=== PATIENT | male | born 1960 | race Caucasian/White ===

== ENCOUNTER 2018-01-22 12:46 | Outpatient (CLI) | payer MEDICARE, MEDICAID ==
[~2018-01-22 12:46] MED LIST: Gadobenate Dimeglumine 529 MG/1 ML (20ML VIAL) ONE
--- NOTE | 2018-01-22 14:41 | RAD ---
FOUR VIEWS CERVICAL SPINE: DATE: 01/22/18. COMPARISON: None. HISTORY: Spondylosis with myelopathy. FINDINGS: There is anterolisthesis of C3 on C4 measuring 3-4 mm. There is anterolisthesis of C4 on C5 measurin g approximately 6 mm. There is prominent degenerative change involving the facet joints throughout t he cervical spine, most prominent at C4-5. There appears to be osseous fusion at the intervertebral disk level at C5-6. No anterolisthesis or retrolisthesis is seen at the cervicothoracic junction on the swimmer's lateral view. No discrete prevertebral soft tissue swelling. Open-mouth odontoid view demonstrates a normal-appearing dens in C1-2 articulation. At C4-5, there is prominent disk space n arrowing with degenerative end plate change and anterior osteophyte formation. IMPRESSION: Severe degenerative changes are noted within the mid and lower cervical spine which include prominent anterolisthesis at C4-5 with degenerative end plate change and anterior osteophyte formation. Flexi on and extension imaging as well as cross-sectional imaging via MRI or CT may be beneficial. POS: [facility]
--- NOTE | 2018-01-22 15:34 | MRI ---
CERVICAL SPINE MRI WITHOUT CONTRAST 01/22/18 HISTORY: Cervical spondylosis. Pain. COMPARISON: None. TECHNIQUE: Cervical spine MRI is performed without intravenous gadolinium administration. Multisequential, multi planar imaging is performed. FINDINGS: 3.3 mm of anterolisthesis of C4 upon C5. There is fusion change at C5-C6 which may be postoperative. The visualized brain parenchyma, cervicomedullary junction, upper cervical cord, have an overall norm al size and signal intensity. There is subtle T2 hyperintensity and STIR hyperintensity involving the cervical cord at C4-C5 likely on the basis of malacic change. Remainder of the cervical cord is unre markable. Upper thoracic cord is also unremarkable. C2-C3: No significant central canal stenosis. Mild right foraminal narrowing. Left neural foramen is patent. C3-C4: Broad based disc osteophyte complex abuts the thecal sac. Moderate central canal stenosis. Deg enerative changes in the bilateral uncovertebral joints results in mild to moderate right and moderat e left foraminal narrowing. C4-C5: There is severe central canal stenosis secondary to spondylolisthesis. There is deformity of t he cervical cord with T2 hyperintensity in the cord suggesting malacic change. Right neural foramen a ppears to be patent. Moderate left foraminal narrowing. C5-C6: There is a broad based osteophyte ridge with a central and right paracentral component. Mild c entral canal stenosis. Neural foramina are patent. C6-C7: Right paracentral disc osteophyte complex. Mild central canal stenosis. Degenerative change in bilateral uncovertebral joints results in moderate bilateral foraminal narrowing. C7-T1: No significant central canal stenosis. Neural foramina are moderately to severely narrowed kirk aterally. Sagittal images demonstrate significant central disc bulge at T2-3, incompletely evaluated. IMPRESSION: 1. Severe central canal stenosis at C3-C4 with cord malacia. 2. Severe bilateral neural foraminal narrowing at C7-T1. 3. Presumed postoperative fusion of C5-C6. POS: [facility]
--- NOTE | 2018-01-22 16:04 | MRI ---
MRI LUMBAR SPINE WITH AND WITHOUT CONTRAST: Multiplanar, multisequential imaging lumbar spine obtained. Postcontrast images were obtained after administration of MultiHance IV. INDICATION: Lumbar spondylosis. Back pain. FINDINGS: The lumbar vertebrae maintain height. Moderate degenerative changes are present throughout. There a re prominent osteophytes from the lumbar vertebrae. Loss of disk space with degenerative disk and en d plate changes seen at all levels in the lumbar spine. At T12-L1, no significant disk bulge. Facet arthrosis without central canal or foraminal stenosis. At L1-2, broad-based disk bulge asymmetric to the right flattening the thecal sac more prominently on the right. Mild facet arthrosis. Mild central canal stenosis. At L2-3, loss of disk space with degenerative disk and end plate change. Broad-based disk bulge, Fa cet hypertrophy. Posterior epidural fat. Mild to moderate central canal stenosis. Bilateral forami nal encroachment due to disk bulge and hypertrophic change. At L3-4, broad-based disk bulge/protrusion more pronounced to the left. This flattens the thecal sac . There is facet hypertrophy and posterior epidural fat compressing the thecal sac resulting in mode rate central canal stenosis. Bilateral foraminal encroachment more prominent to the right due to asy mmetric disk bulge and facet hypertrophy. At L4-5, loss of disk space with degenerative disk and end plate change. Broad-based disk bulge. Pr onounced facet hypertrophy. Moderate central canal stenosis. There is abnormal signal in the anterior spinal canal on the left with abnormal signal migrating supe riorly consistent with disk-osteophyte complex. There is a focal area of low signal anterior spinal canal on the left just above the disk space measuring approximately 8-9 mm AP dimension suggesting a migrated disk-osteophyte complex in the anterior spinal canal above the L4-5 disk space. There is bi lateral foraminal stenosis at this level more severe on the left. CT would be of benefit to better assess the osseous changes at this level. At L5-S1, broad-based disk bulge. Facet hypertrophy. Congenitally small thecal sac without signific ant central canal stenosis. Bilateral foraminal encroachment more prominent on the right due to asym metric disk-osteophyte complex extending to the right. IMPRESSION: 1. Degenerative disk and end plate changes throughout the lumbar spine. Moderate central canal sten osis at L4-5 with evidence of extruded disk on the left with superior migration in the anterior spina l canal on the left. 2. Moderate central canal stenosis at L2-3 and L3-4 as described [address] 3[address] CT may be of benefit to further evaluate the osseous hypertrophy. POS: [facility]
== END 2018-01-22 12:47 | disposition home or self-care (01) ==
LOC: TBSIIMAG 12:46
PROVIDERS: ATTEND Neurological Surgery
DX: M47.812 Spondylosis without myelopathy or radiculopathy, cervical region (principal); M47.16 Other spondylosis with myelopathy, lumbar region; M43.12 Spondylolisthesis, cervical region; M25.78 Osteophyte, vertebrae; M51.36 Other intervertebral disc degeneration, lumbar region; M48.061 Spinal stenosis, lumbar region without neurogenic claudication; M48.02 Spinal stenosis, cervical region; M99.81 Other biomechanical lesions of cervical region; G95.89 Other specified diseases of spinal cord; M99.82 Other biomechanical lesions of thoracic region; Z98.1 Arthrodesis status
CPT/HCPCS: 72040; 72141; 72158; 82565; A9579

== ENCOUNTER 2018-06-08 06:32 | Outpatient (CLI) | payer MEDICARE, MEDICAID ==
[2018-06-08 10:25] LABS: Hemoglobin 15.2 g/dL (14.0-18.0); Mean Corpuscular HGB CONC 33.4 g/dL (32.0-36.0); Mean Corpuscular Hemoglobin 31.8 pg (27.0-31.0); Mean Corpuscular Volume 95.2 fL (78.0-98.0); Mean Platelet Volume 6.5 fL (7.4-10.4); Platelet Count 220 thou/uL (130-400); Red Blood Cell (RBC) Count 4.77 mill/uL (4.70-6.10); White Blood Cell (WBC) Count 6.2 thou/uL (4.8-10.8)
[2018-06-08 10:40] LABS: Anion Gap 11 mmol/L (10-20); BUN (Urea Nitrogen) 21 mg/dL (8.4-25.7); Calc. Creatinine Clearance 0 mL/min (70-130); Calcium 9.1 mg/dL (7.8-10.44); Carbon Dioxide 27 mmol/L (22-29); Chloride 104 mmol/L (98-107); Estimated GFR-MDRD 60; Glucose 86 mg/dL (70-105); Potassium 4.9 mmol/L (3.5-5.1); Sodium 137 mmol/L (136-145)
== END 2018-06-08 06:33 | disposition home or self-care (01) ==
LOC: LABBT 06:32
PROVIDERS: ATTEND Neurological Surgery
DX: Z01.818 Encounter for other preprocedural examination (principal); M47.812 Spondylosis without myelopathy or radiculopathy, cervical region
CPT/HCPCS: 80048; 85027; 93005; 93010

== ENCOUNTER 2018-06-08 09:00 | Inpatient (IN) | payer MEDICARE, MEDICAID ==
[2018-06-15] MEDS ORDERED: Sodium Chloride 0.9% 10 ML ONE (12:13)
[2018-06-15] MEDS ORDERED: Fentanyl 100 MCG/2 ML VIAL ONE ×5 (12:32→15:15)
[2018-06-15] MEDS ORDERED: Bacitracin Zinc Ointment 30 gm TUBE ONE (13:16)
[2018-06-15] MEDS ORDERED: HYDROmorphone 2 MG/ML VIAL SLOW IVP PRN (14:23)
[2018-06-15] MEDS ORDERED: Ondansetron HCl/PF 4 MG/2 ML Vial IVP PRN (14:23)
[2018-06-15] MEDS ORDERED: Promethazine HCl 25 MG/ML VIAL SLOW IVP PRN (14:23)
[2018-06-15] MEDS ORDERED: Promethazine HCl 25 MG/ML VIAL IM PRN ×2 (14:23→15:08)
[2018-06-15] MEDS ORDERED: Meperidine HCl/PF 25 MG/ML VIAL SLOW IVP PRN (14:23)
[2018-06-15] MEDS ORDERED: Meperidine HCl/PF 25 MG/ML VIAL ONE (14:51)
[2018-06-15] MEDS ORDERED: Mag-Al 1200 mg/1200 mg/30 ML UDCUP PO PRN (15:08)
[2018-06-15] MEDS ORDERED: diphenhydrAMINE 25 MG CAP PO PRN (15:08)
[2018-06-15] MEDS ORDERED: traMADol HCl 50 MG TAB PO PRN (15:08)
[2018-06-15] MEDS ORDERED: HYDROcodone/Acetaminophen 10/325 mg Tablet PO PRN (15:08)
[2018-06-15] MEDS ORDERED: Promethazine HCl 12.5 MG SUPP PR PRN (15:08)
[2018-06-15] MEDS ORDERED: Milk Of Magnesia 30 ML UDCUP PO PRN (15:08)
[2018-06-15] MEDS ORDERED: Promethazine 25 MG TAB PO PRN (15:08)
[2018-06-15] MEDS ORDERED: Morphine 4 MG/ML VIAL SLOW IVP PRN (15:08)
[2018-06-15] MEDS ORDERED: diphenhydrAMINE 50 MG/ML VIAL IVP PRN (15:08)
[2018-06-15] MEDS ORDERED: Ondansetron PF 4 MG/2 ML Vial IVP PRN (15:17)
[2018-06-15] MEDS ORDERED: CODEINE PO PRN (15:22)
[2018-06-15] MEDS ORDERED: ACETAMINOPHEN PO PRN (15:22)
[2018-06-15] MEDS ORDERED: HYDROmorphone 2 MG/ML VIAL ONE (15:27)
[2018-06-15] MEDS ORDERED: Ondansetron PF 4 MG/2 ML Vial ONE (17:00)
[2018-06-15] MEDS ORDERED: PHENYLEPHRINE-NS 100 MCG/ML 10 ML SYRINGE ONE (17:00)
[2018-06-15] MEDS ORDERED: Rocuronium Bromide 10 MG/ML (10ML VIAL) ONE (17:00)
[2018-06-15] MEDS ORDERED: Glycopyrrolate 0.2 MG/ML 5 ML SYRINGE ONE (17:00)
[2018-06-15] MEDS ORDERED: Metoclopramide HCl 10 MG/2 ML VIAL ONE (17:00)
[2018-06-15] MEDS ORDERED: Ketorolac Tromethamine 30 MG/ML VIAL ONE (17:00)
[2018-06-15] MEDS ORDERED: Dexamethasone 20 MG/5 ML VIAL ONE (17:00)
[2018-06-15] MEDS ORDERED: PROPOFOL 200 MG/20 ML VIAL ONE (17:00)
[2018-06-15 17:31] VITALS: BMI 43.0
--- NOTE | 2018-06-15 17:48 | OP ---
DATE OF PROCEDURE: 06/15/2018 TELEHEALTH NURSE: Emerson Maxwell PA-C. PROCEDURES PERFORMED: Anterior cervical diskectomy C4-C5, interbody arthrodesis, intervertebral biomechanical device, local morselized autograft, demineralized bone matrix, anterior titanium instrumentation C4-C5, expiration of spinal fusion C5-C6; posterior approach C4-C5 laminectomy, C4-C5 posterolateral arthrodesis, lateral mass screw instrumentation, demineralized bone matrix, local morselized autograft C4-C5. DESCRIPTION OF PROCEDURE: The patient was brought to the operating room and intubated. He was positioned supine in modest extension on a gel-filled donut. Exposure was quite difficult given the patient's very large body habitus, but was also difficult given prior scar from endarterectomy and prior cervical surgery, dissected medial to the sternocleidomastoid muscle, identified the C4-C5 level and the level was confirmed by x-ray. We placed distraction across the disk space and debrided osteophytes. We debrided the intervertebral disk down to the PLL decompressing the neural elements from this approach. We then decorticated the bony endplates of the purpose of arthrodesis, and appropriate-sized intervertebral biomechanical PEEK device was brought into the field and filled with demineralized bone matrix and local morselized autograft, and tapped in place securely at C4-C5. Next, an anterior plate was brought into the field and secured at C4 and C5 using two 14-mm screws at each level achieving 7 degree of reduction using the plate. We next explored the C5-C7 anterior fusion and found to be solid. This wound was then extensively irrigated. Maximum hemostasis was secured, and the wound was closed in anatomic layers over drain. The patient was then rolled in a prone position with the head fixed in a Jayda housekeeper head in neutral position. Midline incision was made exposing C4-C5 and level was confirmed by x-ray. We performed complete C5 and complete C4 laminectomy, completely decompressing the neural elements. We then placed lateral mass screws on the right at C4 and C5, connected by celina secured by nuts, which were final tightened. The wound was then extensively irrigated, and maximum hemostasis was secured. Combination of demineralized bone matrix and local morselized autograft was laid over the left posterolateral surface of the purpose of arthrodesis. Vancomycin powder was applied, and the wound was closed in anatomic layers over drain. Job ID: [id number]
[2018-06-15] MEDS ORDERED: CEFAZOLIN 2 GM in Premix Bag 1 BAG IVPB SCH (18:00)
[2018-06-15] MEDS: Sodium Chloride 0.9% 1,000 ML IV SCH (19:16)
[2018-06-15] MEDS: CEFAZOLIN 2 GM in Premix Bag 1 BAG IVPB SCH (20:08)
[2018-06-15] MEDS: clonazePAM 1 MG TAB PO SCH (20:09)
[2018-06-15] MEDS: traZODone HCl 150 MG TAB PO SCH (20:09)
[2018-06-15] MEDS: Nicotine 14 MG PATCH TOP SCH (21:55)
[2018-06-15] MEDS: traMADol HCl 50 MG TAB PO PRN (22:26)
[2018-06-16] MEDS: HYDROcodone/Acetaminophen 10/325 mg Tablet PO PRN ×4 (03:14→22:44)
[2018-06-16] MEDS: CEFAZOLIN 2 GM in Premix Bag 1 BAG IVPB SCH (05:11)
[2018-06-16] MEDS: Sodium Chloride 0.9% 1,000 ML IV SCH ×2 (05:56→17:34)
--- NOTE | 2018-06-16 05:59 | CON ---
DATE OF CONSULTATION: REASON FOR CONSULTATION: Medical management. HISTORY OF PRESENT ILLNESS: He is a 57-year-old male with history of hypertension, underwent cervical fusion, anterior and posterior. Postop, he has adequate pain control and has drain intact. He denies any chest pain or shortness of breath. His vital signs; pulse 94, blood pressure 135/76, respirations 17, temperature 97.4. PAST MEDICAL HISTORY: Hypertension and cervical stenosis. MEDICATIONS: Medicines taking at home, 1. Lisinopril 30 mg daily. 2. Amlodipine 5 mg daily. 3. Lasix 20 mg daily. 4. Tylenol No.4 for the pain. 5. Effexor 225 daily. 6. Plavix 75 daily. 7. Aspirin 81 daily. PERSONAL HISTORY: Denies alcohol and drug use. FAMILY HISTORY: Noncontributory. REVIEW OF SYSTEMS: CONSTITUTIONAL: No fever. No malaise. RESPIRATORY: No short of breath. No wheezing. No cough. CARDIOVASCULAR: No chest pain. No palpitation. No PND. No orthopnea. ABDOMEN: No nausea. No vomiting. MUSCULOSKELETAL: He has neck pain and back pain. HEMATOLOGIC/LYMPHATIC: No any bruising or clot disorder. SKIN: No rash. PHYSICAL EXAMINATION: GENERAL: When examined, he is a middle-aged man, lying in the bed, not in distress. VITAL SIGNS: Pulse 94, blood pressure 117/68, respirations 16, and temperature 98.4. HEENT: Head is atraumatic and normocephalic. Pupils are round and reactive. NECK: He has a drain in place status post surgery. CHEST: Normal vesicular breathing. No added sounds. CVS: S1 audible. No S3 or S4. ABDOMEN: Soft. Bowel sounds are audible. EXTREMITIES: No pedal edema. ASSESSMENT AND PLAN: 1. Cervical stenosis, status post cervical fusion and laminectomy. Continue postop care and pain management. 2. Hypertension. Continue lisinopril and amlodipine. 3. History of chronic obstructive pulmonary disease, on aspirin and Plavix. We hold at this point. Job ID: [id number] MTDD
[2018-06-16] MEDS: Venlafaxine HCl XR 75 MG CAP PO SCH (08:02)
[2018-06-16] MEDS: Furosemide 20 MG TAB PO SCH (08:02)
[2018-06-16] MEDS: Amlodipine 5 MG TAB PO SCH (08:02)
[2018-06-16] MEDS: Lisinopril 10 MG TAB PO SCH (08:03)
[2018-06-16] MEDS: tiZANidine HCl 4 MG TAB PO PRN (12:44)
[2018-06-16] MEDS: clonazePAM 1 MG TAB PO SCH (20:19)
[2018-06-16] MEDS: traZODone HCl 150 MG TAB PO SCH (20:19)
[2018-06-16] MEDS: Nicotine 14 MG PATCH TOP SCH (21:19)
[2018-06-17] MEDS: traMADol HCl 50 MG TAB PO PRN (02:20)
[2018-06-17] MEDS: tiZANidine HCl 4 MG TAB PO PRN (02:21)
[2018-06-17] MEDS: HYDROcodone/Acetaminophen 10/325 mg Tablet PO PRN ×2 (03:35→09:08)
[2018-06-17] MEDS: Sodium Chloride 0.9% 1,000 ML IV SCH (06:07)
--- NOTE | 2018-06-17 07:51 | PDOC.PN ---
- Subjective Encounter Start Date: 06/17/18 Encounter Start Time: 09:35 Subjective: Neck pain controlled with pain meds. No chest pain. Baseline SOB from -: COPD, getting nebs. - Objective MAR Reviewed: Yes Vital Signs & Weight: Vital Signs (12 hours) Temp Pulse Resp BP Pulse Ox 06/17/18 04:38 97.7 F 95 20 104/61 95 06/17/18 00:51 97.9 F 94 20 119/68 94 L 06/16/18 20:46 98.7 F 92 20 118/68 92 L 06/16/18 20:09 92 L Weight Weight 300 lb I&O: 06/16/18 06/17/18 06/18/18 06:59 06:59 06:59 Intake Total 1637.5 980 Output Total 1855 Balance -217.5 980 Phys Exam - Physical Examination Constitutional: NAD HEENT: moist MMs anterior dressing c/d/i Respiratory: no wheezing, no rales, no rhonchi Cardiovascular: RRR Gastrointestinal: soft, positive bowel sounds Neurological: non-focal, moves all 4 limbs Psychiatric: normal affect, A&O x 3 Dx/Plan (1) Hypertension Code(s): I10 - ESSENTIAL (PRIMARY) HYPERTENSION Status: Chronic Qualifiers: Hypertension type: essential hypertension Qualified Code(s): I10 - Essential (primary) hypertension Comment: On home medication, well controlled (2) COPD (chronic obstructive pulmonary disease) Status: Chronic Comment: on home inhaler and nebs prn (3) S/P cervical spinal fusion Status: Acute Comment: holding aspiring and plavix (4) Peripheral vascular disease Code(s): I73.9 - PERIPHERAL VASCULAR DISEASE, UNSPECIFIED Status: Chronic Comment: Hx right CEA (5) CAD (coronary artery disease) Code(s): I25.10 - ATHSCL HEART DISEASE OF [place] CORONARY ARTERY W/O ANG PCTRS Status: Chronic Qualifiers: Coronary Disease-Associated Artery/Lesion type: [place] artery Comment: Dr. James unable to place stents per patient, on ASA and Plavix, hold these for 2 weeks after the surgery - Plan cont current plan of care, PT/OT, DVT proph w/SCDs Home today, Neuro Surg followup in 2 weeks * . - Discharge Day Encounter end time: 09:45
[2018-06-17 08:11] VITALS: TEMP 98.7
[2018-06-17] MEDS ORDERED: VILANTEROL TR INH SCH (09:00)
[2018-06-17] MEDS ORDERED: Non-Formulary Item 1 EACH (Umeclidinium Brm/Vilanterol Tr [Anoro Ellipta] 1 PUFF) INH SCH (09:00)
[2018-06-17] MEDS ORDERED: UMECLIDINIUM BRM INH SCH (09:00)
[2018-06-17] MEDS: Furosemide 20 MG TAB PO SCH (09:07)
[2018-06-17] MEDS: Venlafaxine HCl XR 75 MG CAP PO SCH (09:07)
[2018-06-17 09:12] VITALS: BP 140/81
[2018-06-17] MEDS: Amlodipine 5 MG TAB PO SCH (09:12)
[2018-06-17] MEDS: Lisinopril 10 MG TAB PO SCH (09:12)
--- NOTE | 2018-06-17 11:50 | DIS ---
DATE OF ADMISSION: 06/15/2018 DATE OF DISCHARGE: 06/17/2018 HOSPITAL COURSE: The patient is a 57-year-old male, status post C4-C5 anterior and posterior decompression and fusion for severe cervical stenosis with cervical myelopathy. Following the surgery, he was transitioned to the [facility] [place], where his pain has been well controlled with p.o. medications, he has been tolerating a regular diet, and voiding appropriately. FANTA drains were placed anterior and posterior intraoperatively and these trended downward nicely and were removed on postoperative day #1. The patient has been up ambulating short distance in the hallway with a walker with Physical Therapy. We did initially recommend inpatient rehabilitation considering to his significant cervical myelopathy. However, the patient is adamant that he will return home and we will arrange home health therapy. The patient is up standing at the bedside with physical therapy this morning. He is awake, alert, comfortable. He has free active range of motion of all extremities and a steady gait with a walker. His incisions are dry and soft and intact. The patient appears to be healing appropriate postoperatively. He is appropriate for discharge home with home health today. He has been provided instructions and scripts for discharge. Job ID: [id number]
--- NOTE | 2018-06-17 13:27 | PQF ---
MELINA LICEA RYAN ANDREW MD [id number] SURG A- [id number] CLINICAL DOCUMENTATION IMPROVEMENT CLARIFICATION FORM: ICD-10 Updated PLEASE DO AN ADDENDUM TO THE PROGRESS NOTE WITH ANY DOCUMENTATION UPDATES OR ADDITIONS AND CARRY THROUGH TO DC SUMMARY. THANK YOU. DATE: 06/17/2018 ATTN: DR. KYLE Please exercise your independent, professional judgment in responding to the clarification form. Clinical indicators are provided on the bottom of this form for your review Please check appropriate box(s) BMI > 40 with associated diagnosis of: [ X ] Morbid (Severe) Obesity [ X ] Due to excess calories [ ] with Alveolar Hypoventilation (Pickwickian syndrome) [ ] Overweight [ ] Obesity [ ] Other diagnosis [ ] Unable to determine For continuity of documentation, please document condition throughout progress notes and discharge summary. Thank You. BMI < 19 Under weight 19 - 24.9 Healthy 25.0 - 29.9 Slightly Overweight 30.0 - 34.9 Obese 35.0 - 39.9 Severely Obese 40.0 and Over Morbidly Obese CLINICAL INDICATORS - SIGNS / SYMPTOMS / LABS 06/15-NN: BMI of 43.0; Ht 5'10 and Wt 300-lbs 06/15-NN: Walks occasionally. RISK FACTORS Cervical stenosis TREATMENTS PT/OT after surgery Thank you, Maricel (This form is maintained as a part of the permanent medical record) 2014 [employer]. All Rights Reserved Maricel Herrera RN, CDIS [email or web address] [phone] MTDD
== END 2018-06-17 11:03 | disposition home or self-care (01) | DRG 454 ==
LOC: SURG A 06-15 08:59
PROVIDERS: ADMIT Neurological Surgery; ATTEND Neurological Surgery
PROC: 0RG10A0 Fusion of Cervical Vertebral Joint with Interbody Fusion Device, Anterior Approach, Anterior Column, Open Approach (ICD-10-PCS; principal; 2018-06-15)
PROC: 0RG1071 Fusion of Cervical Vertebral Joint with Autologous Tissue Substitute, Posterior Approach, Posterior Column, Open Approach (ICD-10-PCS; 2018-06-15)
PROC: 0RB30ZZ Excision of Cervical Vertebral Disc, Open Approach (ICD-10-PCS; 2018-06-15)
DX: M48.02 Spinal stenosis, cervical region (principal); G99.2 Myelopathy in diseases classified elsewhere; Z68.41 Body mass index [BMI] 40.0-44.9, adult; I10 Essential (primary) hypertension; J44.9 Chronic obstructive pulmonary disease, unspecified; E66.01 Morbid (severe) obesity due to excess calories; I73.9 Peripheral vascular disease, unspecified; I25.10 Atherosclerotic heart disease of native coronary artery without angina pectoris; Z79.82 Long term (current) use of aspirin; Z79.02 Long term (current) use of antithrombotics/antiplatelets; Z79.899 Other long term (current) drug therapy
CPT/HCPCS: 76000; 94640; C1713; C1768; C1776; J0131; J1100; J1170; J1885; J2175; J2270; J2405; J2704; J2765; J3010; J3370; J3490; J7620

== ENCOUNTER 2018-06-30 15:36 | Outpatient (CLI) | payer MEDICARE, MEDICAID ==
--- NOTE | 2018-06-30 15:58 | RAD ---
CERVICAL SPINE TWO VIEWS: History: Neck surgery. FINDINGS: Anterior fixation plate and posterior facet fixation at the C4-5 level. Metallic markers associated w ith interbody fusion material are within the confines of the disc space. Spondylolisthesis at the pos t-operative level has been nearly completely reduced. Other vertebral body heights and alignment are unchanged. Metallic clips overlie the right carotid ar teries. IMPRESSION: Post-operative fixation of the spine at the C4-5 level. POS: [facility]
== END 2018-06-30 15:37 | disposition home or self-care (01) ==
LOC: TBSIIMAG 15:36
PROVIDERS: ATTEND Neurological Surgery
DX: G95.9 Disease of spinal cord, unspecified (principal); Z98.890 Other specified postprocedural states
CPT/HCPCS: 72040

== ENCOUNTER 2018-08-11 14:56 | Outpatient (CLI) | payer MEDICARE, MEDICAID ==
--- NOTE | 2018-08-11 17:57 | RAD ---
RADIOGRAPH CERVICAL SPINE 3 VIEWS: 08/11/18 HISTORY: 57-year-old male with cervicalgia and cervical spondylosis. Postsurgical followup. COMPARISON: 06/30/18. FINDINGS: The dorsal skin staple have been removed. There has been no other interval change. Unilateral right p osterior element screws with vertical interlocking celina at C4 and C5. Anterior metallic plate and scre ws at C4 and C5. Widened intervertebral disc space, where there are tiny metallic markers for interbo dy graft. Grade I anterolisthesis of C4 on C5. Lesser degree of grade I anterolisthesis of C3 on C4. Ankylosis between C5 and C6 vertebral bodies. Laminectomy defects at C4 and C5. The mild prevertebral soft tissue swelling demonstrated previously has improved. No change in alignment. IMPRESSION: 1. Surgical treatment of the prominent grade I spondylolisthesis at C4-5 with anterior cervical discectomy and fusion, right posterior element pedicle screw placement, and laminectomy. 2. 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 TRESA [] POS: [facility]
== END 2018-08-11 14:57 | disposition home or self-care (01) ==
LOC: TBSIIMAG 14:56
PROVIDERS: ATTEND Neurological Surgery
DX: M48.02 Spinal stenosis, cervical region (principal); M43.12 Spondylolisthesis, cervical region
CPT/HCPCS: 72040

== ENCOUNTER 2018-08-23 11:38 | Inpatient (IN) | payer MEDICARE, MEDICAID ==
[2018-08-23] MEDS ORDERED: Naloxone HCl 0.4 mg/ml Vial ONE (11:51)
[2018-08-23 12:07] LABS: #Basophils 0.1 thou/uL (0.0-0.2); #Eosinphils 0.3 thou/uL (0.0-0.7); #Lymphocytes 2.1 thou/uL (1.20-3.40); #Monocytes 0.8 thou/uL (0.11-0.59); #Neutrophils 3.8 thou/uL (1.40-6.50); %Basophils 0.8 % (0.0-1.0); %Eosinophils 4.2 % (0.0-10.0); %Lymphocytes 29.5 % (21.0-51.0); %Neutrophils 53.6 % (42.0-75.0); Hemoglobin 13.6 g/dL (14.0-18.0); Mean Corpuscular HGB CONC 33.1 g/dL (32.0-36.0); Mean Corpuscular Hemoglobin 31.8 pg (27.0-31.0); Mean Corpuscular Volume 96.1 fL (78.0-98.0); Mean Platelet Volume 6.9 fL (7.4-10.4); Platelet Count 224 thou/uL (130-400); RBC Distribution Width 12.2 % (11.5-14.5); Red Blood Cell (RBC) Count 4.28 mill/uL (4.70-6.10)
--- NOTE | 2018-08-23 12:21 | CT ---
CT HEAD WITHOUT IV CONTRAST COMPARISON: None HISTORY: Altered mental status. TECHNIQUE: Axial CT imaging at 5 mm intervals from vertex through skull base without contrast FINDINGS: There is mild cerebral volume loss. There is no evidence of an acute infarction, hemorrhage, mass eff ect, or midline shift. The ventricular system is normal in size, shape, and position. Visualized paranasal sinuses are clear. Osseous structures appear intact.There does appear to be a remote fracture involving the left nasal b one. There are small focal lucencies surrounding the remaining incisor teeth in the mandible. Findings are suggestive of periapical abscesses. IMPRESSION: 1. No acute intracranial abnormality demonstrated.
[2018-08-23 12:26] LABS: ALT (SGPT) 25 U/L (8-55); AST (SGOT) 30 U/L (5-34); Albumin 3.9 g/dL (3.5-5.0); Alkaline Phosphatase 126 U/L (40-150); Anion Gap 16 mmol/L (10-20); BUN (Urea Nitrogen) 40 mg/dL (8.4-25.7); Bilirubin, Total 0.5 mg/dL (0.2-1.2); Calc. Creatinine Clearance 0 mL/min (70-130); Calcium 8.7 mg/dL (7.8-10.44); Carbon Dioxide 25 mmol/L (22-29); Chloride 104 mmol/L (98-107); Estimated GFR-MDRD 19; Globulin 3.4 g/dL (2.4-3.5); Glucose 71 mg/dL (70-105); Potassium 6.5 mmol/L (3.5-5.1); Protein, Total 7.3 g/dL (6.0-8.3); Sodium 138 mmol/L (136-145)
[2018-08-23 12:28] LABS: Acetaminophen Less than 6.0 mcg/mL (10.0-30.0); Alcohol Less than 10 mg/dL (Less than 10); Salicylate Less than 8.0 mg/dL (15.0-30.0)
--- NOTE | 2018-08-23 12:33 | RAD ---
Exam: Chest one view HISTORY:Altered mental status Comparison: None FINDINGS: Lungs: Interstitial prominence bilaterally Cardiac silhouette:Enlarged Pulmonary vessels: Engorged Pleural Spaces: Mild pleural-based densities bilaterally Pneumothorax: None Osseous abnormalities: None of acuity. IMPRESSION: Decompensated CHF
[2018-08-23 12:55] LABS: Actual Bicarbonate (HCO3a) 22.6 mEq/L (22-28); Analyzer IN Cardio ER; Base Excess (BEa) -4.5 mEq/L (-2.0 to +3.0); CO2 Tension 49.6 mmHg (35.0-45.0); Calcium, Ionized 1.11 mmol/L (1.12-1.30); Carboxyhemoglobin (COHb) 2.8 gm% (0.0-3.0); Hemoglobin (Hb) 13.3 g/dL (14.0-18.0); O2 Tension (PaO2) 67.6 mmHg (80.0-100.0); Potassium - ABG Lab 5.27 mmol/L (3.70-5.30); pH, Arterial 7.28 (7.35-7.45)
[2018-08-23 12:58] LABS: Puncture Site LR
[2018-08-23] MEDS ORDERED: Albuterol Sulfate 2.5 mg/0.5 ml Neb ONE (13:03)
[2018-08-23] MEDS ORDERED: Calcium Chloride 1 GM/10 ML Abboject SYRINGE ONE (13:07)
[2018-08-23] MEDS ORDERED: Dextrose 50% Abboject 50 ML SYRINGE ONE ×2 (13:07→14:35)
[2018-08-23] MEDS ORDERED: Insulin Regular 300 UNITS/3 ML VIAL ONE (13:07)
[2018-08-23] MEDS ORDERED: Zolpidem Tartrate 5 MG TAB PO PRN (13:16)
[2018-08-23] MEDS ORDERED: HYDROcodone/Acetaminophen 5/325 mg Tablet PO PRN (13:16)
[2018-08-23] MEDS ORDERED: Ondansetron PF 4 MG/2 ML Vial IVP PRN (13:16)
[2018-08-23] MEDS ORDERED: Guaifenesin DM 100-10/5 ML UDCUP PO PRN (13:16)
[2018-08-23] MEDS ORDERED: Sodium Bicarb 50 MEQ/50 ML VIAL ONE ×2 (13:22→13:23)
[2018-08-23] MEDS ORDERED: Sodium Bicarb 50 MEQ/50 ML Abboject 8.4% SYRINGE ONE (13:23)
--- NOTE | 2018-08-23 13:32 | PDOC.EVN ---
Event Note - Event Note Event Note: H&P #[id number]
[2018-08-23 13:41] LABS: Bilirubin Small (Negative); Blood, Urine Negative (Negative); Clarity CLEAR (Clear); Glucose, Urine (Dipstick) Negative (Negative); Leukocyte Negative (Negative); Nitrite Negative (Negative); Protein, Urine (Dipstick) Trace mg/dL (Neg-Trace); Specific Gravity, Urine 1.019 (1.002-1.036)
[2018-08-23 13:52] LABS: Benzodiazepine Screen Detected (NotDetected); Medtox Reader # READER 4; Opiate Screen Detected (NotDetected)
[2018-08-23 13:53] LABS: Amphetamine Not Detected (NotDetected); Barbiturates Screen Not Detected (NotDetected); Cocaine Metabolite Screen Not Detected (NotDetected); Medtox Control Line Valid? VALID (VALID); Methadone Not Detected (NotDetected); Methamphetamine Not Detected (NotDetected); Oxycodone Screen Not Detected (NotDetected); Phencyclidine (PCP) Not Detected (NotDetected); THC/Cannabinoid Screen Not Detected (NotDetected); Tricyclic Screen Not Detected (NotDetected)
--- NOTE | 2018-08-23 14:47 | ULT ---
EXAM: US Renal Bilateral STANDARD PROVIDED CLINICAL HISTORY: Acute renal failure COMPARISON: None FINDINGS: The most inferior pole right kidney is not well seen due to shadowing from adjacent bowel gas. Right kidney otherwise demonstrates a normal sonographic appearance without evidence of a renal mass, renal calculus, or hydronephrosis. The right kidney measures 10.3 cm x 6 cm. The left kidney demonstrates a normal sonographic appearance without evidence of a renal mass, renal calculus, or hydronephrosis. The right kidney measures 12 cm x 4.3 cm. The urinary bladder is partially distended and has a normal sonographic appearance. Urinary bladder v olume is 218.8 mL. IMPRESSION: Incomplete visualization of the most inferior portion of the inferior pole right kidney. The kidneys otherwise demonstrate a normal sonographic appearance bilaterally, and there is no evidence of hydronephrosis.
[2018-08-23 16:51] LABS: Troponin I Less than 0.010 ng/mL (< 0.028)
[2018-08-23 17:24] VITALS: BMI 44.9
--- NOTE | 2018-08-23 17:29 | HP ---
CHIEF COMPLAINT: Change in mental status. HISTORY OF PRESENT ILLNESS: This is a 57-year-old male, admitted to the Internal Medicine Service from the hospital. The patient's daughter is at bedside, who provides majority of the history. The patient himself is not able to talk or provide any history given altered mental status. Per the patient's daughter, the patient apparently had neck surgery back in March and thereafter was feeling jittery. He was recently started on Valium outpatient as well as his narcotic pain medication. The patient in the last two weeks has been having changes in mental status and his behavioral patterns. The daughter stated that last was the last time that the patient was normal approximately 4 days ago. The patient's daughter states that she stopped the Valium and all of the patient's home medications for the last 48 hours to see how the patient responds. However, the patient continued to deteriorate, so she brought the patient to the hospital today. The patient has never had this happen to her before. Per daughter, no alleviating or aggravating factors. No other associated symptoms or complaint. All further history is obtained from chart review. ALLERGIES: NO KNOWN DRUG ALLERGIES. HOME MEDICATIONS: See MAR. PAST MEDICAL HISTORY: COPD, hypertension, hyperlipidemia, arthritis, and congestive heart failure. FAMILY HISTORY: Positive for hypertension, diabetes, and coronary artery disease. SOCIAL HISTORY: The patient is a social drinker and currently smokes actively one pack a day. REVIEW OF SYSTEMS: All systems are reviewed, pertinent positive in HPI, otherwise negative. PHYSICAL EXAMINATION: VITAL SIGNS: Blood pressure is 148/88, respiratory rate of 22, O2 saturation 100%, the patient is getting a breathing treatment at the time of evaluation, heart rate of 90. GENERAL: The patient is lying flat in bed, no acute discomfort, not talking, appears to be sleeping. HEENT: Pupils are equal, round, and reactive to light and accommodation. Extraocular muscles are intact. Oral cavity is moist and pink. NECK: Supple, mobile, nontender. Thyroid appreciated. PULMONARY: Expiratory wheezing. Decreased breath sounds in the bilateral lower lobes as well. CARDIOVASCULAR: Regular rate and rhythm. S1 and S2. No murmurs, rubs, or gallops. ABDOMEN: Rotund. Positive bowel sounds. Soft, nontender, and nondistended. EXTREMITIES: 2+ peripheral pulses in the radial pulse as well as the popliteal pulse. 2+ pitting edema in the bilateral lower extremities. NEUROLOGIC: The patient is arousable to sternal rub. Responds to verbal stimuli, but not coherent and talkative fully. Follows some commands. LABORATORY DATA: Reviewed. CBC, BMP, ABG, and coagulation panel are reviewed and toxicology drug screen as well as chest x-ray and CT head. ASSESSMENT: 1. Altered mental status. 2. Acute renal failure. 3. Hypercarbic respiratory insufficiency. 4. Hyperkalemia. 5. Congestive heart failure, decompensation. 6. Chronic obstructive pulmonary disease. 7. Hypertension. PLAN: At this point in time, we will consult Nephrology and Cardiology Services. The patient has been treated with hyperkalemia in the ER. We will repeat his potassium levels at 7:00 p.m. today. ER surgical processor requested to consult and make Nephrology immediately, who have consulted. We will obtain retroperitoneal ultrasound as well to check for any renal architectural abnormalities. If obstruction is an issue, we will start the patient on a Dela Cruz catheter. We will consult Cardiology give the patient Lasix. The patient appears overtly volume overloaded. Cardiac ultrasound ordered and pending. Telemonitoring. We will trend troponins as well. Continue home medications as appropriate. Case and plan discussed with the patient's daughter at length. No other family at bedside. She understands and agrees with this plan. Job ID: [id number]
[2018-08-23 17:59] LABS: Creatinine, Urine 66.77 mg/dL (63-166)
[2018-08-23 18:37] LABS: Anion Gap 12 mmol/L (10-20); BUN (Urea Nitrogen) 34 mg/dL (8.4-25.7); Calc. Creatinine Clearance 62 mL/min (70-130); Calcium 9.2 mg/dL (7.8-10.44); Carbon Dioxide 26 mmol/L (22-29); Chloride 108 mmol/L (98-107); Estimated GFR-MDRD 27; Glucose 64 mg/dL (70-105); Potassium 5.4 mmol/L (3.5-5.1); Sodium 141 mmol/L (136-145)
[2018-08-23 18:42] LABS: Troponin I Less than 0.010 ng/mL (< 0.028)
[2018-08-23] MEDS: Furosemide 40 MG/4 ML VIAL SLOW IVP SCH (19:01)
[2018-08-23] MEDS: Heparin 5,000 UNITS/ML VIAL SC SCH (20:47)
--- NOTE | 2018-08-23 20:51 | CON ---
DATE OF CONSULTATION: HISTORY OF PRESENT ILLNESS: Mr. Mosher is a 57-year-old white male, who was admitted for mental status change. He was also found to be in CHF. During the initial workup, hyperkalemia was noted. He was given Kayexalate with improvement in the potassium. His breathing is a little better. We are now being consulted for his acute kidney injury/chronic renal failure. REVIEW OF SYSTEMS: No chest pain. Positive for mental status change. No nausea. No vomiting. No diarrhea. No constipation. Positive for mild shortness of breath. No chest pain. No syncopal episode. No fever or chills. No gross hematuria. No dysuria. No urinary frequency. No hematochezia. No melena. No hematemesis. MEDICATIONS: 1. DuoNeb q.4 p.r.n. 2. Norvasc 5 mg daily. 3. Ecotrin 81 mg daily. 4. Lipitor 40 mg at bedtime. 5. Plavix 75 mg once a day. 6. Furosemide 40 mg IV q.12. 7. Heparin 5000 units subcu b.i.d. 8. Protonix 40 mg tablet once a day. HOME MEDICATIONS: Included; 1. Hydrocodone 5/325 q.4 p.r.n. 2. He was reported to have been on lisinopril 1 tablet once a day. PAST MEDICAL HISTORY: Includes the following; 1. He has coronary artery disease - status post DE. 2. Morbid obesity status post herniated disk, peripheral vascular disease. He has history of hyperlipidemia status post CHF, COPD, and DJD. PAST SURGICAL HISTORY: Status post laparoscopic cholecystectomy, status post colonoscopy, status post cervical neck surgery, and status post cardiac cath. SOCIAL HISTORY: The patient lives in [facility] [place], but originally from [place]. 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 Total of 5 children. Smoked for at least 40 years 1 pack a day. Still smoking. He is medically disabled. He denies any IV drug abuse. Denies any blood transfusion. No alcohol use. FAMILY HISTORY: No family history of ESRD. ALLERGIES: UNKNOWN. TRAUMA: None. IMMUNIZATION: Up-to-date. HOSPITALIZATIONS: Please see past medical history. PHYSICAL EXAMINATION: VITAL SIGNS: Blood pressure is 115/74, heart rate 70, and pulse ox 98%. GENERAL: He is sleepy, but arousable, can follow simple commands, not in overt distress, morbidly obese. SKIN: Adequate turgor. HEENT: He has a pinkish conjunctivae. Anicteric sclerae. NECK: No neck mass. No carotid bruits. No JVD. CHEST: No deformities. LUNGS: Decreased breath sounds. HEART: Normal sinus rhythm. No murmur. No gallops. No rubs. ABDOMEN: Globular, soft, and nontender. No masses. EXTREMITIES: Trace edema. LABORATORY DATA: Laboratories of August 23, 2018, urinalysis; protein is trace, urine sodium 79, and urine creatinine 66. Sodium 141, potassium 5.4, chloride 108, carbon dioxide 26, BUN 34, creatinine 2.43, glucose 64, and calcium 9.2. Troponin I less than 0.010 and BNP is 14.8. Chemistries of August 23, 2018, 11:53, potassium 6.5 and creatinine 3.42. TSH is 0.5. Chest x-ray of August 23, 2018, showed decompensated CHF. Renal ultrasound of August 23, 2018 shows kidneys relatively benign-looking. No evidence of hydronephrosis. ASSESSMENT AND PLAN: 1. Acute kidney injury/chronic renal failure - possibility of hemodynamically-mediated renal dysfunction secondary to a congestive heart failure remains. Unclear if he has had definitive chronic renal failure. He does have a trace protein, which could be related from a possible underlying hypertensive nephropathy. Management supportive. Continue to optimize hemodynamics. Agree with current diuretic regimen. No indication for any dialytic intervention. Please note, the creatinine is slightly improved. 2. Hyperkalemia, resolved with Kayexalate. Continue current management. Continue to hold off angiotensin-converting enzyme inhibitors. 3. Mental status change - this could be metabolic in etiology. 4. Shortness of breath - multifactorial. This could be a combined congestive heart failure and/or chronic obstructive pulmonary disease exacerbation. Overall, agree with current management. Job ID: [id number]
[2018-08-23] MEDS ORDERED: Atorvastatin Calcium 40 MG TAB PO SCH (21:00)
[2018-08-24 05:29] LABS: #Eosinphils 0.2 thou/uL (0.0-0.7); #Lymphocytes 1.4 thou/uL (1.20-3.40); #Monocytes 0.6 thou/uL (0.11-0.59); %Basophils 0.2 % (0.0-1.0); %Lymphocytes 19.9 % (21.0-51.0); %Monocytes 8.2 % (0.0-10.0); %Neutrophils 68.8 % (42.0-75.0); Hemoglobin 14.5 g/dL (14.0-18.0); Mean Corpuscular HGB CONC 32.7 g/dL (32.0-36.0); Mean Corpuscular Hemoglobin 31.3 pg (27.0-31.0); Mean Corpuscular Volume 95.8 fL (78.0-98.0); Mean Platelet Volume 6.8 fL (7.4-10.4); Platelet Count 227 thou/uL (130-400); RBC Distribution Width 12.2 % (11.5-14.5); Red Blood Cell (RBC) Count 4.62 mill/uL (4.70-6.10); White Blood Cell (WBC) Count 7.2 thou/uL (4.8-10.8)
[2018-08-24 05:58] LABS: Anion Gap 13 mmol/L (10-20); BUN (Urea Nitrogen) 26 mg/dL (8.4-25.7); Calc. Creatinine Clearance 111 mL/min (70-130); Calcium 9.5 mg/dL (7.8-10.44); Carbon Dioxide 26 mmol/L (22-29); Chloride 106 mmol/L (98-107); Estimated GFR-MDRD 54; Glucose 86 mg/dL (70-105); Potassium 5.4 mmol/L (3.5-5.1); Sodium 140 mmol/L (136-145)
[2018-08-24 06:01] LABS: Troponin I Less than 0.010 ng/mL (< 0.028)
[2018-08-24] MEDS: Furosemide 40 MG/4 ML VIAL SLOW IVP SCH ×2 (06:10→14:28)
[2018-08-24] MEDS ORDERED: Senokot S 8.6-50 MG TAB PO PRN (08:11)
[2018-08-24] MEDS ORDERED: Eucerin (Mineral Oil/Petrolatum,White) 30 gm Jar TOP PRN (08:11)
[2018-08-24] MEDS ORDERED: Artificial Tears 18 DROP/0.9 ML EA EYE PRN (08:11)
[2018-08-24] MEDS ORDERED: Diabetic Tussin 200 MG/10 ML UDCUP PO PRN (08:11)
[2018-08-24] MEDS ORDERED: Cepastat Lozenges 1 LOZ PO PRN (08:11)
[2018-08-24] MEDS ORDERED: Ondansetron ODT 4 MG TAB PO PRN (08:11)
[2018-08-24] MEDS ORDERED: hydrALAZINE 20 MG/ML VIAL SLOW IVP PRN (08:11)
[2018-08-24] MEDS ORDERED: Loperamide HCl 2 MG CAP PO PRN (08:11)
[2018-08-24] MEDS ORDERED: Loratadine 10 MG TAB PO PRN (08:11)
[2018-08-24] MEDS ORDERED: Calcium Carbonate 500 MG ChewTAB PO PRN (08:11)
[2018-08-24] MEDS ORDERED: Bisacodyl 5 MG TAB PO PRN (08:11)
[2018-08-24] MEDS ORDERED: Nitroglycerin 0.4 MG TAB (25 Tab Bottle) SL PRN (08:11)
[2018-08-24] MEDS ORDERED: Sodium Chloride 0.65% Nasal 44 ML BOT EA NARE PRN (08:11)
[2018-08-24] MEDS: Aspirin 81 mg Enteric Coated Tablet PO SCH (09:43)
[2018-08-24] MEDS: Clopidogrel Bisulfate 75 MG TAB PO SCH (09:43)
[2018-08-24] MEDS: Amlodipine 5 MG TAB PO SCH (09:44)
[2018-08-24] MEDS: Heparin 5,000 UNITS/ML VIAL SC SCH ×2 (09:47→21:02)
--- NOTE | 2018-08-24 10:02 | PRG ---
DATE OF SERVICE: 08/24/2018 SUBJECTIVE: Mr. Mosher is a 57-year-old white male, who was admitted for shortness of breath secondary to decompensated CHF. We were consulted due to his hyperkalemia as well as acute kidney injury. Potassium is now much improved. In addition, shortness of breath is slowly improving. Renal function is slowly improving. Please note, the patient was on an HIGINIO inhibitor at home and this has been discontinued. No other acute complaints today. OBJECTIVE: VITAL SIGNS: Blood pressure 142/95, heart rate 97, respiratory rate 18, pulse ox 95%. GENERAL: Awake, alert, comfortable, not in distress. SKIN: Adequate turgor. HEENT: He has a pinkish conjunctivae. Anicteric sclerae. NECK: No neck mass. No carotid bruits. No JVD. CHEST: No deformities. LUNGS: Harsh breath sounds. No wheezing. HEART: Normal sinus rhythm. No murmur. No gallops. No rubs. ABDOMEN: Globular, soft, nontender. No masses. EXTREMITIES: Positive for edema. No deformities. MEDICATIONS: Medications of August 24, 2018, were reviewed. LABORATORY DATA: Laboratories of August 24, 2018; white count 7.2, hemoglobin 14.5. Sodium 140, potassium 5.4, chloride 106, carbon dioxide 26, BUN 26, creatinine 1.36, glucose 54, calcium 9.5. Troponin less than 0.010. ASSESSMENT AND PLAN: 1. Shortness of breath, multifactorial etiology. Congestive heart failure with a possible chronic obstructive pulmonary disease exacerbation. 2. Acute kidney injury-consider possible hemodynamically-mediated renal dysfunction. Creatinine is actually much improved with improving CHF. I would probably leave the current diuretic regimen as it is. 3. Hyperkalemia, much improved. Continue current management. If cardiac echo has not been done yet, consider repeating a cardiac echo. Job ID: [id number]
[2018-08-24] MEDS: Atorvastatin Calcium 40 MG TAB PO SCH (10:11)
--- NOTE | 2018-08-24 11:03 | PDOC.PN ---
- Subjective Encounter Start Date: 08/24/18 Encounter Start Time: 10:00 -: old records requested/rev Patient seen and examined. No new complaints. No overnight events - Objective Resuscitation Status - Order Detail: 08/23/18 13:16 Resuscitation Status Routine Resuscitation Status: FULL: Full Resuscitation Discussed with: daughter ALE Reviewed: Yes Vital Signs & Weight: Vital Signs (12 hours) Temp Pulse Resp BP Pulse Ox 08/24/18 09:44 99 08/24/18 06:59 98.0 F 08/24/18 04:02 97.9 F 99 20 133/72 95 08/24/18 00:00 98.4 F 88 16 137/87 98 Weight Weight 293 lb 1.6 oz Most Recent Monitor Data Heart Rate from ECG 92 NIBP 148/110 NIBP BP-Mean 122 Respiration from ECG 18 SpO2 95 I&O: 08/23/18 08/24/18 08/25/18 06:59 06:59 06:59 Intake Total 260 Output Total 2750 Balance -2490 Result Diagrams: 08/24/18 05:07 08/24/18 05:07 Additional Labs: Accuchecks 08/24/18 08/23/18 08/23/18 00:15 21:20 14:19 POC Glucose 113 H 92 112 H Radiology Reviewed by me: Yes EKG Reviewed by me: Yes Phys Exam - Physical Examination Constitutional: NAD HEENT: PERRLA, moist MMs, sclera anicteric Neck: supple Respiratory: wheezing present basilar rales Cardiovascular: RRR, no significant murmur, no rub Gastrointestinal: soft, non-tender, no distention, positive bowel sounds Musculoskeletal: pulses present, edema present Neurological: non-focal, normal sensation Lymphatic: no nodes Psychiatric: normal affect, A&O x 3 Skin: no rash, normal turgor Dx/Plan (1) Acute exacerbation of CHF (congestive heart failure) Code(s): I50.9 - HEART FAILURE, UNSPECIFIED Status: Acute (2) Acute kidney failure Status: Acute (3) Acute metabolic encephalopathy Code(s): G93.41 - METABOLIC ENCEPHALOPATHY Status: Acute (4) Acute respiratory failure with hypoxia and hypercapnia Code(s): J96.01 - ACUTE RESPIRATORY FAILURE WITH HYPOXIA; J96.02 - ACUTE RESPIRATORY FAILURE WITH HYPERCAPNIA Status: Acute (5) Hyperkalemia Code(s): E87.5 - HYPERKALEMIA Status: Acute (6) CAD (coronary artery disease) Code(s): I25.10 - ATHSCL HEART DISEASE OF [place] CORONARY ARTERY W/O ANG PCTRS Status: Chronic Comment: (7) COPD (chronic obstructive pulmonary disease) Status: Chronic Comment: (8) Hypertension Code(s): I10 - ESSENTIAL (PRIMARY) HYPERTENSION Status: Chronic Qualifiers: Comment: (9) Morbid obesity with BMI of 40.0-44.9, adult Code(s): E66.01 - MORBID (SEVERE) OBESITY DUE TO EXCESS CALORIES; Z68.41 - BODY MASS INDEX (BMI) 40.0-44.9, ADULT Status: Chronic (10) Peripheral vascular disease Code(s): I73.9 - PERIPHERAL VASCULAR DISEASE, UNSPECIFIED Status: Chronic Comment: Hx right CEA - Plan cont current plan of care, plan discussed w/ family * continue IV lasix, renal function improving * nephrology and cardiology on case * medication reviewed as below * symptomatic treatment * cardiac rehab. Review of Systems - Review of Systems ENT: negative: Ear Pain, Ear Discharge, Nose Pain, Nose Discharge, Nose Congestion, Mouth Pain, Mouth Swelling, Throat Pain, Throat Swelling, Other Respiratory: SOB with Excertion Cardiovascular: edema. negative: chest pain, palpitations, orthopnea, paroxysmal nocturnal dyspnea, light headedness, other Gastrointestinal: negative: Nausea, Vomiting, Abdominal Pain, Diarrhea, Constipation, Melena, Hematochezia, Other Genitourinary: negative: Dysuria, Frequency, Incontinence, Hematuria, Retention , Other Musculoskeletal: negative: Neck Pain, Shoulder Pain, Arm Pain, Back Pain, Hand Pain, Leg Pain, Foot Pain, Other Skin: negative: Rash, Lesions, Emiliano, Bruising, Other - Medications/Allergies Allergies/Adverse Reactions: Allergies Allergy/AdvReac Type Severity Reaction Status Date / Time No Known Allergies Allergy Verified 08/23/18 17:25 Medications: Current Medications Acetaminophen (Tylenol) 650 mg PO Q4H PRN PRN Reason: Headache/Fever/Mild Pain (1-3) Hydrocodone Bitart/Acetaminophen ([place] 5/325) 1 tab PO Q4H PRN PRN Reason: Moderate Pain (4-6) Albuterol/Ipratropium (Duoneb) 3 ml NEB Q4H PRN PRN Reason: SOB &/or Wheezing Albuterol/Ipratropium (Duoneb) 3 ml NEB [id number] [facility] Amlodipine Besylate (Norvasc) 5 mg PO DAILY [facility] Last Admin: 08/24/18 09:44 Dose: 5 mg Artificial Tears (Tears Naturale) 2 drop EA EYE PRN PRN PRN Reason: Dry Eyes Aspirin (Ecotrin) 81 mg PO DAILY [facility] Last Admin: 08/24/18 09:43 Dose: 81 mg Atorvastatin Calcium (Lipitor) 40 mg PO DAILY [facility] Last Admin: 08/24/18 10:11 Dose: 40 mg Bisacodyl (Dulcolax) 10 mg PO DAILYPRN PRN PRN Reason: Constipation Calcium Carbonate (Tums) 1,000 mg PO Q4H PRN PRN Reason: Heartburn or Indigestion Clopidogrel Bisulfate (Plavix) 75 mg PO DAILY [facility] Last Admin: 08/24/18 09:43 Dose: 75 mg Furosemide (Lasix) 40 mg SLOW IVP 0600,1400 [facility] Last Admin: 08/24/18 06:10 Dose: 40 mg Guaifenesin (Robitussin Sf) 200 mg PO Q4H PRN PRN Reason: Cough Guaifenesin/Dextromethorphan (Robitussin Dm) 15 ml PO Q4H PRN PRN Reason: Cough Heparin Sodium (Porcine) (Heparin) 5,000 units SC BID [facility] Last Admin: 08/24/18 09:47 Dose: 5,000 units Hydralazine HCl (Apresoline) 10 mg SLOW IVP Q4H PRN PRN Reason: SBP > 180 and HR < 70 Loperamide HCl (Imodium) 2 mg PO PRN PRN PRN Reason: Diarrhea/Loose Stools Loratadine (Claritin) 10 mg PO DAILYPRN PRN PRN Reason: Sinus Symptoms Mineral Oil/White Petrolatum (Eucerin Cream) 0 gm TOP BIDPRN PRN PRN Reason: Dry Skin Nitroglycerin (Nitrostat) 0.4 mg SL Q5MIN PRN PRN Reason: Chest Pain Ondansetron HCl (Zofran) 4 mg IVP Q6H PRN PRN Reason: Nausea/Vomiting Ondansetron HCl (Zofran Odt) 4 mg PO Q6H PRN PRN Reason: Nausea/Vomiting Pantoprazole Sodium (Protonix) 40 mg PO DAILY [facility] Last Admin: 08/24/18 09:43 Dose: 40 mg Senna/Docusate Sodium (Senokot S) 2 tab PO BID PRN PRN Reason: Constipation Sodium Chloride (Flush - Normal Saline) 10 ml IVF Q12H PRN PRN Reason: Saline Flush Last Admin: 08/24/18 06:10 Dose: 10 ml Sodium Chloride ([place] Nasal [place] 0.65%) 0 ml EA NARE QIDPRN PRN PRN Reason: Nasal Congestion Throat Lozenges (Cepastat Lozenges) 1 jason PO Q2H PRN PRN Reason: Sore Throat Zolpidem Tartrate (Ambien) 5 mg PO HSPRN PRN PRN Reason: Insomnia
[2018-08-24] MEDS ORDERED: Nicotine 14 MG PATCH TD SCH (12:45)
[2018-08-24] MEDS ORDERED: Nicotine 21 MG PATCH TD SCH (13:00)
[2018-08-24 17:58] LABS: Lactic Acid 0.9 mmol/L (0.5-2.2)
--- NOTE | 2018-08-24 21:54 | CON ---
DATE OF CONSULTATION: 08/24/2018 SERVICE: Pulmonary Medicine. REASON FOR CONSULT: [facility] patient. HISTORY OF PRESENT ILLNESS: The patient is a 57-year-old white male with past medical history significant for chronic neck discomfort. Roughly 2 months ago, he underwent a fairly extensive neck surgery. He was in his usual state of health and recovering fairly well, but continued to have persistent discomfort. He was on multiple different narcotic pain medications. Then he started having some tremulousness. With this, he was put on diazepam. These were high doses to be used as needed, but the patient had scheduled these medications in his pill divider. He was taking them without regard for what his symptoms were, and how he felt. Ultimately, over the last 3 days prior to presentation, he had multiple episodes of waxing and waning consciousness. He would be hypersomnolent and then sleep it off and seemed to be okay, but after he would take his next pill, he would once again develop a deep sleep. On one occasion, he was found down outside of his apartment complex at the base of some stairs. It is not clear whether or not he fell or how he got there, but there were not significant traumatic injuries associated with this. The people who lived in his apartment complex helped him to his feet and actually put him in his car. He drove to his daughter's house. He really did not remember how he got there or what the situation was, but the daughter clearly identify that he was not able to drive, because of safety concerns. She did not let him to take the car keys. She called his and she subsequently brought the patient home. Friday morning, the patient seemed to be doing better, but once again into the afternoon, he started having increasing confusion and lethargy. Friday morning, things seem to be a little bit worse and so he was brought to the emergency department. He cannot provide me any interval history. He currently denies having fevers, chills, cough, sputum production, nausea, vomiting, or diarrhea. He is following all commands. At no point during this entire time had been completely postictal. PAST MEDICAL HISTORY: 1. COPD. 2. Obstructive sleep apnea (never tolerates CPAP therapy). 3. Hypertension. 4. Dyslipidemia. 5. Osteoarthritis. 6. Congestive heart failure. PAST SURGICAL HISTORY: 1. C-spine surgery. 2. Thoracotomy. 3. L3 surgery. 4. Partial vasectomy. 5. Tibia/fibula plates. 6. Laparoscopic cholecystectomy. 7. Carotid endarterectomy. SOCIAL HISTORY: Negative for significant alcohol or illicit drug use. He smokes a pack on a daily basis and has a [id number] history of smoking. He has no exposure to chemicals, dust, asbestos, or tuberculosis otherwise. FAMILY HISTORY: Noncontributory. ALLERGIES: NO KNOWN DRUG ALLERGIES. MEDICATIONS: List of his inpatient medications was reviewed. No specific updates were made at this time. REVIEW OF SYSTEMS: General, head, ears, eyes, nose, throat, cardiovascular, respiratory, GI, , musculoskeletal, neurologic, and skin is negative except as mentioned in the HPI. PHYSICAL EXAMINATION: VITAL SIGNS: Afebrile, pulse 77, blood pressure 148/110, respirations 19, and saturation 98% on room air. GENERAL: The patient is awake and alert, in no apparent distress. LUNGS: Decent air entry. There is a slightly prolonged expiratory phase. No wheezing or crackles are appreciated. HEART: Normal rate, regular. ABDOMEN: Soft, nontender, nondistended. Bowel sounds are positive. MUSCULOSKELETAL: No cyanosis or clubbing. No pitting in the bilateral lower extremities. He has sustained clonus in all 4 extremities. NEUROLOGIC: His mentation is slightly depressed. That being said, he is following all commands, and responds appropriately. His speech is a little bit garbled. He demonstrates good strength in bilateral upper and lower extremities. [id number], and cranial nerves are also intact. Reflexes are extremely hyperactive. They are symmetric throughout, however. LABORATORY DATA: WBC 7.2, hemoglobin 14.5, platelets 227,000 and roughly stable. Neutrophil count falls within normal limits and the differential are more or less normal. pH 7.28, pCO2 50, PO2 68. Creatinine 1.36 and downtrending, basic metabolic profile is otherwise unremarkable. Liver function studies are unremarkable, TSH falls within the normal limits, BNP, troponin are negative. Lactate is unremarkable. IMAGIN. Echocardiogram demonstrates normal ejection fraction and some degree of diastolic dysfunction. 2. Ultrasound of the kidneys demonstrates no acute renal abnormality. No hydronephrosis is otherwise noted. 3. X-ray of the chest demonstrates no acute cardiopulmonary abnormality. 4. CT of the brain demonstrates no acute intracranial abnormality. ASSESSMENT: 1. Acute hypoxic and hypercapnic respiratory failure. 2. Metabolic encephalopathy, likely secondary to polysubstance overuse of prescription medications. 3. Sustained clonus. DISCUSSION AND PLAN: I am going to put a Neurology consultation in. Imaging of the neck may be indicated. Pulmonary/Critical Care will continue to follow along while the patient remains in this location. We will continue to give him a little bit more time to see whether or not his mentation improves as some of these toxins mccarthy out of his system. He was on a fairly long-acting benzodiazepine and had an acute kidney injury, so these things may take a little bit of time. 70 minutes have been devoted to this patient in various activities. I personally reviewed all imaging studies and laboratory data noted within this document. For fifty percent of this time, I was interacting with the patient at the bedside or coordinating care with the care team. For the remainder of the time I was immediately available to the patient in the hospital unit. Job ID: [id number] MTDD
--- NOTE | 2018-08-25 00:19 | CON ---
DATE OF CONSULTATION: 08/24/2018 CONSULTING PHYSICIAN: Hospitalist Services. IMPRESSION: Toxic metabolic encephalopathy. PLAN: 1. Check labs as ordered. 2. Seroquel 25 mg at night for hallucinations. 3. Continue diuresis to try to improve his hypoxia. 4. Continue supportive measures. HISTORY OF PRESENT ILLNESS: Mr. Mosher is a 57-year-old man with a past history of congestive heart failure, hepatitis C, and spinal stenosis. He underwent cervical cord decompression in June. He has been persistently ataxic. He was taking Valium and Tensed for pain control. He was at its daughter's house when he fell and had some minor injuries. He was brought into the hospital for evaluation. CT scan of the brain did not show any acute changes. He was noted to be acidotic and hypoxic on his blood gas. He was azotemic based on his BUN and creatinine. His azotemia has improved somewhat since initial check. He has been restless off and on through the night. There is some hallucination type activities present according to the nurses. He has not had any problems with liver failure as far as the family knows. PAST MEDICAL HISTORY: As listed above. ALLERGIES: NONE REPORTED. SOCIAL: Otherwise negative. FAMILY HISTORY: Noncontributory. REVIEW OF SYSTEMS: Not obtainable due to the patient's mental state. PHYSICAL EXAMINATION: GENERAL: He is somewhat overweight middle-aged man, sitting in the chair in no acute distress. There is frequent twitching and jerking of the extremities. HEENT: Pupils are equal and reactive. Conjunctivae clear. Oropharynx clear. NECK: Supple. EXTREMITIES: Have some peripheral edema in both lower extremities of a moderate severity. NEUROLOGIC: He would awake and attempt to answer questions. His speech was clear for the most part, just sounding somewhat lethargic. Cranial nerves were intact. 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 Reflex testing showed bilateral clonus. Gait was not tested. SUMMARY: A middle-aged man who has had some cognitive decline over the last few days in the midst of use of Valium and hydrocodone, who presented relatively hypoxic and acidotic along with some mild azotemia. This appears to be all toxic and metabolic. This should all clear with correction of these issues and clearance of the drug. Job ID: [id number]
[2018-08-25 04:34] LABS: #Eosinphils 0.1 thou/uL (0.0-0.7); #Lymphocytes 1.6 thou/uL (1.20-3.40); #Monocytes 0.6 thou/uL (0.11-0.59); #Neutrophils 5.4 thou/uL (1.40-6.50); %Basophils 0.5 % (0.0-1.0); %Eosinophils 0.8 % (0.0-10.0); %Lymphocytes 20.5 % (21.0-51.0); %Monocytes 7.9 % (0.0-10.0); %Neutrophils 70.3 % (42.0-75.0); Hemoglobin 14.3 g/dL (14.0-18.0); Mean Corpuscular HGB CONC 33.5 g/dL (32.0-36.0); Mean Corpuscular Hemoglobin 31.8 pg (27.0-31.0); Mean Corpuscular Volume 94.8 fL (78.0-98.0); Mean Platelet Volume 6.6 fL (7.4-10.4); Platelet Count 209 thou/uL (130-400); RBC Distribution Width 12.2 % (11.5-14.5); White Blood Cell (WBC) Count 7.7 thou/uL (4.8-10.8)
[2018-08-25 04:51] LABS: ALT (SGPT) 24 U/L (8-55); AST (SGOT) 29 U/L (5-34); Albumin 3.9 g/dL (3.5-5.0); Alkaline Phosphatase 113 U/L (40-150); Anion Gap 15 mmol/L (10-20); BUN (Urea Nitrogen) 25 mg/dL (8.4-25.7); Bilirubin, Total 0.5 mg/dL (0.2-1.2); Calc. Creatinine Clearance 130 mL/min (70-130); Calcium 9.7 mg/dL (7.8-10.44); Carbon Dioxide 28 mmol/L (22-29); Chloride 100 mmol/L (98-107); Estimated GFR-MDRD 65; Globulin 3.8 g/dL (2.4-3.5); Glucose 108 mg/dL (70-105); Magnesium 1.8 mg/dL (1.6-2.6); Potassium 4.3 mmol/L (3.5-5.1); Protein, Total 7.7 g/dL (6.0-8.3); Sodium 139 mmol/L (136-145); Uric Acid 8.5 mg/dL (3.5-7.2)
[2018-08-25] MEDS ORDERED: Furosemide 40 MG/4 ML VIAL SLOW IVP SCH (06:00)
--- NOTE | 2018-08-25 07:53 | RAD ---
SINGLE VIEW OF THE CHEST: COMPARISON: 08/23/2018. HISTORY: Shortness of breath and pulmonary edema. FINDINGS: A single view of the chest shows a cardiomediastinal silhouette which is upper limits of normal in si ze. There is no evidence of consolidation, mass, or pleural effusion. Hardware is seen in the thora cic spine. IMPRESSION: No evidence of acute cardiopulmonary disease. POS: [facility]
[2018-08-25] MEDS: Clopidogrel Bisulfate 75 MG TAB PO SCH (09:46)
[2018-08-25] MEDS: Amlodipine 5 MG TAB PO SCH (09:46)
[2018-08-25] MEDS: Aspirin 81 mg Enteric Coated Tablet PO SCH (09:46)
[2018-08-25] MEDS: Atorvastatin Calcium 40 MG TAB PO SCH (09:46)
[2018-08-25] MEDS: Heparin 5,000 UNITS/ML VIAL SC SCH ×2 (09:47→20:09)
[2018-08-25] MEDS: Acetaminophen 325 MG TAB PO PRN (11:13)
--- NOTE | 2018-08-25 13:17 | PDOC.PN ---
- Subjective Encounter Start Date: 08/25/18 Encounter Start Time: 07:15 pt has clonus, his edema improved, his renal function improved, his encephalopathy improving - Objective Resuscitation Status - Order Detail: 08/23/18 13:16 Resuscitation Status Routine Resuscitation Status: FULL: Full Resuscitation Discussed with: daughter ALE Reviewed: Yes Vital Signs & Weight: Vital Signs (12 hours) Temp Pulse Pulse Ox 08/25/18 09:46 75 08/25/18 07:56 97 08/25/18 07:55 98.2 F 08/25/18 03:49 98.3 F Weight Weight 285 lb 14.4 oz Most Recent Monitor Data Heart Rate from ECG 87 NIBP 159/119 NIBP BP-Mean 132 Respiration from ECG 16 SpO2 93 I&O: 08/24/18 08/25/18 08/26/18 06:59 06:59 06:59 Intake Total 260 1160 Output Total 2750 4400 Balance -2490 -3240 Result Diagrams: 08/25/18 04:19 08/25/18 04:19 EKG Reviewed by me: Yes Phys Exam - Physical Examination Constitutional: NAD HEENT: PERRLA, moist MMs, sclera anicteric Neck: no JVD, supple Respiratory: no wheezing, no rales, no rhonchi Cardiovascular: RRR, no significant murmur, no rub Gastrointestinal: soft, non-tender, no distention, positive bowel sounds Musculoskeletal: pulses present, edema present clonus+ Psychiatric: normal affect, A&O x 3 Skin: no rash, normal turgor Dx/Plan (1) Acute on chronic diastolic ACC/AHA stage C congestive heart failure Code(s): I50.33 - ACUTE ON CHRONIC DIASTOLIC (CONGESTIVE) HEART FAILURE Status : Acute (2) Acute kidney failure Status: Resolved (3) Acute metabolic encephalopathy Code(s): G93.41 - METABOLIC ENCEPHALOPATHY Status: Resolved (4) Acute respiratory failure with hypoxia and hypercapnia Code(s): J96.01 - ACUTE RESPIRATORY FAILURE WITH HYPOXIA; J96.02 - ACUTE RESPIRATORY FAILURE WITH HYPERCAPNIA Status: Acute (5) Hyperkalemia Code(s): E87.5 - HYPERKALEMIA Status: Resolved (6) CAD (coronary artery disease) Code(s): I25.10 - ATHSCL HEART DISEASE OF [place] CORONARY ARTERY W/O ANG PCTRS Status: Chronic Comment: (7) COPD (chronic obstructive pulmonary disease) Status: Chronic Comment: (8) Hypertension Code(s): I10 - ESSENTIAL (PRIMARY) HYPERTENSION Status: Chronic Qualifiers: Comment: (9) Morbid obesity with BMI of 40.0-44.9, adult Code(s): E66.01 - MORBID (SEVERE) OBESITY DUE TO EXCESS CALORIES; Z68.41 - BODY MASS INDEX (BMI) 40.0-44.9, ADULT Status: Chronic (10) Peripheral vascular disease Code(s): I73.9 - PERIPHERAL VASCULAR DISEASE, UNSPECIFIED Status: Chronic Comment: Hx right CEA (11) CHONG (obstructive sleep apnea) Code(s): G47.33 - OBSTRUCTIVE SLEEP APNEA (ADULT) (PEDIATRIC) Status: Chronic (12) Clonus Code(s): R25.8 - OTHER ABNORMAL INVOLUNTARY MOVEMENTS Status: Acute - Plan cont current plan of care * neurology following, will defer further testing to them * will check B12, RPR, folic acid * continue diuresis * may be transferred to tele * medication reviewed as below * symptomatic treatment. Review of Systems - Review of Systems ENT: negative: Ear Pain, Ear Discharge, Nose Pain, Nose Discharge, Nose Congestion, Mouth Pain, Mouth Swelling, Throat Pain, Throat Swelling, Other Respiratory: negative: Cough, Dry, Shortness of Breath, Hemoptysis, SOB with Excertion, Pleuritic Pain, Sputum, Wheezing Cardiovascular: negative: chest pain, palpitations, orthopnea, paroxysmal nocturnal dyspnea, edema, light headedness, other Gastrointestinal: negative: Nausea, Vomiting, Abdominal Pain, Diarrhea, Constipation, Melena, Hematochezia, Other Genitourinary: negative: Dysuria, Frequency, Incontinence, Hematuria, Retention , Other Musculoskeletal: negative: Neck Pain, Shoulder Pain, Arm Pain, Back Pain, Hand Pain, Leg Pain, Foot Pain, Other Skin: negative: Rash, Lesions, Emiliano, Bruising, Other - Medications/Allergies Allergies/Adverse Reactions: Allergies Allergy/AdvReac Type Severity Reaction Status Date / Time No Known Allergies Allergy Verified 08/23/18 17:25 Medications: Current Medications Acetaminophen (Tylenol) 650 mg PO Q4H PRN PRN Reason: Headache/Fever/Mild Pain (1-3) Last Admin: 08/25/18 11:13 Dose: 650 mg Albuterol/Ipratropium (Duoneb) 3 ml NEB Q4H PRN PRN Reason: SOB &/or Wheezing Albuterol/Ipratropium (Duoneb) 3 ml NEB [id number] [facility] Last Admin: 08/25/18 13:16 Dose: 3 ml Amlodipine Besylate (Norvasc) 5 mg PO DAILY [facility] Last Admin: 08/25/18 09:46 Dose: 5 mg Artificial Tears (Tears Naturale) 2 drop EA EYE PRN PRN PRN Reason: Dry Eyes Aspirin (Ecotrin) 81 mg PO DAILY [facility] Last Admin: 08/25/18 09:46 Dose: 81 mg Atorvastatin Calcium (Lipitor) 40 mg PO DAILY [facility] Last Admin: 08/25/18 09:46 Dose: 40 mg Bisacodyl (Dulcolax) 10 mg PO DAILYPRN PRN PRN Reason: Constipation Calcium Carbonate (Tums) 1,000 mg PO Q4H PRN PRN Reason: Heartburn or Indigestion Clopidogrel Bisulfate (Plavix) 75 mg PO DAILY [facility] Last Admin: 08/25/18 09:46 Dose: 75 mg Furosemide (Lasix) 40 mg SLOW IVP 0600 [facility] Last Admin: 08/25/18 05:31 Dose: 40 mg Guaifenesin (Robitussin Sf) 200 mg PO Q4H PRN PRN Reason: Cough Heparin Sodium (Porcine) (Heparin) 5,000 units SC BID [facility] Last Admin: 08/25/18 09:47 Dose: 5,000 units Hydralazine HCl (Apresoline) 10 mg SLOW IVP Q4H PRN PRN Reason: SBP > 180 and HR < 70 Loperamide HCl (Imodium) 2 mg PO PRN PRN PRN Reason: Diarrhea/Loose Stools Last Admin: 08/25/18 11:13 Dose: 2 mg Loratadine (Claritin) 10 mg PO DAILYPRN PRN PRN Reason: Sinus Symptoms Mineral Oil/White Petrolatum (Eucerin Cream) 0 gm TOP BIDPRN PRN PRN Reason: Dry Skin Nitroglycerin (Nitrostat) 0.4 mg SL Q5MIN PRN PRN Reason: Chest Pain Ondansetron HCl (Zofran) 4 mg IVP Q6H PRN PRN Reason: Nausea/Vomiting Ondansetron HCl (Zofran Odt) 4 mg PO Q6H PRN PRN Reason: Nausea/Vomiting Pantoprazole Sodium (Protonix) 40 mg PO DAILY [facility] Last Admin: 08/25/18 09:46 Dose: 40 mg Quetiapine Fumarate (Seroquel) 25 mg PO HS [facility] Last Admin: 08/24/18 21:02 Dose: 25 mg Senna/Docusate Sodium (Senokot S) 2 tab PO BID PRN PRN Reason: Constipation Sodium Chloride (Flush - Normal Saline) 10 ml IVF Q12H PRN PRN Reason: Saline Flush Last Admin: 08/25/18 05:31 Dose: 10 ml Sodium Chloride ([place] Nasal [place] 0.65%) 0 ml EA NARE QIDPRN PRN PRN Reason: Nasal Congestion Throat Lozenges (Cepastat Lozenges) 1 jason PO Q2H PRN PRN Reason: Sore Throat Zolpidem Tartrate (Ambien) 5 mg PO HSPRN PRN PRN Reason: Insomnia
--- NOTE | 2018-08-25 16:10 | PRG ---
DATE OF SERVICE: 08/25/2018 SERVICE: Pulmonary Medicine. INTERVAL HISTORY: The patient is doing really well from respiratory standpoint. Denies any current chest pain, fevers, or chills. He did not have any headaches overnight. Otherwise, he has no specific complaints. PHYSICAL EXAMINATION: VITAL SIGNS: Afebrile, pulse 81, blood pressure 159/119, respirations 24, saturation 93% on room air. GENERAL: The patient is awake and alert, in no apparent distress. LUNGS: Decent air entry. Minimal dependent crackles are noted. No prolonged expiratory phase or wheezing. HEART: Normal rate and regular. ABDOMEN: Soft, nontender, and nondistended. Bowel sounds are positive. MUSCULOSKELETAL: No cyanosis or clubbing. No pitting in the bilateral lower extremities. Sustained clonus is still present in bilateral upper and lower extremities. In addition to this, he had some asterixis, which is now resolved. LABORATORY DATA: CBC, CMP, liver function studies are unremarkable. IMAGIN. Chest x-ray demonstrates no acute cardiopulmonary abnormality. 2. Echocardiogram shows normal ejection fraction with a little bit of diastolic dysfunction. No significant valvular abnormalities are noted. ASSESSMENT: 1. Acute hypoxic and hypercapnic respiratory failure, resolved. 2. Metabolic encephalopathy, secondary to polysubstance overuse of prescription medications. 3. Sustained clonus. DISCUSSION AND PLAN: The patient is doing okay from respiratory standpoint. At this point, he can be transitioned out of the ICU to the medical unit. I will notify neurosurgery that the patient is here. He is clinically stable for transition out of the ICU to the medical unit. When he lands on the floor, he will have no further requirements for my opinion, and I will sign off. Please call with additional questions or concerns through time. Job ID: [id number] [facility]
[2018-08-26 06:01] LABS: #Eosinphils 0.1 thou/uL (0.0-0.7); #Lymphocytes 1.6 thou/uL (1.20-3.40); #Monocytes 0.8 thou/uL (0.11-0.59); #Neutrophils 4.9 thou/uL (1.40-6.50); %Basophils 0.4 % (0.0-1.0); %Eosinophils 1.3 % (0.0-10.0); %Monocytes 10.7 % (0.0-10.0); %Neutrophils 65.7 % (42.0-75.0); Hemoglobin 15.1 g/dL (14.0-18.0); Mean Corpuscular HGB CONC 33.1 g/dL (32.0-36.0); Mean Corpuscular Hemoglobin 31.4 pg (27.0-31.0); Mean Corpuscular Volume 94.6 fL (78.0-98.0); Mean Platelet Volume 6.8 fL (7.4-10.4); Platelet Count 225 thou/uL (130-400); RBC Distribution Width 12.3 % (11.5-14.5); Red Blood Cell (RBC) Count 4.82 mill/uL (4.70-6.10); White Blood Cell (WBC) Count 7.5 thou/uL (4.8-10.8)
[2018-08-26 06:25] LABS: Anion Gap 15 mmol/L (10-20); BUN (Urea Nitrogen) 25 mg/dL (8.4-25.7); Calc. Creatinine Clearance 125 mL/min (70-130); Calcium 9.6 mg/dL (7.8-10.44); Carbon Dioxide 27 mmol/L (22-29); Chloride 103 mmol/L (98-107); Estimated GFR-MDRD 67; Glucose 107 mg/dL (70-105); Potassium 4.2 mmol/L (3.5-5.1); Sodium 141 mmol/L (136-145)
[2018-08-26] MEDS: Amlodipine 5 MG TAB PO SCH (08:21)
[2018-08-26] MEDS: Heparin 5,000 UNITS/ML VIAL SC SCH ×2 (08:21→20:00)
[2018-08-26] MEDS: Furosemide 40 MG TAB PO SCH (08:21)
[2018-08-26] MEDS: Aspirin 81 mg Enteric Coated Tablet PO SCH (08:21)
[2018-08-26] MEDS: Atorvastatin Calcium 40 MG TAB PO SCH (08:21)
[2018-08-26] MEDS: Clopidogrel Bisulfate 75 MG TAB PO SCH (08:21)
--- NOTE | 2018-08-26 10:24 | CON ---
DATE OF CONSULTATION: HISTORY OF PRESENT ILLNESS: The patient is a 57-year-old male with a past medical history of hypertension, hyperlipidemia, diabetes, COPD, cervical stenosis, who is status post anterior and posterior decompression and fusion at C4-C5 in June 2018. Following his surgery, he was monitored in the hospital for several days. He mobilized and was eventually discharged to home. He was recently seen in postoperative followup and continuing to have some spasticity particularly on his right side. He was started on Valium, and we planned for additional outpatient followup in 2 months. Since starting this new medication, he has been taking scheduled rather than p.r.n. doses, and per his family, had increased confusion over the last few days. He also had suffered several falls. He was brought to the Emergency Department for evaluation on 08/23/2018, and at that time, found to have altered mental status, acute kidney injury, hyperkalemia, and volume overload consistent with CHF. He was admitted by the medical team for further management of these conditions. His narcotic medications including [place] and Valium were stopped. He was also seen by the Nephrology Service during this visit. Since discontinuation of these medications, he has had improvement in his mental status. The Neurosurgery Service was consulted with regard to his persistent clonus and spasticity. I am visiting with the patient at the bedside. He is currently A and O x4. He has free active range of motion of all extremities and 5/5 strength in the bed. He is significantly hyperreflexive throughout and has a positive Carmita sign as well as sustained clonus in the lower extremities. PAST MEDICAL HISTORY: COPD, sleep apnea, hypertension, hyperlipidemia, cervical stenosis, CHF, diabetes. PAST SURGICAL HISTORY: Anterior and posterior decompression and fusion C4-C5 in June 2018, thoracotomy, diskectomy, cholecystectomy, carotid endarterectomy, lumbar surgery. SOCIAL HISTORY: He does not drink or use any drugs. He does smoke 1 pack per day. FAMILY HISTORY: Noncontributory. ALLERGIES: NO KNOWN DRUG ALLERGIES. REVIEW OF SYSTEMS: Per HPI. PHYSICAL EXAMINATION: VITAL SIGNS: Pulse 89, respirations 18, the patient is 95% on room air. BP is 122/77. HEENT: Head, normocephalic and atraumatic. Eyes, PERRLA. Extraocular movements intact. ENT, oral mucosa is pink, intact, and moist. He has a normal voice. NECK: Nontender to palpation. Free active range of motion. No meningismus or nuchal rigidity. CARDIAC: Regular rate and rhythm. LUNGS: He is breathing comfortably with symmetric chest expansion. MUSCULOSKELETAL: He has free active range of motion of all extremities. He has 5/5 strength throughout. He has hyperreflexes over all reflexes. He has positive Taveras's and positive clonus. NEUROLOGIC: A and O x4. No focal motor weakness. I did not attempt to ambulate the patient. ASSESSMENT AND PLAN: This is a patient recently admitted for altered mental status, which appears to be secondary to polypharmacy as well as he had multiple metabolic abnormalities. Since he has been treated, his altered mental status is improving. He has hyperreflexia and components are chronic in nature and appear unchanged on my exam. He had recently been started on Valium for spasticity, but at this point, we will recommend continue to hold this medication considering his confusion after starting this medication. With regard to his mobilization and symptoms of cervical myelopathy, I believe he would be a candidate for inpatient rehabilitation. I have discussed this with the patient, he is interested in this. We will put in a rehab screen and continue to follow the patient as outpatient. Job ID: [id number]
[2018-08-26] MEDS: Nicotine 21 MG PATCH TOP SCH (13:31)
--- NOTE | 2018-08-26 14:30 | PDOC.PN ---
- Subjective Encounter Start Date: 08/26/18 Encounter Start Time: 09:30 Patient seen and examined. No new complaints. No overnight events - Objective Resuscitation Status - Order Detail: 08/23/18 13:16 Resuscitation Status Routine Resuscitation Status: FULL: Full Resuscitation Discussed with: daughter ALE Reviewed: Yes Vital Signs & Weight: Vital Signs (12 hours) Temp Pulse Resp BP BP BP Pulse Ox 08/26/18 13:49 94 20 97 08/26/18 11:41 98.0 F 94 20 158/85 H 97 08/26/18 08:21 82 168/85 H 08/26/18 07:52 97.7 F 82 20 168/85 H 92 L 08/26/18 07:37 88 20 94 L Weight Weight 274 lb Most Recent Monitor Data Heart Rate from ECG 91 NIBP 118/68 NIBP BP-Mean 84 Respiration from ECG 24 SpO2 92 I&O: 08/25/18 08/26/18 08/27/18 06:59 06:59 06:59 Intake Total 1160 1770 Output Total 4400 1600 Balance -3240 170 Result Diagrams: 08/26/18 05:33 08/26/18 05:33 Phys Exam - Physical Examination Constitutional: NAD HEENT: PERRLA, moist MMs, sclera anicteric Neck: no JVD, supple Respiratory: no wheezing, no rales, no rhonchi Cardiovascular: RRR, no significant murmur, no rub Gastrointestinal: soft, non-tender, no distention, positive bowel sounds obesity+ Musculoskeletal: no edema, pulses present Neurological: non-focal, normal sensation Lymphatic: no nodes Psychiatric: normal affect Skin: no rash, normal turgor Dx/Plan (1) Acute on chronic diastolic ACC/AHA stage C congestive heart failure Code(s): I50.33 - ACUTE ON CHRONIC DIASTOLIC (CONGESTIVE) HEART FAILURE Status : Acute (2) Acute kidney failure Status: Resolved (3) Acute metabolic encephalopathy Code(s): G93.41 - METABOLIC ENCEPHALOPATHY Status: Resolved (4) Acute respiratory failure with hypoxia and hypercapnia Code(s): J96.01 - ACUTE RESPIRATORY FAILURE WITH HYPOXIA; J96.02 - ACUTE RESPIRATORY FAILURE WITH HYPERCAPNIA Status: Acute (5) Hyperkalemia Code(s): E87.5 - HYPERKALEMIA Status: Resolved (6) CAD (coronary artery disease) Code(s): I25.10 - ATHSCL HEART DISEASE OF [place] CORONARY ARTERY W/O ANG PCTRS Status: Chronic Comment: (7) COPD (chronic obstructive pulmonary disease) Status: Chronic Comment: (8) Hypertension Code(s): I10 - ESSENTIAL (PRIMARY) HYPERTENSION Status: Chronic Qualifiers: Comment: (9) Morbid obesity with BMI of 40.0-44.9, adult Code(s): E66.01 - [place] (SEVERE) OBESITY DUE TO EXCESS CALORIES; Z68.41 - BODY MASS INDEX (BMI) 40.0-44.9, ADULT Status: Chronic (10) Peripheral vascular disease Code(s): I73.9 - PERIPHERAL VASCULAR DISEASE, UNSPECIFIED Status: Chronic Comment: Hx right CEA (11) CHONG (obstructive sleep apnea) Code(s): G47.33 - OBSTRUCTIVE SLEEP APNEA (ADULT) (PEDIATRIC) Status: Chronic (12) Clonus Code(s): R25.8 - OTHER ABNORMAL INVOLUNTARY MOVEMENTS Status: Acute - Plan cont current plan of care, plan discussed w/ family, PT/OT * medication reviewed as below * symptomatic treatment * will need rehab on discharge * MRI will defer to neurosurgeon * now pt is euvolemic * medically stable * continue PT/OT. Review of Systems - Review of Systems ENT: negative: Ear Pain, Ear Discharge, Nose Pain, Nose Discharge, Nose Congestion, Mouth Pain, Mouth Swelling, Throat Pain, Throat Swelling, Other Respiratory: negative: Cough, Dry, Shortness of Breath, Hemoptysis, SOB with Excertion, Pleuritic Pain, Sputum, Wheezing Cardiovascular: negative: chest pain, palpitations, orthopnea, paroxysmal nocturnal dyspnea, edema, light headedness, other Gastrointestinal: negative: Nausea, Vomiting, Abdominal Pain, Diarrhea, Constipation, Melena, Hematochezia, Other Genitourinary: negative: Dysuria, Frequency, Incontinence, Hematuria, Retention , Other Musculoskeletal: negative: Neck Pain, Shoulder Pain, Arm Pain, Back Pain, Hand Pain, Leg Pain, Foot Pain, Other - Medications/Allergies Allergies/Adverse Reactions: Allergies Allergy/AdvReac Type Severity Reaction Status Date / Time codeine Allergy Verified 08/26/18 08:20 pramipexole [From Mirapex] Allergy Verified 08/26/18 08:20 Medications: Current Medications Acetaminophen (Tylenol) 650 mg PO Q4H PRN PRN Reason: Headache/Fever/Mild Pain (1-3) Last Admin: 08/25/18 11:13 Dose: 650 mg Albuterol/Ipratropium (Duoneb) 3 ml NEB Q4H PRN PRN Reason: SOB &/or Wheezing Albuterol/Ipratropium (Duoneb) 3 ml NEB [id number] [facility] Last Admin: 08/26/18 13:49 Dose: 3 ml Amlodipine Besylate (Norvasc) 5 mg PO DAILY [facility] Last Admin: 08/26/18 08:21 Dose: 5 mg Artificial Tears (Tears Naturale) 2 drop EA EYE PRN PRN PRN Reason: Dry Eyes Aspirin (Ecotrin) 81 mg PO DAILY [facility] Last Admin: 08/26/18 08:21 Dose: 81 mg Atorvastatin Calcium (Lipitor) 40 mg PO DAILY [facility] Last Admin: 08/26/18 08:21 Dose: 40 mg Bisacodyl (Dulcolax) 10 mg PO DAILYPRN PRN PRN Reason: Constipation Calcium Carbonate (Tums) 1,000 mg PO Q4H PRN PRN Reason: Heartburn or Indigestion Clopidogrel Bisulfate (Plavix) 75 mg PO DAILY [facility] Last Admin: 08/26/18 08:21 Dose: 75 mg Furosemide (Lasix) 40 mg PO DAILY-AC [facility] Last Admin: 08/26/18 08:21 Dose: 40 mg Guaifenesin (Robitussin Sf) 200 mg PO Q4H PRN PRN Reason: Cough Heparin Sodium (Porcine) (Heparin) 5,000 units SC BID [facility] Last Admin: 08/26/18 08:21 Dose: 5,000 units Hydralazine HCl (Apresoline) 10 mg SLOW IVP Q4H PRN PRN Reason: SBP > 180 and HR < 70 Loperamide HCl (Imodium) 2 mg PO PRN PRN PRN Reason: Diarrhea/Loose Stools Last Admin: 08/25/18 11:13 Dose: 2 mg Loratadine (Claritin) 10 mg PO DAILYPRN PRN PRN Reason: Sinus Symptoms Mineral Oil/White Petrolatum (Eucerin Cream) 0 gm TOP BIDPRN PRN PRN Reason: Dry Skin Nicotine (Nicoderm Patch) 21 mg TOP Q24HR [facility] Last Admin: 08/26/18 13:31 Dose: 21 mg Nitroglycerin (Nitrostat) 0.4 mg SL Q5MIN PRN PRN Reason: Chest Pain Ondansetron HCl (Zofran) 4 mg IVP Q6H PRN PRN Reason: Nausea/Vomiting Ondansetron HCl (Zofran Odt) 4 mg PO Q6H PRN PRN Reason: Nausea/Vomiting Pantoprazole Sodium (Protonix) 40 mg PO DAILY [facility] Last Admin: 08/26/18 08:21 Dose: 40 mg Quetiapine Fumarate (Seroquel) 25 mg PO HS [facility] Last Admin: 08/25/18 20:09 Dose: 25 mg Senna/Docusate Sodium (Senokot S) 2 tab PO BID PRN PRN Reason: Constipation Sodium Chloride (Flush - Normal Saline) 10 ml IVF Q12H PRN PRN Reason: Saline Flush Last Admin: 08/25/18 05:31 Dose: 10 ml Sodium Chloride ([place] Nasal [place] 0.65%) 0 ml EA NARE QIDPRN PRN PRN Reason: Nasal Congestion Throat Lozenges (Cepastat Lozenges) 1 jason PO Q2H PRN PRN Reason: Sore Throat Zolpidem Tartrate (Ambien) 5 mg PO HSPRN PRN PRN Reason: Insomnia
[2018-08-26] MEDS ORDERED: Lorazepam 2 MG/ML VIAL ONE (18:31)
[2018-08-26] MEDS ORDERED: Lorazepam 0.5 MG TAB PO PRN (18:31)
[2018-08-26] MEDS: Lorazepam 2 MG/ML VIAL SLOW IVP PRN (18:33)
[2018-08-27] MEDS: Lorazepam 2 MG/ML VIAL SLOW IVP PRN (04:58)
[2018-08-27] MEDS: Amlodipine 5 MG TAB PO SCH (09:06)
[2018-08-27] MEDS: Furosemide 40 MG TAB PO SCH (09:06)
[2018-08-27] MEDS: Atorvastatin Calcium 40 MG TAB PO SCH (09:10)
[2018-08-27] MEDS: Aspirin 81 mg Enteric Coated Tablet PO SCH (09:10)
[2018-08-27] MEDS: Heparin 5,000 UNITS/ML VIAL SC SCH ×2 (09:10→20:29)
[2018-08-27] MEDS: Clopidogrel Bisulfate 75 MG TAB PO SCH (09:10)
[2018-08-27] MEDS: Acetaminophen 325 MG TAB PO PRN ×2 (09:21→13:58)
--- NOTE | 2018-08-27 10:23 | PDOC.PN ---
- Subjective Encounter Start Date: 08/27/18 Encounter Start Time: 09:00 Patient seen and examined. No new complaints. No overnight events - Objective Resuscitation Status - Order Detail: 08/23/18 13:16 Resuscitation Status Routine Resuscitation Status: FULL: Full Resuscitation Discussed with: daughter ALE Reviewed: Yes Vital Signs & Weight: Vital Signs (12 hours) Temp Pulse Resp BP BP Pulse Ox 08/27/18 08:00 98.3 F 89 20 182/90 H 94 L 08/27/18 07:03 90 16 94 L 08/27/18 05:00 97.6 F 85 20 163/98 H 95 08/27/18 00:00 16 08/26/18 23:25 97.5 F L 88 20 145/83 H 95 Weight Weight 268 lb Most Recent Monitor Data Heart Rate from ECG 91 NIBP 118/68 NIBP BP-Mean 84 Respiration from ECG 24 SpO2 92 I&O: 08/26/18 08/27/18 08/28/18 06:59 06:59 06:59 Intake Total 1770 1200 Output Total 1600 1150 Balance 170 50 Result Diagrams: 08/26/18 05:33 08/26/18 05:33 Phys Exam - Physical Examination Constitutional: NAD HEENT: PERRLA, moist MMs, sclera anicteric Neck: no JVD, supple Respiratory: no wheezing, no rales, no rhonchi Cardiovascular: RRR, no significant murmur, no rub Gastrointestinal: soft, non-tender, no distention, positive bowel sounds Musculoskeletal: no edema, pulses present Neurological: non-focal, normal sensation, moves all 4 limbs Lymphatic: no nodes Psychiatric: normal affect, A&O x 3 Skin: no rash, normal turgor Dx/Plan (1) Acute on chronic diastolic ACC/AHA stage C congestive heart failure Code(s): I50.33 - ACUTE ON CHRONIC DIASTOLIC (CONGESTIVE) HEART FAILURE Status : Acute (2) Acute kidney failure Status: Resolved (3) Acute metabolic encephalopathy Code(s): G93.41 - METABOLIC ENCEPHALOPATHY Status: Resolved (4) Acute respiratory failure with hypoxia and hypercapnia Code(s): J96.01 - ACUTE RESPIRATORY FAILURE WITH HYPOXIA; J96.02 - ACUTE RESPIRATORY FAILURE WITH HYPERCAPNIA Status: Acute (5) Hyperkalemia Code(s): E87.5 - HYPERKALEMIA Status: Resolved (6) CAD (coronary artery disease) Code(s): I25.10 - ATHSCL HEART DISEASE OF [place] CORONARY ARTERY W/O ANG PCTRS Status: Chronic Comment: (7) COPD (chronic obstructive pulmonary disease) Status: Chronic Comment: (8) Hypertension Code(s): I10 - ESSENTIAL (PRIMARY) HYPERTENSION Status: Chronic Qualifiers: Comment: (9) Morbid obesity with BMI of 40.0-44.9, adult Code(s): E66.01 - MORBID (SEVERE) OBESITY DUE TO EXCESS CALORIES; Z68.41 - BODY MASS INDEX (BMI) 40.0-44.9, ADULT Status: Chronic (10) Peripheral vascular disease Code(s): I73.9 - PERIPHERAL VASCULAR DISEASE, UNSPECIFIED Status: Chronic Comment: Hx right CEA (11) CHONG (obstructive sleep apnea) Code(s): G47.33 - OBSTRUCTIVE SLEEP APNEA (ADULT) (PEDIATRIC) Status: Chronic (12) Clonus Code(s): R25.8 - OTHER ABNORMAL INVOLUNTARY MOVEMENTS Status: Acute - Plan cont current plan of care, plan discussed w/ family, PT/OT, aids social worker * medication reviewed as below * symptomatic treatment * await rehab placement * neurosurgery to decide if MRI needed, family wanted to see Dr Bhakta * ALFREDO gudino * continue current management. Review of Systems - Review of Systems ENT: negative: Ear Pain, Ear Discharge, Nose Pain, Nose Discharge, Nose Congestion, Mouth Pain, Mouth Swelling, Throat Pain, Throat Swelling, Other Respiratory: negative: Cough, Dry, Shortness of Breath, Hemoptysis, SOB with Excertion, Pleuritic Pain, Sputum, Wheezing Cardiovascular: negative: chest pain, palpitations, orthopnea, paroxysmal nocturnal dyspnea, edema, light headedness, other Gastrointestinal: negative: Nausea, Vomiting, Abdominal Pain, Diarrhea, Constipation, Melena, Hematochezia, Other Genitourinary: negative: Dysuria, Frequency, Incontinence, Hematuria, Retention , Other Musculoskeletal: negative: Neck Pain, Shoulder Pain, Arm Pain, Back Pain, Hand Pain, Leg Pain, Foot Pain, Other - Medications/Allergies Allergies/Adverse Reactions: Allergies Allergy/AdvReac Type Severity Reaction Status Date / Time codeine Allergy Verified 08/26/18 08:20 pramipexole [From Mirapex] Allergy Verified 08/26/18 08:20 Medications: Current Medications Acetaminophen (Tylenol) 650 mg PO Q4H PRN PRN Reason: Headache/Fever/Mild Pain (1-3) Last Admin: 08/25/18 11:13 Dose: 650 mg Albuterol/Ipratropium (Duoneb) 3 ml NEB Q4H PRN PRN Reason: SOB &/or Wheezing Albuterol/Ipratropium (Duoneb) 3 ml NEB [id number] [facility] Last Admin: 08/27/18 07:03 Dose: 3 ml Amlodipine Besylate (Norvasc) 5 mg PO DAILY [facility] Last Admin: 08/26/18 08:21 Dose: 5 mg Artificial Tears (Tears Naturale) 2 drop EA EYE PRN PRN PRN Reason: Dry Eyes Aspirin (Ecotrin) 81 mg PO DAILY [facility] Last Admin: 08/26/18 08:21 Dose: 81 mg Atorvastatin Calcium (Lipitor) 40 mg PO DAILY [facility] Last Admin: 08/26/18 08:21 Dose: 40 mg Bisacodyl (Dulcolax) 10 mg PO DAILYPRN PRN PRN Reason: Constipation Calcium Carbonate (Tums) 1,000 mg PO Q4H PRN PRN Reason: Heartburn or Indigestion Clopidogrel Bisulfate (Plavix) 75 mg PO DAILY [facility] Last Admin: 08/26/18 08:21 Dose: 75 mg Furosemide (Lasix) 40 mg PO DAILY-AC [facility] Last Admin: 08/26/18 08:21 Dose: 40 mg Guaifenesin (Robitussin Sf) 200 mg PO Q4H PRN PRN Reason: Cough Heparin Sodium (Porcine) (Heparin) 5,000 units SC BID [facility] Last Admin: 08/26/18 20:00 Dose: 5,000 units Hydralazine HCl (Apresoline) 10 mg SLOW IVP Q4H PRN PRN Reason: SBP > 180 and HR < 70 Loperamide HCl (Imodium) 2 mg PO PRN PRN PRN Reason: Diarrhea/Loose Stools Last Admin: 08/25/18 11:13 Dose: 2 mg Loratadine (Claritin) 10 mg PO DAILYPRN PRN PRN Reason: Sinus Symptoms Lorazepam (Ativan) 0.5 mg PO Q4H PRN PRN Reason: Anxiety Last Admin: 08/26/18 23:22 Dose: 0.5 mg Lorazepam (Ativan) 0.5 mg SLOW IVP Q4H PRN PRN Reason: .ANXIETY Last Admin: 08/27/18 04:58 Dose: 0.5 mg Mineral Oil/White Petrolatum (Eucerin Cream) 0 gm TOP BIDPRN PRN PRN Reason: Dry Skin Nicotine (Nicoderm Patch) 21 mg TOP Q24HR [facility] Last Admin: 08/26/18 13:31 Dose: 21 mg Nitroglycerin (Nitrostat) 0.4 mg SL Q5MIN PRN PRN Reason: Chest Pain Ondansetron HCl (Zofran) 4 mg IVP Q6H PRN PRN Reason: Nausea/Vomiting Ondansetron HCl (Zofran Odt) 4 mg PO Q6H PRN PRN Reason: Nausea/Vomiting Pantoprazole Sodium (Protonix) 40 mg PO DAILY [facility] Last Admin: 08/26/18 08:21 Dose: 40 mg Quetiapine Fumarate (Seroquel) 25 mg PO HS [facility] Last Admin: 08/26/18 19:59 Dose: 25 mg Senna/Docusate Sodium (Senokot S) 2 tab PO BID PRN PRN Reason: Constipation Sodium Chloride (Flush - Normal Saline) 10 ml IVF Q12H PRN PRN Reason: Saline Flush Last Admin: 08/25/18 05:31 Dose: 10 ml Sodium Chloride ([place] Nasal [place] 0.65%) 0 ml EA NARE QIDPRN PRN PRN Reason: Nasal Congestion Throat Lozenges (Cepastat Lozenges) 1 jason PO Q2H PRN PRN Reason: Sore Throat Zolpidem Tartrate (Ambien) 5 mg PO HSPRN PRN PRN Reason: Insomnia
[2018-08-27] MEDS: Nicotine 21 MG PATCH TOP SCH ×2 (13:58→17:31)
[2018-08-27] MEDS ORDERED: Temazepam 15 MG CAP PO PRN (18:27)
[2018-08-28] MEDS: Furosemide 40 MG TAB PO SCH (07:58)
[2018-08-28] MEDS: Atorvastatin Calcium 40 MG TAB PO SCH (07:58)
[2018-08-28] MEDS: Amlodipine 5 MG TAB PO SCH (07:58)
[2018-08-28] MEDS: Aspirin 81 mg Enteric Coated Tablet PO SCH (07:58)
[2018-08-28] MEDS: Clopidogrel Bisulfate 75 MG TAB PO SCH (07:58)
[2018-08-28] MEDS: Heparin 5,000 UNITS/ML VIAL SC SCH (07:58)
--- NOTE | 2018-08-28 10:08 | PDOC.PN ---
- Subjective Encounter Start Date: 08/28/18 Encounter Start Time: 07:20 Patient seen and examined. No new complaints. No overnight events - Objective Resuscitation Status - Order Detail: 08/23/18 13:16 Resuscitation Status Routine Resuscitation Status: FULL: Full Resuscitation Discussed with: daughter ALE Reviewed: Yes Vital Signs & Weight: Vital Signs (12 hours) Temp Pulse Resp BP BP BP Pulse Ox 08/28/18 07:58 80 115/71 08/28/18 07:50 97.6 F 80 22 H 115/71 92 L 08/28/18 06:46 96 08/28/18 06:45 88 18 96 08/28/18 00:41 102 H 16 97 08/28/18 00:00 98.6 F 102 H 18 115/68 94 L Weight Weight 260 lb 0.016 oz Most Recent Monitor Data Heart Rate from ECG 91 NIBP 118/68 NIBP BP-Mean 84 Respiration from ECG 24 SpO2 92 I&O: 08/27/18 08/28/18 08/29/18 06:59 06:59 06:59 Intake Total 1200 2050 Output Total 1150 200 Balance 50 1850 Result Diagrams: 08/26/18 05:33 08/26/18 05:33 Phys Exam - Physical Examination Constitutional: NAD HEENT: PERRLA, moist MMs, sclera anicteric Neck: no JVD, supple Respiratory: no wheezing, no rales, no rhonchi Cardiovascular: RRR, no significant murmur, no rub Gastrointestinal: soft, non-tender, no distention, positive bowel sounds Musculoskeletal: no edema, pulses present Neurological: non-focal, normal sensation Lymphatic: no nodes Psychiatric: normal affect, A&O x 3 Skin: no rash, normal turgor Dx/Plan (1) Acute on chronic diastolic ACC/AHA stage C congestive heart failure Code(s): I50.33 - ACUTE ON CHRONIC DIASTOLIC (CONGESTIVE) HEART FAILURE Status : Acute (2) Acute kidney failure Status: Resolved (3) Acute metabolic encephalopathy Code(s): G93.41 - METABOLIC ENCEPHALOPATHY Status: Resolved (4) Acute respiratory failure with hypoxia and hypercapnia Code(s): J96.01 - ACUTE RESPIRATORY FAILURE WITH HYPOXIA; J96.02 - ACUTE RESPIRATORY FAILURE WITH HYPERCAPNIA Status: Acute (5) Hyperkalemia Code(s): E87.5 - HYPERKALEMIA Status: Resolved (6) CAD (coronary artery disease) Code(s): I25.10 - ATHSCL HEART DISEASE OF [place] CORONARY ARTERY W/O ANG PCTRS Status: Chronic Comment: (7) COPD (chronic obstructive pulmonary disease) Status: Chronic Comment: (8) Hypertension Code(s): I10 - ESSENTIAL (PRIMARY) HYPERTENSION Status: Chronic Qualifiers: Comment: (9) Morbid obesity with BMI of 40.0-44.9, adult Code(s): E66.01 - MORBID (SEVERE) OBESITY DUE TO EXCESS CALORIES; Z68.41 - BODY MASS INDEX (BMI) 40.0-44.9, ADULT Status: Chronic (10) Peripheral vascular disease Code(s): I73.9 - PERIPHERAL VASCULAR DISEASE, UNSPECIFIED Status: Chronic Comment: Hx right CEA (11) CHONG (obstructive sleep apnea) Code(s): G47.33 - OBSTRUCTIVE SLEEP APNEA (ADULT) (PEDIATRIC) Status: Chronic (12) Clonus Code(s): R25.8 - OTHER ABNORMAL INVOLUNTARY MOVEMENTS Status: Resolved - Plan cont current plan of care, continue antibiotics, PT/OT, older adult social work specialist * medication reviewed as below * symptomatic treatment * see discharge summery * await insurance auth. Review of Systems - Review of Systems ENT: negative: Ear Pain, Ear Discharge, Nose Pain, Nose Discharge, Nose Congestion, Mouth Pain, Mouth Swelling, Throat Pain, Throat Swelling, Other Respiratory: negative: Cough, Dry, Shortness of Breath, Hemoptysis, SOB with Excertion, Pleuritic Pain, Sputum, Wheezing Cardiovascular: negative: chest pain, palpitations, orthopnea, paroxysmal nocturnal dyspnea, edema, light headedness, other Gastrointestinal: negative: Nausea, Vomiting, Abdominal Pain, Diarrhea, Constipation, Melena, Hematochezia, Other Genitourinary: negative: Dysuria, Frequency, Incontinence, Hematuria, Retention , Other Musculoskeletal: negative: Neck Pain, Shoulder Pain, Arm Pain, Back Pain, Hand Pain, Leg Pain, Foot Pain, Other - Medications/Allergies Allergies/Adverse Reactions: Allergies Allergy/AdvReac Type Severity Reaction Status Date / Time codeine Allergy Verified 08/26/18 08:20 pramipexole [From Mirapex] Allergy Verified 08/26/18 08:20 Medications: Current Medications Acetaminophen (Tylenol) 650 mg PO Q4H PRN PRN Reason: Headache/Fever/Mild Pain (1-3) Last Admin: 08/27/18 13:58 Dose: 650 mg Albuterol/Ipratropium (Duoneb) 3 ml NEB Q4H PRN PRN Reason: SOB &/or Wheezing Albuterol/Ipratropium (Duoneb) 3 ml NEB [id number] [facility] Last Admin: 08/28/18 06:45 Dose: 3 ml Amlodipine Besylate (Norvasc) 5 mg PO DAILY [facility] Last Admin: 08/28/18 07:58 Dose: 5 mg Artificial Tears (Tears Naturale) 2 drop EA EYE PRN PRN PRN Reason: Dry Eyes Aspirin (Ecotrin) 81 mg PO DAILY [facility] Last Admin: 08/28/18 07:58 Dose: 81 mg Atorvastatin Calcium (Lipitor) 40 mg PO DAILY [facility] Last Admin: 08/28/18 07:58 Dose: 40 mg Bisacodyl (Dulcolax) 10 mg PO DAILYPRN PRN PRN Reason: Constipation Calcium Carbonate (Tums) 1,000 mg PO Q4H PRN PRN Reason: Heartburn or Indigestion Clopidogrel Bisulfate (Plavix) 75 mg PO DAILY [facility] Last Admin: 08/28/18 07:58 Dose: 75 mg Furosemide (Lasix) 40 mg PO DAILY-AC [facility] Last Admin: 08/28/18 07:58 Dose: 40 mg Guaifenesin (Robitussin Sf) 200 mg PO Q4H PRN PRN Reason: Cough Heparin Sodium (Porcine) (Heparin) 5,000 units SC BID [facility] Last Admin: 08/28/18 07:58 Dose: 5,000 units Hydralazine HCl (Apresoline) 10 mg SLOW IVP Q4H PRN PRN Reason: SBP > 180 and HR < 70 Last Admin: 08/27/18 14:02 Dose: 10 mg Loperamide HCl (Imodium) 2 mg PO PRN PRN PRN Reason: Diarrhea/Loose Stools Last Admin: 08/25/18 11:13 Dose: 2 mg Loratadine (Claritin) 10 mg PO DAILYPRN PRN PRN Reason: Sinus Symptoms Lorazepam (Ativan) 0.5 mg PO Q4H PRN PRN Reason: Anxiety Last Admin: 08/26/18 23:22 Dose: 0.5 mg Lorazepam (Ativan) 0.5 mg SLOW IVP Q4H PRN PRN Reason: .ANXIETY Last Admin: 08/27/18 04:58 Dose: 0.5 mg Mineral Oil/White Petrolatum (Eucerin Cream) 0 gm TOP BIDPRN PRN PRN Reason: Dry Skin Nicotine (Nicoderm Patch) 21 mg TOP Q24HR [facility] Last Admin: 08/27/18 17:31 Dose: 21 mg Nitroglycerin (Nitrostat) 0.4 mg SL Q5MIN PRN PRN Reason: Chest Pain Ondansetron HCl (Zofran) 4 mg IVP Q6H PRN PRN Reason: Nausea/Vomiting Ondansetron HCl (Zofran Odt) 4 mg PO Q6H PRN PRN Reason: Nausea/Vomiting Pantoprazole Sodium (Protonix) 40 mg PO DAILY [facility] Last Admin: 08/28/18 07:58 Dose: 40 mg Quetiapine Fumarate (Seroquel) 25 mg PO HS [facility] Last Admin: 08/27/18 20:28 Dose: 25 mg Senna/Docusate Sodium (Senokot S) 2 tab PO BID PRN PRN Reason: Constipation Sodium Chloride (Flush - Normal Saline) 10 ml IVF Q12H PRN PRN Reason: Saline Flush Last Admin: 08/25/18 05:31 Dose: 10 ml Sodium Chloride ([place] Nasal [place] 0.65%) 0 ml EA NARE QIDPRN PRN PRN Reason: Nasal Congestion Temazepam (Restoril) 15 mg PO HSPRN PRN PRN Reason: Insomnia Last Admin: 08/27/18 23:26 Dose: 15 mg Throat Lozenges (Cepastat Lozenges) 1 jason PO Q2H PRN PRN Reason: Sore Throat Venlafaxine HCl (Effexor) 150 mg PO QPM [facility] Last Admin: 08/27/18 20:28 Dose: 150 mg
--- NOTE | 2018-08-28 10:12 | DIS ---
DATE OF ADMISSION: 08/23/2018 DATE OF DISCHARGE: 08/28/2018 PRIMARY CARE PHYSICIAN: Dr. Tono Curran. DISCHARGE DISPOSITION: Rehab. PRIMARY DISCHARGE DIAGNOSES: Acute on chronic diastolic heart failure, acute respiratory failure with hypoxia, acute metabolic encephalopathy, hyperkalemia, acute kidney failure. SECONDARY DISCHARGE DIAGNOSES: Morbid obesity with BMI 39, peripheral vascular disease, obstructive sleep apnea, hypertension, COPD, coronary artery disease, tobacco abuse disorder, chronic diastolic heart failure. PRIMARY PROCEDURE/OPERATION: None. RADIOLOGICAL INVESTIGATION: CT brain, chest x-ray, renal ultrasound, echocardiography, repeat chest x-ray. SIGNIFICANT LABORATORY DATA: Hemoglobin 15.1, creatinine 1.1. Electrolytes and LFTs normal. Urinalysis normal. DISCHARGE MEDICATION: 1. Tylenol No. 3 one tablet q.4 hourly p.r.n. 2. Norvasc 5 mg daily. 3. Aspirin 81 mg daily. 4. Lipitor 40 mg daily. 5. Plavix 75 mg p.o. daily. 6. Flexeril 7.5 mg p.o. at bedtime p.r.n. 7. Gabapentin 300 mg p.o. t.i.d. 8. Lisinopril 30 mg p.o. daily. 9. Omeprazole 20 mg p.o. daily. 10. Zanaflex 4 mg t.i.d. p.r.n. 11. Trazodone 150 mg p.o. at bedtime. 12. Breo Ellipta one inhalation daily. 13. Effexor XR 150 mg daily. 14. Lasix 40 mg p.o. daily. CONTRAINDICATION: None. CODE STATUS: Full code. INPATIENT APPRENTICE/LINEMAN: Neurosurgeon was consulted, but it was related with metabolic encephalopathy. Neurology was consulted for clonus and encephalopathy. Pulmonary group was following while in hospital. Dr. Freeman was consulted for renal failure. TESTS RESULTS PENDING ON DISCHARGE: None. ALLERGIES: CODEINE, PRAMIPEXOLE. DISCHARGE PLAN: Posthospital, the patient will follow up with primary care physician Dr. Curran in one week. The patient will make appointment with Dr. Bhakta. HOSPITAL COURSE: A 57-year-old male, who was admitted by Dr. Luther Bowling, please see his H and P for further details. The patient was having acute kidney failure. He was having significant fluid overload status. He was having cardiorenal syndrome. He also had altered mental status from metabolic etiology with acute kidney failure. This patient has underlying COPD as well as obstructive sleep apnea and he is noncompliant with the CPAP machine. He also took some extra Valium which made him more confused. This patient was admitted to [facility]. Pulmonary group, Nephrology group, and Cardiology group was consulted. The patient was treated with Lasix and with significant improvement in his kidney failure as well as edema. The patient was on room air by the time of discharge. We transferred him to medical floor. He had initially some ankle clonus and encephalopathy and that is why we consulted Neurology and subsequently, he did not have any clonus. Neurosurgeon also saw this patient while in hospital and they recommended outpatient followup. This patient is up to his baseline level. He has physical deconditioning and that is why family member and patient requested to go to rehab and with help of case briefer, we are arranging rehab. At this point, the patient's all problems stabilized back to normal level. We provided counseling to avoid smoking. He is on room air, ambulatory, tolerating p.o. well. He is stable for discharge as long as rehab is approved. Paperwork for discharge done. Discharge medication reconciliation done. Please see my progress note from today for further details. Job ID: [id number]
[2018-08-28 11:06] VITALS: BP 116/82; TEMP 98
== END 2018-08-28 13:12 | DRG 291 ==
LOC: ERS 11:38 → IMCU/EMU 15:24 → T4-A 08-25 21:10
PROVIDERS: ADMIT Internal Medicine; ATTEND Internal Medicine
DX: I11.0 Hypertensive heart disease with heart failure (principal); G93.41 Metabolic encephalopathy; J96.01 Acute respiratory failure with hypoxia; J96.02 Acute respiratory failure with hypercapnia; N17.9 Acute kidney failure, unspecified; J44.9 Chronic obstructive pulmonary disease, unspecified; I50.33 Acute on chronic diastolic (congestive) heart failure; E78.5 Hyperlipidemia, unspecified; E11.51 Type 2 diabetes mellitus with diabetic peripheral angiopathy without gangrene; I25.2 Old myocardial infarction; Z90.49 Acquired absence of other specified parts of digestive tract; Z68.39 Body mass index [BMI] 39.0-39.9, adult; Z79.01 Long term (current) use of anticoagulants; Z79.82 Long term (current) use of aspirin; Z79.899 Other long term (current) drug therapy; Z98.1 Arthrodesis status; Z79.891 Long term (current) use of opiate analgesic; Z91.19 Patient's noncompliance with other medical treatment and regimen; M19.90 Unspecified osteoarthritis, unspecified site; F17.210 Nicotine dependence, cigarettes, uncomplicated; E87.5 Hyperkalemia; I25.10 Atherosclerotic heart disease of native coronary artery without angina pectoris; E66.01 Morbid (severe) obesity due to excess calories; G47.33 Obstructive sleep apnea (adult) (pediatric); B19.20 Unspecified viral hepatitis C without hepatic coma; R25.8 Other abnormal involuntary movements
CPT/HCPCS: 36415; 36416; 51701; 70450; 71045; 76770; 80048; 80053; 80306; 80307; 81003; 82140; 82533; 82570; 82607; 82805; 83605; 83735; 83880; 84300; 84443; 84484; 84550; 85025; 93005; 93306; 93798; 94640; 94760; 96361; 96374; 96375; 96376; J0360; J1644; J1815; J1940; J2060; J2310; J7611; J7620

== ENCOUNTER 2018-09-03 09:58 | Inpatient (IN) | payer MEDICARE, MEDICAID ==
[2018-09-03 10:32] LABS: #Eosinphils 0.2 thou/uL (0.0-0.7); #Lymphocytes 1.5 thou/uL (1.20-3.40); #Monocytes 0.9 thou/uL (0.11-0.59); #Neutrophils 6.2 thou/uL (1.40-6.50); %Basophils 0.5 % (0.0-1.0); %Eosinophils 2.4 % (0.0-10.0); %Lymphocytes 17.1 % (21.0-51.0); %Monocytes 9.7 % (0.0-10.0); %Neutrophils 70.3 % (42.0-75.0); Hemoglobin 13.4 g/dL (14.0-18.0); Mean Corpuscular HGB CONC 32.9 g/dL (32.0-36.0); Mean Corpuscular Hemoglobin 31.3 pg (27.0-31.0); Mean Corpuscular Volume 95.2 fL (78.0-98.0); Mean Platelet Volume 6.9 fL (7.4-10.4); Platelet Count 253 thou/uL (130-400); RBC Distribution Width 12.3 % (11.5-14.5); Red Blood Cell (RBC) Count 4.27 mill/uL (4.70-6.10); White Blood Cell (WBC) Count 8.8 thou/uL (4.8-10.8)
[2018-09-03] MEDS ORDERED: Naloxone HCl 0.4 mg/ml Vial ONE (10:36)
[2018-09-03 11:02] LABS: ALT (SGPT) 20 U/L (8-55); AST (SGOT) 18 U/L (5-34); Albumin 3.9 g/dL (3.5-5.0); Alkaline Phosphatase 123 U/L (40-150); Anion Gap 14 mmol/L (10-20); BUN (Urea Nitrogen) 67 mg/dL (8.4-25.7); Bilirubin, Total 0.4 mg/dL (0.2-1.2); Calc. Creatinine Clearance 0 mL/min (70-130); Calcium 8.7 mg/dL (7.8-10.44); Carbon Dioxide 23 mmol/L (22-29); Chloride 107 mmol/L (98-107); Estimated GFR-MDRD 19; Globulin 3.3 g/dL (2.4-3.5); Glucose 86 mg/dL (70-105); Potassium 5.2 mmol/L (3.5-5.1); Protein, Total 7.2 g/dL (6.0-8.3); Sodium 139 mmol/L (136-145)
--- NOTE | 2018-09-03 11:02 | RAD ---
AP VIEW CHEST: Date: 09/03/18 HISTORY: Altered mental status. Patient apparently has taken possible overdose of narcotic medication. FINDINGS: Comparison made to previous exam from 08/25/18. AP view of chest demonstrates EKG leads seen over the chest. The patient has surgical changes in the mid thoracic spine region. The lungs are well aerated. No evidence of active intrathoracic disease se en. No evidence of effusions, pneumonia, or pneumothorax seen. IMPRESSION: Unremarkable AP view chest. POS: C
[2018-09-03 11:03] LABS: Acetaminophen Less than 6.0 mcg/mL (10.0-30.0); Alcohol Less than 10 mg/dL (Less than 10); Salicylate Less than 8.0 mg/dL (15.0-30.0)
--- NOTE | 2018-09-03 11:09 | CT ---
CT BRAIN PERFORMED WITHOUT CONTRAST ENHANCEMENT: Date: 09/03/18 HISTORY: Altered mental status. COMPARISON: 08/23/18 study. FINDINGS: There is some mild ventricular and sulcal prominence. There are no signs of intracerebral hemorrhage or extra-axial fluid collections. The mastoid air cells and visualized sinuses are clear. IMPRESSION: No acute intracranial abnormalities. POS: [facility]
[2018-09-03 13:07] LABS: Bilirubin Small (Negative); Blood, Urine Negative (Negative); Clarity CLEAR (Clear); Glucose, Urine (Dipstick) Negative (Negative); Leukocyte Negative (Negative); Nitrite Negative (Negative); Protein, Urine (Dipstick) 30 mg/dL (Neg-Trace); pH, Urine 5.5 (5.0-9.0)
[2018-09-03 13:09] LABS: Bacteria/HPF None Seen HPF (None Seen); Pathc Cast-AUWi Flag 1.08 (0-2.49); RBC/HPF 0-3 HPF (0-3); Squamous Epithelial None Seen HPF (0-3); WBC/HPF 0-3 HPF (0-3)
[2018-09-03 13:31] LABS: Amphetamine Not Detected (NotDetected); Barbiturates Screen Not Detected (NotDetected); Benzodiazepine Screen Detected (NotDetected); Cocaine Metabolite Screen Not Detected (NotDetected); Medtox Reader # READER 1; Methadone Not Detected (NotDetected); Methamphetamine Not Detected (NotDetected); Opiate Screen Detected (NotDetected); Oxycodone Screen Not Detected (NotDetected); Phencyclidine (PCP) Not Detected (NotDetected); THC/Cannabinoid Screen Not Detected (NotDetected); Tricyclic Screen Not Detected (NotDetected)
[2018-09-03 13:32] LABS: Medtox Control Line Valid? VALID (VALID)
[2018-09-03] MEDS ORDERED: Ondansetron ODT 4 MG TAB SL PRN (17:24)
[2018-09-03] MEDS ORDERED: Acetaminophen 650 MG Suppository PR PRN (17:24)
[2018-09-03] MEDS ORDERED: hydrALAZINE 20 MG/ML VIAL SLOW IVP PRN (17:24)
[2018-09-03] MEDS ORDERED: Ondansetron PF 4 MG/2 ML Vial IVP PRN (17:24)
[2018-09-03] MEDS: Famotidine/PF 20 mg/2ml Vial SLOW IVP SCH (20:01)
[2018-09-03] MEDS: Sodium Chloride 0.9% 1,000 ML IV SCH (20:11)
[2018-09-03 23:02] VITALS: BMI 42.3
--- NOTE | 2018-09-03 23:58 | HP ---
PRIMARY CARE PROVIDER: Dr. Tono Curran. CHIEF COMPLAINT: Altered mental status and lethargy. HISTORY OF PRESENT ILLNESS: This is a 57-year-old male, who was recently admitted to [facility] from 08/23/2018 through 08/28/2018 for acute on chronic diastolic heart failure exacerbation with associated respiratory failure and metabolic encephalopathy with acute kidney failure. The patient was apparently coordinated for discharge to inpatient rehabilitation, however, at the last minute, decided not to go to inpatient rehab and returned home to pursue outpatient rehabilitation services. The history is obtained after interviewing the patient's daughter at the bedside as well as discussions with the ER attending and review of electronic medical records in the emergency room. The patient apparently has been receiving therapy due to lower extremity weakness and difficulty ambulating. The daughter reports the patient was given a prescription for a rolling walker, which he has not started using. The daughter reports the patient became lethargic in the last 24 hours, mumbling, falling asleep rapidly and incoherent. The patient's daughter denies any recent new medications and states he has been compliant with the medications that were prescribed at discharge. No specific documented fever, exposure history, family members with similar symptoms, travel, diarrhea, or dysuria. In the emergency room, the patient underwent general evaluation including chest imaging and CT imaging of the brain with negative findings. Metabolic screening was performed showing evidence of acute kidney injury with most recent creatinine prior to this evaluation on 08/26/2018 at 1.12. Current creatinine level noted at 3.32. The patient was initiated on IV fluids in the emergency room and given one dose of Narcan 0.4 mg after concern for narcotic influence through the patient's presentation. No specific change in his mentation was noted after dosing of Narcan. PAST MEDICAL HISTORY: 1. Acute on chronic diastolic congestive heart failure. 2. Hypoxemic respiratory failure. 3. Metabolic encephalopathy, multifactorial. 4. Chronic kidney disease stage 2. 5. Morbid obesity. 6. Peripheral vascular disease. 7. Obstructive sleep apnea. 8. Hypertension. 9. Chronic obstructive pulmonary disease. 10. Tobacco abuse. 11. Coronary artery disease. PAST SURGICAL HISTORY: Cervical spine surgery secondary to stenosis and myelopathy. CURRENT MEDICATIONS: Based on previous discharge 08/28/2018, 1. Tylenol No.3 one tablet p.o. q.4-6 hours p.r.n. 2. Norvasc 5 mg p.o. daily. 3. Aspirin 81 mg p.o. daily. 4. Lipitor 40 mg p.o. daily. 5. Plavix 75 mg p.o. daily. 6. Flexeril 7.5 mg p.o. at bedtime p.r.n.. 7. Gabapentin 300 mg p.o. t.i.d.. 8. Lisinopril 30 mg p.o. daily. 9. Omeprazole 20 mg p.o. daily. 10. Zanaflex 4 mg p.o. t.i.d. p.r.n. 11. Trazodone 150 mg p.o. at bedtime. 12. Breo Ellipta one inhalation daily. 13. Effexor XR 150 mg p.o. daily. 14. Lasix 40 mg p.o. daily. ALLERGIES: CODEINE, PRAMIPEXOLE. FAMILY HISTORY: Positive for hypertension, diabetes, and coronary artery disease. SOCIAL HISTORY: The patient admits to social alcohol use. Smokes up to a pack of cigarettes daily. No illicit drug use. Accompanied by his daughter in the hospital. Resides in [place], [place]. REVIEW OF SYSTEMS: Unobtainable with the patient's altered mental status and encephalopathy. PHYSICAL EXAMINATION: VITAL SIGNS: On admission, blood pressure 106/52, pulse 96, respiratory rate 19, temperature 99.2 degrees Fahrenheit, O2 saturation 93% on room air. GENERAL APPEARANCE: This is a 57-year-old male, lethargic, mumbles when stimulated, lower extremity with tactile stimulation, in no acute distress. HEENT: Pupils are equal, round, reactive to light and accommodation. Extraocular muscles are intact. No scleral icterus. No conjunctival injection. Nares patent. OP is clear. Oral mucosa dry appearing. NECK: Supple. No cervical adenopathy. No thyromegaly. No carotid bruits. No JVD noted. No meningeal signs noted. CHEST: Lungs are clear to auscultation bilaterally. Diminished breath sounds bilaterally. CARDIOVASCULAR: S1-S2 with distant heart sounds. No murmur, rub, or gallop appreciated. ABDOMEN: Obese, soft, without tenderness to palpation. Bowel sounds are positive in all 4 quadrants. No palpable mass. No rebound or guarding. EXTREMITIES: Warm and dry with fair turgor. Mild edema to the lower extremities. Pulses palpable distally at the dorsalis pedis, posterior tibial, and popliteal arteries bilaterally. Capillary refill less than 2 seconds. NEUROLOGIC: Lethargic and obtunded to tactile and verbal stimulation. Mumbles incoherently. Does not follow commands. Spontaneous respirations. PERTINENT LAB AND X-RAY FINDINGS: Sodium 139, potassium 5.2, chloride 107, CO2 of 23, BUN 67, creatinine 3.32, estimated GFR of 19, glucose 86, calcium 8.7. LFTs within normal limits. Troponin I 0.016. BNP 48. CBC showed a white blood cell count of 8.8, hemoglobin 13, hematocrit 41, platelet count 253, with normal differential. Urinalysis shows specific gravity of 1.020, positive protein, small bilirubin. Urine drug screen dated 09/03/2018, positive for opiates and benzodiazepines. Plasma alcohol level less than 10. Portable chest x-ray dated 09/03/2018 showed no acute cardiopulmonary process. CT of the brain without contrast dated 09/03/2018 showed no acute intracranial process. EKG dated 09/03/2018 by my interpretation shows sinus mechanism with heart rates in the low 90s. Normal R-wave progression noted in the precordial leads. Normal axis. No acute ST-T wave changes appreciated. ASSESSMENT/PLAN: 1. Acute kidney injury on chronic kidney disease stage 2. We will continue intravenous normal saline at 75 mL/h. Avoid nephrotoxic agents and limit contrast exposure. Hold HIGINIO inhibitors and diuretics. Repeat creatinine in the a.m. 2. Acute toxic metabolic encephalopathy. Suspect multifactorial process including polypharmacy in addition to uremia. We will continue IV fluids as outlined previously. We will hold all psychotropic and sedating medications. Reorientation techniques. 3. Chronic hypoxic respiratory failure. We will continue oxygen supplementation to maintain O2 saturation greater than or equal to 90%. DuoNebs q.4 hours p.r.n. 4. Hyperkalemia, mild secondary to #1. Continue IV fluids as outlined previously and repeat potassium level in the a.m. 5. Polypharmacy. We will need to review the patient's home medication regimen and limit psychotropic and sedating medications. The patient is on multiple sedating medications, likely interacting to contribute to the patient's presentation. 6. Tobacco abuse. We will offer smoking cessation resources prior to discharge. 7. Prophylaxis. SCDs while in bed. Pepcid 20 mg IV q.12 hours. PT and OT evaluation in the a.m.. CODE STATUS: Full. Surrogate medical decision maker is the patient's daughter. Job ID: [id number]
[2018-09-04 06:10] LABS: Eosinophils 1 % (0-10); Hemoglobin 13.5 g/dL (14.0-18.0); Lymphocytes 28 % (21-51); MDiff Complete? YES; Mean Corpuscular HGB CONC 33.5 g/dL (32.0-36.0); Mean Corpuscular Hemoglobin 31.6 pg (27.0-31.0); Mean Corpuscular Volume 94.2 fL (78.0-98.0); Monocytes 10 % (0-10); Neutrophil 59 % (42-75); Platelet Count 246 thou/uL (130-400); Platelet Morphology Comment Appears Adequate; Red Blood Cell (RBC) Count 4.29 mill/uL (4.70-6.10); White Blood Cell (WBC) Count 6.8 thou/uL (4.8-10.8)
[2018-09-04 06:28] LABS: Anion Gap 13 mmol/L (10-20); BUN (Urea Nitrogen) 38 mg/dL (8.4-25.7); Calc. Creatinine Clearance 120 mL/min (70-130); Calcium 8.9 mg/dL (7.8-10.44); Carbon Dioxide 20 mmol/L (22-29); Chloride 111 mmol/L (98-107); Estimated GFR-MDRD 59; Glucose 88 mg/dL (70-105); Potassium 4.4 mmol/L (3.5-5.1); Sodium 140 mmol/L (136-145)
[2018-09-04] MEDS: Sodium Chloride 0.9% 1,000 ML IV SCH (09:57)
--- NOTE | 2018-09-04 13:39 | PDOC.PN ---
- Subjective Encounter Start Date: 09/04/18 Encounter Start Time: 09:45 Subjective: lethargic, awakens to touch but falls asleep quickly -: daughter at bedside - Objective Resuscitation Status - Order Detail: 09/03/18 17:18 Resuscitation Status Routine Resuscitation Status: FULL: Full Resuscitation MAR Reviewed: Yes Vital Signs & Weight: Vital Signs (12 hours) Temp Pulse Resp BP Pulse Ox 09/04/18 08:00 96.4 F L 97 16 135/72 98 09/04/18 07:46 98 09/04/18 06:37 95 09/04/18 04:00 98.7 F 95 15 128/66 95 Weight Weight 295 lb 6.4 oz Result Diagrams: 09/04/18 05:36 09/04/18 05:36 Phys Exam - Physical Examination HEENT: PERRLA dry mucosa Neck: no JVD, supple Respiratory: no wheezing, no rales Cardiovascular: RRR, no significant murmur Gastrointestinal: soft, non-tender, positive bowel sounds Musculoskeletal: no edema, pulses present Neurological: non-focal, moves all 4 limbs Dx/Plan (1) Narcotic overdose Code(s): T40.601A - POISONING BY UNSP NARCOTICS, ACCIDENTAL, INIT Status: Suspected Qualifiers: Encounter type: subsequent encounter (2) Acute metabolic encephalopathy Code(s): G93.41 - METABOLIC ENCEPHALOPATHY Status: Acute (3) Acute kidney failure Status: Acute (4) CAD (coronary artery disease) Code(s): I25.10 - ATHSCL HEART DISEASE OF [place] CORONARY ARTERY W/O ANG PCTRS Status: Chronic Qualifiers: Coronary Disease-Associated Artery/Lesion type: [place] artery [place] vs. transplanted heart: [place] heart Associated angina: without angina Qualified Code(s): I25.10 - Atherosclerotic heart disease of [place] coronary artery without angina pectoris Comment: (5) COPD (chronic obstructive pulmonary disease) Status: Chronic Qualifiers: COPD type: unspecified COPD Qualified Code(s): J44.9 - Chronic obstructive pulmonary disease, unspecified Comment: (6) Hypertension Code(s): I10 - ESSENTIAL (PRIMARY) HYPERTENSION Status: Chronic Qualifiers: Hypertension type: essential hypertension Comment: (7) Morbid obesity with BMI of 40.0-44.9, adult Code(s): E66.01 - MORBID (SEVERE) OBESITY DUE TO EXCESS CALORIES; Z68.41 - BODY MASS INDEX (BMI) 40.0-44.9, ADULT Status: Chronic (8) CHONG (obstructive sleep apnea) Code(s): G47.33 - OBSTRUCTIVE SLEEP APNEA (ADULT) (PEDIATRIC) Status: Chronic (9) Peripheral vascular disease Code(s): I73.9 - PERIPHERAL VASCULAR DISEASE, UNSPECIFIED Status: Chronic Comment: Hx right CEA - Plan encephalopathy is slightly better than admission but still gets agitated an -: -d is lethargic. -: will obtain blood and urine cultures as well -: d/w daughter and gave full updates -: restart selected home meds to prevent withdrawal symptoms * . renal function has recovered well. continue iv fluids until he is able to tolerate oral intake will likely need placement, family is very supportive at bedside Review of Systems - Medications/Allergies Allergies/Adverse Reactions: Allergies Allergy/AdvReac Type Severity Reaction Status Date / Time codeine Allergy Verified 09/03/18 20:03 pramipexole [From Mirapex] Allergy Verified 09/03/18 20:03 Sulfa (Sulfonamide Allergy Verified 09/03/18 20:03 Antibiotics) Medications: Current Medications Acetaminophen (Tylenol) 650 mg [place] Q4H PRN PRN Reason: Fever > 101 Amlodipine Besylate (Norvasc) mg PO DAILY [facility] Aspirin (Ecotrin) 81 mg PO DAILY [facility] Atorvastatin Calcium (Lipitor) 40 mg PO DAILY [facility] Clopidogrel Bisulfate (Plavix) mg PO DAILY [facility] Famotidine (Pepcid) 20 mg SLOW IVP Q24HR [facility] Last Admin: 09/03/18 20:01 Dose: 20 mg Hydralazine HCl (Apresoline) 10 mg SLOW IVP Q4H PRN PRN Reason: SBP > 180 and HR < 70 Sodium Chloride (Normal Saline 0.9%) 1,000 mls @ 75 mls/hr IV .[id number] [facility] Last Admin: 09/04/18 09:57 Dose: 1,000 mls Non-Formulary Medication (Umeclidinium Brm/Vilanterol Tr [Anoro Ellipta]) 1 puff INH DAILY [facility] Ondansetron HCl (Zofran Odt) 4 mg SL Q6H PRN PRN Reason: Nausea/Vomiting Ondansetron HCl (Zofran) 4 mg IVP Q6H PRN PRN Reason: Nausea/Vomiting Venlafaxine HCl (Effexor Xr) mg PO DAILY [facility]
[2018-09-04] MEDS: Enoxaparin Sodium 40 MG/0.4 ML SYRINGE SC SCH (20:09)
[2018-09-04] MEDS: Famotidine/PF 20 mg/2ml Vial SLOW IVP SCH (20:09)
[2018-09-04] MEDS: Atorvastatin Calcium 40 MG TAB PO SCH (20:09)
[2018-09-04] MEDS: Lorazepam 0.5 MG TAB PO PRN (23:30)
[2018-09-05] MEDS: Sodium Chloride 0.9% 1,000 ML IV SCH ×3 (07:36→22:34)
[2018-09-05 08:00] LABS: #Eosinphils 0.1 thou/uL (0.0-0.7); #Lymphocytes 1.2 thou/uL (1.20-3.40); #Monocytes 0.6 thou/uL (0.11-0.59); %Basophils 0.4 % (0.0-1.0); %Eosinophils 0.8 % (0.0-10.0); %Lymphocytes 17.7 % (21.0-51.0); %Monocytes 8.4 % (0.0-10.0); %Neutrophils 72.6 % (42.0-75.0); Hemoglobin 13.3 g/dL (14.0-18.0); Mean Corpuscular HGB CONC 33.6 g/dL (32.0-36.0); Mean Corpuscular Hemoglobin 30.9 pg (27.0-31.0); Mean Platelet Volume 6.8 fL (7.4-10.4); Platelet Count 250 thou/uL (130-400); Red Blood Cell (RBC) Count 4.29 mill/uL (4.70-6.10); White Blood Cell (WBC) Count 6.9 thou/uL (4.8-10.8)
[2018-09-05 08:18] LABS: Albumin 3.7 g/dL (3.5-5.0); Anion Gap 13 mmol/L (10-20); BUN (Urea Nitrogen) 24 mg/dL (8.4-25.7); BUN/Creatinine Ratio 26.37; Calc. Creatinine Clearance 160 mL/min (70-130); Calcium 9.2 mg/dL (7.8-10.44); Carbon Dioxide 24 mmol/L (22-29); Chloride 111 mmol/L (98-107); Estimated GFR-MDRD 85; Glucose 91 mg/dL (70-105); Potassium 4.3 mmol/L (3.5-5.1); Sodium 144 mmol/L (136-145)
[2018-09-05 08:24] LABS: Phosphorus 1.3 mg/dL (2.3-4.7)
[2018-09-05] MEDS: Clopidogrel Bisulfate 75 MG TAB PO SCH (09:35)
[2018-09-05] MEDS: Aspirin 81 mg Enteric Coated Tablet PO SCH (09:35)
[2018-09-05] MEDS: Amlodipine 5 MG TAB PO SCH (09:35)
[2018-09-05] MEDS: Venlafaxine HCl XR 150 MG CAP PO SCH (09:35)
[2018-09-05] MEDS: Lorazepam 0.5 MG TAB PO PRN ×3 (10:09→21:13)
--- NOTE | 2018-09-05 12:06 | PDOC.PN ---
- Subjective Encounter Start Date: 09/05/18 Encounter Start Time: 09:30 Subjective: awake, responds to questions, not oriented - Objective Resuscitation Status - Order Detail: 09/03/18 17:18 Resuscitation Status Routine Resuscitation Status: FULL: Full Resuscitation MAR Reviewed: Yes Vital Signs & Weight: Vital Signs (12 hours) Temp Pulse Resp BP Pulse Ox 09/05/18 09:51 95 09/05/18 09:49 96 20 95 09/05/18 09:35 88 09/05/18 09:15 96 09/05/18 09:10 98.7 F 88 18 156/74 H 96 09/05/18 04:00 98.6 F 93 20 141/80 H 95 09/05/18 00:40 90 20 95 Weight Weight 286 lb I&O: 09/04/18 09/05/18 09/06/18 06:59 06:59 06:59 Intake Total 900 Balance 900 Result Diagrams: 09/05/18 07:45 09/05/18 07:45 Phys Exam - Physical Examination HEENT: PERRLA, moist MMs Neck: no JVD, supple Respiratory: no wheezing, no rales Cardiovascular: RRR, no significant murmur Gastrointestinal: soft, non-tender, positive bowel sounds Musculoskeletal: no edema, pulses present Neurological: non-focal, moves all 4 limbs Dx/Plan (1) Narcotic overdose Code(s): T40.601A - POISONING BY UNSP NARCOTICS, ACCIDENTAL, INIT Status: Suspected Qualifiers: Encounter type: subsequent encounter (2) Acute metabolic encephalopathy Code(s): G93.41 - METABOLIC ENCEPHALOPATHY Status: Acute (3) Acute kidney failure Status: Acute Comment: resolving (4) CAD (coronary artery disease) Code(s): I25.10 - ATHSCL HEART DISEASE OF [place] CORONARY ARTERY W/O ANG PCTRS Status: Chronic Qualifiers: Coronary Disease-Associated Artery/Lesion type: [place] artery [place] vs. transplanted heart: [place] heart Associated angina: without angina Qualified Code(s): I25.10 - Atherosclerotic heart disease of [place] coronary artery without angina pectoris Comment: (5) COPD (chronic obstructive pulmonary disease) Status: Chronic Qualifiers: COPD type: unspecified COPD Qualified Code(s): J44.9 - Chronic obstructive pulmonary disease, unspecified Comment: (6) Hypertension Code(s): I10 - ESSENTIAL (PRIMARY) HYPERTENSION Status: Chronic Qualifiers: Hypertension type: essential hypertension Comment: (7) Morbid obesity with BMI of 40.0-44.9, adult Code(s): E66.01 - MORBID (SEVERE) OBESITY DUE TO EXCESS CALORIES; Z68.41 - BODY MASS INDEX (BMI) 40.0-44.9, ADULT Status: Chronic (8) CHONG (obstructive sleep apnea) Code(s): G47.33 - OBSTRUCTIVE SLEEP APNEA (ADULT) (PEDIATRIC) Status: Chronic (9) Peripheral vascular disease Code(s): I73.9 - PERIPHERAL VASCULAR DISEASE, UNSPECIFIED Status: Chronic Comment: Hx right CEA - Plan still encephalopathic but waking up more -: selected home meds were restarted yesterday -: may tx to med floor -: continue iv hydration, may stop if he is eating/drinking well -: on asp, plavix, lipitor and norvasc * . Review of Systems - Medications/Allergies Allergies/Adverse Reactions: Allergies Allergy/AdvReac Type Severity Reaction Status Date / Time codeine Allergy Verified 09/03/18 20:03 pramipexole [From Mirapex] Allergy Verified 09/03/18 20:03 Sulfa (Sulfonamide Allergy Verified 09/03/18 20:03 Antibiotics) Medications: Current Medications Acetaminophen (Tylenol) 650 mg [place] Q4H PRN PRN Reason: Fever > 101 Albuterol/Ipratropium (Duoneb) 3 ml NEB [id number] [facility] Last Admin: 09/05/18 09:49 Dose: 3 ml Amlodipine Besylate (Norvasc) 5 mg PO DAILY [facility] Last Admin: 09/05/18 09:35 Dose: 5 mg Aspirin (Ecotrin) 81 mg PO DAILY [facility] Last Admin: 09/05/18 09:35 Dose: 81 mg Atorvastatin Calcium (Lipitor) 40 mg PO HS [facility] Last Admin: 09/04/18 20:09 Dose: 40 mg Clopidogrel Bisulfate (Plavix) 75 mg PO DAILY [facility] Last Admin: 09/05/18 09:35 Dose: 75 mg Enoxaparin Sodium (Lovenox) 40 mg SC 2100 [facility] Last Admin: 09/04/18 20:09 Dose: 40 mg Famotidine (Pepcid) 20 mg SLOW IVP Q24HR [facility] Last Admin: 09/04/18 20:09 Dose: 20 mg Hydralazine HCl (Apresoline) 10 mg SLOW IVP Q4H PRN PRN Reason: SBP > 180 and HR < 70 Sodium Chloride (Normal Saline 0.9%) 1,000 mls @ 75 mls/hr IV .[id number] [facility] Last Admin: 09/05/18 09:36 Dose: 1,000 mls Lorazepam (Ativan) 0.5 mg PO Q4H PRN PRN Reason: Anxiety Last Admin: 09/05/18 10:33 Dose: 0.5 mg Ondansetron HCl (Zofran Odt) 4 mg SL Q6H PRN PRN Reason: Nausea/Vomiting Ondansetron HCl (Zofran) 4 mg IVP Q6H PRN PRN Reason: Nausea/Vomiting Venlafaxine HCl (Effexor Xr) 150 mg PO DAILY [facility] Last Admin: 09/05/18 09:35 Dose: 150 mg
[2018-09-05] MEDS: Atorvastatin Calcium 40 MG TAB PO SCH (21:13)
[2018-09-05] MEDS: Enoxaparin Sodium 40 MG/0.4 ML SYRINGE SC SCH (21:13)
[2018-09-05] MEDS: Famotidine/PF 20 mg/2ml Vial SLOW IVP SCH (21:15)
[2018-09-06 07:57] LABS: Albumin 3.7 g/dL (3.5-5.0); Anion Gap 14 mmol/L (10-20); BUN (Urea Nitrogen) 21 mg/dL (8.4-25.7); Calc. Creatinine Clearance 171 mL/min (70-130); Calcium 9.3 mg/dL (7.8-10.44); Carbon Dioxide 22 mmol/L (22-29); Chloride 113 mmol/L (98-107); Estimated GFR-MDRD Greater than 90; Glucose 89 mg/dL (70-105); Phosphorus 1.7 mg/dL (2.3-4.7); Potassium 4.3 mmol/L (3.5-5.1); Sodium 145 mmol/L (136-145)
[2018-09-06] MEDS: Amlodipine 5 MG TAB PO SCH (08:39)
[2018-09-06] MEDS: Venlafaxine HCl XR 150 MG CAP PO SCH (08:39)
[2018-09-06] MEDS: Clopidogrel Bisulfate 75 MG TAB PO SCH (08:40)
[2018-09-06] MEDS: Aspirin 81 mg Enteric Coated Tablet PO SCH (08:40)
[2018-09-06] MEDS ORDERED: PHOS-NAK 1 PKT PACK PO SCH (09:00)
[2018-09-06] MEDS ORDERED: Famotidine/PF 20 mg/2ml Vial SLOW IVP SCH (09:00)
[2018-09-06] MEDS ORDERED: Nicotine 21 MG PATCH TOP SCH (11:45)
--- NOTE | 2018-09-06 11:53 | PDOC.PN ---
- Subjective Encounter Start Date: 09/06/18 Encounter Start Time: 10:00 Subjective: awake, responds to verbal questions -: not fully oriented -: is moving all extremities - Objective Resuscitation Status - Order Detail: 09/03/18 17:18 Resuscitation Status Routine Resuscitation Status: FULL: Full Resuscitation MAR Reviewed: Yes Vital Signs & Weight: Vital Signs (12 hours) Temp Pulse Resp BP Pulse Ox 09/06/18 08:39 86 09/06/18 08:00 97.6 F 86 20 172/79 H 96 09/06/18 07:48 79 24 H 95 09/06/18 04:00 98.2 F 78 20 160/78 H 95 Weight Weight 278 lb 8 oz I&O: 09/05/18 09/06/18 09/07/18 06:59 06:59 06:59 Intake Total 900 1200 240 Balance 900 1200 240 Result Diagrams: 09/05/18 07:45 09/06/18 07:19 Phys Exam - Physical Examination HEENT: PERRLA, moist MMs Neck: no JVD, supple Respiratory: no wheezing, no rales Cardiovascular: RRR, no significant murmur Gastrointestinal: soft, non-tender, positive bowel sounds Musculoskeletal: no edema, pulses present Neurological: non-focal, moves all 4 limbs Dx/Plan (1) Narcotic overdose Code(s): T40.601A - POISONING BY UNSP NARCOTICS, ACCIDENTAL, INIT Status: Suspected Qualifiers: Encounter type: subsequent encounter (2) Acute metabolic encephalopathy Code(s): G93.41 - METABOLIC ENCEPHALOPATHY Status: Acute Comment: slowly resolving (3) Acute kidney failure Status: Resolved (4) CAD (coronary artery disease) Code(s): I25.10 - ATHSCL HEART DISEASE OF [place] CORONARY ARTERY W/O ANG PCTRS Status: Chronic Qualifiers: Coronary Disease-Associated Artery/Lesion type: [place] artery [place] vs. transplanted heart: [place] heart Associated angina: without angina Qualified Code(s): I25.10 - Atherosclerotic heart disease of [place] coronary artery without angina pectoris Comment: (5) COPD (chronic obstructive pulmonary disease) Status: Chronic Qualifiers: COPD type: unspecified COPD Qualified Code(s): J44.9 - Chronic obstructive pulmonary disease, unspecified Comment: (6) Hypertension Code(s): I10 - ESSENTIAL (PRIMARY) HYPERTENSION Status: Chronic Qualifiers: Hypertension type: essential hypertension Comment: (7) Morbid obesity with BMI of 40.0-44.9, adult Code(s): E66.01 - MORBID (SEVERE) OBESITY DUE TO EXCESS CALORIES; Z68.41 - BODY MASS INDEX (BMI) 40.0-44.9, ADULT Status: Chronic (8) CHONG (obstructive sleep apnea) Code(s): G47.33 - OBSTRUCTIVE SLEEP APNEA (ADULT) (PEDIATRIC) Status: Chronic (9) Peripheral vascular disease Code(s): I73.9 - PERIPHERAL VASCULAR DISEASE, UNSPECIFIED Status: Chronic Comment: Hx right CEA - Plan hemostable -: d/w daughter , she prefers to take him home if he ambulates with w -: -alker in the room. HH with PT and nursing will be set up for dc plan -: he needs to wear cpap for chong at home -: renal function is at baseline normal. * . daughter will oversee his medications at home strictly. Suggest pt see in 2-3 weeks. Offered lidocaine patch but it does not do good for him per daughter. has space his pain meds with psychotropic meds appropriately as adv to avoid somnolence. Review of Systems - Medications/Allergies Allergies/Adverse Reactions: Allergies Allergy/AdvReac Type Severity Reaction Status Date / Time codeine Allergy Verified 09/03/18 20:03 pramipexole [From Mirapex] Allergy Verified 09/03/18 20:03 Sulfa (Sulfonamide Allergy Verified 09/03/18 20:03 Antibiotics) Medications: Current Medications Acetaminophen (Tylenol) 650 mg [place] Q4H PRN PRN Reason: Fever > 101 Albuterol/Ipratropium (Duoneb) 3 ml NEB [id number] [facility] Last Admin: 09/06/18 07:48 Dose: 3 ml Amlodipine Besylate (Norvasc) 5 mg PO DAILY [facility] Last Admin: 09/06/18 08:39 Dose: 5 mg Aspirin (Ecotrin) 81 mg PO DAILY [facility] Last Admin: 09/06/18 08:40 Dose: 81 mg Atorvastatin Calcium (Lipitor) 40 mg PO HS [facility] Last Admin: 09/05/18 21:13 Dose: 40 mg Clopidogrel Bisulfate (Plavix) 75 mg PO DAILY [facility] Last Admin: 09/06/18 08:40 Dose: 75 mg Enoxaparin Sodium (Lovenox) 40 mg SC 2100 [facility] Last Admin: 09/05/18 21:13 Dose: 40 mg Famotidine (Pepcid) 20 mg SLOW IVP BID [facility] Last Admin: 09/06/18 08:40 Dose: 20 mg Hydralazine HCl (Apresoline) 10 mg SLOW IVP Q4H PRN PRN Reason: SBP > 180 and HR < 70 Lorazepam (Ativan) 0.5 mg PO Q4H PRN PRN Reason: Anxiety Last Admin: 09/05/18 21:13 Dose: 0.5 mg Miscellaneous Medication (Phos-Nak) 1 pkt PO BID [facility] Stop: 09/07/18 21:01 Last Admin: 09/06/18 08:40 Dose: 1 pkt Nicotine (Nicoderm Patch) 21 mg TOP Q24HR [facility] Ondansetron HCl (Zofran Odt) 4 mg SL Q6H PRN PRN Reason: Nausea/Vomiting Ondansetron HCl (Zofran) 4 mg IVP Q6H PRN PRN Reason: Nausea/Vomiting Sodium Chloride (Flush - Normal Saline) 10 ml IVF Q12HR [facility] Last Admin: 09/06/18 08:40 Dose: 10 ml Sodium Chloride (Flush - Normal Saline) 10 ml IVF PRN PRN PRN Reason: Saline Flush Venlafaxine HCl (Effexor Xr) 150 mg PO DAILY [facility] Last Admin: 09/06/18 08:39 Dose: 150 mg
[2018-09-06 14:43] VITALS: BP 148/77; TEMP 98
--- NOTE | 2018-09-07 15:36 | DIS ---
DATE OF ADMISSION: 09/03/2018 DATE OF DISCHARGE: 09/06/2018 DISCHARGE DISPOSITION: Home. PRIMARY DISCHARGE DIAGNOSES: 1. Narcotic overdose, resolving. 2. Acute metabolic encephalopathy secondary to above. 3. Acute kidney injury, resolved. SECONDARY DISCHARGE DIAGNOSES: 1. Coronary artery disease. 2. Chronic obstructive pulmonary disease. 3. Obesity. 4. Suspected obstructive sleep apnea. 5. Peripheral vascular disease. 6. Hypertension. PROCEDURES DONE DURING HOSPITALIZATION: CT brain, no acute intracranial abnormalities. Chest x-ray was unremarkable. Stool for C diff was negative. Hemoglobin and hematocrit are 13 and 39, platelet count is 250, MCV is 92. Initial BUN and creatinine were 67 and 3.3. Discharge BUN and creatinine are 21 and 0.8. Discharge bicarb is 22. BNP 47. One set of troponin 0.01. Urine tox screen was positive for opiates and benzodiazepines. Plasma alcohol less than 10. DISCHARGE MEDICATIONS: 1. Norvasc 5 mg daily. 2. Aspirin 81 mg daily. 3. Atorvastatin 40 mg daily. 4. Plavix 75 mg daily. 5. Gabapentin 300 mg p.o. three times daily. 6. Lisinopril 30 mg daily. 7. Omeprazole 20 mg daily. 8. Tizanidine 4 mg p.o. three times daily p.r.n. 9. Trazodone 150 mg p.o. at bedtime p.r.n. 10. Anoro Ellipta daily inhaler. 11. Venlafaxine extended release 150 mg daily. 12. Flexeril 7.5 mg p.o. q.a.m. ALLERGIC: To pramipexole, codeine, and sulfa. DISCHARGE PLAN: The patient to follow up with primary care physician in 1 week. He needs to follow up with Dr. Kelly in 2 to 3 weeks. Possible outpatient sleep study via primary care physician's referral. BRIEF COURSE DURING HOSPITALIZATION: The patient initially was brought to emergency room on the for altered mental status and lethargy. The patient was encephalopathic and the suspicion was for narcotic overdose with chronic back pain. The patient also had acute renal failure with elevated BUN and creatinine. Likely this was prerenal, which got completely corrected with fluid resuscitation in the hospital. Mr. Mosher was gently hydrated during his stay here. His HIGINIO inhibitors and diuretics were held. Prior to discharge, he was ambulating with a rolling walker. He has remained hemodynamically stable. The patient has polypharmacy and has been advised to closely follow up with primary care physician. He has been advised to space out his psychotropic and pain medications so he does not get too sleepy or somnolent with them. All through his stay, his daughter Ms. Jones and ex- were given updates. They are wanting to take him home today. Home Health with PT will be arranged via Case Management. Please see a [id number] documentation for the day of discharge on [facility]. Job ID: [id number] MTDD
== END 2018-09-06 16:56 | disposition home health service (06) | DRG 917 ==
LOC: ERS 09:58 → ERHOLD 14:35 → 2NO 17:44
PROVIDERS: ADMIT Family Medicine; ATTEND Family Medicine
DX: T40.601A Poisoning by unspecified narcotics, accidental (unintentional), initial encounter (principal); G92 Toxic encephalopathy; N17.9 Acute kidney failure, unspecified; J96.11 Chronic respiratory failure with hypoxia; Z68.41 Body mass index [BMI] 40.0-44.9, adult; I13.0 Hypertensive heart and chronic kidney disease with heart failure and stage 1 through stage 4 chronic kidney disease, or unspecified chronic kidney disease; I50.32 Chronic diastolic (congestive) heart failure; I25.10 Atherosclerotic heart disease of native coronary artery without angina pectoris; N18.2 Chronic kidney disease, stage 2 (mild); G47.33 Obstructive sleep apnea (adult) (pediatric); E66.01 Morbid (severe) obesity due to excess calories; I73.9 Peripheral vascular disease, unspecified; J44.9 Chronic obstructive pulmonary disease, unspecified; F17.210 Nicotine dependence, cigarettes, uncomplicated; E87.5 Hyperkalemia; Z98.890 Other specified postprocedural states; Z79.82 Long term (current) use of aspirin; Z79.02 Long term (current) use of antithrombotics/antiplatelets; Z88.5 Allergy status to narcotic agent; Z88.2 Allergy status to sulfonamides
CPT/HCPCS: 36415; 51701; 70450; 71045; 80048; 80053; 80069; 80306; 80307; 81003; 81015; 83880; 84484; 85007; 85025; 85027; 87324; 87449; 93005; 94640; 94760; 96361; 96374; J1650; J2310; J7620; S0028

== ENCOUNTER 2018-09-14 09:13 | Outpatient (CLI) | payer MEDICARE, MEDICAID ==
[2018-09-14] MEDS ORDERED: Gadobenate Dimeglumine 529 MG/1 ML (20ML VIAL) ONE (10:00)
--- NOTE | 2018-09-14 10:51 | RAD ---
CERVICAL SPINE RADIOGRAPHS 4 VIEWS: Date: 09/14/18 PROVIDED CLINICAL HISTORY: Postop. FINDINGS: Comparison made with the study dated 08/11/18. Postoperative changes involving the cervical spine as previously described appear unchanged. No signi ficant prevertebral soft tissue swelling apparent. No definite evidence for fracture or other acute o sseous abnormality with limitations due to nonvisualization of the caudal cervical spine and cervicot horacic junction. The odontoid is not well visualized. The visualized lung apices appear clear. IMPRESSION: No apparent interval change. POS: [facility]
--- NOTE | 2018-09-14 10:53 | MRI ---
Exam: CERVICAL SPINE MRI WITH AND WITHOUT CONTRAST: HISTORY: Previous cervical fusion. Two cervical spine surgeries. Tremors. TECHNIQUE: Cervical spine MRI is performed with and without intravenous gadolinium administration. Mu ltisequential, multiplanar imaging performed. COMPARISON: 01/22/2018. FINDINGS: Interval placement of an anterior fusion plate with transvertebral body screw and bone plug/prosthesi s spanning the C4 and C5 level. There is associated metallic susceptibility artifact. Additional metallic susceptibility artifact is noted along the right posterior elements at C4 and C5. Limited ev aluation the marrow signal intensity at C4-C5. Otherwise, appropriate T1 marrow signal intensity of the cervical vertebra. No STIR hyperintensity to suggest vertebral body edema or ligamentous injury. Laminectomy defect is identified at C4 and C5. There is enhancing scar tissue at the laminectomy defect site. There is a T2 hyperintensity with arcadio pheral enhancement along the laminectomy defect starting at the C5 level and extending inferiorly to the C5-C6 disc space. A postoperative fluid collection versus an infected fluid collection are dif ferential considerations. This collection measures 0.6 x 0.4 cm. Previously noted fusion at C5-C6 is once again demonstrated. Degenerative disc disease at C7-T1 and T2-T3 is noted. Best evaluation on the sagittal T2-weighted im ages. Stable signal abnormality involving the cervical cord at C4 and C5, compatible with cord malacia. On the postcontrast images, there is no abnormal enhancement with regards to the visualized brain parenchyma, cervical medullary junction, cervical cord, or the upper thoracic cord. C2-C3: No high-grade central canal stenosis. Moderate right neural foraminal narrowing. Left neural f oramen is patent C3-C4: Broad-based disc osteophyte complex abuts the thecal sac. No significant canal stenosis. Right neural foramen is patent. Mild left neural foraminal narrowing C4-C5: Limited evaluation. No high-grade central canal stenosis. Right neural foramen is patent. Mild left foraminal narrowing C5-C6: Broad-based disc osteophyte complex abuts the thecal sac. No significant canal stenosis. Mild bilateral foraminal narrowing C6-C7: Central/right paracentral disc osteophyte complex. Mild central canal stenosis. Mild neural fo raminal narrowing C7-T1: No high-grade central canal stenosis. Moderate to severe bilateral neural foraminal narrowing. IMPRESSION: 1. Interval anterior and posterior cervical fusion at C4-C5. Previously noted anterolisthesis of C4 u nikolas C5 has resolved. 2. Stable fusion at C5-C6. 3. Stable signal abnormality involving the cervical cord compatible with malacia at C4 and C5. 4. Varying degrees of central canal stenosis and neural foramen narrowing as detailed above. 5. Peripherally enhancing fluid collection at the laminectomy defect site as described above. Postop erative fluid collection versus infected fluid collection are differential considerations CODE T Transcribed Date/Time: 09/14/2018 11:16 AM
== END 2018-09-14 09:14 | disposition home or self-care (01) ==
LOC: TBSIIMAG 09:13
PROVIDERS: ATTEND Neurological Surgery
DX: M47.12 Other spondylosis with myelopathy, cervical region (principal); M48.02 Spinal stenosis, cervical region; Z98.1 Arthrodesis status
CPT/HCPCS: 72040; 72156; A9577

== ENCOUNTER 2018-09-24 11:33 | Inpatient (IN) | payer MEDICARE, MEDICAID ==
[2018-09-24 12:09] LABS: #Eosinphils 0.2 thou/uL (0.0-0.7); #Neutrophils 6.8 thou/uL (1.40-6.50); %Basophils 0.3 % (0.0-1.0); %Eosinophils 1.9 % (0.0-10.0); %Lymphocytes 20.1 % (21.0-51.0); %Neutrophils 67.6 % (42.0-75.0); Hemoglobin 13.7 g/dL (14.0-18.0); Mean Corpuscular HGB CONC 33.9 g/dL (32.0-36.0); Mean Corpuscular Hemoglobin 32.1 pg (27.0-31.0); Mean Corpuscular Volume 94.8 fL (78.0-98.0); Mean Platelet Volume 7.5 fL (7.4-10.4); Platelet Count 184 thou/uL (130-400); RBC Distribution Width 12.7 % (11.5-14.5); Red Blood Cell (RBC) Count 4.26 mill/uL (4.70-6.10); White Blood Cell (WBC) Count 10.1 thou/uL (4.8-10.8)
--- NOTE | 2018-09-24 12:24 | RAD ---
Exam: Chest one view: HISTORY: Altered mental status, history of kidney failure, COMPARISON: 09/03/2018 FINDINGS: Postoperative fixation changes of the mid thoracic vertebral column. Heart size is within normal limi ts. Postop fixation changes of the cervical spine. No confluent pneumonia, overt edema, or pleural effusion. IMPRESSION: Postoperative changes of the thoracic and cervical spine. No acute intrathoracic disease.
[2018-09-24 12:34] LABS: ALT (SGPT) 20 U/L (8-55); AST (SGOT) 21 U/L (5-34); Albumin 3.8 g/dL (3.5-5.0); Alkaline Phosphatase 125 U/L (40-150); Anion Gap 19 mmol/L (10-20); BUN (Urea Nitrogen) 54 mg/dL (8.4-25.7); Bilirubin, Total 0.6 mg/dL (0.2-1.2); Calc. Creatinine Clearance 0 mL/min (70-130); Calcium 8.5 mg/dL (7.8-10.44); Carbon Dioxide 23 mmol/L (22-29); Chloride 100 mmol/L (98-107); Estimated GFR-MDRD 9; Globulin 3.8 g/dL (2.4-3.5); Glucose 85 mg/dL (70-105); Potassium 5.1 mmol/L (3.5-5.1); Protein, Total 7.6 g/dL (6.0-8.3); Sodium 137 mmol/L (136-145)
[2018-09-24 12:50] LABS: PTT 33.3 SEC (22.9-36.1); Prothrombin Time 13.6 SEC (12.0-14.7)
[2018-09-24] MEDS ORDERED: Cefepime 2 GM VIAL ONE (13:11)
[2018-09-24] MEDS ORDERED: Norepinephrine 8 MG/0.9% NS 250 ML ONE (13:11)
[2018-09-24] MEDS ORDERED: Sodium Chloride 0.9% 100 ML ONE (13:12)
--- NOTE | 2018-09-24 13:46 | RAD ---
PORTABLE CHEST: 09/24/18 PROVIDED CLINICAL HISTORY: Central line placement. FINDINGS: Comparison is made with the examination performed earlier same date. Interval placement of right IJ c entral line, the tip of which terminates in the expected location of cavoatrial junction. No evidence for pneumothorax. Additional significant interval change with respect to the prior examination is no t apparent. IMPRESSION: As above. POS: [facility]
[2018-09-24 14:17] LABS: Bilirubin Small (Negative); Blood, Urine Negative (Negative); Clarity CLEAR (Clear); Glucose, Urine (Dipstick) Negative (Negative); Leukocyte Negative (Negative); Nitrite Negative (Negative); Protein, Urine (Dipstick) 30 mg/dL (Neg-Trace); Specific Gravity, Urine 1.023 (1.002-1.036)
[2018-09-24 14:20] LABS: Bacteria/HPF None Seen HPF (None Seen); RBC/HPF 0-3 HPF (0-3); Squamous Epithelial 0-3 HPF (0-3); WBC/HPF None Seen HPF (0-3)
[2018-09-24 14:23] LABS: Pathc Cast-AUWi Flag 4.76 (0-2.49)
[2018-09-24 14:35] LABS: Hyaline Casts/LPF 0-3 HYALINE CAST LPF (0-3 Hyaline)
[2018-09-24] MEDS ORDERED: Lorazepam 2 MG/ML VIAL ONE (15:25)
[2018-09-24] MEDS ORDERED: Norepinephrine 8 MG/250 ML BAG IVPB PRN (16:49)
[2018-09-24] MEDS ORDERED: Sodium Chloride 0.9% 1,000 ML IV SCH (17:00)
[2018-09-24] MEDS: Sodium Chloride 0.9% 1,000 ML IV SCH (17:24)
[2018-09-24] MEDS ORDERED: Norepinephrine 8 MG/0.9% NS 250 ML IVPB SCH (17:24)
[2018-09-24] MEDS ORDERED: Ondansetron PF 4 MG/2 ML Vial IVP PRN (17:24)
[2018-09-24] MEDS ORDERED: CCU Electrolyte Replacement 1 EACH FS ONE (17:24)
[2018-09-24] MEDS ORDERED: Ondansetron ODT 4 MG TAB PO PRN (17:24)
[2018-09-24] MEDS ORDERED: Potassium Phosphate 9 MMOL in Sodium Chloride 0.9% 100 ML IVPB PRN (17:30)
[2018-09-24] MEDS ORDERED: Potassium Phosphate 12 MMOL in Sodium Chloride 0.9% 250 ML 250 ML IV PRN (17:30)
[2018-09-24] MEDS ORDERED: Potassium Chloride 40 MEQ in Sodium Chloride 0.9% 250 ML 250 ML IVPB PRN (17:30)
[2018-09-24] MEDS ORDERED: Potassium Chloride 40 MEQ in Premix Bag 1 BAG IVPB PRN (17:30)
[2018-09-24] MEDS ORDERED: Magnesium 2 GM/50 ML 2 GM in Premix Bag 1 BAG IVPB PRN (17:30)
[2018-09-24] MEDS ORDERED: Potassium Chloride 20 MEQ TAB PO PRN (17:30)
[2018-09-24] MEDS ORDERED: PHOS-NAK 1 PKT PACK PO PRN ×2 (17:30)
[2018-09-24] MEDS ORDERED: Magnesium Oxide 400 MG TAB PO PRN ×2 (17:30)
[2018-09-24] MEDS ORDERED: Potassium Phosphate 15 MMOL in Sodium Chloride 0.9% 250 ML 250 ML IV PRN (17:30)
[2018-09-24 17:40] LABS: Actual Bicarbonate (HCO3a) 23.1 mEq/L (22-28); Base Excess (BEa) -3.5 mEq/L (-2.0 to +3.0); CO2 Tension 47.6 mmHg (35.0-45.0); Calcium, Ionized 1.09 mmol/L (1.12-1.30); Carboxyhemoglobin (COHb) 2.6 gm% (0.0-3.0); Hemoglobin (Hb) 13.3 g/dL (14.0-18.0); O2 Tension (PaO2) 69.9 mmHg (80.0-100.0); Potassium - ABG Lab 4.41 mmol/L (3.70-5.30)
[2018-09-24 17:41] LABS: Puncture Site RRA
[2018-09-24 18:09] LABS: Bilirubin Negative (Negative); Blood, Urine Moderate (Negative); Clarity CLEAR (Clear); Glucose, Urine (Dipstick) Negative (Negative); Leukocyte Negative (Negative); Nitrite Negative (Negative); Protein, Urine (Dipstick) 30 mg/dL (Neg-Trace); Specific Gravity, Urine 1.011 (1.002-1.036)
[2018-09-24 18:13] LABS: Bacteria/HPF None Seen HPF (None Seen); Hyaline Casts/LPF 0-3 HYALINE CAST LPF (0-3 Hyaline); Pathc Cast-AUWi Flag 0.81 (0-2.49); RBC/HPF 0-3 HPF (0-3); Squamous Epithelial None Seen HPF (0-3); WBC/HPF 0-3 HPF (0-3)
[2018-09-24] MEDS: Multivitamins, Adult 10 ML, Folic Acid 1 MG, Thiamine HCl 100 MG in Dextrose 5 %-0.45 %... IV SCH (18:13)
[2018-09-24] MEDS: Lorazepam 2 MG/ML VIAL SLOW IVP PRN (18:15)
[2018-09-24 18:30] LABS: Amphetamine Not Detected (NotDetected); Barbiturates Screen Not Detected (NotDetected); Benzodiazepine Screen Detected (NotDetected); Cocaine Metabolite Screen Not Detected (NotDetected); Medtox Control Line Valid? VALID (VALID); Medtox Reader # READER 4; Methadone Not Detected (NotDetected); Methamphetamine Not Detected (NotDetected); Opiate Screen Detected (NotDetected); Oxycodone Screen Not Detected (NotDetected); Phencyclidine (PCP) Not Detected (NotDetected); THC/Cannabinoid Screen Not Detected (NotDetected); Tricyclic Screen Not Detected (NotDetected)
[2018-09-24] MEDS: Famotidine/PF 20 mg/2ml Vial SLOW IVP SCH (20:22)
[2018-09-24] MEDS: Piperacillin/Tazobactam 2.25 GM in Sodium Chloride 0.9% 100 ML IVPB SCH (21:03)
--- NOTE | 2018-09-24 21:36 | CON ---
DATE OF CONSULTATION: 09/24/2018 REASON FOR CONSULTATION: ICU care. CONSULTING PHYSICIAN: Dr. Braun. HISTORY OF THE PRESENT ILLNESS: The patient is a 57-year-old male who came to the hospital with altered mental status. It is not clear what was going on at home. He has been found to have severely elevated creatinine. We are not sure whether or not he is septic. He really cannot give us anything in the way of history. He has been seen by my partner, Dr. Hair in the past. PAST MEDICAL HISTORY: 1. Chronic obstructive pulmonary disease. 2. Obstructive sleep apnea. 3. Hypertension. 4. Hyperlipidemia. 5. Osteoarthritis. 6. Congestive heart failure. PAST SURGICAL HISTORY: 1. C-spine surgery. 2. Thoracotomy. 3. L3 surgery. 4. Partial vasectomy. 5. Tibia-fibula plates. 6. Laparoscopic cholecystectomy. 7. Carotid endarterectomy. SOCIAL HISTORY: 1. Smokes at least a pack a day. He may drink alcohol. It is not clear. FAMILY HISTORY: Unremarkable. ALLERGIES: NONE. MEDICATIONS: Not available for review at this time, but his discharge summary from 09/09/2018 showed that he was on: 1. Norvasc 5 mg daily. 2. Aspirin 81 mg daily. 3. Atorvastatin 40 mg daily. 4. Plavix 75 mg daily. 5. Gabapentin 3 mg t.i.d. 6. Lisinopril 30 mg daily. 7. Omeprazole 20 mg daily. 8. Tizanidine 4 mg 3 times daily. 9. Trazodone 150 mg at bedtime. 10. Anoro Ellipta inhaler. 11. Effexor extended release 150 mg daily. 12. Flexeril 7.5 mg every morning. REVIEW OF SYSTEMS: Cannot be obtained due to his confusion. PHYSICAL EXAMINATION: VITAL SIGNS: Temperature 97, pulse 107, O2 saturation 97% on nasal cannula, respiratory rate 17, blood pressure 109/67 on small dose of Levophed. GENERAL: He is awake. He is able to respond. HEENT: Pupils react. Sclerae icteric. Oropharynx clear. NECK: No JVD. LUNGS: Clear to auscultation. CARDIAC: S1, S2, slightly tachycardic without murmur. ABDOMEN: Obese, soft, nontender, nondistended. EXTREMITIES: No clubbing, cyanosis, or edema. LABORATORY DATA: White blood cell count 10, hematocrit 40, platelet count 184. INR 1.0, PTT 33.3. Sodium 137, potassium 5.1, chloride 100, CO2 of 23, BUN 54, creatinine 6.3, glucose 85. His anion gap is 14. Urinalysis showed no white blood cells. ABG has not been done. IMAGING: A chest x-ray shows adequately place central line. No mass, effusion or infiltrate. ASSESSMENT: 1. Altered mental status, etiology not known. 2. History of multiple medical problems, listed above. 3. Hypotension, which I think is probably secondary to him being dry. 4. Acute kidney injury, likely related to volume depletion. 5. Rule out sepsis. PLAN: 1. I agree with empiric antibiotics. 2. IV fluids. 3. Check urine drug screen. 4. Check ABG to make sure he is not hypercapnic. 5. Support with thiamine administration. 6. Some question whether this may be from use of psychotropic medications at home. That will have to be sorted out during this hospitalization. Job ID: [id number]
--- NOTE | 2018-09-24 22:15 | HP ---
PRIMARY CARE PROVIDER: Dr. Tono Curran. CHIEF COMPLAINT: Altered mental status. HISTORY OF PRESENT ILLNESS: This is a 57-year-old male, who presents to [facility] Emergency Department accompanied by his and daughter, who provide all of the history after review of electronic medical record and discussions with the ER attending. The patient had been noted by family members with increasing confusion, slurred speech, decreased attentiveness and falls at home, almost identical in presentation to a recent admission on 09/03/2018, at which point, the patient presented with altered mentation with associated acute kidney injury and polypharmacy. The family reports the patient had been at home, normal in appearance and mentation, 24 hours prior to this evaluation with increasing lethargy, fatigue, combativeness, and confusion. The patient's history is significant for recent admission as stated previously in early September 2018 with subsequent followup after a cervical spine surgery for outpatient rehabilitation. The patient had been recommended for inpatient rehabilitation, however, returned home, attending outpatient therapy. The patient had done fairly well, however, developed altered mentation and hallucinations. In the emergency room, the patient underwent general evaluation including metabolic survey showing evidence of acute kidney injury with a creatinine of 6.28, previously noted 0.83 on 09/06/2018. The patient was also noted with a fever up to 101 degrees Fahrenheit and hypotensive with blood pressures in the 60s to 80s systolic. The patient received aggressive IV fluid hydration in the emergency room after concern for sepsis type presentation and placed on Levophed infusion. The patient also received vancomycin and maintenance IV fluids. PAST MEDICAL HISTORY: 1. Acute kidney injury on chronic kidney disease stage 2 in 09/2018. 2. Polypharmacy. 3. Narcotic overdose. 4. Acute metabolic encephalopathy in 09/2018. 5. Coronary artery disease. 6. Chronic obstructive pulmonary disease. 7. Morbid obesity. 8. Multiple falls. 9. Obstructive sleep apnea. 10. Peripheral vascular disease. 11. Hypertension. 12. Hypoxemic respiratory failure. 13. Tobacco abuse. PAST SURGICAL HISTORY: Status post cervical spine surgery secondary to stenosis and myelopathy. CURRENT MEDICATIONS: Based on discharge medications on 09/06/2018. 1. Norvasc 5 mg p.o. daily. 2. Aspirin 81 mg p.o. daily. 3. Lipitor 40 mg p.o. daily. 4. Plavix 75 mg p.o. daily. 5. Gabapentin 300 mg p.o. t.i.d. 6. Lisinopril 30 mg p.o. daily, recently discontinued in the last 3 days prior to this evaluation. 7. Omeprazole 20 mg p.o. daily. 8. Tizanidine 4 mg p.o. t.i.d. p.r.n. 9. Trazodone 150 mg p.o. q.h.s. p.r.n. 10. Anoro Ellipta daily inhaler. 11. Venlafaxine extended release 150 mg p.o. daily. 12. Flexeril 7.5 mg p.o. q.a.m. ALLERGIES: 1. PRAMIPEXOLE. 2. CODEINE. 3. SULFA. FAMILY HISTORY: Positive for hypertension, diabetes, and coronary artery disease. SOCIAL HISTORY: The patient is , accompanied by his and daughter in the emergency department. Smokes up to a pack of cigarettes daily. Occasional alcohol use. No illicit drug use. Resides in [place], [place]. Ambulates with a rolling walker occasionally. Multiple falls reported per family. REVIEW OF SYSTEMS: Unobtainable due to patient's altered mental status. PHYSICAL EXAMINATION: VITAL SIGNS: On admission, blood pressure 97/53, pulse 100, respiratory rate 17, temperature 101 degrees Fahrenheit, O2 saturation 96% on room air. GENERAL APPEARANCE: This is a 57-year-old male with garbled speech, agitation, lethargy, and unable to follow commands. HEENT: Pupils are equal, round, and reactive to light and accommodation. Extraocular muscles are intact. No scleral icterus. No conjunctival injection. Nares patent. OP is clear. Teeth in fair repair. Oral mucosa dry. NECK: Supple. No cervical adenopathy. No thyromegaly. No carotid bruits. No JVD appreciated. Cervical spine with full active and passive range of motion. No meningeal signs noted. CHEST: Diminished breath sounds in the bases bilaterally. CARDIOVASCULAR: S1 and S2 without noted murmur, rub, or gallop. Heart sounds are distant. ABDOMEN: Obese, soft, nontender, nondistended. Landmarks were difficult to palpate due to patient's body habitus. No palpable mass. No rebound or guarding noted. EXTREMITIES: Warm and dry with fair turgor. Pitting edema to the mid shins bilaterally. Pulses palpable distally at the dorsalis pedis, posterior tibial, and popliteal arteries bilaterally. Capillary refill less than 2 seconds. NEUROLOGIC: Alert and oriented x1 to person, lethargic, with garbled speech. Moves extremities spontaneously. Does not follow commands. Not observed ambulatory during this exam. PERTINENT LAB AND X-RAY FINDINGS: Sodium 137, potassium 5.1, chloride 100, CO2 of 23, anion gap 19, BUN 54, creatinine 6.28, estimated GFR of 9, glucose 85, lactic acid level 1.8, calcium 8.5. LFTs within normal limits. CBC showed a white blood cell count of 10.1, hemoglobin 14, hematocrit 40, platelet count 184, with 68% neutrophils. PT 13.6, INR 1.0, PTT 33.3. Urinalysis showed positive protein, trace ketones, and small bilirubin. Portable chest x-ray dated 09/24/2018, showed right internal jugular central venous catheter in appropriate positioning. No acute infiltrates identified. EKG dated 09/24/2018 by my interpretation shows sinus mechanism with heart rates in the low 100s. Normal R-wave progression noted in the precordial leads. Normal axis. No acute ST-T wave changes appreciated. ASSESSMENT AND PLAN: 1. Sepsis with septic shock. The patient will be admitted to the Critical Care Unit. The exact etiology unclear and source unidentified. We will continue broad-spectrum IV antibiotic therapy with vancomycin 500 mg q.24 hours with additional Zosyn 2.25 g IV q.8 hours. Blood and urine cultures pending. The patient received initial fluid resuscitation per protocol in the emergency room. We will continue intravenous normal saline 100 mL/h and monitor clinically. Continue general sepsis protocol. 2. Acute toxic metabolic encephalopathy. Multifactorial including acute kidney injury with uremia in conjunction with polypharmacy. Continue reorientation techniques. Continue to treat underlying metabolic process. 3. Acute kidney injury on chronic kidney disease stage 2. Avoid nephrotoxic agents and limit contrast exposure. Continue intravenous normal saline as stated previously and monitor serial creatinine. Consider Nephrology consultation if no improvement or worsening creatinine trend. 4. Polypharmacy. Suspect contributing factor to the patient's encephalopathy. We will need to review chronic medication regimen and adjust as clinically indicated. 5. Tobacco abuse. Smoking cessation resources prior to discharge. Oxygen as needed. 6. Multiple falls. General fall risk precautions. PT/OT evaluation in the a.m. when medically stable. Consider home physical therapy or inpatient rehabilitation consideration. 7. Prophylaxis. SCDs while in bed. Pepcid 20 mg IV q.12 hours. PT and OT evaluation in the a.m. CODE STATUS: Full. Surrogate medical decision maker is patient's spouse. Job ID: [id number]
[2018-09-25] MEDS: Sodium Chloride 0.9% 1,000 ML IV SCH ×2 (02:14→10:00)
[2018-09-25 05:17] LABS: Band 2 % (5-11); Hemoglobin 12.3 g/dL (14.0-18.0); Lymphocytes 15 % (21-51); MDiff Complete? YES; Mean Corpuscular HGB CONC 32.8 g/dL (32.0-36.0); Mean Corpuscular Hemoglobin 31.2 pg (27.0-31.0); Mean Platelet Volume 7.1 fL (7.4-10.4); Monocytes 12 % (0-10); Neutrophil 71 % (42-75); Platelet Count 163 thou/uL (130-400); RBC Distribution Width 12.7 % (11.5-14.5); Red Blood Cell (RBC) Count 3.94 mill/uL (4.70-6.10); White Blood Cell (WBC) Count 8.2 thou/uL (4.8-10.8)
[2018-09-25] MEDS: Piperacillin/Tazobactam 2.25 GM in Sodium Chloride 0.9% 100 ML IVPB SCH ×5 (06:10→21:07)
[2018-09-25 06:59] LABS: ALT (SGPT) 17 U/L (8-55); AST (SGOT) 21 U/L (5-34); Albumin 3.4 g/dL (3.5-5.0); Alkaline Phosphatase 98 U/L (40-150); Anion Gap 11 mmol/L (10-20); BUN (Urea Nitrogen) 29 mg/dL (8.4-25.7); Bilirubin, Total 0.7 mg/dL (0.2-1.2); Calc. Creatinine Clearance 76 mL/min (70-130); Calcium 8.7 mg/dL (7.8-10.44); Carbon Dioxide 25 mmol/L (22-29); Chloride 109 mmol/L (98-107); Estimated GFR-MDRD 36; Globulin 3.3 g/dL (2.4-3.5); Glucose 102 mg/dL (70-105); Potassium 4.7 mmol/L (3.5-5.1); Protein, Total 6.7 g/dL (6.0-8.3); Sodium 140 mmol/L (136-145)
[2018-09-25] MEDS ORDERED: Vancomycin HCl 0.5 GM in Sodium Chloride 0.9% 250 ML 250 ML IVPB SCH (09:00)
[2018-09-25] MEDS: Famotidine/PF 20 mg/2ml Vial SLOW IVP SCH ×2 (09:08→21:05)
--- NOTE | 2018-09-25 12:44 | PRG ---
DATE OF SERVICE: 09/25/2018 SERVICE: Pulmonary Medicine. INTERVAL HISTORY: The patient is doing okay from respiratory standpoint. Breathing comfortably. He remains encephalopathic. He is agitated, and requires 4-point restraints. He has had 3 bowel movements over the last 24 hours. There has been no other overnight events. PHYSICAL EXAMINATION: VITAL SIGNS: Afebrile, pulse 97, blood pressure 120/86, respirations 17, and saturation 99% on 2 L nasal cannula. GENERAL: The patient is awake and alert, in no apparent distress. LUNGS: Decent air entry. No prolonged expiratory phase is present. There are no wheezing or crackles present. HEART: Normal rate and regular. ABDOMEN: Soft, nontender, and nondistended. Bowel sounds are positive. MUSCULOSKELETAL: No cyanosis or clubbing. There is no pitting in the bilateral lower extremities. NEUROLOGIC: Grossly nonfocal. LABORATORY DATA: WBC 8.2, hemoglobin 12.3, and platelets 163,000. Neutrophil count is low, band count is 2. INR 1.0. pH 7.30, pCO2 of 47, and pO2 of 70. Creatinine is downtrending to 1.91. Basic metabolic profile and liver function studies are otherwise unremarkable. Bicarb 25. Lactate 1.8, cortisol 15.7. Of note, the patient was on steroids during the cortisol draw. Urinalysis is unremarkable. Urine drug screen is positive for benzodiazepines and opiates. ASSESSMENT: 1. Severe sepsis, source unknown. 2. Metabolic encephalopathy. 3. Acute kidney injury, resolving. 4. Dehydration, resolved. DISCUSSION AND PLAN: We will continue gentle hydration, and other supportive measures including antibiotics. He continues to demonstrate sustained clonus of the bilateral lower extremities. We will keep him in the ICU at this point, he is a touch much to handle on the floor. Pulmonary/Critical Care will continue to follow along for the time being. At this point, he is not currently in danger of respiratory failure. Job ID: [id number]
[2018-09-25] MEDS: Vancomycin HCl 500 MG in Sodium Chloride 0.9% 100 ML IVPB SCH (13:37)
[2018-09-25] MEDS: Sodium Chloride 0.45% 1,000 ML IV SCH (13:40)
[2018-09-25] MEDS: Lorazepam 2 MG/ML VIAL SLOW IVP PRN ×2 (13:54→21:52)
[2018-09-25] MEDS: Multivitamins, Adult 10 ML, Folic Acid 1 MG, Thiamine HCl 100 MG in Dextrose 5 %-0.45 %... IV SCH (19:25)
--- NOTE | 2018-09-25 20:04 | PDOC.PN ---
- Subjective Encounter Start Date: 09/25/18 Encounter Start Time: 18:00 Subjective: f/u for severe sepsis with shock of unclear source on empiric Zosyn -: and Vanc. Remains confused and combative in 4-point restraints. - Objective Resuscitation Status - Order Detail: 09/24/18 15:16 Resuscitation Status Routine Resuscitation Status: FULL: Full Resuscitation MAR Reviewed: Yes Vital Signs & Weight: Vital Signs (12 hours) Pulse Pulse Pulse Resp BP BP Pulse Ox 09/25/18 19:00 95 09/25/18 18:59 100 25 H 95 09/25/18 12:41 95 21 H 96 09/25/18 11:31 95 96 160/81 H 163/84 H Pulse Ox Pulse Ox 09/25/18 19:00 09/25/18 18:59 09/25/18 12:41 09/25/18 11:31 99 97 Weight Weight 283 lb 4.704 oz Most Recent Monitor Data Heart Rate from ECG 97 NIBP 156/83 NIBP BP-Mean 107 Respiration from ECG 25 SpO2 100 I&O: 09/24/18 09/25/18 09/26/18 06:59 06:59 06:59 Intake Total 1770 Output Total 2540 40 Balance -770 -40 Result Diagrams: 09/25/18 04:20 09/25/18 04:20 Additional Labs: Microbiology 09/24/18 17:50 Urine gduino catheter Urine Culture - Preliminary NO GROWTH AT 24 HOURS 09/24/18 12:00 Venous blood - Left Arm Blood Culture - Preliminary Specimen has been received and culture in progress. No Growth to date. 09/24/18 11:50 Venous blood - Right Hand Blood Culture - Preliminary Specimen has been received and culture in progress. No Growth to date. Laboratory Tests 09/24/18 09/24/18 09/24/18 11:50 11:50 17:50 Hgb 13.7 L BUN 54 H Creatinine 6.28 H Cortisol Urine Opiates Screen Detected H U Benzodiazepines Scrn Detected H 09/25/18 04:20 Hgb BUN Creatinine Cortisol 15.70 Urine Opiates Screen U Benzodiazepines Scrn EKG Reviewed by me: Yes (Tele - SR) Phys Exam - Physical Examination lethargic, mumbles HEENT: PERRLA, sclera anicteric, oral pharynx no lesions Neck: no nodes, no JVD, supple, full ROM Respiratory: no wheezing, no rales, no rhonchi, clear to auscultation bilateral S1, S2 Cardiovascular: RRR, no significant murmur, no rub, gallop obese Gastrointestinal: soft, non-tender, no distention, positive bowel sounds Musculoskeletal: no edema, pulses present Neurological: moves all 4 limbs A x O x 1 Skin: normal turgor, cap refill <2 seconds Dx/Plan (1) Severe sepsis with septic shock Code(s): A41.9 - SEPSIS, UNSPECIFIED ORGANISM; R65.21 - SEVERE SEPSIS WITH SEPTIC SHOCK Status: Acute Comment: Suspected but unclear source, continue empiric Vanc/Zosyn, initial blood/urine cx negative, continue IVF's and Levophed for pressor support (2) Toxic metabolic encephalopathy Code(s): G92 - TOXIC ENCEPHALOPATHY Status: Acute Comment: Persistent, likely multifactorial, serial monitoring, restraints as indicated (3) Acute kidney failure Status: Acute Comment: Likely volume mediated, improving with IVF's, avoid nephrotoxic meds and limit contrast exposure (4) Polypharmacy Code(s): Z79.899 - OTHER INSPECTOR PLATING (CURRENT) DRUG THERAPY Status: Chronic Comment: Review home regimen and limit psychotropes and sedating meds (5) Multiple falls Code(s): R29.6 - REPEATED FALLS Status: Chronic Comment: PT/OT evaluation, may consider SNF options vs HH with PT (6) Tobacco abuse Code(s): Z72.0 - TOBACCO USE Status: Chronic Comment: Tobacco cessation resources - Plan continue antibiotics, PT/OT, social research assistant, respiratory therapy, DVT proph w/ SCDs Continue supportive mgmt -: Continue Zosyn/Vanc empirically -: Continue IVF's -: Restraints for safety -: AM lab: CMP, CBC, Vanc trough * .
[2018-09-26] MEDS: Sodium Chloride 0.45% 1,000 ML IV SCH ×3 (02:10→18:37)
[2018-09-26 05:15] LABS: Band 4 % (5-11); Eosinophils 5 % (0-10); Hemoglobin 11.8 g/dL (14.0-18.0); Lymphocytes 24 % (21-51); MDiff Complete? YES; Mean Corpuscular Hemoglobin 30.3 pg (27.0-31.0); Mean Corpuscular Volume 94.8 fL (78.0-98.0); Mean Platelet Volume 7.1 fL (7.4-10.4); Monocytes 5 % (0-10); Neutrophil 61 % (42-75); Platelet Count 143 thou/uL (130-400); Platelet Morphology Comment Appears Adequate; RBC Distribution Width 12.5 % (11.5-14.5); Reactive Lymphocytes 1 % (0-10); Red Blood Cell (RBC) Count 3.91 mill/uL (4.70-6.10); White Blood Cell (WBC) Count 6.2 thou/uL (4.8-10.8)
[2018-09-26 05:26] LABS: ALT (SGPT) 15 U/L (8-55); AST (SGOT) 23 U/L (5-34); Albumin 3.3 g/dL (3.5-5.0); Alkaline Phosphatase 84 U/L (40-150); Anion Gap 8 mmol/L (10-20); BUN (Urea Nitrogen) 14 mg/dL (8.4-25.7); Bilirubin, Total 0.5 mg/dL (0.2-1.2); Calc. Creatinine Clearance 0 mL/min (70-130); Carbon Dioxide 26 mmol/L (22-29); Chloride 112 mmol/L (98-107); Estimated GFR-MDRD 86; Globulin 3.4 g/dL (2.4-3.5); Glucose 111 mg/dL (70-105); Potassium 4.3 mmol/L (3.5-5.1); Protein, Total 6.7 g/dL (6.0-8.3); Sodium 142 mmol/L (136-145)
[2018-09-26] MEDS: Piperacillin/Tazobactam 2.25 GM in Sodium Chloride 0.9% 100 ML IVPB SCH ×3 (07:09→21:36)
--- NOTE | 2018-09-26 09:08 | PDOC.PN ---
- Subjective Encounter Start Date: 09/26/18 Encounter Start Time: 09:05 Subjective: f/u for AMS, suspected sepsis with negative cx on empiric Zosyn -: and Vanc. Remains on Precedex and 4-point restraints. - Objective Resuscitation Status - Order Detail: 09/24/18 15:16 Resuscitation Status Routine Resuscitation Status: FULL: Full Resuscitation MAR Reviewed: Yes Vital Signs & Weight: Vital Signs (12 hours) Temp Pulse Resp Pulse Ox 09/26/18 07:34 96 09/26/18 07:31 69 18 96 09/26/18 04:00 98.7 F 09/26/18 00:07 95 09/26/18 00:00 98.6 F Weight Weight 4.462 oz Most Recent Monitor Data Heart Rate from ECG 43 NIBP 135/80 NIBP BP-Mean 98 Respiration from ECG 19 SpO2 90 I&O: 09/25/18 09/26/18 09/27/18 06:59 06:59 06:59 Intake Total 1770 1717 Output Total 2540 1640 Balance -770 77 Result Diagrams: 09/26/18 04:40 09/26/18 04:40 Additional Labs: Microbiology 09/24/18 17:50 Urine gudino catheter Urine Culture - Preliminary NO GROWTH AT 24 HOURS 09/24/18 12:00 Venous blood - Left Arm Blood Culture - Preliminary Specimen has been received and culture in progress. No Growth to date. 09/24/18 11:50 Venous blood - Right Hand Blood Culture - Preliminary Specimen has been received and culture in progress. No Growth to date. Laboratory Tests 09/24/18 09/24/18 09/24/18 11:50 11:50 17:50 Hgb 13.7 L BUN 54 H Creatinine 6.28 H Cortisol Urine Opiates Screen Detected H U Benzodiazepines Scrn Detected H 09/25/18 04:20 Hgb BUN Creatinine Cortisol 15.70 Urine Opiates Screen U Benzodiazepines Scrn EKG Reviewed by me: Yes (Tele - SR) Phys Exam - Physical Examination sleeping HEENT: PERRLA, sclera anicteric, oral pharynx no lesions Neck: no nodes, no JVD, supple, full ROM Respiratory: no wheezing, no rales, no rhonchi, clear to auscultation bilateral S1, S2 Cardiovascular: RRR, no significant murmur, no rub, gallop Gastrointestinal: soft, non-tender, no distention, positive bowel sounds Musculoskeletal: no edema, pulses present Neurological: moves all 4 limbs Skin: normal turgor, cap refill <2 seconds Dx/Plan (1) Severe sepsis with septic shock Code(s): A41.9 - SEPSIS, UNSPECIFIED ORGANISM; R65.21 - SEVERE SEPSIS WITH SEPTIC SHOCK Status: Acute Comment: Suspected but unclear source, continue empiric Vanc/Zosyn, initial blood/urine cx negative, continue IVF's (2) Toxic metabolic encephalopathy Code(s): G92 - TOXIC ENCEPHALOPATHY Status: Acute Comment: Persistent, likely multifactorial including uremia and polypharmacy, supportive mgmt (3) Acute kidney failure Status: Acute Comment: Likely volume mediated, improving with IVF's, avoid nephrotoxic meds and limit contrast exposure (4) Polypharmacy Code(s): Z79.899 - OTHER MANAGER MATERIAL (CURRENT) DRUG THERAPY Status: Chronic Comment: Review home regimen and limit psychotropes and sedating meds (5) Multiple falls Code(s): R29.6 - REPEATED FALLS Status: Chronic Comment: PT/OT evaluation, may consider SNF options vs HH with PT (6) Tobacco abuse Code(s): Z72.0 - TOBACCO USE Status: Chronic Comment: Tobacco cessation resources - Plan continue antibiotics, PT/OT, social services aide, DVT proph w/SCDs Continue IVF's -: Continue Zosyn/Vancomycin -: Wean off sedation as clinically indicated -: PT/OT when AMS improved -: AM lab: CMP, CBC * .
[2018-09-26] MEDS: Famotidine/PF 20 mg/2ml Vial SLOW IVP SCH ×2 (09:45→21:35)
[2018-09-26] MEDS: Vancomycin HCl 500 MG in Sodium Chloride 0.9% 100 ML IVPB SCH (12:24)
[2018-09-26 12:33] LABS: Vancomycin, Trough 3.3 ug/mL
--- NOTE | 2018-09-26 12:57 | PRG ---
DATE OF SERVICE: 09/26/2018 SERVICE: Pulmonary Service. INTERVAL HISTORY: The patient got increasingly agitated yesterday. He was spitting and caking. As such, he ended up in four-point restraints. We ended up giving him some Ativan, which was ineffective. Ultimately, he got put on Precedex. With this, he had an uneventful evening. There are no specific fevers, chills, cough, sputum production, nausea, or vomiting that occurred. PHYSICAL EXAMINATION: VITAL SIGNS: Afebrile, pulse 69, blood pressure 135/80, respirations 18, and saturation 96% on room air. GENERAL: The patient is awake and alert, in no apparent distress. LUNGS: Decent air entry. There is no prolonged expiratory phase or wheezing present. HEART: Normal rate, regular. ABDOMEN: Soft, nontender, and nondistended. Bowel sounds are positive. MUSCULOSKELETAL: No cyanosis or clubbing. No pitting in the bilateral lower extremities. NEUROLOGIC: Grossly nonfocal. LABORATORY DATA: WBC 6.2, hemoglobin 11.8 and stable, platelets 143,000, gently downtrending. The differential is returning to a normal range. INR 1.0. Creatinine 0.90 and improving dramatically to normal. Basic metabolic profile and liver function studies are otherwise unremarkable. Cortisol level 15.7. Blood cultures x2, urine culture negative. ASSESSMENT: 1. Severe sepsis, unknown source. 2. Metabolic encephalopathy, improving. 3. Acute kidney injury, resolved. 4. Dehydration, resolved. DISCUSSION AND PLAN: We will continue our gentle hydration over the next 24 hours. Wean away the Precedex through time. Once he is off his medication, he can be transitioned to the intermediate care unit. Once again, he is not currently having any respiratory difficulties. I still contend that his polypharmacy is what led to this encephalopathy. Empiric antibiotics will be continued while we await the results of cultures. Job ID: [id number]
[2018-09-26] MEDS: Vancomycin HCl 1 GM in Premix Bag 1 BAG IVPB SCH (14:52)
[2018-09-26] MEDS: Multivitamins, Adult 10 ML, Folic Acid 1 MG, Thiamine HCl 100 MG in Dextrose 5 %-0.45 %... IV SCH (17:30)
[2018-09-26] MEDS: Lorazepam 2 MG/ML VIAL SLOW IVP PRN (18:37)
[2018-09-27] MEDS: Sodium Chloride 0.45% 1,000 ML IV SCH (00:49)
[2018-09-27] MEDS: Vancomycin HCl 1 GM in Premix Bag 1 BAG IVPB SCH (02:23)
[2018-09-27 03:28] LABS: Band 1 % (5-11); Eosinophils 3 % (0-10); Hemoglobin 12.5 g/dL (14.0-18.0); Lymphocytes 31 % (21-51); MDiff Complete? YES; Mean Corpuscular HGB CONC 33.3 g/dL (32.0-36.0); Mean Corpuscular Hemoglobin 31.3 pg (27.0-31.0); Mean Corpuscular Volume 94.2 fL (78.0-98.0); Mean Platelet Volume 7.4 fL (7.4-10.4); Monocytes 6 % (0-10); Neutrophil 59 % (42-75); Platelet Count 165 thou/uL (130-400); RBC Distribution Width 12.4 % (11.5-14.5); Red Blood Cell (RBC) Count 3.99 mill/uL (4.70-6.10); White Blood Cell (WBC) Count 6.1 thou/uL (4.8-10.8)
[2018-09-27 03:39] LABS: ALT (SGPT) 16 U/L (8-55); AST (SGOT) 23 U/L (5-34); Albumin 3.1 g/dL (3.5-5.0); Alkaline Phosphatase 79 U/L (40-150); Anion Gap 10 mmol/L (10-20); BUN (Urea Nitrogen) 11 mg/dL (8.4-25.7); Bilirubin, Total 0.4 mg/dL (0.2-1.2); Calc. Creatinine Clearance 176 mL/min (70-130); Calcium 8.8 mg/dL (7.8-10.44); Carbon Dioxide 23 mmol/L (22-29); Chloride 111 mmol/L (98-107); Estimated GFR-MDRD Greater than 90; Globulin 3.4 g/dL (2.4-3.5); Glucose 99 mg/dL (70-105); Potassium 4.3 mmol/L (3.5-5.1); Protein, Total 6.5 g/dL (6.0-8.3); Sodium 140 mmol/L (136-145)
[2018-09-27] MEDS: Piperacillin/Tazobactam 2.25 GM in Sodium Chloride 0.9% 100 ML IVPB SCH ×3 (05:42→21:19)
[2018-09-27] MEDS: Famotidine/PF 20 mg/2ml Vial SLOW IVP SCH ×2 (08:40→21:14)
[2018-09-27] MEDS: Lorazepam 2 MG/ML VIAL SLOW IVP PRN (09:27)
--- NOTE | 2018-09-27 12:41 | PRG ---
DATE OF SERVICE: 09/27/2018 SERVICE: Pulmonary Medicine. INTERVAL HISTORY: Once again, the patient's mentation has improved dramatically. He denies any current chest pain, fevers, cough, sputum production. He is much easier to understand today, and he is talking in coherent full sentences. He is still quite a bit agitated. PHYSICAL EXAMINATION: VITAL SIGNS: Afebrile, pulse 54, blood pressure 161/100, respirations 21, saturation 95% on 2 L nasal cannula. GENERAL: The patient is awake and alert, in no apparent distress. LUNGS: There is a prolonged expiratory phase and a little bit of wheezing. No crackles or rhonchi appreciated. HEART: Normal rate and regular. ABDOMEN: Soft, nontender, nondistended. Bowel sounds are positive. MUSCULOSKELETAL: No cyanosis or clubbing. There is no pitting in the bilateral lower extremities. NEUROLOGIC: Grossly nonfocal. LABORATORY DATA: WBC 6.1, hemoglobin 12.5, and platelets 165,000. Chloride 111 and downtrending. Sodium 140. Basic metabolic profile and liver function studies are otherwise unremarkable. Urinalysis is unremarkable. Urine drug screen is positive for both opiates and benzodiazepine. Blood cultures x2 and urine culture negative to date. ASSESSMENT: 1. Severe sepsis, unknown source. 2. Metabolic encephalopathy, once again, resolving. 3. Acute kidney injury, resolved. 4. Dehydration, resolved. DISCUSSION AND PLAN: I will continue weaning the Precedex. The patient remains fairly agitated. I will initiate Klonopin and Seroquel in the evening time. Hopefully, this will help smooth out his mental status slightly. I see no source of infection. From purely respiratory standpoint, we could certainly get rid of our antibiotic. Half-normal saline will be interrupted and we will introduce some feeds. Job ID: [id number]
[2018-09-27] MEDS ORDERED: Ziprasidone 20 MG VIAL ONE (14:44)
[2018-09-27] MEDS: clonazePAM 0.5 MG TAB PO SCH ×3 (15:27→21:19)
--- NOTE | 2018-09-27 15:27 | PDOC.PN ---
- Subjective Encounter Start Date: 09/27/18 Encounter Start Time: 15:25 Subjective: f/u for metabolic encephalopathy, suspected sepsis without identified -: source on Zosyn/Vanc. Remains agitated and confused per nursing but -: more awake but needing 4-point restraints/Precedex. - Objective Resuscitation Status - Order Detail: 09/24/18 15:16 Resuscitation Status Routine Resuscitation Status: FULL: Full Resuscitation MAR Reviewed: Yes Vital Signs & Weight: Vital Signs (12 hours) Temp Pulse Resp Pulse Ox 09/27/18 14:31 74 25 H 94 L 09/27/18 12:00 98.8 F 09/27/18 07:30 93 L 09/27/18 07:00 98.5 F 09/27/18 06:30 96 09/27/18 06:28 70 20 98 09/27/18 04:00 97.8 F Weight Weight 4.677 oz Most Recent Monitor Data Heart Rate from ECG 95 NIBP 175/111 NIBP BP-Mean 132 Respiration from ECG 24 SpO2 92 I&O: 09/26/18 09/27/18 09/28/18 06:59 06:59 06:59 Intake Total 1717 4750.4 0 Output Total 1640 1246 910 Balance 77 3504.4 -910 Result Diagrams: 09/27/18 02:30 09/27/18 02:30 Additional Labs: Microbiology 09/24/18 17:50 Urine gudino catheter Urine Culture - Preliminary NO GROWTH AT 24 HOURS 09/24/18 12:00 Venous blood - Left Arm Blood Culture - Preliminary Specimen has been received and culture in progress. No Growth to date. 09/24/18 11:50 Venous blood - Right Hand Blood Culture - Preliminary Specimen has been received and culture in progress. No Growth to date. Laboratory Tests 09/24/18 09/24/18 09/24/18 11:50 11:50 17:50 Hgb 13.7 L BUN 54 H Creatinine 6.28 H Cortisol Urine Opiates Screen Detected H U Benzodiazepines Scrn Detected H 09/25/18 04:20 Hgb BUN Creatinine Cortisol 15.70 Urine Opiates Screen U Benzodiazepines Scrn EKG Reviewed by me: Yes (Tele - SR) Phys Exam - Physical Examination awake, agitated HEENT: PERRLA, sclera anicteric, oral pharynx no lesions Neck: no nodes, no JVD, supple, full ROM Respiratory: no wheezing, no rales, no rhonchi, clear to auscultation bilateral S1, S2 Cardiovascular: RRR, no significant murmur, no rub, gallop obese Gastrointestinal: soft, non-tender, no distention, positive bowel sounds Musculoskeletal: no edema, pulses present Neurological: moves all 4 limbs Skin: normal turgor, cap refill <2 seconds Deviation from normal: Gudino with clear urine Dx/Plan (1) Severe sepsis with septic shock Code(s): A41.9 - SEPSIS, UNSPECIFIED ORGANISM; R65.21 - SEVERE SEPSIS WITH SEPTIC SHOCK Status: Acute Comment: Suspected but unclear source, continue empiric Zosyn, initial blood/urine cx negative, continue IVF's (2) Toxic metabolic encephalopathy Code(s): G92 - TOXIC ENCEPHALOPATHY Status: Acute Comment: Persistent, likely multifactorial including uremia and polypharmacy, supportive mgmt, add Geodon IM (3) Acute kidney failure Status: Acute Comment: Likely volume mediated, improving with IVF's, avoid nephrotoxic meds and limit contrast exposure (4) Polypharmacy Code(s): Z79.899 - OTHER 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
[2018-09-27] MEDS: Sterile Water 10 ML VIAL FS PRN (19:46)
[2018-09-27] MEDS: Ziprasidone 20 MG VIAL IM PRN (19:46)
[2018-09-28] MEDS: Piperacillin/Tazobactam 2.25 GM in Sodium Chloride 0.9% 100 ML IVPB SCH ×3 (06:12→20:31)
[2018-09-28] MEDS: Sterile Water 10 ML VIAL FS PRN (06:13)
[2018-09-28] MEDS: Ziprasidone 20 MG VIAL IM PRN ×3 (06:13→23:20)
--- NOTE | 2018-09-28 08:25 | PRG ---
DATE OF SERVICE: 09/28/2018 SUBJECTIVE: Morbidly obese gentleman, remains in the ICU restraints. He is on Precedex drip. He is on Geodon as well as Seroquel. Still remains agitated. Per the nurses, still combative. OBJECTIVE: VITAL SIGNS: Pulse 78, O2 saturation 94% on room air, respiratory rate , blood pressure is 151/112. CHEST: Decreased breath sounds. No wheezing. CARDIAC: Normal S1, S2. No gallops. ABDOMEN: Massive. NEUROLOGIC: He answers questions appropriately. IMPRESSION: 1. Metabolic encephalopathy, slowly resolving. 2. Renal failure, resolved. 3. Sepsis. 4. Morbid obesity. 5. Sleep apnea. PLAN: Continue empiric antibiotics. So far, all cultures are negative. His hypotension is resolved. Unfortunately, he cannot be moved of the ICU until his overall neurological status improves. Aggressive neb treatments. We will follow. Job ID: [id number]
[2018-09-28] MEDS: Famotidine/PF 20 mg/2ml Vial SLOW IVP SCH ×2 (08:31→20:30)
[2018-09-28] MEDS: clonazePAM 0.5 MG TAB PO SCH ×2 (08:31→20:31)
--- NOTE | 2018-09-28 15:29 | PDOC.PN ---
- Subjective Encounter Start Date: 09/28/18 Encounter Start Time: 14:45 Subjective: f/u for persistent multifactorial encephalopathy. Remains combative -: confused in 4-point restraints. Receiving Precedex, Geodon, Seroquel. - Objective Resuscitation Status - Order Detail: 09/24/18 15:16 Resuscitation Status Routine Resuscitation Status: FULL: Full Resuscitation MAR Reviewed: Yes Vital Signs & Weight: Vital Signs (12 hours) Temp Pulse Resp Pulse Ox 09/28/18 12:23 70 22 H 09/28/18 12:00 98.8 F 09/28/18 07:12 99 09/28/18 07:11 82 26 H 99 09/28/18 07:06 95 09/28/18 04:00 98.6 F Weight Weight 279 lb 5.211 oz Most Recent Monitor Data Heart Rate from ECG 79 NIBP 175/113 NIBP BP-Mean 133 Respiration from ECG 32 SpO2 96 I&O: 09/27/18 09/28/18 09/29/18 06:59 06:59 06:59 Intake Total 4750.4 1614 0 Output Total 1246 1210 1100 Balance 3504.4 404 -1100 Result Diagrams: 09/27/18 02:30 09/27/18 02:30 Additional Labs: Microbiology 09/24/18 17:50 Urine gudino catheter Urine Culture - Preliminary NO GROWTH AT 24 HOURS 09/24/18 12:00 Venous blood - Left Arm Blood Culture - Preliminary Specimen has been received and culture in progress. No Growth to date. 09/24/18 11:50 Venous blood - Right Hand Blood Culture - Preliminary Specimen has been received and culture in progress. No Growth to date. Laboratory Tests 09/24/18 09/24/18 09/24/18 11:50 11:50 17:50 Hgb 13.7 L BUN 54 H Creatinine 6.28 H Cortisol Urine Opiates Screen Detected H U Benzodiazepines Scrn Detected H 09/25/18 04:20 Hgb BUN Creatinine Cortisol 15.70 Urine Opiates Screen U Benzodiazepines Scrn EKG Reviewed by me: Yes (Tele - SR) Phys Exam - Physical Examination opens eyes to name, tracks, states/mumbles few words HEENT: PERRLA, sclera anicteric, oral pharynx no lesions Neck: no nodes, no JVD, supple, full ROM Respiratory: no wheezing, no rales, no rhonchi, clear to auscultation bilateral S1, S2 Cardiovascular: RRR, no significant murmur, no rub, gallop obese Gastrointestinal: soft, non-tender, no distention, positive bowel sounds Musculoskeletal: pulses present, edema present Neurological: moves all 4 limbs A x O x 1 Skin: normal turgor, cap refill <2 seconds Dx/Plan (1) Toxic metabolic encephalopathy Code(s): G92 - TOXIC ENCEPHALOPATHY Status: Acute Comment: Persistent, likely multifactorial including uremia and polypharmacy, supportive mgmt, add Geodon IM, Seroquel, Precedex (2) Severe sepsis with septic shock Code(s): A41.9 - SEPSIS, UNSPECIFIED ORGANISM; R65.21 - SEVERE SEPSIS WITH SEPTIC SHOCK Status: Acute Comment: Suspected but unclear source, continue empiric Zosyn, initial blood/urine cx negative, continue IVF's (3) Acute kidney failure Status: Acute Comment: Likely volume mediated, improving with IVF's, avoid nephrotoxic meds and limit contrast exposure (4) Polypharmacy Code(s): Z79.899 - OTHER [facility] (CURRENT) DRUG THERAPY Status: Chronic Comment: Review home regimen and limit psychotropes and sedating meds as clinically able (5) Multiple falls Code(s): R29.6 - REPEATED FALLS Status: Chronic Comment: PT/OT evaluation, may consider SNF options vs HH with PT (6) Tobacco abuse Code(s): Z72.0 - TOBACCO USE Status: Chronic Comment: Tobacco cessation resources - Plan continue antibiotics, PT/OT, social media content manager, DVT proph w/SCDs Continue supportive mgmt -: Check CT brain given protracted encephalopathy -: Geodon for agitation/combativeness -: Continue Zosyn empirically -: Continue Precedex * .
[2018-09-28] MEDS: hydrALAZINE 20 MG/ML VIAL SLOW IVP PRN (20:30)
[2018-09-29] MEDS: Piperacillin/Tazobactam 2.25 GM in Sodium Chloride 0.9% 100 ML IVPB SCH (05:46)
[2018-09-29] MEDS: Famotidine/PF 20 mg/2ml Vial SLOW IVP SCH (08:33)
[2018-09-29] MEDS: clonazePAM 0.5 MG TAB PO SCH ×2 (08:34→20:46)
--- NOTE | 2018-09-29 10:35 | PDOC.PN ---
- Subjective Encounter Start Date: 09/29/18 Encounter Start Time: 10:33 Mr. Mosher was seen today in follow-up of metabolic encephalopathy. He is less confused today. He does not have any complaints. His speech is still a bit slurred at times. - Objective Resuscitation Status - Order Detail: 09/24/18 15:16 Resuscitation Status Routine Resuscitation Status: FULL: Full Resuscitation MAR Reviewed: Yes Vital Signs & Weight: Vital Signs (12 hours) Temp Pulse Resp Pulse Ox 09/29/18 08:01 100.3 F H 09/29/18 07:41 94 L 09/29/18 06:25 96 09/29/18 06:22 100 28 H 96 09/29/18 04:00 98.9 F 09/29/18 00:13 91 27 H 95 09/29/18 00:00 99.0 F Weight Weight 4.388 oz Most Recent Monitor Data Heart Rate from ECG 90 NIBP 127/78 NIBP BP-Mean 94 Respiration from ECG 35 SpO2 94 I&O: 09/28/18 09/29/18 09/30/18 06:59 06:59 06:59 Intake Total 1614 764 Output Total 1210 2600 0 Balance 404 -1836 0 Result Diagrams: 09/27/18 02:30 09/27/18 02:30 Phys Exam - Physical Examination HEENT: PERRLA Respiratory: no wheezing, no rales, no rhonchi, clear to auscultation bilateral Cardiovascular: RRR, no significant murmur, no rub Gastrointestinal: soft, non-tender, no distention, positive bowel sounds Musculoskeletal: no edema, pulses present Patient moves all extremities, some weakness with plantar flex left foot Dx/Plan (1) Acute metabolic encephalopathy Code(s): G93.41 - METABOLIC ENCEPHALOPATHY Status: Acute Comment: slowly resolving (2) Acute kidney failure Status: Acute Comment: Likely volume mediated, improving with IVF's, avoid nephrotoxic meds and limit contrast exposure (3) CAD (coronary artery disease) Code(s): I25.10 - ATHSCL HEART DISEASE OF [place] CORONARY ARTERY W/O ANG PCTRS Status: Chronic Qualifiers: Coronary Disease-Associated Artery/Lesion type: [place] artery [place] vs. transplanted heart: [place] heart Associated angina: without angina Qualified Code(s): I25.10 - Atherosclerotic heart disease of [place] coronary artery without angina pectoris Comment: (4) COPD (chronic obstructive pulmonary disease) Status: Chronic Qualifiers: COPD type: unspecified COPD Qualified Code(s): J44.9 - Chronic obstructive pulmonary disease, unspecified Comment: (5) Hypertension Code(s): I10 - ESSENTIAL (PRIMARY) HYPERTENSION Status: Chronic Qualifiers: Hypertension type: essential hypertension Comment: (6) Polypharmacy Code(s): Z79.899 - OTHER [employer]ME [employer] JUSTICE (CURRENT) DRUG THERAPY Status: Chronic Comment: Review home regimen and limit psychotropes and sedating meds as clinically able - Plan * Acute metabolic encephalopathy- improving- ? etiology- ? polypharmacy and acute renal failure- will order MRI to rule out CVA * Acute kidney injury- resolved- his renal function is back to baseline * COPD- stable * HTN- blood pressure is labile, but mostly controlled-. * CAD- stable
[2018-09-29] MEDS ORDERED: Enoxaparin Sodium 40 MG/0.4 ML SYRINGE SC SCH (13:30)
[2018-09-29] MEDS: Piperacillin/Tazobactam 3.375 GM in Sodium Chloride 0.9% 100 ML IVPB SCH ×2 (13:47→20:46)
[2018-09-29] MEDS: Lorazepam 2 MG/ML VIAL SLOW IVP PRN ×2 (15:13→17:36)
--- NOTE | 2018-09-29 16:11 | PRG ---
DATE OF SERVICE: 09/29/2018 SERVICE: Pulmonary Medicine. INTERVAL HISTORY: The patient is doing fine from respiratory standpoint. He is breathing comfortably. He has no complaints of chest pain, fevers, or chills. His mentation is coming around. His family indicates that he is still a little bit off. That being said, his level of agitation has improved dramatically. PHYSICAL EXAMINATION: VITAL SIGNS: Afebrile with a T-max of 100.3, pulse 99, blood pressure 169/100, respirations 30, and saturation 96% on room air. GENERAL: The patient is awake and alert, in no apparent distress. LUNGS: Decent air entry. There is no prolonged expiratory phase, wheezing, or crackles present. HEART: Normal rate and regular. ABDOMEN: Soft, nontender, and nondistended. Bowel sounds are positive. MUSCULOSKELETAL: No cyanosis or clubbing. There is no pitting in the bilateral lower extremities. NEUROLOGIC: Grossly nonfocal. LABORATORY DATA: WBC 6.1, hemoglobin 12.5, and platelets 165,000. Comprehensive metabolic profile is essentially unremarkable 2 days ago. Urinalysis is negative. Urine drug screen is positive for opiates and benzodiazepine. Blood cultures x2 are unremarkable. Urine culture is negative. ASSESSMENT: 1. Metabolic encephalopathy, resolving. 2. Acute kidney injury, resolved. 3. Dehydration, resolved. 4. Severe sepsis, source unknown, but resolving. DISCUSSION AND PLAN: We will discontinue the Precedex. Imaging of the C-spine, and lumbar spine is currently pending. From a purely respiratory perspective, the patient is doing quite well and can be transitioned out of the ICU to the medical unit. He has no further requirements for inpatient Pulmonary Critical Care opinion, and I will sign off. Please call with additional questions or concerns through time. Job ID: [id number]
--- NOTE | 2018-09-29 16:36 | MRI ---
Brain MRI without contrast: 09/29/2018 COMPARISON: None HISTORY: Altered mental status, frequent falls TECHNIQUE: Multiplanar multisequence MR imaging of the brain obtained without contrast FINDINGS: The diffusion weighted imaging demonstrates no evidence for acute infarction. The axial gradient echo imaging demonstrates no evidence for intracranial hemorrhage. There is mild mucosal thickening of bilateral ethmoid air cells. Arterial flow voids at the axial lev el of the skull base appear grossly unremarkable on the T2-weighted imaging. Regional bone marrow signal intensity is within normal limits. No midline shift, mass effect, or vent ricular enlargement. IMPRESSION: No acute findings.
--- NOTE | 2018-09-29 16:42 | MRI ---
MRI of the lumbar spine: 09/29/2018 COMPARISON: None HISTORY: Falls, back pain TECHNIQUE: Multiplanar multisequence MR imaging of the lumbar spine provided without contrast FINDINGS: The STIR imaging demonstrates no focal area of osseous marrow edema. On the basis of 5 lumbar type vertebral bodies, conus medullaris terminates at the T12-L1 level. [place] enitally short pedicles lead to diffuse lumbar spine central canal stenosis. T12-L1: Mild bilateral facet hypertrophy with no significant central canal or neural foraminal stenos is. L1-2: Disc space narrowing and disc desiccation with mild disc bulge. Mild bilateral facet hypertroph y. No significant central canal or neural foraminal stenosis. L2-3: There is disc space narrowing, disc desiccation, and mild disc bulge. No significant central ca nal stenosis. Bilateral facet hypertrophy with no significant neural foraminal stenosis. L3-4: Disc space narrowing and disc desiccation with disc bulge. Superimposed small central disc prot rusion. Moderate associated central canal stenosis. Bilateral facet hypertrophy. No significant neural foraminal stenosis on either side. L4-5: Disc space narrowing and disc desiccation. Left lateral degenerative endplate change. Anterior and left lateral osteophyte formation. Significant bilateral facet hypertrophy with severe left and mild right neural foraminal stenosis. Moderate central canal stenosis. L5-S1: Disc space narrowing and disc desiccation. Anterior osteophyte formation and mild disc bulge. Superimposed right foraminal disc protrusion. Bilateral facet hypertrophy. Moderate/severe right and mild left neural foraminal stenosis. Mild central canal stenosis. Detailed assessment is somewhat limited secondary to persistent motion artifact, especially on the ax ial imaging. Imaged retroperitoneal structures grossly unremarkable. IMPRESSION: Multilevel degenerative change within the lumbar spine as detailed above.
--- NOTE | 2018-09-29 17:01 | MRI ---
MRI of the thoracic spine without contrast: 09/29/2018 COMPARISON: None HISTORY: Chronic back pain, falls TECHNIQUE: Multiplanar multisequence MR imaging of the thoracic spine provided without contrast FINDINGS: There is artifact associated with post operative hardware at the T7, T8, and T9 levels, whi ch limits assessment for central canal and right neural foraminal stenosis. There is postoperative distortion involving the posterior aspect of the right hemithorax, including postoperative partial re section of multiple right-sided ribs. There is no focal area of abnormal signal intensity identified within the thoracic cord. There is no significant central canal stenosis at any level within the thoracic spine. No significant neural foraminal stenosis is evident at any level within the thoracic spine. Disc spac e narrowing and mild disc bulge noted at the T2-3, T3-4, and T4-5 levels. The sagittal STIR imaging demonstrates no focal area of osseous marrow edema. The post operative hardware is not well assessed on this examination. This could be better assessed v ia CT and/or CT myelogram as clinically warranted. IMPRESSION: No evidence for significant central canal or neural foraminal stenosis within the thoraci c spine. Please see above discussion.
[2018-09-29] MEDS: hydrALAZINE 20 MG/ML VIAL SLOW IVP PRN (18:05)
[2018-09-30] MEDS: Lorazepam 2 MG/ML VIAL SLOW IVP PRN ×3 (00:32→22:29)
[2018-09-30] MEDS: Piperacillin/Tazobactam 3.375 GM in Sodium Chloride 0.9% 100 ML IVPB SCH ×4 (00:32→20:45)
[2018-09-30 05:59] LABS: Anion Gap 16 mmol/L (10-20); BUN (Urea Nitrogen) 15 mg/dL (8.4-25.7); Calc. Creatinine Clearance 155 mL/min (70-130); Calcium 9.4 mg/dL (7.8-10.44); Carbon Dioxide 20 mmol/L (22-29); Chloride 108 mmol/L (98-107); Estimated GFR-MDRD 86; Glucose 85 mg/dL (70-105); Potassium 3.4 mmol/L (3.5-5.1); Sodium 141 mmol/L (136-145)
[2018-09-30] MEDS: Enoxaparin Sodium 40 MG/0.4 ML SYRINGE SC SCH (08:03)
[2018-09-30] MEDS: Ziprasidone 20 MG VIAL IM PRN ×2 (08:04→13:07)
[2018-09-30] MEDS: clonazePAM 0.5 MG TAB PO SCH ×2 (08:04→20:45)
--- NOTE | 2018-09-30 15:20 | PQF ---
DATE: 09-30-18 ATTN: DR. NO SCHNEIDER Please exercise your independent, professional judgment in responding to the clarification form. Clinical indicators are provided on the bottom of this form for your review Please check appropriate box(s) to clarify if the following diagnosis has been ruled in or ruled out: SEPSIS [ X ] Ruled in diagnosis [ X ] Continue to treat [ ] Resolved [ ] Ruled out diagnosis [ ] Other diagnosis [ ] Unable to determine In addition, please specify: Present on Admission (POA): [X ] Yes Sepsis Syndrome Unknown source [ ] No [ ] Unable to determine For continuity of documentation, please document condition throughout progress notes and discharge summary. Thank You. CLINICAL INDICATORS - SIGNS / SYMPTOMS / LABS: H&P: SEPSIS WITH SEPTIC SHOCK CONSULT NOTE DR. MERCHANT 09-25-18: SEVERE SEPSIS, SOURCE UNKNOWN PN DR. MONTGOMERY 09-25-18: F/U FOR SEVERE SEPSIS WITH SHOCK OF UNCLEAR SOURCE ON EMPIRIC ZOSYN AND VANC, REMAINS CONFUSED AND COMBATIVE IN 4-POINT RESTRAINTS PN DR. MONTGOMERY 09-26-18: SUSPECTED SEPSIS WITH NEGATIVE CX PN DR. MONTGOMERY 09-27-18: SUSPECTED SEPSIS W/O IDENTIFIED SOURCE PN DR. MONTGOMERY 09-28-18: SEVERE SEPSIS WITH SEPTIC SHOCK, SUSPECTED BUT UNCLEAR SOURCE PN DR. SCHNEIDER 09-29-18: ACUTE METABOLIC ENCEPHALOPATHY, ACUTE KIDNEY FAILURE, CAD, COPD, HTN, POLYPHARMACY BP: ER: 69/43, 88/52, 90/54, 80/49, 70/55, 83/54, 75/47 TEMP: ER: 100.0, 99 09-29-18: 100.3 RR: 09-24-18: 28, 23, 25 09-25-18: 21, 25, 09-27-18: 25, 26 PULSE: 09-24-18: 111 09-25-18: 105 RISK FACTORS: ER: HX HEP C, CHF, COPD, SMOKER H&P: AMS, EFRAIN, POLYPHARMACY, LETHARGY, FATIGUE, COMBATIVENESS, CONFUSION TREATMENTS: H&P: VANCOMYCIN IV, ZOSYN IV, BLOOD AND URINE CX PENDING (This form is maintained as a part of the permanent medical record) 2014 [employer]. All Rights Reserved JOSE RAMON [email or web address] Office: [phone] [email or web address]
--- NOTE | 2018-09-30 15:51 | PDOC.PN ---
- Subjective Encounter Start Date: 09/30/18 Encounter Start Time: 14:00 Mr. Mosher was seen today in follow-up of altered mental status. He was a bit more confused today than yesterday. He has been pulling at IV lines, as well as trying to get out of bed. - Objective Resuscitation Status - Order Detail: 09/24/18 15:16 Resuscitation Status Routine Resuscitation Status: FULL: Full Resuscitation MAR Reviewed: Yes Vital Signs & Weight: Vital Signs (12 hours) Temp Pulse Resp BP Pulse Ox 09/30/18 07:37 110 H 22 H 95 09/30/18 07:36 99.6 F 104 H 18 174/86 H 95 09/30/18 05:20 98.4 F 109 H 22 H 158/80 H 92 L 09/30/18 04:00 99.2 F 116 H 22 H 168/84 H Weight Weight 273 lb 5.971 oz Most Recent Monitor Data Heart Rate from ECG 112 NIBP 164/103 NIBP BP-Mean 123 Respiration from ECG 25 SpO2 99 I&O: 09/29/18 09/30/18 10/01/18 06:59 06:59 06:59 Intake Total 764 713 Output Total 2600 850 Balance -1836 -137 Result Diagrams: 09/27/18 02:30 09/30/18 05:08 Phys Exam - Physical Examination HEENT: PERRLA, sclera anicteric Respiratory: no wheezing, no rales, no rhonchi, clear to auscultation bilateral Cardiovascular: RRR, no significant murmur, no rub Gastrointestinal: soft, non-tender, no distention, positive bowel sounds Musculoskeletal: no edema, pulses present Dx/Plan (1) Acute metabolic encephalopathy Code(s): G93.41 - METABOLIC ENCEPHALOPATHY Status: Acute Comment: slowly resolving (2) Acute kidney failure Status: Acute Comment: Likely volume mediated, improving with IVF's, avoid nephrotoxic meds and limit contrast exposure (3) CAD (coronary artery disease) Code(s): I25.10 - ATHSCL HEART DISEASE OF [place] CORONARY ARTERY W/O ANG PCTRS Status: Chronic Qualifiers: Coronary Disease-Associated Artery/Lesion type: [place] artery [place] vs. transplanted heart: [place] heart Associated angina: without angina Qualified Code(s): I25.10 - Atherosclerotic heart disease of [place] coronary artery without angina pectoris Comment: (4) COPD (chronic obstructive pulmonary disease) Status: Chronic Qualifiers: COPD type: unspecified COPD Qualified Code(s): J44.9 - Chronic obstructive pulmonary disease, unspecified Comment: (5) Hypertension Code(s): I10 - ESSENTIAL (PRIMARY) HYPERTENSION Status: Chronic Qualifiers: Hypertension type: essential hypertension Comment: (6) Polypharmacy Code(s): Z79.899 - OTHER [facility] (CURRENT) DRUG THERAPY Status: Chronic Comment: Review home regimen and limit psychotropes and sedating meds as clinically able - Plan * Acute metabolic encephalopathy- this appears to be intermittent. It may be related to medication withdrawal. Will re-start Gabapentin, but at a lower dose , and Venlafacine * HTN- blood pressure is a tad elevated- will continue the current medications and monitor * CAD- stable * Acute kidney injury- resolved.
[2018-09-30] MEDS ORDERED: Potassium Chloride 20 MEQ TAB PO SCH (16:00)
[2018-10-01] MEDS: Piperacillin/Tazobactam 3.375 GM in Sodium Chloride 0.9% 100 ML IVPB SCH ×2 (01:58→08:13)
[2018-10-01] MEDS: Ziprasidone 20 MG VIAL IM PRN (01:58)
[2018-10-01] MEDS: Acetaminophen 500 MG TAB PO PRN ×2 (08:12→20:12)
[2018-10-01] MEDS: clonazePAM 0.5 MG TAB PO SCH ×2 (08:12→20:12)
[2018-10-01] MEDS: Gabapentin 100 MG CAP PO SCH (08:12)
[2018-10-01] MEDS: Enoxaparin Sodium 40 MG/0.4 ML SYRINGE SC SCH (08:13)
[2018-10-01] MEDS: Venlafaxine HCl XR 150 MG CAP PO SCH (08:13)
[2018-10-01 08:59] LABS: #Basophils 0.1 thou/uL (0.0-0.2); #Eosinphils 0.3 thou/uL (0.0-0.7); #Lymphocytes 2.5 thou/uL (1.20-3.40); #Monocytes 0.7 thou/uL (0.11-0.59); #Neutrophils 6.7 thou/uL (1.40-6.50); %Basophils 0.5 % (0.0-1.0); %Eosinophils 2.6 % (0.0-10.0); %Lymphocytes 24.4 % (21.0-51.0); %Monocytes 7.2 % (0.0-10.0); %Neutrophils 65.2 % (42.0-75.0); Hemoglobin 15.6 g/dL (14.0-18.0); Mean Corpuscular Hemoglobin 30.9 pg (27.0-31.0); Mean Corpuscular Volume 93.5 fL (78.0-98.0); Platelet Count 344 thou/uL (130-400); RBC Distribution Width 12.9 % (11.5-14.5); Red Blood Cell (RBC) Count 5.04 mill/uL (4.70-6.10); White Blood Cell (WBC) Count 10.3 thou/uL (4.8-10.8)
[2018-10-01 09:04] LABS: ALT (SGPT) 95 U/L (8-55); AST (SGOT) 78 U/L (5-34); Albumin 3.9 g/dL (3.5-5.0); Alkaline Phosphatase 92 U/L (40-150); Anion Gap 19 mmol/L (10-20); BUN (Urea Nitrogen) 17 mg/dL (8.4-25.7); Bilirubin, Total 0.9 mg/dL (0.2-1.2); Calc. Creatinine Clearance 144 mL/min (70-130); Calcium 9.7 mg/dL (7.8-10.44); Carbon Dioxide 16 mmol/L (22-29); Chloride 112 mmol/L (98-107); Estimated GFR-MDRD 80; Globulin 4.3 g/dL (2.4-3.5); Glucose 132 mg/dL (70-105); Potassium 3.4 mmol/L (3.5-5.1); Protein, Total 8.2 g/dL (6.0-8.3); Sodium 144 mmol/L (136-145)
--- NOTE | 2018-10-01 14:30 | PDOC.PN ---
- Subjective Encounter Start Date: 10/01/18 Encounter Start Time: 14:28 Mr. Mosher was seen today in follow-up of encephalopathy. He is better today. He is less confused, and less restless. - Objective Resuscitation Status - Order Detail: 09/24/18 15:16 Resuscitation Status Routine Resuscitation Status: FULL: Full Resuscitation MAR Reviewed: Yes Vital Signs & Weight: Vital Signs (12 hours) Temp Pulse Resp BP Pulse Ox 10/01/18 08:06 98.7 F 107 H 20 144/78 H 10/01/18 06:51 108 H 20 94 L Weight Weight 271 lb 6.224 oz Most Recent Monitor Data Heart Rate from ECG 112 NIBP 164/103 NIBP BP-Mean 123 Respiration from ECG 25 SpO2 99 I&O: 09/30/18 10/01/18 10/02/18 06:59 06:59 06:59 Intake Total 713 Output Total 850 Balance -137 Result Diagrams: 10/01/18 08:20 10/01/18 08:20 Phys Exam - Physical Examination HEENT: PERRLA Respiratory: no wheezing, no rales, no rhonchi, clear to auscultation bilateral Cardiovascular: RRR, no significant murmur, no rub Gastrointestinal: soft, non-tender, no distention, positive bowel sounds Musculoskeletal: no edema Dx/Plan (1) Acute metabolic encephalopathy Code(s): G93.41 - METABOLIC ENCEPHALOPATHY Status: Acute Comment: slowly resolving (2) Acute kidney failure Status: Acute Comment: Likely volume mediated, improving with IVF's, avoid nephrotoxic meds and limit contrast exposure (3) CAD (coronary artery disease) Code(s): I25.10 - ATHSCL HEART DISEASE OF [place] CORONARY ARTERY W/O ANG PCTRS Status: Chronic Qualifiers: Coronary Disease-Associated Artery/Lesion type: [place] artery [place] vs. transplanted heart: [place] heart Associated angina: without angina Qualified Code(s): I25.10 - Atherosclerotic heart disease of [place] coronary artery without angina pectoris Comment: (4) COPD (chronic obstructive pulmonary disease) Status: Chronic Qualifiers: COPD type: unspecified COPD Qualified Code(s): J44.9 - Chronic obstructive pulmonary disease, unspecified Comment: (5) Hypertension Code(s): I10 - ESSENTIAL (PRIMARY) HYPERTENSION Status: Chronic Qualifiers: Hypertension type: essential hypertension Comment: (6) Polypharmacy Code(s): Z79.899 - OTHER [place]RE[place] (CURRENT) DRUG THERAPY Status: Chronic Comment: Review home regimen and limit psychotropes and sedating meds as clinically able - Plan * Metabolic encephalopathy- improved today. This is lijely from medications * Acute kidney injury- improved. * HTN- blood pressure is stable * COPD- stable * Chronic low back pain- stable * Continue PT/OT - consider Rehab
[2018-10-02] MEDS: Venlafaxine HCl XR 150 MG CAP PO SCH (08:57)
[2018-10-02] MEDS: Enoxaparin Sodium 40 MG/0.4 ML SYRINGE SC SCH (08:58)
[2018-10-02] MEDS: Gabapentin 100 MG CAP PO SCH (08:58)
[2018-10-02] MEDS: Acetaminophen 500 MG TAB PO PRN (08:58)
[2018-10-02] MEDS: clonazePAM 0.5 MG TAB PO SCH ×2 (08:58→21:26)
[2018-10-02 09:14] LABS: Anion Gap 15 mmol/L (10-20); BUN (Urea Nitrogen) 19 mg/dL (8.4-25.7); Calc. Creatinine Clearance 152 mL/min (70-130); Calcium 9.5 mg/dL (7.8-10.44); Carbon Dioxide 23 mmol/L (22-29); Chloride 110 mmol/L (98-107); Estimated GFR-MDRD Greater than 90; Glucose 89 mg/dL (70-105); Potassium 3.7 mmol/L (3.5-5.1); Sodium 144 mmol/L (136-145)
--- NOTE | 2018-10-02 13:45 | PDOC.PN ---
- Subjective Encounter Start Date: 10/02/18 Encounter Start Time: 13:44 Mr. Mosher was seen today in follow-up of Metabolic encephalopathy. He is a little better today than yesterday. His speech is a bit dysarthric stll, and his daughter who is at bedside tells me he is not back to his baseline. - Objective Resuscitation Status - Order Detail: 09/24/18 15:16 Resuscitation Status Routine Resuscitation Status: FULL: Full Resuscitation MAR Reviewed: Yes Vital Signs & Weight: Weight Weight 257 lb Most Recent Monitor Data Heart Rate from ECG 112 NIBP 164/103 NIBP BP-Mean 123 Respiration from ECG 25 SpO2 99 I&O: 10/01/18 10/02/18 10/03/18 06:59 06:59 06:59 Intake Total 210 Balance 210 Result Diagrams: 10/01/18 08:20 10/02/18 08:25 Phys Exam - Physical Examination HEENT: PERRLA, sclera anicteric Respiratory: no wheezing, no rales, no rhonchi, clear to auscultation bilateral Cardiovascular: RRR, no significant murmur, no rub Gastrointestinal: soft, non-tender, no distention, positive bowel sounds Musculoskeletal: pulses present, edema present Trace pedal edema Neurological: non-focal no asterixis Dx/Plan (1) Acute metabolic encephalopathy Code(s): G93.41 - METABOLIC ENCEPHALOPATHY Status: Acute Comment: slowly resolving (2) Acute kidney failure Status: Acute Comment: Likely volume mediated, improving with IVF's, avoid nephrotoxic meds and limit contrast exposure (3) CAD (coronary artery disease) Code(s): I25.10 - ATHSCL HEART DISEASE OF [place] CORONARY ARTERY W/O ANG PCTRS Status: Chronic Qualifiers: Coronary Disease-Associated Artery/Lesion type: [place] artery [place] vs. 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 His daughter brought up that the patient had been diagnosed and treated for Hepatitis C in the past- not with the newer treatments, and wonders if this could be contributing to the present illness. She also told me that multiple family members have been diagnosed with MS as well .- will check a Hepatitis C, and viral load and ammonia level * HTN- blood pressure is more or less stable * Acute kideny injury- resolved * COPD- stable. * Patient and family are agreeable to alf placement
[2018-10-03] MEDS: Venlafaxine HCl XR 150 MG CAP PO SCH (09:54)
[2018-10-03] MEDS: Gabapentin 100 MG CAP PO SCH (09:54)
[2018-10-03] MEDS: clonazePAM 0.5 MG TAB PO SCH ×2 (09:55→19:37)
[2018-10-03] MEDS: Enoxaparin Sodium 40 MG/0.4 ML SYRINGE SC SCH (09:55)
[2018-10-03] MEDS: traMADol HCl 50 MG TAB PO PRN ×2 (10:58→19:36)
[2018-10-03] MEDS: Ziprasidone 20 MG VIAL IM PRN (11:27)
[2018-10-03] MEDS: Sterile Water 10 ML VIAL FS PRN (11:27)
--- NOTE | 2018-10-03 14:16 | PDOC.PN ---
- Subjective Encounter Start Date: 10/03/18 Encounter Start Time: 14:12 Mr. Mosher was seen today in follow-up of toxic metabolic encephalopathy. He is less drowsy, but got agitated when he daughter came to visit. He is still not at his baseline. She says he has " gone down" every since he had surgery on his neck. He says that Gabapentin was started around this time. - Objective Resuscitation Status - Order Detail: 09/24/18 15:16 Resuscitation Status Routine Resuscitation Status: FULL: Full Resuscitation MAR Reviewed: Yes Vital Signs & Weight: Vital Signs (12 hours) Temp Pulse Resp BP BP Pulse Ox 10/03/18 09:40 97 10/03/18 07:35 97.7 F 82 18 169/93 H 97 10/03/18 04:00 98.2 F 80 18 157/81 H 94 L Weight Weight 258 lb 9 oz Most Recent Monitor Data Heart Rate from ECG 112 NIBP 164/103 NIBP BP-Mean 123 Respiration from ECG 25 SpO2 99 I&O: 10/02/18 10/03/18 10/04/18 06:59 06:59 06:59 Intake Total 210 Balance 210 Result Diagrams: 10/01/18 08:20 10/02/18 08:25 Phys Exam - Physical Examination HEENT: PERRLA Respiratory: no wheezing, no rales, no rhonchi, clear to auscultation bilateral Cardiovascular: RRR, no significant murmur, no rub Gastrointestinal: soft, non-tender, positive bowel sounds mild distention Musculoskeletal: no edema, pulses present Dx/Plan (1) Acute metabolic encephalopathy Code(s): G93.41 - METABOLIC ENCEPHALOPATHY Status: Acute Comment: slowly resolving (2) Acute kidney failure Status: Acute Comment: Likely volume mediated, improving with IVF's, avoid nephrotoxic meds and limit contrast exposure (3) CAD (coronary artery disease) Code(s): I25.10 - ATHSCL HEART DISEASE OF [place] CORONARY ARTERY W/O ANG PCTRS Status: Chronic Qualifiers: Coronary Disease-Associated Artery/Lesion type: [place] artery [place] vs. 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 Will discontinue Gabapentin all together * He may have some underlying dementia- if he does not completely clear by Friday then consider Neurology evaluation * HTN- blood pressure has been a bit elevated- will re-start Amlodipine * COPD- stable * Acute kidney injury- resolved * awaiting placement.
[2018-10-04 06:25] LABS: #Basophils 0.1 thou/uL (0.0-0.2); #Eosinphils 0.1 thou/uL (0.0-0.7); #Monocytes 0.6 thou/uL (0.11-0.59); #Neutrophils 4.9 thou/uL (1.40-6.50); %Basophils 0.7 % (0.0-1.0); %Eosinophils 1.8 % (0.0-10.0); %Lymphocytes 25.9 % (21.0-51.0); %Monocytes 7.4 % (0.0-10.0); %Neutrophils 64.1 % (42.0-75.0); Hemoglobin 15.6 g/dL (14.0-18.0); Mean Corpuscular HGB CONC 32.7 g/dL (32.0-36.0); Mean Corpuscular Hemoglobin 30.8 pg (27.0-31.0); Mean Corpuscular Volume 94.1 fL (78.0-98.0); Mean Platelet Volume 6.8 fL (7.4-10.4); Platelet Count 388 thou/uL (130-400); RBC Distribution Width 12.6 % (11.5-14.5); Red Blood Cell (RBC) Count 5.07 mill/uL (4.70-6.10); White Blood Cell (WBC) Count 7.7 thou/uL (4.8-10.8)
[2018-10-04 06:45] LABS: ALT (SGPT) 76 U/L (8-55); AST (SGOT) 43 U/L (5-34); Albumin 3.9 g/dL (3.5-5.0); Alkaline Phosphatase 85 U/L (40-150); Anion Gap 16 mmol/L (10-20); BUN (Urea Nitrogen) 25 mg/dL (8.4-25.7); Bilirubin, Total 0.6 mg/dL (0.2-1.2); Calc. Creatinine Clearance 131 mL/min (70-130); Calcium 9.4 mg/dL (7.8-10.44); Carbon Dioxide 22 mmol/L (22-29); Chloride 108 mmol/L (98-107); Estimated GFR-MDRD 76; Glucose 98 mg/dL (70-105); Potassium 3.5 mmol/L (3.5-5.1); Protein, Total 7.9 g/dL (6.0-8.3); Sodium 142 mmol/L (136-145)
[2018-10-04] MEDS: clonazePAM 0.5 MG TAB PO SCH ×2 (08:21→19:33)
[2018-10-04] MEDS: Enoxaparin Sodium 40 MG/0.4 ML SYRINGE SC SCH (08:21)
[2018-10-04] MEDS: Amlodipine 5 MG TAB PO SCH (08:21)
[2018-10-04] MEDS: Venlafaxine HCl XR 150 MG CAP PO SCH (08:21)
[2018-10-04] MEDS ORDERED: Amlodipine 5 MG TAB PO SCH (09:00)
[2018-10-04] MEDS: Ziprasidone 20 MG VIAL IM PRN (09:26)
[2018-10-04] MEDS: Sterile Water 10 ML VIAL FS PRN (09:28)
--- NOTE | 2018-10-04 12:36 | PDOC.PN ---
- Subjective Encounter Start Date: 10/04/18 Encounter Start Time: 08:00 Subjective: is amb in hallway with sitter -: responds well to questions for the most part -: no sob or abd pain - Objective Resuscitation Status - Order Detail: 09/24/18 15:16 Resuscitation Status Routine Resuscitation Status: FULL: Full Resuscitation MAR Reviewed: Yes Vital Signs & Weight: Vital Signs (12 hours) Temp Pulse Resp BP Pulse Ox 10/04/18 08:21 85 10/04/18 08:00 95 10/04/18 07:38 97.9 F 85 19 137/84 95 Weight Weight 258 lb 9 oz Most Recent Monitor Data Heart Rate from ECG 112 NIBP 164/103 NIBP BP-Mean 123 Respiration from ECG 25 SpO2 99 I&O: 10/03/18 10/04/18 10/05/18 06:59 06:59 06:59 Intake Total 240 Balance 240 Result Diagrams: 10/04/18 05:54 10/04/18 05:54 Phys Exam - Physical Examination HEENT: PERRLA, sclera anicteric Neck: no JVD, supple Respiratory: no wheezing, no rales Cardiovascular: RRR, no significant murmur Gastrointestinal: soft, non-tender, positive bowel sounds Musculoskeletal: no edema, pulses present Neurological: non-focal, moves all 4 limbs Psychiatric: normal affect Dx/Plan (1) Toxic metabolic encephalopathy Code(s): G92 - TOXIC ENCEPHALOPATHY Status: Acute (2) Polypharmacy Code(s): Z79.899 - OTHER ASSISTED (CURRENT) DRUG THERAPY Status: Chronic (3) CAD (coronary artery disease) Code(s): I25.10 - ATHSCL HEART DISEASE OF [place] CORONARY ARTERY W/O ANG PCTRS Status: Chronic Qualifiers: Coronary Disease-Associated Artery/Lesion type: [place] artery [place] vs. transplanted heart: [place] heart Associated angina: without angina Qualified Code(s): I25.10 - Atherosclerotic heart disease of [place] coronary artery without angina pectoris Comment: (4) COPD (chronic obstructive pulmonary disease) Status: Chronic Qualifiers: COPD type: unspecified COPD Qualified Code(s): J44.9 - Chronic obstructive pulmonary disease, unspecified Comment: (5) Hypertension Code(s): I10 - ESSENTIAL (PRIMARY) HYPERTENSION Status: Chronic Qualifiers: Hypertension type: essential hypertension Comment: (6) CHONG (obstructive sleep apnea) Code(s): G47.33 - OBSTRUCTIVE SLEEP APNEA (ADULT) (PEDIATRIC) Status: Chronic (7) Peripheral vascular disease Code(s): I73.9 - PERIPHERAL VASCULAR DISEASE, UNSPECIFIED Status: Chronic Comment: Hx right CEA (8) Mood disorder Code(s): F39 - UNSPECIFIED MOOD [AFFECTIVE] DISORDER Status: Chronic (9) Tobacco abuse Code(s): Z72.0 - TOBACCO USE Status: Chronic Comment: Tobacco cessation resources - Plan hemostable -: may dc sitter if he remains calm -: geodon 20mg qhs, continue seroquel 25mg bid, klonopin and effexor -: nebs, protonix, ultram prn -: dc plan to [facility]? if accepted * . Review of Systems - Medications/Allergies Allergies/Adverse Reactions: Allergies Allergy/AdvReac Type Severity Reaction Status Date / Time codeine Allergy Verified 09/03/18 20:03 pramipexole [From Mirapex] Allergy Verified 09/03/18 20:03 Sulfa (Sulfonamide Allergy Verified 09/03/18 20:03 Antibiotics) Medications: Current Medications Acetaminophen (Tylenol) 1,000 mg PO Q6H PRN PRN Reason: Mild Pain (1-3) Last Admin: 10/02/18 08:58 Dose: 1,000 mg Albuterol/Ipratropium (Duoneb) 3 ml NEB Q6H PRN PRN Reason: SOB &/or Wheezing Amlodipine Besylate (Norvasc) 5 mg PO DAILY [facility] Last Admin: 10/04/18 08:21 Dose: 5 mg Clonazepam (Klonopin) 0.5 mg PO BID [facility] Last Admin: 10/04/18 08:21 Dose: 0.5 mg Enoxaparin Sodium (Lovenox) 40 mg SC 0900 [facility] Last Admin: 10/04/18 08:21 Dose: 40 mg Hydralazine HCl (Apresoline) 10 mg SLOW IVP Q4H PRN PRN Reason: Blood Pressure Last Admin: 09/29/18 18:05 Dose: 10 mg Ondansetron HCl (Zofran Odt) 4 mg PO Q6H PRN PRN Reason: Nausea/Vomiting Ondansetron HCl (Zofran) 4 mg IVP Q6H PRN PRN Reason: Nausea/Vomiting Pantoprazole Sodium (Protonix) 40 mg PO DAILY [facility] Last Admin: 10/04/18 08:21 Dose: 40 mg Quetiapine Fumarate (Seroquel) 25 mg PO BID [facility] Last Admin: 10/04/18 08:21 Dose: 25 mg Sodium Chloride (Flush - Normal Saline) 10 ml IVF Q12HR [facility] Last Admin: 10/04/18 08:24 Dose: Not Given Sodium Chloride (Flush - Normal Saline) 10 ml IVF PRN PRN PRN Reason: Saline Flush Sterile Water (Water For Injection) 1.2 ml FS PRN PRN PRN Reason: RECONSTITUTION Last Admin: 10/04/18 09:28 Dose: 1.2 ml Tramadol HCl (Ultram) 50 mg PO Q6H PRN PRN Reason: Moderate Pain (4-6) Last Admin: 10/03/18 19:36 Dose: 50 mg Venlafaxine HCl (Effexor Xr) 300 mg PO DAILY [facility] Last Admin: 10/04/18 08:21 Dose: 300 mg Ziprasidone (Geodon) 20 mg PO [facility]
[2018-10-04] MEDS: Lorazepam 1 MG TAB PO PRN (16:56)
[2018-10-04] MEDS ORDERED: Ziprasidone 20 MG CAP PO SCH (21:00)
[2018-10-05] MEDS: Venlafaxine HCl XR 150 MG CAP PO SCH (08:12)
[2018-10-05] MEDS: clonazePAM 0.5 MG TAB PO SCH ×2 (08:12→19:37)
[2018-10-05] MEDS: Amlodipine 5 MG TAB PO SCH (08:12)
[2018-10-05] MEDS: Enoxaparin Sodium 40 MG/0.4 ML SYRINGE SC SCH (08:14)
[2018-10-05 13:29] VITALS: BMI 38.5
[2018-10-05] MEDS: traMADol HCl 50 MG TAB PO PRN ×2 (13:41→21:03)
--- NOTE | 2018-10-05 14:47 | PDOC.PN ---
- Subjective Encounter Start Date: 10/05/18 Encounter Start Time: 11:20 Subjective: awake, not in distress -: wants to go home, is not fully oriented -: per staff gets agitated easily/getting into other pt's room etc - Objective Resuscitation Status - Order Detail: 09/24/18 15:16 Resuscitation Status Routine Resuscitation Status: FULL: Full Resuscitation MAR Reviewed: Yes Vital Signs & Weight: Vital Signs (12 hours) Temp Pulse Resp BP BP Pulse Ox 10/05/18 08:12 92 10/05/18 08:00 97.4 F L 97 18 140/77 93 L 10/05/18 04:02 97.3 F L 92 20 130/75 93 L Weight Admit Weight 259 lb 12.8 oz Weight 259 lb 12.8 oz Most Recent Monitor Data Heart Rate from ECG 112 NIBP 164/103 NIBP BP-Mean 123 Respiration from ECG 25 SpO2 99 I&O: 10/04/18 10/05/18 10/06/18 06:59 06:59 06:59 Intake Total 470 240 Balance 470 240 Result Diagrams: 10/04/18 05:54 10/04/18 05:54 Phys Exam - Physical Examination HEENT: PERRLA, moist MMs Neck: no JVD, supple Respiratory: no wheezing, no rales Cardiovascular: RRR, no significant murmur Gastrointestinal: soft, non-tender, positive bowel sounds Musculoskeletal: no edema, pulses present Neurological: non-focal, moves all 4 limbs Dx/Plan (1) Toxic metabolic encephalopathy Code(s): G92 - TOXIC ENCEPHALOPATHY Status: Acute (2) Polypharmacy Code(s): Z79.899 - OTHER CMS EXPERT (CURRENT) DRUG THERAPY Status: Chronic (3) CAD (coronary artery disease) Code(s): I25.10 - ATHSCL HEART DISEASE OF [place] CORONARY ARTERY W/O ANG PCTRS Status: Chronic Qualifiers: Coronary Disease-Associated Artery/Lesion type: [place] artery [place] vs. transplanted heart: [place] heart Associated angina: without angina Qualified Code(s): I25.10 - Atherosclerotic heart disease of [place] coronary artery without angina pectoris Comment: (4) COPD (chronic obstructive pulmonary disease) Status: Chronic Qualifiers: COPD type: unspecified COPD Qualified Code(s): J44.9 - Chronic obstructive pulmonary disease, unspecified Comment: (5) Hypertension Code(s): I10 - ESSENTIAL (PRIMARY) HYPERTENSION Status: Chronic Qualifiers: Hypertension type: essential hypertension Comment: (6) CHONG (obstructive sleep apnea) Code(s): G47.33 - OBSTRUCTIVE SLEEP APNEA (ADULT) (PEDIATRIC) Status: Chronic (7) Peripheral vascular disease Code(s): I73.9 - PERIPHERAL VASCULAR DISEASE, UNSPECIFIED Status: Chronic Comment: Hx right CEA (8) Mood disorder Code(s): F39 - UNSPECIFIED MOOD [AFFECTIVE] DISORDER Status: Chronic (9) Tobacco abuse Code(s): Z72.0 - TOBACCO USE Status: Chronic Comment: Tobacco cessation resources - Plan increase geodon to 20mg bid, is on seroquel 25mg bid -: will need placement, has had multiple hospitalizations here for OD -: continue klonopin and effexor -: hemostable * . Review of Systems - Medications/Allergies Allergies/Adverse Reactions: Allergies Allergy/AdvReac Type Severity Reaction Status Date / Time codeine Allergy Verified 09/03/18 20:03 pramipexole [From Mirapex] Allergy Verified 09/03/18 20:03 Sulfa (Sulfonamide Allergy Verified 09/03/18 20:03 Antibiotics) Medications: Current Medications Acetaminophen (Tylenol) 1,000 mg PO Q6H PRN PRN Reason: Mild Pain (1-3) Last Admin: 10/02/18 08:58 Dose: 1,000 mg Albuterol/Ipratropium (Duoneb) 3 ml NEB Q6H PRN PRN Reason: SOB &/or Wheezing Amlodipine Besylate (Norvasc) 5 mg PO DAILY [facility] Last Admin: 10/05/18 08:12 Dose: 5 mg Clonazepam (Klonopin) 0.5 mg PO BID [facility] Last Admin: 10/05/18 08:12 Dose: 0.5 mg Enoxaparin Sodium (Lovenox) 40 mg SC 0900 [facility] Last Admin: 10/05/18 08:14 Dose: 40 mg Hydralazine HCl (Apresoline) 10 mg SLOW IVP Q4H PRN PRN Reason: Blood Pressure Last Admin: 09/29/18 18:05 Dose: 10 mg Lorazepam (Ativan) 1 mg PO Q6H PRN PRN Reason: Agitation Last Admin: 10/04/18 16:56 Dose: 1 mg Ondansetron HCl (Zofran Odt) 4 mg PO Q6H PRN PRN Reason: Nausea/Vomiting Ondansetron HCl (Zofran) 4 mg IVP Q6H PRN PRN Reason: Nausea/Vomiting Pantoprazole Sodium (Protonix) 40 mg PO DAILY [facility] Last Admin: 10/05/18 08:12 Dose: 40 mg Quetiapine Fumarate (Seroquel) 25 mg PO BID [facility] Last Admin: 10/05/18 08:12 Dose: 25 mg Sodium Chloride (Flush - Normal Saline) 10 ml IVF Q12HR [facility] Last Admin: 10/05/18 08:16 Dose: Not Given Sodium Chloride (Flush - Normal Saline) 10 ml IVF PRN PRN PRN Reason: Saline Flush Sterile Water (Water For Injection) 1.2 ml FS PRN PRN PRN Reason: RECONSTITUTION Last Admin: 10/04/18 09:28 Dose: 1.2 ml Tramadol HCl (Ultram) 50 mg PO Q6H PRN PRN Reason: Moderate Pain (4-6) Last Admin: 10/05/18 13:41 Dose: 50 mg Venlafaxine HCl (Effexor Xr) 300 mg PO DAILY [facility] Last Admin: 10/05/18 08:12 Dose: 300 mg Ziprasidone (Geodon) 20 mg PO BID [facility]
[2018-10-05] MEDS: Lorazepam 1 MG TAB PO PRN (19:37)
[2018-10-05] MEDS: Ziprasidone 20 MG CAP PO SCH (19:38)
[2018-10-05] MEDS: Acetaminophen 500 MG TAB PO PRN (21:03)
[2018-10-06] MEDS: Amlodipine 5 MG TAB PO SCH (08:05)
[2018-10-06] MEDS: Venlafaxine HCl XR 150 MG CAP PO SCH (08:05)
[2018-10-06] MEDS: Ziprasidone 20 MG CAP PO SCH ×2 (08:06→20:08)
[2018-10-06] MEDS: Enoxaparin Sodium 40 MG/0.4 ML SYRINGE SC SCH (08:06)
[2018-10-06] MEDS: clonazePAM 0.5 MG TAB PO SCH (08:06)
--- NOTE | 2018-10-06 12:29 | PDOC.PN ---
- Subjective Encounter Start Date: 10/06/18 Encounter Start Time: 11:30 Subjective: is ambulating in hallway, is calm now -: oriented and responds well to most questions - Objective Resuscitation Status - Order Detail: 09/24/18 15:16 Resuscitation Status Routine Resuscitation Status: FULL: Full Resuscitation MAR Reviewed: Yes Vital Signs & Weight: Vital Signs (12 hours) Temp Pulse Resp BP BP Pulse Ox 10/06/18 08:05 93 128/83 10/06/18 08:00 93 L 10/06/18 07:37 97.9 F 93 16 128/83 93 L 10/06/18 04:01 95 Weight Admit Weight 259 lb 12.8 oz Weight 259 lb 12.8 oz Most Recent Monitor Data Heart Rate from ECG 112 NIBP 164/103 NIBP BP-Mean 123 Respiration from ECG 25 SpO2 99 I&O: 10/05/18 10/06/18 10/07/18 06:59 06:59 06:59 Intake Total 470 240 Balance 470 240 Result Diagrams: 10/04/18 05:54 10/04/18 05:54 Phys Exam - Physical Examination HEENT: PERRLA, moist MMs Neck: no JVD, supple Respiratory: no wheezing, no rales Cardiovascular: RRR, no significant murmur Gastrointestinal: soft, non-tender, positive bowel sounds Musculoskeletal: no edema, pulses present Neurological: non-focal, moves all 4 limbs Dx/Plan (1) Toxic metabolic encephalopathy Code(s): G92 - TOXIC ENCEPHALOPATHY Status: Acute Comment: resolving (2) Polypharmacy Code(s): Z79.899 - OTHER USP (CURRENT) DRUG THERAPY Status: Chronic (3) CAD (coronary artery disease) Code(s): I25.10 - ATHSCL HEART DISEASE OF [place] CORONARY ARTERY W/O ANG PCTRS Status: Chronic Qualifiers: Coronary Disease-Associated Artery/Lesion type: [place] artery [place] vs. transplanted heart: [place] heart Associated angina: without angina Qualified Code(s): I25.10 - Atherosclerotic heart disease of [place] coronary artery without angina pectoris Comment: (4) COPD (chronic obstructive pulmonary disease) Status: Chronic Qualifiers: COPD type: unspecified COPD Qualified Code(s): J44.9 - Chronic obstructive pulmonary disease, unspecified Comment: (5) Hypertension Code(s): I10 - ESSENTIAL (PRIMARY) HYPERTENSION Status: Chronic Qualifiers: Hypertension type: essential hypertension Comment: (6) CHONG (obstructive sleep apnea) Code(s): G47.33 - OBSTRUCTIVE SLEEP APNEA (ADULT) (PEDIATRIC) Status: Chronic (7) Peripheral vascular disease Code(s): I73.9 - PERIPHERAL VASCULAR DISEASE, UNSPECIFIED Status: Chronic Comment: Hx right CEA (8) Mood disorder Code(s): F39 - UNSPECIFIED MOOD [AFFECTIVE] DISORDER Status: Chronic (9) Tobacco abuse Code(s): Z72.0 - TOBACCO USE Status: Chronic Comment: Tobacco cessation resources - Plan hemo and neurostable -: d/w ex- over phone and gave an update -: is currently on seroquel bid and geodon bid, cogentin 1mg added from am -: still has a sitter, above meds have been slowly titrated -: continue klonopin, effexor, norvasc. Awaiting placement * . Will need outpt neurology and psychotherapy services. MRI brain was normal during this hospitalization. Review of Systems - Medications/Allergies Allergies/Adverse Reactions: Allergies Allergy/AdvReac Type Severity Reaction Status Date / Time codeine Allergy Verified 09/03/18 20:03 pramipexole [From Mirapex] Allergy Verified 09/03/18 20:03 Sulfa (Sulfonamide Allergy Verified 09/03/18 20:03 Antibiotics) Medications: Current Medications Acetaminophen (Tylenol) 1,000 mg PO Q6H PRN PRN Reason: Mild Pain (1-3) Last Admin: 10/05/18 21:03 Dose: 1,000 mg Albuterol/Ipratropium (Duoneb) 3 ml NEB Q6H PRN PRN Reason: SOB &/or Wheezing Amlodipine Besylate (Norvasc) 5 mg PO DAILY [facility] Last Admin: 10/06/18 08:05 Dose: 5 mg Enoxaparin Sodium (Lovenox) 40 mg SC 0900 [facility] Last Admin: 10/06/18 08:06 Dose: 40 mg Hydralazine HCl (Apresoline) 10 mg SLOW IVP Q4H PRN PRN Reason: Blood Pressure Last Admin: 09/29/18 18:05 Dose: 10 mg Lorazepam (Ativan) 1 mg PO Q6H PRN PRN Reason: Agitation Last Admin: 10/05/18 19:37 Dose: 1 mg Ondansetron HCl (Zofran Odt) 4 mg PO Q6H PRN PRN Reason: Nausea/Vomiting Ondansetron HCl (Zofran) 4 mg IVP Q6H PRN PRN Reason: Nausea/Vomiting Pantoprazole Sodium (Protonix) 40 mg PO DAILY [facility] Last Admin: 10/06/18 08:06 Dose: 40 mg Quetiapine Fumarate (Seroquel) 25 mg PO BID [facility] Last Admin: 10/06/18 08:06 Dose: 25 mg Sodium Chloride (Flush - Normal Saline) 10 ml IVF Q12HR [facility] Last Admin: 10/06/18 08:06 Dose: Not Given Sodium Chloride (Flush - Normal Saline) 10 ml IVF PRN PRN PRN Reason: Saline Flush Sterile Water (Water For Injection) 1.2 ml FS PRN PRN PRN Reason: RECONSTITUTION Last Admin: 10/04/18 09:28 Dose: 1.2 ml Tramadol HCl (Ultram) 50 mg PO Q6H PRN PRN Reason: Moderate Pain (4-6) Last Admin: 10/05/18 21:03 Dose: 50 mg Venlafaxine HCl (Effexor Xr) 300 mg PO DAILY [facility] Last Admin: 10/06/18 08:05 Dose: 300 mg Ziprasidone (Geodon) 20 mg PO BID [facility] Last Admin: 10/06/18 08:06 Dose: 20 mg
[2018-10-06] MEDS: Lorazepam 1 MG TAB PO PRN ×2 (16:32→23:59)
[2018-10-06] MEDS: traMADol HCl 50 MG TAB PO PRN (20:08)
[2018-10-06] MEDS: Acetaminophen 500 MG TAB PO PRN (20:09)
[2018-10-06] MEDS: Nicotine 14 MG PATCH TD SCH (20:12)
--- NOTE | 2018-10-06 20:22 | RAD ---
EXAM: LEFT FOREARM TWO VIEWS: 10/06/18 HISTORY: Pain following injury from a fall. There is slight bowing of the radius and ulna, but no evidence for acute fracture or dislocation. IMPRESSION: No evidence for acute fracture or dislocation of the forearm, slight nonspecific bowing of the radius and ulna. Evidence for degenerative changes of the wrist. POS: RRE
[2018-10-07] MEDS: Venlafaxine HCl XR 150 MG CAP PO SCH (07:57)
[2018-10-07] MEDS: Benztropine 1 MG TAB PO SCH (07:58)
[2018-10-07] MEDS: Amlodipine 5 MG TAB PO SCH (07:58)
[2018-10-07] MEDS: Ziprasidone 20 MG CAP PO SCH ×2 (07:58→20:00)
[2018-10-07] MEDS: Enoxaparin Sodium 40 MG/0.4 ML SYRINGE SC SCH (07:59)
--- NOTE | 2018-10-07 12:37 | PDOC.PN ---
- Subjective Encounter Start Date: 10/07/18 Encounter Start Time: 10:15 Subjective: awake, responds well to verbal questions -: no sob or weakness -: ambulates with walker, has sitter in room - Objective Resuscitation Status - Order Detail: 09/24/18 15:16 Resuscitation Status Routine Resuscitation Status: FULL: Full Resuscitation MAR Reviewed: Yes Vital Signs & Weight: Vital Signs (12 hours) Temp Pulse Resp BP BP Pulse Ox 10/07/18 08:00 96 10/07/18 07:58 99 137/90 10/07/18 07:54 97.9 F 99 20 137/90 96 Weight Admit Weight 259 lb 12.8 oz Weight 259 lb 12.8 oz Most Recent Monitor Data Heart Rate from ECG 112 NIBP 164/103 NIBP BP-Mean 123 Respiration from ECG 25 SpO2 99 I&O: 10/06/18 10/07/18 10/08/18 06:59 06:59 06:59 Intake Total 240 600 Balance 240 600 Result Diagrams: 10/04/18 05:54 10/04/18 05:54 Phys Exam - Physical Examination HEENT: PERRLA, moist MMs Neck: no JVD, supple Respiratory: no wheezing, no rales Cardiovascular: RRR, no significant murmur Gastrointestinal: soft, non-tender, positive bowel sounds Musculoskeletal: no edema, pulses present Neurological: non-focal, moves all 4 limbs Dx/Plan (1) Toxic metabolic encephalopathy Code(s): G92 - TOXIC ENCEPHALOPATHY Status: Acute Comment: resolving (2) Polypharmacy Code(s): Z79.899 - OTHER [facility] (CURRENT) DRUG THERAPY Status: Chronic (3) CAD (coronary artery disease) Code(s): I25.10 - ATHSCL HEART DISEASE OF [place] CORONARY ARTERY W/O ANG PCTRS Status: Chronic Qualifiers: Coronary Disease-Associated Artery/Lesion type: [place] artery [place] vs. transplanted heart: [place] heart Associated angina: without angina Qualified Code(s): I25.10 - Atherosclerotic heart disease of [place] coronary artery without angina pectoris Comment: (4) COPD (chronic obstructive pulmonary disease) Status: Chronic Qualifiers: COPD type: unspecified COPD Qualified Code(s): J44.9 - Chronic obstructive pulmonary disease, unspecified Comment: (5) Hypertension Code(s): I10 - ESSENTIAL (PRIMARY) HYPERTENSION Status: Chronic Qualifiers: Hypertension type: essential hypertension Comment: (6) CHONG (obstructive sleep apnea) Code(s): G47.33 - OBSTRUCTIVE SLEEP APNEA (ADULT) (PEDIATRIC) Status: Chronic (7) Peripheral vascular disease Code(s): I73.9 - PERIPHERAL VASCULAR DISEASE, UNSPECIFIED Status: Chronic Comment: Hx right CEA (8) Mood disorder Code(s): F39 - UNSPECIFIED MOOD [AFFECTIVE] DISORDER Status: Chronic (9) Tobacco abuse Code(s): Z72.0 - TOBACCO USE Status: Chronic Comment: Tobacco cessation resources (10) Hepatitis C Code(s): B19.20 - UNSPECIFIED VIRAL HEPATITIS C WITHOUT HEPATIC COMA Status: Chronic Qualifiers: Viral hepatitis chronicity: chronic Hepatic coma status: without hepatic coma Qualified Code(s): B18.2 - Chronic viral hepatitis C - Plan hemostable -: is on norvasc, plavix, lipitor, effexor, klonopin, geodon and seroquel -: await opinion reg hep C treatment/ ?LP -: awaiting placement, d/w daughter over phone -: watch for resp depression/falls with multiple meds * . Review of Systems - Medications/Allergies Allergies/Adverse Reactions: Allergies Allergy/AdvReac Type Severity Reaction Status Date / Time codeine Allergy Verified 09/03/18 20:03 pramipexole [From Mirapex] Allergy Verified 09/03/18 20:03 Sulfa (Sulfonamide Allergy Verified 09/03/18 20:03 Antibiotics) Medications: Current Medications Acetaminophen (Tylenol) 1,000 mg PO Q6H PRN PRN Reason: Mild Pain (1-3) Last Admin: 10/06/18 20:09 Dose: 1,000 mg Albuterol/Ipratropium (Duoneb) 3 ml NEB Q6H PRN PRN Reason: SOB &/or Wheezing Amlodipine Besylate (Norvasc) 5 mg PO DAILY [facility] Last Admin: 10/07/18 07:58 Dose: 5 mg Benztropine Mesylate (Cogentin) 1 mg PO DAILY [facility] Last Admin: 10/07/18 07:58 Dose: 1 mg Enoxaparin Sodium (Lovenox) 40 mg SC 0900 [facility] Last Admin: 10/07/18 07:59 Dose: 40 mg Hydralazine HCl (Apresoline) 10 mg SLOW IVP Q4H PRN PRN Reason: Blood Pressure Last Admin: 09/29/18 18:05 Dose: 10 mg Lorazepam (Ativan) 1 mg PO Q6H PRN PRN Reason: Agitation Last Admin: 10/06/18 23:59 Dose: 1 mg Nicotine (Nicoderm Patch) 14 mg TD Q24HR [facility] Last Admin: 10/06/18 20:12 Dose: 14 mg Ondansetron HCl (Zofran Odt) 4 mg PO Q6H PRN PRN Reason: Nausea/Vomiting Ondansetron HCl (Zofran) 4 mg IVP Q6H PRN PRN Reason: Nausea/Vomiting Pantoprazole Sodium (Protonix) 40 mg PO DAILY [facility] Last Admin: 10/07/18 07:58 Dose: 40 mg Quetiapine Fumarate (Seroquel) 25 mg PO BID [facility] Last Admin: 10/07/18 07:58 Dose: 25 mg Sodium Chloride (Flush - Normal Saline) 10 ml IVF Q12HR [facility] Last Admin: 10/07/18 07:59 Dose: Not Given Sodium Chloride (Flush - Normal Saline) 10 ml IVF PRN PRN PRN Reason: Saline Flush Sterile Water (Water For Injection) 1.2 ml FS PRN PRN PRN Reason: RECONSTITUTION Last Admin: 10/04/18 09:28 Dose: 1.2 ml Tramadol HCl (Ultram) 50 mg PO Q6H PRN PRN Reason: Moderate Pain (4-6) Last Admin: 10/06/18 20:08 Dose: 50 mg Venlafaxine HCl (Effexor Xr) 300 mg PO DAILY [facility] Last Admin: 10/07/18 07:57 Dose: 300 mg Ziprasidone (Geodon) 20 mg PO BID [facility] Last Admin: 10/07/18 07:58 Dose: 20 mg
[2018-10-07] MEDS: Lorazepam 1 MG TAB PO PRN ×2 (15:53→22:05)
--- NOTE | 2018-10-07 16:57 | MRI ---
Pre and postcontrast enhanced MRI images cervical spine. HISTORY: Multiple falls previous neck surgery. Comparison made to a previous exam from 09/14/2018. Multiplanar multisequence pre and postcontrast enhanced MRI images cervical spine demonstrate ACDF wi th fusion of the C4-5 level. Susceptibility artifact is seen this significantly decreases the cervical spine for detection of path ology. Myelomalacia changes seen at the the C4 and C5 spinal cord. This is also unchanged since the previous exam. MRI appearance is unchanged since previous exam from 3 weeks earlier. There continues to be a moderate degree of C3-4 central and lateral recess stenosis with moderate to severe bilateral neura l foraminal narrowing. The C4-C5 central cord demonstrates some atrophy and myelomalacia changes. The C4-5 central canal is patent. CT 5 6: Unremarkable. C6-7: There is a right-sided C6-7 paracentral disc osteophyte complex resulting in mild lateral reces s stenosis. There is a no significant evidence of neural foraminal narrowing. IMPRESSION: Postsurgical changes with C4 to C5 spinal cord myelomalacia changes. No acute abnormality seen.
[2018-10-07] MEDS: Acetaminophen 500 MG TAB PO PRN (17:31)
[2018-10-07] MEDS: Nicotine 14 MG PATCH TD SCH (20:00)
[2018-10-07 21:06] VITALS: BP 133/87; TEMP 98.5
[2018-10-08] MEDS: Acetaminophen 500 MG TAB PO PRN (00:31)
[2018-10-08] MEDS: Venlafaxine HCl XR 150 MG CAP PO SCH (08:03)
[2018-10-08] MEDS: Benztropine 1 MG TAB PO SCH (08:03)
[2018-10-08] MEDS: Ziprasidone 20 MG CAP PO SCH (08:04)
[2018-10-08] MEDS: Enoxaparin Sodium 40 MG/0.4 ML SYRINGE SC SCH (08:04)
[2018-10-08] MEDS: Amlodipine 5 MG TAB PO SCH (08:04)
[2018-10-08] MEDS ORDERED: Clopidogrel Bisulfate 75 MG TAB PO SCH ×2 (09:00)
[2018-10-08] MEDS ORDERED: Atorvastatin Calcium 40 MG TAB PO SCH (09:00)
--- NOTE | 2018-10-08 10:52 | PDOC.PN ---
- Subjective Encounter Start Date: 10/08/18 Encounter Start Time: 09:00 Subjective: awake, no sob, responds well to verbal stimuli - Objective Resuscitation Status - Order Detail: 09/24/18 15:16 Resuscitation Status Routine Resuscitation Status: FULL: Full Resuscitation MAR Reviewed: Yes Vital Signs & Weight: Vital Signs (12 hours) Pulse Pulse Ox 10/08/18 08:04 107 H 10/08/18 08:00 95 Weight Admit Weight 259 lb 12.8 oz Weight 259 lb 12.8 oz Most Recent Monitor Data Heart Rate from ECG 112 NIBP 164/103 NIBP BP-Mean 123 Respiration from ECG 25 SpO2 99 I&O: 10/07/18 10/08/18 10/09/18 06:59 06:59 06:59 Intake Total 600 600 360 Balance 600 600 360 Result Diagrams: 10/04/18 05:54 10/04/18 05:54 Phys Exam - Physical Examination HEENT: PERRLA, moist MMs Neck: no JVD, supple Respiratory: no wheezing, no rales Cardiovascular: RRR, no significant murmur Gastrointestinal: soft, non-tender, positive bowel sounds Musculoskeletal: no edema, pulses present Neurological: non-focal, moves all 4 limbs Psychiatric: A&O x 3 Dx/Plan (1) Toxic metabolic encephalopathy Code(s): G92 - TOXIC ENCEPHALOPATHY Status: Resolved (2) Polypharmacy Code(s): Z79.899 - OTHER INTERMEDIATE (CURRENT) DRUG THERAPY Status: Chronic (3) CAD (coronary artery disease) Code(s): I25.10 - ATHSCL HEART DISEASE OF [place] CORONARY ARTERY W/O ANG PCTRS Status: Chronic Qualifiers: Coronary Disease-Associated Artery/Lesion type: [place] artery [place] vs. transplanted heart: [place] heart Associated angina: without angina Qualified Code(s): I25.10 - Atherosclerotic heart disease of [place] coronary artery without angina pectoris Comment: (4) COPD (chronic obstructive pulmonary disease) Status: Chronic Qualifiers: COPD type: unspecified COPD Qualified Code(s): J44.9 - Chronic obstructive pulmonary disease, unspecified Comment: (5) Hypertension Code(s): I10 - ESSENTIAL (PRIMARY) HYPERTENSION Status: Chronic Qualifiers: Hypertension type: essential hypertension Comment: (6) CHONG (obstructive sleep apnea) Code(s): G47.33 - OBSTRUCTIVE SLEEP APNEA (ADULT) (PEDIATRIC) Status: Chronic (7) Peripheral vascular disease Code(s): I73.9 - PERIPHERAL VASCULAR DISEASE, UNSPECIFIED Status: Chronic Comment: Hx right CEA (8) Mood disorder Code(s): F39 - UNSPECIFIED MOOD [AFFECTIVE] DISORDER Status: Chronic (9) Tobacco abuse Code(s): Z72.0 - TOBACCO USE Status: Chronic Comment: Tobacco cessation resources (10) Hepatitis C Code(s): B19.20 - UNSPECIFIED VIRAL HEPATITIS C WITHOUT HEPATIC COMA Status: Chronic Qualifiers: Viral hepatitis chronicity: chronic Hepatic coma status: without hepatic coma Qualified Code(s): B18.2 - Chronic viral hepatitis C - Plan hemo/neurostable -: MRI c-spine did not show any ac changes -: may dc home after sees him -: family have arranged sitter/caregiver at home -: he needs outpt f/u with neurology/pyschiatrist. * . Review of Systems - Medications/Allergies Allergies/Adverse Reactions: Allergies Allergy/AdvReac Type Severity Reaction Status Date / Time codeine Allergy Verified 09/03/18 20:03 pramipexole [From Mirapex] Allergy Verified 09/03/18 20:03 Sulfa (Sulfonamide Allergy Verified 09/03/18 20:03 Antibiotics) Medications: Current Medications Acetaminophen (Tylenol) 1,000 mg PO Q6H PRN PRN Reason: Mild Pain (1-3) Last Admin: 10/08/18 00:31 Dose: 1,000 mg Albuterol/Ipratropium (Duoneb) 3 ml NEB Q6H PRN PRN Reason: SOB &/or Wheezing Amlodipine Besylate (Norvasc) 5 mg PO DAILY [facility] Last Admin: 10/08/18 08:04 Dose: 5 mg Atorvastatin Calcium (Lipitor) 40 mg PO DAILY [facility] Last Admin: 10/08/18 08:04 Dose: 40 mg Benztropine Mesylate (Cogentin) 1 mg PO DAILY [facility] Last Admin: 10/08/18 08:03 Dose: 1 mg Clopidogrel Bisulfate (Plavix) 75 mg PO DAILY [facility] Last Admin: 10/08/18 08:04 Dose: 75 mg Enoxaparin Sodium (Lovenox) 40 mg SC 0900 [facility] Last Admin: 10/08/18 08:04 Dose: 40 mg Hydralazine HCl (Apresoline) 10 mg SLOW IVP Q4H PRN PRN Reason: Blood Pressure Last Admin: 09/29/18 18:05 Dose: 10 mg Lorazepam (Ativan) 1 mg PO Q6H PRN PRN Reason: Agitation Last Admin: 10/07/18 22:05 Dose: 1 mg Nicotine (Nicoderm Patch) 14 mg TD Q24HR [facility] Last Admin: 10/07/18 20:00 Dose: 14 mg Ondansetron HCl (Zofran Odt) 4 mg PO Q6H PRN PRN Reason: Nausea/Vomiting Ondansetron HCl (Zofran) 4 mg IVP Q6H PRN PRN Reason: Nausea/Vomiting Pantoprazole Sodium (Protonix) 40 mg PO DAILY [facility] Last Admin: 10/08/18 08:04 Dose: 40 mg Quetiapine Fumarate (Seroquel) 25 mg PO BID [facility] Last Admin: 10/08/18 08:04 Dose: 25 mg Sodium Chloride (Flush - Normal Saline) 10 ml IVF Q12HR [facility] Last Admin: 10/08/18 08:05 Dose: Not Given Sodium Chloride (Flush - Normal Saline) 10 ml IVF PRN PRN PRN Reason: Saline Flush Sterile Water (Water For Injection) 1.2 ml FS PRN PRN PRN Reason: RECONSTITUTION Last Admin: 10/04/18 09:28 Dose: 1.2 ml Venlafaxine HCl (Effexor Xr) 300 mg PO DAILY [facility] Last Admin: 10/08/18 08:03 Dose: 300 mg Ziprasidone (Geodon) 20 mg PO BID [facility] Last Admin: 10/08/18 08:04 Dose: 20 mg
--- NOTE | 2018-10-08 16:27 | DIS ---
DATE OF ADMISSION: 09/24/2018 DATE OF DISCHARGE: 10/08/2018 PRIMARY DISCHARGE DIAGNOSES: Acute metabolic encephalopathy, likely due to medication overdose and polypharmacy. SECONDARY DISCHARGE DIAGNOSES: Coronary artery disease, chronic obstructive pulmonary disease, chronic hepatitis C, peripheral vascular disease, obstructive sleep apnea, hypertension, mood disorder, tobacco abuse. PROCEDURES DONE DURING HOSPITALIZATION: MRI brain without contrast done showed no acute findings. MRI of lumbar spine done showed multilevel degenerative change within the lumbar spine. MRI thoracic spine without contrast done showed no evidence of significant central canal or neural foraminal stenosis. Cervical spine MRI showed postsurgical changes at C4-C5 and spinal cord myelomalacia changes. No acute abnormality was seen. Left forearm two view x-ray done showed no acute fracture or dislocation. Chest x-ray done showed no acute infiltrate. Blood cultures x2, no growth. Urine culture, no growth. Hep C antibody was [id number]. Hep C RNA qualitative was positive. HCV RNA PCR log10 was 6.332. Urine drug screen was positive for opiates and benzodiazepines. Discharge BUN and creatinine is 25 and 1.0. Serum bicarb was 22 on the 04 of October. Albumin is 3.9. Ammonia levels were 32, T bilirubin 0.6. Initial BUN and creatinine on the was 54 and 6.28. Discharge BUN and creatinine is 15 and 47, platelet count 388, MCV is 94 with white count of 7.6. INPATIENT CONSULT: The Dr. Thomas/Dr. Hair for Pulmonology. DISCHARGE MEDICATIONS: 1. Norvasc 5 mg daily. 2. Lipitor 40 mg p.o. daily. 3. Plavix 75 mg p.o. daily. 4. Omeprazole 20 mg daily. 5. Anoro Ellipta inhaler daily. 6. Venlafaxine extended release 300 mg p.o. daily. 7. Cogentin 1 mg p.o. daily. 8. Seroquel 25 mg twice daily. 9. Geodon 20 mg p.o. at bedtime. ALLERGIES: ALLERGIC TO CODEINE, PRAMIPEXOLE, AND SULFA. DISCHARGE PLAN: The patient to follow up with Dr. Mansfield as outpatient in 2 weeks for hepatitis C treatment advise. He also needs to follow up with his primary care physician in 1 week. The patient needs to have an appointment with neurologist and psychiatric at the earliest. BRIEF COURSE DURING HOSPITALIZATION: The patient initially was brought to the emergency room for altered mental state. He has had multiple such hospitalizations in the past with medication overdose and acute renal failure with creatinine of 6.2 this admission. The patient was also hypotensive and had a fever of 101. In view of this, the patient has had multiple workups done as mentioned above. All of his workups were negative. His hep C viral RNA log10 titer was 6.3. He has had prior history of being treated with interferons and ribavirin in the past. He took this treatment for a year or so. This was way back the exact year he cannot remember. The patient appears to be at his cognitive baseline now. He was placed on Seroquel and slowly titrated to 25 mg twice daily. The patient has had emotional outburst at times and also has a habit of wandering off into other's rooms while he was here. He was also restless and sometimes impulsive. In view of this, he was placed on Geodon. He was on 20 mg twice daily, but the patient had sedation from Geodon in the morning and hence his morning dose was discontinued. He was also placed on Cogentin 1 mg to counter any side effects from the antipsychotic. In view of above, slow titration of medications were done. The patient needs to have outpatient psychiatric appointment. I have counseled him and his ex- about seeing a psychiatric at the earliest. They also need to have a Neurology appointment because he is 57 years old and to see if he has early-onset dementia. His MRI brain was normal. The patient's C-spine MRI, lumbar spine and thoracic spine MRIs have not revealed any septic source. Prior to discharge, he is ambulating and eating well. The initial plan was to place him in a swing bed or assisted. The patient finally lost his patience and wanted to go home come what may. He has been persistently asking his ex- to take him home. He has done this on at least 2-3 prior occasions and has come back with overdosing himself as the family members work during the day and there is no one to supervise him. This time around the patient's ex- and his daughter Ms. Jones have tried to arrange some help for him and to watch him over when they go to work when he is alone. Please see a [id number] documentation for the day of discharge on [place]. Job ID: [id number] [facility]
== END 2018-10-08 12:50 | disposition home or self-care (01) | DRG 871 ==
LOC: ERS 11:33 → CCU 14:23 → T4-A 09-29 21:34
PROVIDERS: ADMIT Family Medicine; ATTEND Family Medicine
DX: A41.9 Sepsis, unspecified organism (principal); R65.21 Severe sepsis with septic shock; G92 Toxic encephalopathy; N17.9 Acute kidney failure, unspecified; I13.0 Hypertensive heart and chronic kidney disease with heart failure and stage 1 through stage 4 chronic kidney disease, or unspecified chronic kidney disease; T50.901A Poisoning by unspecified drugs, medicaments and biological substances, accidental (unintentional), initial encounter; N18.2 Chronic kidney disease, stage 2 (mild); I25.10 Atherosclerotic heart disease of native coronary artery without angina pectoris; J44.9 Chronic obstructive pulmonary disease, unspecified; E66.01 Morbid (severe) obesity due to excess calories; G47.33 Obstructive sleep apnea (adult) (pediatric); I73.9 Peripheral vascular disease, unspecified; F17.210 Nicotine dependence, cigarettes, uncomplicated; M19.91 Primary osteoarthritis, unspecified site; B19.20 Unspecified viral hepatitis C without hepatic coma; I50.9 Heart failure, unspecified; E86.0 Dehydration; Z68.38 Body mass index [BMI] 38.0-38.9, adult; Z98.890 Other specified postprocedural states; Z79.82 Long term (current) use of aspirin; Z79.899 Other long term (current) drug therapy; Z88.5 Allergy status to narcotic agent; Z88.2 Allergy status to sulfonamides; Z71.6 Tobacco abuse counseling; Z90.49 Acquired absence of other specified parts of digestive tract
CPT/HCPCS: 36415; 36556; 51702; 70551; 71045; 72146; 72148; 72156; 80048; 80053; 80202; 80306; 81003; 81015; 82140; 82533; 82805; 83605; 85007; 85025; 85027; 85610; 85730; 87040; 87086; 87521; 93005; 94640; 96361; 96365; 96366; 96375; 99214; A4216; G0463; J0360; J0692; J1650; J2060; J2543; J3370; J3411; J3486; J3490; J7042; J7050; J7620; S0028

== ENCOUNTER 2018-10-20 12:23 | Emergency (ER) | payer MEDICARE, MEDICAID ==
[2018-10-20 13:39] LABS: Bilirubin Negative (Negative); Blood, Urine Negative (Negative); Clarity CLEAR (Clear); Glucose, Urine (Dipstick) Negative (Negative); Leukocyte Small (Negative); Nitrite Negative (Negative); Protein, Urine (Dipstick) 30 mg/dL (Neg-Trace); pH, Urine 7.5 (5.0-9.0)
[2018-10-20 13:41] LABS: Bacteria/HPF None Seen HPF (None Seen); Hyaline Casts/LPF 4-6 HYALINE CAST LPF (0-3 Hyaline); Squamous Epithelial 0-3 HPF (0-3); WBC/HPF 21-50 HPF (0-3)
[2018-10-20 13:58] LABS: #Basophils 0.1 thou/uL (0.0-0.2); #Lymphocytes 2.2 thou/uL (1.20-3.40); #Monocytes 0.5 thou/uL (0.11-0.59); #Neutrophils 7.2 thou/uL (1.40-6.50); %Basophils 0.6 % (0.0-1.0); %Eosinophils 0.4 % (0.0-10.0); %Lymphocytes 22.1 % (21.0-51.0); %Monocytes 4.5 % (0.0-10.0); %Neutrophils 72.4 % (42.0-75.0); Hemoglobin 14.4 g/dL (14.0-18.0); Mean Corpuscular HGB CONC 32.2 g/dL (32.0-36.0); Mean Corpuscular Hemoglobin 30.1 pg (27.0-31.0); Mean Corpuscular Volume 93.3 fL (78.0-98.0); Platelet Count 213 thou/uL (130-400); RBC Distribution Width 12.8 % (11.5-14.5); White Blood Cell (WBC) Count 9.9 thou/uL (4.8-10.8)
[2018-10-20 14:05] LABS: Transitional Epithelial 0-3 HPF (0-3)
[2018-10-20] MEDS ORDERED: Ondansetron ODT 4 MG TAB ONE (14:12)
[2018-10-20 14:19] LABS: ALT (SGPT) 18 U/L (8-55); AST (SGOT) 16 U/L (5-34); Albumin 3.9 g/dL (3.5-5.0); Alkaline Phosphatase 112 U/L (40-150); Anion Gap 13 mmol/L (10-20); BUN (Urea Nitrogen) 12 mg/dL (8.4-25.7); Bilirubin, Total 0.5 mg/dL (0.2-1.2); Calc. Creatinine Clearance 0 mL/min (70-130); Calcium 9.5 mg/dL (7.8-10.44); Carbon Dioxide 28 mmol/L (22-29); Chloride 101 mmol/L (98-107); Estimated GFR-MDRD 84; Glucose 128 mg/dL (70-105); Potassium 4.3 mmol/L (3.5-5.1); Protein, Total 7.9 g/dL (6.0-8.3); Sodium 138 mmol/L (136-145)
== END 2018-10-20 15:16 | disposition home or self-care (01) ==
LOC: ERS 12:23
DX: N30.00 Acute cystitis without hematuria (principal); I50.9 Heart failure, unspecified; J44.9 Chronic obstructive pulmonary disease, unspecified; F41.9 Anxiety disorder, unspecified; F32.9 Major depressive disorder, single episode, unspecified; F17.210 Nicotine dependence, cigarettes, uncomplicated; Z79.899 Other long term (current) drug therapy; Z79.82 Long term (current) use of aspirin; Z79.51 Long term (current) use of inhaled steroids
CPT/HCPCS: 36415; 80053; 81003; 81015; 83690; 85025; 87077; 87086; 99284; Q0162

== ENCOUNTER 2019-01-01 07:20 | Outpatient (CLI) | payer MEDICARE, MEDICAID ==
--- NOTE | 2019-01-01 09:17 | MRI ---
MR of the left shoulder without contrast INDICATION: Left shoulder pain. Tear of the rotator cuff with limited range of motion TECHNIQUE: Sagittal T1, axial and coronal PD fat sat, sagittal and coronal T2 fat sat images were obt ained of the left shoulder. COMPARISON: None FINDINGS: Rotator cuff: There is complete disruption of the supraspinatus and infraspinatus tendons with retrac tion of the tendons to the level of the glenoid head. There is moderate to severe muscular atrophy of the supraspinatus and infraspinatus. There is moderate tendinosis of the subscapularis. Glenohumeral joint: Articular cartilage is intact. Glenoid labrum: Intact Biceps tendon and biceps anchor: There is moderate tendinosis involving the proximal intra-articular biceps tendon. The biceps tendon is located within the bicipital groove Acromion clavicular joint: There is moderate to severe AC joint osteoarthrosis Subacromial subdeltoid space: There is moderate distention Axillary region: No lymphadenopathy. Surrounding shoulder musculature: There is moderate to severe muscular atrophy of the supraspinatus a nd infraspinatus. There is mild muscular atrophy of teres minor. IMPRESSION: 1. Massive rotator cuff tear with moderate to severe muscular atrophy of the supraspinatus and infras pinatus and mild muscular atrophy of the teres minor. 2. Moderate tendinosis of the subscapularis and proximal intra-articular biceps tendon. 3. Moderate to severe AC joint osteoarthrosis.
== END 2019-01-01 07:21 | disposition home or self-care (01) ==
LOC: BICMRI 07:20
PROVIDERS: ATTEND Orthopaedic Surgery
DX: M75.102 Unspecified rotator cuff tear or rupture of left shoulder, not specified as traumatic (principal); M75.82 Other shoulder lesions, left shoulder; M19.012 Primary osteoarthritis, left shoulder

== ENCOUNTER 2019-02-11 14:15 | Emergency (ER) | payer MEDICARE, MEDICAID ==
--- NOTE | 2019-02-11 15:33 | CT ---
CT BRAIN WITHOUT CONTRAST: Date: 02/11/19 HISTORY: Altered mental status. FINDINGS: Comparison made with exam of 09/03/18. No evidence of acute infarct, hemorrhage, midline shift, or abnormal extra-axial fluid collections ar e seen. The ventricular size is stable and the basilar cisterns are patent. The bony calvarium is int act. There is mild mucosal disease in the paranasal sinuses. IMPRESSION: No CT evidence of acute intracranial process. POS: OFF
[2019-02-11 15:56] LABS: #Eosinphils 0.2 thou/uL (0.0-0.7); #Lymphocytes 2.9 thou/uL (1.20-3.40); #Monocytes 0.7 thou/uL (0.11-0.59); #Neutrophils 4.1 thou/uL (1.40-6.50); %Basophils 0.5 % (0.0-1.0); %Eosinophils 2.8 % (0.0-10.0); %Lymphocytes 35.9 % (21.0-51.0); %Monocytes 8.6 % (0.0-10.0); %Neutrophils 52.2 % (42.0-75.0); Hemoglobin 14.9 g/dL (14.0-18.0); Mean Corpuscular HGB CONC 34.1 g/dL (32.0-36.0); Mean Corpuscular Hemoglobin 30.8 pg (27.0-31.0); Mean Corpuscular Volume 90.3 fL (78.0-98.0); Mean Platelet Volume 6.9 fL (7.4-10.4); Platelet Count 199 thou/uL (130-400); RBC Distribution Width 12.9 % (11.5-14.5); Red Blood Cell (RBC) Count 4.84 mill/uL (4.70-6.10); White Blood Cell (WBC) Count 7.9 thou/uL (4.8-10.8)
[2019-02-11 16:02] LABS: Base Excess-Venous 0.3 mmol/L (-2.0 to 3.0); Bicarbonate (HCO3v) 26.8 mmol/L (22.0-28.0); CO2 Tension (PvCO2) 49.5 mmHg (40.0-50.0); Calcium, Ionized 1.02 mmol/L (See Comments:); Chloride 110 mmol/L (98-107); Hemoglobin - Calc 13.6 g/dL (14.0-18.0); Potassium 5.8 mmol/L (3.5-5.1); Sodium 142 mmol/L (138-145); T. Carbon Dioxide 28.3 mmol/L (22.0-28.0)
[2019-02-11 16:18] LABS: ALT (SGPT) 15 U/L (8-55); AST (SGOT) 16 U/L (5-34); Albumin 3.9 g/dL (3.5-5.0); Alkaline Phosphatase 94 U/L (40-110); Anion Gap 10 mmol/L (10-20); BUN (Urea Nitrogen) 20 mg/dL (8.4-25.7); Bilirubin, Total 0.4 mg/dL (0.2-1.2); CK (CPK) 48 U/L (30-200); Calc. Creatinine Clearance 0 mL/min (70-130); Calcium 8.9 mg/dL (7.8-10.44); Carbon Dioxide 29 mmol/L (22-29); Chloride 103 mmol/L (98-107); Estimated GFR-MDRD 78; Globulin 3.4 g/dL (2.4-3.5); Glucose 88 mg/dL (70-105); Magnesium 2.2 mg/dL (1.6-2.6); Potassium 4.1 mmol/L (3.5-5.1); Protein, Total 7.3 g/dL (6.0-8.3); Sodium 138 mmol/L (136-145)
[2019-02-11 16:20] LABS: Acetaminophen Less than 6.0 mcg/mL (10.0-30.0); Alcohol Less than 10 mg/dL (Less than 10); Salicylate Less than 8.0 mg/dL (15.0-30.0)
[2019-02-11 16:37] LABS: Actual Bicarbonate (HCO3a) 23.9 mEq/L (22-28); Analyzer IN Cardio ER; Base Excess (BEa) -2.3 mEq/L (-2.0 to +3.0); CO2 Tension 45.9 mmHg (35.0-45.0); Calcium, Ionized 1.18 mmol/L (1.12-1.30); Carboxyhemoglobin (COHb) 6.6 gm% (0.0-3.0); Hemoglobin (Hb) 15.5 g/dL (14.0-18.0); O2 Tension (PaO2) 62.8 mmHg (> 80.0); Potassium - ABG Lab 4.14 mmol/L (3.70-5.30); pH, Arterial 7.33 (7.35-7.45)
[2019-02-11 16:39] LABS: ALV-art Gradient 29.555 (0-20); Puncture Site L.R.
--- NOTE | 2019-02-11 17:01 | RAD ---
PORTABLE CHEST 1 VIEW: Date: 02/11/19 Time: 1552 hours HISTORY: Altered mental status. FINDINGS/IMPRESSION: The heart size is borderline. The lungs are expanded without lobar consolidation, pneumothoraces, fra nk pulmonary edema, or pleural effusions. There are postop changes in the cervical and thoracic spine . POS: OFF
[2019-02-11 17:35] LABS: Bilirubin Negative (Negative); Blood, Urine Negative (Negative); Clarity Clear (Clear); Glucose, Urine (Dipstick) Normal (Negative); Leukocyte 75 Leu/uL (Negative); Nitrite Negative (Negative); Protein, Urine (Dipstick) 20 mg/dL (Neg-Trace)
[2019-02-11 17:49] LABS: Amphetamine Not Detected (NotDetected); Barbiturates Screen Not Detected (NotDetected); Benzodiazepine Screen Detected (NotDetected); Cocaine Metabolite Screen Not Detected (NotDetected); Medtox Control Line Valid? VALID (VALID); Medtox Reader # READER 1; Methadone Not Detected (NotDetected); Methamphetamine Not Detected (NotDetected); Opiate Screen Detected (NotDetected); Oxycodone Screen Not Detected (NotDetected); Phencyclidine (PCP) Not Detected (NotDetected); THC/Cannabinoid Screen Not Detected (NotDetected); Tricyclic Screen Detected (NotDetected)
[2019-02-11 17:51] LABS: Bacteria/HPF Rare-Few HPF (None Seen); RBC/HPF None Seen HPF (0-3); Squamous Epithelial 0-3 HPF (0-3); WBC/HPF None Seen HPF (0-3)
== END 2019-02-11 18:40 | disposition home or self-care (01) ==
LOC: ERS 14:15
DX: F11.90 Opioid use, unspecified, uncomplicated (principal); F13.99 Sedative, hypnotic or anxiolytic use, unspecified with unspecified sedative, hypnotic or anxiolytic-induced disorder; I50.9 Heart failure, unspecified; J44.9 Chronic obstructive pulmonary disease, unspecified; F41.9 Anxiety disorder, unspecified; F32.9 Major depressive disorder, single episode, unspecified; Z79.01 Long term (current) use of anticoagulants; Z79.899 Other long term (current) drug therapy; Z79.51 Long term (current) use of inhaled steroids
CPT/HCPCS: 70450; 71045; 80053; 80306; 80307; 81003; 81015; 82140; 82330; 82550; 82803; 82805; 83605; 83735; 83880; 84443; 84484; 85025; 93005

== ENCOUNTER 2019-03-17 06:39 | Outpatient (CLI) | payer MEDICARE, MEDICAID ==
--- NOTE | 2019-03-17 11:21 | RAD ---
XR Chest Pa Lat STANDARD HISTORY: Preoperative evaluation COMPARISON: 02/11/2019 FINDINGS: The heart size is normal. The lungs are well expanded without focal areas of consolidation, pneumothorax or pleural effusions. Chronic parenchymal changes are again seen. There are postop changes and metallic hardware in the cervical and thoracic spine. IMPRESSION: No radiographic evidence of acute cardiopulmonary process.
[2019-03-17 11:22] LABS: #Basophils 0.1 thou/uL (0.0-0.2); #Eosinphils 0.2 thou/uL (0.0-0.7); #Lymphocytes 1.7 thou/uL (1.20-3.40); #Monocytes 0.6 thou/uL (0.11-0.59); #Neutrophils 3.4 thou/uL (1.40-6.50); %Eosinophils 2.8 % (0.0-10.0); %Monocytes 10.2 % (0.0-10.0); Hemoglobin 16.3 g/dL (14.0-18.0); Mean Corpuscular Hemoglobin 31.1 pg (27.0-31.0); Mean Corpuscular Volume 94.4 fL (78.0-98.0); Mean Platelet Volume 7.1 fL (7.4-10.4); Platelet Count 215 thou/uL (130-400); RBC Distribution Width 13.1 % (11.5-14.5); Red Blood Cell (RBC) Count 5.24 mill/uL (4.70-6.10); White Blood Cell (WBC) Count 5.9 thou/uL (4.8-10.8)
[2019-03-17 11:27] LABS: Prothrombin Time 13.3 SEC (12.0-14.7)
[2019-03-17 11:47] LABS: Anion Gap 14 mmol/L (10-20); BUN (Urea Nitrogen) 18 mg/dL (8.4-25.7); Calc. Creatinine Clearance 0 mL/min (70-130); Carbon Dioxide 25 mmol/L (22-29); Chloride 109 mmol/L (98-107); Estimated GFR-MDRD 66; Glucose 86 mg/dL (70-105); Potassium 5.1 mmol/L (3.5-5.1); Sodium 143 mmol/L (136-145)
--- NOTE | 2019-03-21 16:11 | EKG ---
Test Reason : Blood Pressure : / mmHG Vent. Rate : 075 BPM Atrial Rate : 075 BPM P-R Int : 158 ms QRS Dur : 100 ms QT Int : 394 ms P-R-T Axes : 054 045 035 degrees QTc Int : 439 ms Normal sinus rhythm Normal ECG When compared with ECG of 11-FEB-2019 14:38, No significant change was found Confirmed by DR. Missy LOPEZ ([id number]) on 03/21/2019 4:10:56 PM Referred By: MIKE Confirmed By:DR. Missy LOPEZ
== END 2019-03-17 06:40 | disposition home or self-care (01) ==
LOC: LABBT 06:39
PROVIDERS: ATTEND Orthopaedic Surgery
DX: Z01.818 Encounter for other preprocedural examination (principal); M75.102 Unspecified rotator cuff tear or rupture of left shoulder, not specified as traumatic
CPT/HCPCS: 71046; 80048; 85025; 85610; 93005; 93010

== ENCOUNTER 2019-03-17 10:00 | Inpatient (IN) | payer MEDICARE, MEDICAID ==
[2019-03-17 10:18] VITALS: BMI 40.3
[2019-03-18] MEDS ORDERED: Sodium Chloride 0.9% 100 ML ONE (06:06)
[2019-03-18] MEDS ORDERED: Tranexamic Acid 1,000 MG/10 ML VIAL ONE (06:06)
[2019-03-18] MEDS ORDERED: Midazolam HCl 2 mg/2 ml Vial ONE (06:39)
[2019-03-18] MEDS ORDERED: Lidocaine 1% (PF) 30 ML VIAL ONE (06:39)
[2019-03-18] MEDS ORDERED: Fentanyl 100 MCG/2 ML VIAL ONE ×4 (06:39→11:53)
[2019-03-18] MEDS ORDERED: Ketorolac Tromethamine 30 MG/ML VIAL IVP PRN (07:57)
[2019-03-18] MEDS ORDERED: Ropivacaine 0.2% 550 ML 550 ML NERVE BLCK SCH (07:57)
[2019-03-18] MEDS ORDERED: Zolpidem Tartrate 5 MG TAB PO PRN (07:57)
[2019-03-18] MEDS ORDERED: Promethazine HCl 25 MG/ML VIAL IM PRN (07:57)
[2019-03-18] MEDS ORDERED: Ondansetron PF 4 MG/2 ML Vial IVP PRN (07:57)
[2019-03-18] MEDS ORDERED: traMADol HCl 50 MG TAB PO PRN ×2 (07:57)
[2019-03-18] MEDS ORDERED: Fentanyl 100 MCG/2 ML VIAL SLOW IVP PRN (07:58)
[2019-03-18] MEDS ORDERED: Acetaminophen 325 MG TAB PO PRN (07:59)
[2019-03-18] MEDS ORDERED: PHENYLEPHRINE-NS 100 MCG/ML 10 ML SYRINGE ONE ×3 (08:48→14:55)
[2019-03-18] MEDS ORDERED: Albuterol Sulfate 1.25 MG/3 ML NEB ONE (10:01)
--- NOTE | 2019-03-18 10:55 | RAD ---
Exam:2 views left shoulder HISTORY: Left shoulder arthroplasty COMPARISON: None FINDINGS: Findings compatible left shoulder arthroplasty. Near anatomic alignment. IMPRESSION: Near-anatomic alignment. Findings compatible with left shoulder arthroplasty.
--- NOTE | 2019-03-18 11:33 | HP ---
PREOPERATIVE DIAGNOSES: Left massive rotator cuff tear. HISTORY OF PRESENT ILLNESS: Mr. Mosher is a 58-year-old male with severe pain in his left shoulder, also history of multiple medical problems. Denies numbness or tingling. history of congestive heart failure, recent cervical spine fusion. He is right-hand dominant, disabled. He has had previous injection, which gave him some relief, but has failed conservative measures. The patient has decreased function. Has MRI showing a massive cuff tear with fatty infiltration. PAST MEDICAL HISTORY: Alcohol, depression, hepatitis C, hypertension, COPD, chronic kidney disease, chronic congestive heart failure, morbid obesity, peripheral vascular disease, obstructive sleep apnea, and essential hypertension. PAST SURGICAL HISTORY: ACDF, laminectomy, carotid surgery, previous cervical spine fusion. ALLERGIES: TO CODEINE, PRILOSEC, AND SULFA. SOCIAL HISTORY: The patient is a smoker, attempting to quit. Disabled. Lives with his spouse. MEDICATIONS: Include; 1. Amlodipine. 2. Aspirin. 3. Atorvastatin. 4. Benztropine. 5. Clopidogrel. 6. Diazepam. 7. Hydrocodone. 8. Omeprazole. 9. Quetiapine. 10. Trazodone. 11. Umeclidinium/vilanterol. 12. Venlafaxine. 13. Ziprasidone. 14. Geodon. PHYSICAL EXAMINATION: GENERAL: Alert and oriented male, in no acute distress, resting in bed. VITAL SIGNS: The patient's BMI is 39. EXTREMITIES: The patient's left lower extremity shows active forward flexion at 30 degrees, external rotation at 10 degrees. The patient has positive jobes. Neurovascular intact distally, 2+ radial pulse. DIAGNOSTIC DATA: Previous MRI shows a massive cuff tear with atrophy of the supraspinatus, infraspinatus, biceps tendinopathy. PREOPERATIVE DIAGNOSES: 1. Massive left rotator cuff tear, irreparable. 2. Biceps tendinopathy. ASSESSMENT AND PLAN: The patient will be taken to the operative room for left total reverse shoulder arthroplasty with biceps tenodesis. The patient has been cleared both by Dr. Curran as well as Dr. James, his php engineer. I discussed the risks and benefits of surgery to include pain, scar, bleeding, infection, damage to vital structures, decreased range of motion and strength, fracture, failure of hardware, need for hardware removal, infection of the implant, failure of the implant medical terminologist, only 8 to 10 years of use, damage to nerves, arteries, tendons, bone, cartilage, Juancarlos deformity, blood clots, loss of life or limb, damage to vital organs. He understands these risks and benefits and elects to proceed. The patient will be taken to the operative suite after he receives antibiotics. Job ID: [id number] MTDD
--- NOTE | 2019-03-18 12:31 | OP ---
DATE OF PROCEDURE: 03/18/2019 PREOPERATIVE DIAGNOSIS: Left full-thickness supraspinatus, infraspinatus tear retracted with fatty infiltration, irreparable. POSTOPERATIVE DIAGNOSIS: Left full-thickness supraspinatus, infraspinatus tear retracted with fatty infiltration, irreparable. PROCEDURE PERFORMED: 1. Left reverse shoulder arthroplasty. 2. Left open biceps tenodesis. WARE FINISHER: Roberth Russell PA-C ANESTHESIOLOGIST: Jose M Joshi MD ANESTHESIA: The patient received a general endotracheal intubation with interscalene block. ESTIMATED BLOOD LOSS: 200 mL. TOURNIQUET TIME: None. ANTIBIOTICS: Ancef 2 g, vancomycin 2 g, and TXA 1 g. IMPLANTS: A Tornier 36 x 25 mm standard baseplate, a 4-A flex stem, low offset tray and a 36 x 6 mm C-poly, 2 compression and 2 locking screws, 32, 20, 41, and 23 mm respectively. COMPLICATIONS: None. HISTORY OF PRESENT ILLNESS: Mr. Mosher is a 58-year-old male with multiple medical problems, congestive heart failure, kidney disease, hypertension, psychiatric conditions with a massive left rotator cuff tear. I discussed with him that his tear is irreparable. I do not feel that he is a good candidate for any other reconstruction of the reverse. I discussed they would only last 10 years. I discussed the risks and benefits of surgery to include pain, scar, bleeding, infection, damage to vital structures, decreased range of motion and strength, need for further surgeries, failure of procedure, despite surgical intervention, blood clots, damage to vital organs, loss of life or limb. The patient understands the risks and benefits of the procedure and elects to proceed. DESCRIPTION OF PROCEDURE: Time-out was performed designating the patient's left upper extremity as the operative site based on site, consents, and marking. After time-out, the patient's left lower extremity was prepped and draped in sterile fashion. The patient had a deltopectoral incision made down through skin. We came down and found the muscle plane and the vein, took the vein laterally, came into the interval and conjoint, came down on the biceps, peeled back patient's subscapularis as well as the capsule inferiorly and then we were able to sublux the shoulder out. This carried out to expose the entirety of the head. We placed #5 Ethibond into the head in whipstitch fashion from anterior to posterior, then back anterior posterior to hold the cuff. We placed it in position, cut the head based on the cartilage position, after cut made, we then placed our opening awl and broached up to size 4 and fit a size 4 implant stem into position. We then placed our cut, cut even and then milled down the top of the head to get the position we liked. Position for more lateralization, we then placed the cup cap on top. We then washed the joint. We placed our retractors, positioned our [place] anterior and our darrach posterior. We did a 360 degree release of the biceps and the labrum to completely expose the patient's left shoulder. We cleaned inferior aspect of the neck. We then placed our 25-mm baseplate, 29 which was just too large and kind of went to the peripheral edge of the [place] and I did not like its position, therefore we placed 25 , put it low, placed our center drill, reamed, taking down the inferior edge of the glenoid to help make it be inferiorly tilted. We reamed the glenoid and then cleaned it up with peripheral hospital cleaner, removed all excess debris. We drilled a larger hole and placed the baseplate. We put anterior and posterior nonlocking screws to compress it down the bone and placed 2 locking screws in the bone to hold it in place. We placed the 42 baseplate 32 Glenosphere felt like it would be too large, and I did not like the position. Therefore, I put a 36 x 25 mm standard [place] in place. We moved back to the socket. We placed the high offset and trialed, I felt like low offset made it better lateralize. I liked the position overall. I removed the stem and placed a 4-A flex stem with a 36 x 6 mm C-poly low offset tray at the 12 o'clock position to help with lateralization of the poly. So, we placed our final implant in position. I pulled it out, impacted our final implant after I drilled 2 sutures through the lesser tuberosity and one through the greater tuberosity to help with #5 Ethibond. We then reduced our shoulder, had good overall range of motion, external rotation about 40 to 50 degrees without any impingement, overhead elevation to about 120 without any signs of impingement. We washed and used a #5 Ethibond to close through the subscap and whipstitch anteriorly. We then placed ethibond number 5 to oversew to the greater tuberosity fracture fragment. We sewed the biceps through with a #5 Ethibond to sew it down to the tendon. We then used some of the remaining subscap to sew it with Vicryl, our tenodesis. We then washed, closed the deltopectoral interval with 0 Vicryl, closed subcu with 2-0 and skin with edilma. ASSESSMENT AND PLAN: The patient will be admitted to hospital and will be followed by Medicine, will be admitted overnight, see how he does and then discharged home the day or next. Job ID: [id number] [facility]
[2019-03-18] MEDS ORDERED: Methocarbamol 500 MG TAB PO PRN (13:51)
[2019-03-18] MEDS ORDERED: diphenhydrAMINE 50 MG CAP PO PRN (13:51)
[2019-03-18] MEDS ORDERED: Sodium Chloride 0.9% 1,000 ML IV SCH (13:51)
[2019-03-18] MEDS ORDERED: Methocarbamol 1 GM/10 ML VIAL SLOW IVP PRN (13:51)
[2019-03-18] MEDS ORDERED: Milk Of Magnesia 30 ML UDCUP PO PRN (13:51)
[2019-03-18] MEDS ORDERED: Bisacodyl 10 MG SUPP PR PRN (13:51)
[2019-03-18] MEDS ORDERED: Bupivacaine HCl 0.5%/Epinephrine 1:200,000/PF 30 ml Vial ONE (14:55)
[2019-03-18] MEDS ORDERED: PROPOFOL 200 MG/20 ML VIAL ONE (14:55)
[2019-03-18] MEDS ORDERED: Succinylcholine Chloride 20 MG/ML 10 ml SYRINGE FS ONE (14:55)
[2019-03-18] MEDS ORDERED: ePHEDrine/0.9% NaCl/PF SYRINGE 50 mg/10 ml ONE (14:55)
[2019-03-18] MEDS ORDERED: Ropivacaine 0.5% HCl/PF (150 MG/30 ML VIAL) ONE (14:55)
[2019-03-18] MEDS ORDERED: Ondansetron PF 4 MG/2 ML Vial ONE (14:55)
[2019-03-18] MEDS ORDERED: Rocuronium Bromide 10 MG/ML (10ML VIAL) ONE (14:55)
[2019-03-18] MEDS: CEFAZOLIN 2 GM in Premix Bag 1 BAG IVPB SCH ×2 (15:30→22:35)
[2019-03-18] MEDS: HYDROcodone/Acetaminophen 10/325 mg Tablet PO PRN ×2 (15:33→22:31)
[2019-03-18] MEDS: Diazepam 5 MG TAB PO PRN (16:54)
[2019-03-18] MEDS ORDERED: Acetaminophen 650 MG Suppository PR PRN (20:02)
[2019-03-18] MEDS: Famotidine 20 MG TAB PO SCH (20:29)
[2019-03-18] MEDS: Atorvastatin Calcium 40 MG TAB PO SCH (20:30)
[2019-03-18] MEDS: Ziprasidone 20 MG CAP PO SCH (20:30)
[2019-03-18] MEDS: traZODone HCl 150 MG TAB PO SCH (20:30)
[2019-03-18 20:33] LABS: #Eosinphils 0.1 thou/uL (0.0-0.7); #Lymphocytes 1.8 thou/uL (1.20-3.40); #Monocytes 0.9 thou/uL (0.11-0.59); #Neutrophils 8.1 thou/uL (1.40-6.50); %Basophils 0.3 % (0.0-1.0); %Lymphocytes 16.2 % (21.0-51.0); %Monocytes 8.1 % (0.0-10.0); %Neutrophils 74.4 % (42.0-75.0); Hemoglobin 13.2 g/dL (14.0-18.0); Mean Corpuscular HGB CONC 33.4 g/dL (32.0-36.0); Mean Corpuscular Hemoglobin 31.2 pg (27.0-31.0); Mean Corpuscular Volume 93.4 fL (78.0-98.0); Mean Platelet Volume 6.8 fL (7.4-10.4); Platelet Count 206 thou/uL (130-400); Red Blood Cell (RBC) Count 4.22 mill/uL (4.70-6.10); White Blood Cell (WBC) Count 10.9 thou/uL (4.8-10.8)
[2019-03-18 20:50] LABS: ALT (SGPT) 13 U/L (8-55); AST (SGOT) 19 U/L (5-34); Albumin 3.2 g/dL (3.5-5.0); Alkaline Phosphatase 80 U/L (40-110); Anion Gap 10 mmol/L (10-20); BUN (Urea Nitrogen) 16 mg/dL (8.4-25.7); Bilirubin, Total 0.5 mg/dL (0.2-1.2); Calc. Creatinine Clearance 130 mL/min (70-130); Calcium 7.9 mg/dL (7.8-10.44); Carbon Dioxide 21 mmol/L (22-29); Chloride 111 mmol/L (98-107); Estimated GFR-MDRD 69; Globulin 2.8 g/dL (2.4-3.5); Glucose 131 mg/dL (70-105); Potassium 4.2 mmol/L (3.5-5.1); Sodium 138 mmol/L (136-145)
[2019-03-18] MEDS ORDERED: Sodium Chloride 0.45% 250 ML IV SCH (21:15)
--- NOTE | 2019-03-18 21:27 | RAD ---
Chest one view HISTORY: Dyspnea. Tachycardia. COMPARISON: 03/17/2019. FINDINGS: Cardiac silhouette is magnified and enlarged. Pulmonary vasculature more engorged and accen tuated by shallow inspiration. Patchy infiltrate at the left base. Right lateral costophrenic angle is excluded from the image. Left shoulder prosthesis with overlying skin edilma. Postoperative changes of the cervical spine. IMPRESSION: Cardiomegaly with new pulmonary vascular congestion.
--- NOTE | 2019-03-18 21:32 | CON ---
DATE OF CONSULTATION: 03/18/2019 PRIMARY CARE PHYSICIAN: Tono Curran MD REASON FOR CONSULTATION: Medical management. CHIEF COMPLAINT: Increasing shoulder pain, left shoulder pain. HISTORY OF PRESENT ILLNESS: Mr. Mosher is a 58-year-old gentleman with known history of CHF, COPD, morbid obesity, hypertension, and hepatitis C. The patient is status post left reverse shoulder arthroplasty and left open biceps tenodesis. He states the nerve block has started to wear off and he is experiencing increasing pain in the left shoulder. The patient currently undergoing a nebulizer treatment. He states his breathing feels "great." The patient states he has a history of COPD with shortness of breath at baseline, but currently his breathing is better than usual. He has no other complaints except for the shoulder pain. The patient denies using any oxygen at home. Denies having any chest pain or palpitations. No nausea or vomiting. No abdominal pain or cramping. The patient apparently sustained a massive left rotator cuff tear, therefore, underwent surgery to address this. He is receiving IV antibiotics. Per surgical note, plans are for him to be discharged potentially home tomorrow or the following day. REVIEW OF SYSTEMS: All other review of systems are negative. PAST MEDICAL HISTORY: 1. Alcohol excess. 2. Depression. 3. Hepatitis C. 4. Hypertension. 5. COPD. 6. CKD. 7. CHF. 8. Morbid obesity. 9. Peripheral vascular disease. 10. Obstructive sleep apnea. 11. Essential hypertension. PAST SURGICAL HISTORY: 1. ACDF. 2. Laminectomy. 3. Carotid surgery. 4. Previous cervical spine fusion. 5. Status post left reverse shoulder arthroplasty and left open biceps tenodesis , done March 18, 2019. SOCIAL HISTORY: The patient is a smoker. He denies any recent alcohol consumption. Denies any drug use. He is disabled and lives with his . ALLERGIES: CODEINE, PRILOSEC, AND SULFA. CURRENT MEDICATIONS: 1. Amlodipine. 2. Aspirin. 3. Atorvastatin. 4. Clopidogrel. 5. Diazepam. 6. Hydrocodone. 7. Omeprazole. 8. Trazodone. 9. Umeclidinium. 10. Venlafaxine. 11. Benztropine. 12. Quetiapine. 13. Ziprasidone. PHYSICAL EXAMINATION: GENERAL: The patient appears morbidly obese and is resting comfortably, currently undergoing a nebulizer treatment. HEENT: Normocephalic and atraumatic. Pupils are equal, round, reactive to light. Sclerae without icterus. Oropharynx is clear. NECK: Supple. LUNGS: Clear to auscultation bilaterally. CARDIAC: Regular rate and rhythm. ABDOMEN: Soft, obese, nontender, and nondistended. Normoactive bowel sounds present. EXTREMITIES: No lower leg swelling or edema. NEUROLOGIC: Alert and oriented x3. The patient does have slurred speech, which he states is his baseline due to having no teeth. Answering questions appropriately and able to follow commands. SKIN: Warm and dry. LABORATORY DATA: Done March 17, 2019. White blood count 5.9, hemoglobin 16.3, hematocrit 49.4, platelets 215, neutrophils 57%. PT 13, INR 1. Sodium 143, potassium 5.1, chloride 109, anion gap 14, BUN 18, creatinine 1.14, GFR 66, glucose 86, calcium 9. IMAGING DATA: Shoulder x-ray done March 18, 2019. Near anatomic alignment. Findings compatible with left shoulder arthroplasty. IMPRESSION AND PLAN: Mr. Mosher is a pleasant 58-year-old gentleman, who is status post left shoulder surgery after sustaining a major left rotator cuff tear, who has been referred for medical management of the following. 1. Hypertension. Home medications have been reconciled. Continue to monitor blood pressure. Currently patient's blood pressure is on the lower side, which is attributed to pain medicine. We will hold off on any antihypertensives for now unless blood pressure increases. 2. Chronic kidney disease. We will repeat laboratory studies today including renal function. The patient receiving IV fluids at 65 mL an hour. 3. History of congestive heart failure. We will add BNP to labs today. On exam , no evidence of fluid overload. The patient has been receiving gentle IV hydration. 4. Alcohol excess. The patient denies any recent alcohol consumption or history of alcohol withdrawal. We will initiate HIGINIO protocol as a precaution. 5. Chronic obstructive pulmonary disease. The patient states his breathing feels great at this present time. We will continue DuoNeb. 6. Gastrointestinal prophylaxis with famotidine. 7. Deep venous thrombosis prophylaxis with mechanical SCDs. 8. Code status is full. Surrogate decision maker is his , Violet Mosher. The patient's case discussed with attending, who agrees with plan of care as described above. Job ID: [id number] [facility]
[2019-03-18] MEDS: Sodium Chloride 0.9% 1,000 ML IV SCH (22:36)
[2019-03-19] MEDS: HYDROcodone/Acetaminophen 10/325 mg Tablet PO PRN ×5 (02:35→18:38)
[2019-03-19] MEDS: Benztropine 1 MG TAB PO SCH (08:33)
[2019-03-19] MEDS: Venlafaxine HCl XR 150 MG CAP PO SCH (08:33)
[2019-03-19] MEDS: Clopidogrel Bisulfate 75 MG TAB PO SCH (08:33)
[2019-03-19] MEDS: Famotidine 20 MG TAB PO SCH (08:33)
[2019-03-19] MEDS: Aspirin 81 mg Enteric Coated Tablet PO SCH (08:33)
[2019-03-19] MEDS ORDERED: Amlodipine 5 MG TAB PO SCH (09:00)
[2019-03-19] MEDS: Diazepam 5 MG TAB PO PRN ×2 (12:22→20:19)
[2019-03-19] MEDS: Sodium Chloride 0.9% 1,000 ML IV SCH ×2 (14:48→23:50)
--- NOTE | 2019-03-19 17:20 | PDOC.HOSPP ---
- Subjective Encounter Date: 03/19/19 Encounter Time: 08:40 Subjective: Pt seen for followup re: COPD. c/o pain L shoulder. No chest pain or shortness of breath. - Objective Vital Signs & Weight: Vital Signs (12 hours) Temp Pulse Pulse Resp BP BP BP 03/19/19 15:23 97.8 F 102 H 20 114/66 03/19/19 13:43 116 H 12 03/19/19 12:00 97.9 F 78 18 148/75 H 03/19/19 10:23 106 H 114/76 112/76 03/19/19 08:33 03/19/19 08:00 98.3 F 88 20 03/19/19 06:42 88 16 03/19/19 06:25 BP Pulse Ox Pulse Ox Pulse Ox 03/19/19 15:23 92 L 03/19/19 13:43 03/19/19 12:00 92 L 03/19/19 10:23 89 L 91 L 03/19/19 08:33 93 L 03/19/19 08:00 93/56 L 93 L 03/19/19 06:42 03/19/19 06:25 112/71 Weight Weight 281 lb I&O: 03/18/19 03/19/19 03/20/19 06:59 06:59 06:59 Intake Total 2630 Output Total 500 Balance 2130 Result Diagrams: 03/18/19 20:16 03/18/19 20:16 Additional Labs: labs and MARs reviewed by [place] Hospitalist ROS - Review of Systems Cardiovascular: denies: chest pain, palpitations, orthopnea, paroxysmal noc. dyspnea, edema, light headedness Gastrointestinal: denies: nausea, vomiting, abdominal pain, diarrhea, constipation, melena, hematochezia Musculoskeletal: reports: shoulder pain - Medication Medications: Active Medications Generic Name Dose Route Start Last Admin Trade Name Freq PRN Reason Stop Dose Admin Hydrocodone Bitart/Acetaminophen 1 tab 03/18/19 07:57 03/19/19 02:35 [place] 10/325 PO 1 tab Q4H PRN Administration Pain (1-3) Hydrocodone Bitart/Acetaminophen 2 tab 03/18/19 07:57 03/19/19 14:07 [place] 10/325 PO 2 tab Q4H PRN Administration PAIN (4-6) Albuterol/Ipratropium 3 ml 03/18/19 19:00 03/19/19 13:43 Duoneb NEB 3 ml [id number] DIPESH Administration Aspirin 81 mg 03/19/19 09:00 03/19/19 08:33 Ecotrin PO 81 mg DAILY DIPESH Administration Atorvastatin Calcium 40 mg 03/18/19 21:00 03/18/19 20:30 Lipitor PO 40 mg HS DIPESH Administration Benztropine Mesylate 1 mg 03/19/19 09:00 03/19/19 08:33 Cogentin PO 1 mg QAM DIPESH Administration Clopidogrel Bisulfate 75 mg 03/19/19 09:00 03/19/19 08:33 Plavix PO 75 mg DAILY DIPESH Administration Diazepam 10 mg 03/18/19 13:47 03/19/19 12:22 Valium PO 10 mg TIDPRN PRN Administration Anxiety/Agitation Sodium Chloride 1,000 mls @ 75 mls/hr 03/18/19 20:53 03/19/19 14:48 Normal Saline 0.9% IV Not Given .[id number] [facility] Ketorolac Tromethamine 30 mg 03/18/19 07:57 03/18/19 14:10 Toradol IVP 03/21/19 07:58 30 mg Q6H PRN Administration Moderate Pain (4-6) Methocarbamol 1,500 mg 03/18/19 13:51 03/19/19 12:17 Robaxin PO 1,500 mg Q6H PRN Administration Muscle Spasm Pantoprazole Sodium 40 mg 03/19/19 09:00 03/19/19 08:33 Protonix PO 40 mg DAILY DIPESH Administration Quetiapine Fumarate 25 mg 03/18/19 21:00 03/19/19 08:33 Seroquel PO 25 mg BID DIPESH Administration Trazodone HCl 150 mg 03/18/19 21:00 03/18/19 20:30 Desyrel PO 150 mg HS DIPESH Administration Venlafaxine HCl 300 mg 03/19/19 09:00 03/19/19 08:33 Effexor Xr PO 300 mg DAILY DIPESH Administration Ziprasidone 20 mg 03/18/19 21:00 03/18/19 20:30 Geodon PO 20 mg HS DIPESH Administration - Exam General - other findings: Morbid obesity Eye: anicteric sclera ENT: moist mucosa Neck: supple, no lymphadenopathy Heart: RRR Respiratory: CTAB Gastrointestinal: soft, non-tender Extremities - other findings: s/p L shoulder surgery Psychiatric: normal affect, normal behavior Hosp A/P (1) CAD (coronary artery disease) Code(s): I25.10 - ATHSCL HEART DISEASE OF [place] CORONARY ARTERY W/O ANG PCTRS Status: Chronic Qualifiers: Coronary Disease-Associated Artery/Lesion type: [place] artery [place] vs. transplanted heart: [place] heart Associated angina: without angina Qualified Code(s): I25.10 - Atherosclerotic heart disease of [place] coronary artery without angina pectoris (2) COPD (chronic obstructive pulmonary disease) Status: Chronic Qualifiers: COPD type: unspecified COPD Qualified Code(s): J44.9 - Chronic obstructive pulmonary disease, unspecified (3) Hepatitis C Code(s): B19.20 - UNSPECIFIED VIRAL HEPATITIS C WITHOUT HEPATIC COMA Status: Chronic Qualifiers: Viral hepatitis chronicity: chronic Hepatic coma status: without hepatic coma Qualified Code(s): B18.2 - Chronic viral hepatitis C (4) Hypertension Code(s): I10 - ESSENTIAL (PRIMARY) HYPERTENSION Status: Chronic Qualifiers: Hypertension type: essential hypertension (5) Morbid obesity with BMI of 40.0-44.9, adult Code(s): E66.01 - MORBID (SEVERE) OBESITY DUE TO EXCESS CALORIES; Z68.41 - BODY MASS INDEX (BMI) 40.0-44.9, ADULT Status: Chronic - Plan PT/OT, out of bed/ambulate Pt was hypotensive earlier, now improved. CAD and COPD are stable. Ambulate pt. Pain management and DVT prophylaxis per orthopedic surgery.
[2019-03-19] MEDS: traZODone HCl 150 MG TAB PO SCH (20:15)
[2019-03-19] MEDS: Atorvastatin Calcium 40 MG TAB PO SCH (20:15)
[2019-03-19] MEDS: Ziprasidone 20 MG CAP PO SCH (20:15)
--- NOTE | 2019-03-19 22:51 | PDOC.EVN ---
Event Note - Event Note Event Note: Per the nurse caring for patient, he was found on the floor on one knee after bed alarm was triggered, denied pain or injury. Was placed back in bed and promptly fell asleep. Nurse reports he does not follow their instruction to stay in bed or to call for assistance. Has a bed alarm in place.
[2019-03-20] MEDS: HYDROcodone/Acetaminophen 10/325 mg Tablet PO PRN (03:09)
[2019-03-20 04:37] VITALS: TEMP 98
[2019-03-20 08:18] VITALS: BP 108/62
[2019-03-20] MEDS: Aspirin 81 mg Enteric Coated Tablet PO SCH (09:25)
[2019-03-20] MEDS: Venlafaxine HCl XR 150 MG CAP PO SCH (09:25)
[2019-03-20] MEDS: Clopidogrel Bisulfate 75 MG TAB PO SCH (09:25)
[2019-03-20] MEDS: Benztropine 1 MG TAB PO SCH (09:25)
--- NOTE | 2019-03-21 16:20 | EKG ---
Test Reason : STAT Blood Pressure : / mmHG Vent. Rate : 106 BPM Atrial Rate : 106 BPM P-R Int : 128 ms QRS Dur : 088 ms QT Int : 348 ms P-R-T Axes : 047 -13 035 degrees QTc Int : 462 ms Sinus tachycardia with occasional Premature ventricular complexes Inferior infarct , age undetermined Abnormal ECG No previous ECGs available Confirmed by DR. Missy LOPEZ ([id number]) on 03/21/2019 4:20:06 PM Referred By: GHISLAINE PRECIADO Confirmed By:DR. Missy LOPEZ
== END 2019-03-20 10:47 | disposition home or self-care (01) | DRG 483 ==
LOC: SURG A 03-18 05:46
PROVIDERS: ADMIT Orthopaedic Surgery; ATTEND Orthopaedic Surgery
PROC: 0RRK00Z Replacement of Left Shoulder Joint with Reverse Ball and Socket Synthetic Substitute, Open Approach (ICD-10-PCS; principal; 2019-03-18)
PROC: 0LS40ZZ Reposition Left Upper Arm Tendon, Open Approach (ICD-10-PCS; 2019-03-18)
DX: M75.102 Unspecified rotator cuff tear or rupture of left shoulder, not specified as traumatic (principal); I13.0 Hypertensive heart and chronic kidney disease with heart failure and stage 1 through stage 4 chronic kidney disease, or unspecified chronic kidney disease; Z68.41 Body mass index [BMI] 40.0-44.9, adult; I50.32 Chronic diastolic (congestive) heart failure; F32.9 Major depressive disorder, single episode, unspecified; B19.20 Unspecified viral hepatitis C without hepatic coma; E66.01 Morbid (severe) obesity due to excess calories; I73.9 Peripheral vascular disease, unspecified; G47.33 Obstructive sleep apnea (adult) (pediatric); I25.10 Atherosclerotic heart disease of native coronary artery without angina pectoris; J44.9 Chronic obstructive pulmonary disease, unspecified; M75.22 Bicipital tendinitis, left shoulder; N18.2 Chronic kidney disease, stage 2 (mild); Z87.891 Personal history of nicotine dependence; Z98.1 Arthrodesis status; Z88.2 Allergy status to sulfonamides; Z88.8 Allergy status to other drugs, medicaments and biological substances
CPT/HCPCS: 36415; 71045; 71046; 80048; 80053; 83735; 83880; 85025; 85610; 93005; 93010; 94640; 94660; A4306; C1713; J0670; J0690; J1885; J2001; J2250; J2405; J2704; J2795; J3010; J3370; J3490; J7050; J7620

== ENCOUNTER 2019-04-11 20:57 | Observation (INO) | payer MEDICARE, MEDICAID ==
[2019-04-11] MEDS ORDERED: Ketorolac Tromethamine 30 MG/ML VIAL ONE (23:01)
[2019-04-11] MEDS ORDERED: HYDROcodone/Acetaminophen 10/325 mg Tablet ONE (23:01)
--- NOTE | 2019-04-11 23:16 | RAD ---
Left shoulder 2 views HISTORY: Left shoulder pain. FINDINGS: Scapular Y view best demonstrates anterior displacement of the humeral head component of th e reverse prosthesis in relation to the glenoid. No perihardware lucency IMPRESSION: Anterior dislocation left shoulder prosthesis.
[2019-04-12 00:54] LABS: #Eosinphils 0.1 thou/uL (0.0-0.7); #Lymphocytes 1.6 thou/uL (1.20-3.40); #Monocytes 0.5 thou/uL (0.11-0.59); #Neutrophils 4.9 thou/uL (1.40-6.50); %Basophils 0.1 % (0.0-1.0); %Eosinophils 1.4 % (0.0-10.0); %Lymphocytes 22.6 % (21.0-51.0); %Monocytes 6.6 % (0.0-10.0); %Neutrophils 69.3 % (42.0-75.0); Hemoglobin 14.3 g/dL (14.0-18.0); Mean Corpuscular HGB CONC 33.9 g/dL (32.0-36.0); Mean Corpuscular Hemoglobin 31.9 pg (27.0-31.0); Mean Corpuscular Volume 94.3 fL (78.0-98.0); Platelet Count 237 thou/uL (130-400); RBC Distribution Width 13.3 % (11.5-14.5); Red Blood Cell (RBC) Count 4.46 mill/uL (4.70-6.10); White Blood Cell (WBC) Count 7.1 thou/uL (4.8-10.8)
[2019-04-12 01:00] LABS: PTT 33.4 SEC (22.9-36.1)
[2019-04-12 01:15] LABS: ALT (SGPT) 17 U/L (8-55); AST (SGOT) 23 U/L (5-34); Albumin 3.9 g/dL (3.5-5.0); Alkaline Phosphatase 125 U/L (40-110); Anion Gap 12 mmol/L (10-20); BUN (Urea Nitrogen) 13 mg/dL (8.4-25.7); Bilirubin, Total 0.5 mg/dL (0.2-1.2); Calc. Creatinine Clearance 0 mL/min (70-130); Calcium 9.1 mg/dL (7.8-10.44); Carbon Dioxide 26 mmol/L (22-29); Chloride 105 mmol/L (98-107); Estimated GFR-MDRD 74; Glucose 105 mg/dL (70-105); Potassium 4.4 mmol/L (3.5-5.1); Protein, Total 7.9 g/dL (6.0-8.3); Sodium 139 mmol/L (136-145)
[2019-04-12] MEDS ORDERED: HYDROcodone/Acetaminophen 10/325 mg Tablet PO SCH ×2 (02:45→09:30)
[2019-04-12] MEDS ORDERED: Fentanyl 100 MCG/2 ML VIAL ONE ×5 (02:51→12:40)
[2019-04-12] MEDS ORDERED: HYDROcodone/Acetaminophen 10/325 mg Tablet ONE ×3 (02:51→10:24)
[2019-04-12] MEDS: Fentanyl 100 MCG/2 ML VIAL SLOW IVP PRN ×2 (02:54→08:01)
[2019-04-12] MEDS ORDERED: CEFAZOLIN 2 GM in Premix Bag 1 BAG IVPB SCH (07:15)
--- NOTE | 2019-04-12 07:56 | HP ---
This is Suha Oviedo PA-C dictating a report for Tio Block MD. HISTORY OF PRESENT ILLNESS: This is a 58-year-old male, who presented to the emergency department last night after dislocating his left shoulder prosthesis. The patient recently underwent a left reverse total shoulder arthroplasty with Dr. Whitten on 03/18/2019. The patient is a poor historian, and has told ER staff that he was walking his dog when he is dislocated, however, the patient now states that he has been walking his dog daily and has walked his dog many times and has seen Dr. Whitten since walking his dog. He is unsure what event dislocated his shoulder. He does report putting dishes away in the cupboard last night with an overhead motion. This possibly could have done this. Currently at bedside, the patient is comfortable. He denies any numbness or tingling. He denies any falls or hitting his head. No loss of consciousness. He is right-hand dominant. PAST MEDICAL HISTORY: Significant for GERD, hepatitis C, congestive heart failure, pulmonary disease, COPD with emphysema, degenerative disk disease, kidney disease, and anxiety and depression. PAST SURGICAL HISTORY: Significant for cholecystectomy; spinal surgery including cervical, thoracic, and lumbar; history of cardiac stents in the right leg; and his recent left reverse total shoulder arthroplasty on 03/18/2019. SOCIAL HISTORY: The patient denies any alcohol or drug use. He does smoke cigarettes daily, approximately 2 packs per day. He lives with his at home. FAMILY HISTORY: Reviewed and noncontributory. REVIEW OF SYSTEMS: Ten-point review of systems conducted and otherwise negative except for stated above. PHYSICAL EXAMINATION: VITAL SIGNS: Show blood pressure 145/80, pulse of 68, respiratory rate of 18, temperature of 98.8, and O2 saturation 94% on room air. GENERAL: The patient is awake and alert. He is difficult to understand, but he is pleasant and cooperative. He is in no apparent distress. HEENT: Head is normocephalic and atraumatic. NECK: Supple. Trachea midline. LUNGS: Breathing is nonlabored. EXTREMITIES: All 4 extremities were evaluated. The left upper extremity has a palpable anterior fullness. His surgical wound is well healed. No surrounding erythema. No dehiscence of the wound. The patient is able to actively flex and extend at the elbow as well as the wrist. Distal neurovascular status intact. He is able to make a composite fist. Other 3 extremities were all evaluated and no deformities are noted. NEUROLOGIC: Cranial nerves II through XII are grossly intact. RADIOGRAPHIC IMAGING: Reviewed including views of the left shoulder show an anterior dislocation of a left shoulder prosthesis. No acute fractures are visualized. ASSESSMENT: Anterior dislocation of left total shoulder prosthesis. PLAN: At this time, we will plan to take the patient to the operating room for closed versus open reduction of this left shoulder prosthesis. He has been n.p.o. overnight. Risks, benefits, and alternatives were discussed today with the patient. He verbalizes understanding and is amenable to the plan of care. Postoperatively, we will see how he does in the operative suite and postoperatively the patient may discharge home. If any complications are incurred or the patient has an open procedure, we may keep him overnight. Job ID: [id number] MTDD
[2019-04-12 08:00] VITALS: BP 148/87; TEMP 97.7
[2019-04-12 08:08] VITALS: BMI 41.3
--- NOTE | 2019-04-12 08:29 | RAD ---
PORTABLE CHEST: Date: 04/21/19 PROVIDED CLINICAL HISTORY: Preop. FINDINGS: Comparison with 03/18/19. Cardiac and mediastinal silhouette is unchanged in appearance. No focal consolidation, pleural fluid, or pneumothorax apparent. Postoperative changes involving the thoracic spine, right chest, and left shoulder noted. Dislocation of the left shoulder arthroplasty is noted. IMPRESSION: No evidence for an acute cardiopulmonary process. POS: OFF
[2019-04-12] MEDS ORDERED: Rocuronium Bromide 10 MG/ML (10ML VIAL) ONE (10:44)
[2019-04-12] MEDS ORDERED: PROPOFOL 200 MG/20 ML VIAL ONE (10:44)
[2019-04-12] MEDS ORDERED: Lidocaine 1% PF 5 ML VIAL ONE (10:44)
[2019-04-12] MEDS ORDERED: SUGAMMADEX SODIUM 500 MG/5 ML VIAL ONE (10:58)
[2019-04-12] MEDS ORDERED: SUGAMMADEX SODIUM 200 MG/2 ML VIAL ONE (11:34)
[2019-04-12] MEDS ORDERED: HYDROcodone/Acetaminophen 10/325 mg Tablet PO PRN ×2 (11:51)
--- NOTE | 2019-04-12 13:02 | RAD ---
Left shoulder 2 views intraoperative fluoroscopy HISTORY: Dislocation. FINDINGS: Intraoperative fluoroscopy was provided for reduction of dislocation as performed by Dr. Suzanne castillo. Spot fluoroscopic image shows normal alignment of the reversed prosthesis. Fluoroscopy time 2 seconds.
[2019-04-12] MEDS ORDERED: traZODone HCl 150 MG TAB PO SCH (21:00)
[2019-04-12] MEDS ORDERED: Ziprasidone 20 MG CAP PO SCH (21:00)
--- NOTE | 2019-04-13 08:43 | OP ---
DATE OF PROCEDURE: 04/12/2019 PREOPERATIVE DIAGNOSIS: Dislocated left reverse total shoulder. POSTOPERATIVE DIAGNOSIS: Dislocated left reverse total shoulder. PROCEDURE PERFORMED: Left total shoulder closed reduction under general anesthesia. TALENT PARTNER: Demario Engel PA-C BLOOD LOSS: 0. DESCRIPTION OF PROCEDURE: The patient was taken to the operating room, where general anesthesia was induced. Using C-arm fluoroscopy, we were able to reduce the shoulder without much difficulty. He was placed in an abduction shoulder sling immobilizer. Job ID: [id number]
[2019-04-13] MEDS ORDERED: Clopidogrel Bisulfate 75 MG TAB PO SCH (09:00)
[2019-04-13] MEDS ORDERED: Amlodipine 5 MG TAB PO SCH (09:00)
[2019-04-13] MEDS ORDERED: Benztropine 1 MG TAB PO SCH (09:00)
[2019-04-13] MEDS ORDERED: Venlafaxine HCl XR 150 MG CAP PO SCH (09:00)
[2019-04-13] MEDS ORDERED: Aspirin 81 mg Enteric Coated Tablet PO SCH (09:00)
--- NOTE | 2019-04-13 12:16 | DIS ---
DATE OF ADMISSION: 04/11/2019 DATE OF DISCHARGE: 04/12/2019 This is Roberth Russell PA-C dictating a report for Tio Block MD. PREOPERATIVE DIAGNOSIS: Dislocation of left shoulder prosthesis. POSTOPERATIVE DIAGNOSIS: Dislocation of left shoulder prosthesis. PROCEDURE PERFORMED: The patient underwent a closed reduction under anesthesia. HOSPITAL STAY: Unremarkable. Once the patient was able to get up and move around and walk on his own and was stable on his feet, he was discharged to home. DISCHARGE CONDITION: Good/stable. DISPOSITION: Home with family. FOLLOWUP: Follow up would be in [address] Whitten. Call sooner if there are problems or concerns. Job ID: [id number]
[2019-04-13] MEDS ORDERED: Atorvastatin Calcium 40 MG TAB PO SCH (21:00)
== END 2019-04-12 15:00 | disposition home or self-care (01) ==
LOC: ERS 20:57 → ERHOLD 23:40
PROVIDERS: ADMIT Orthopaedic Surgery; ATTEND Orthopaedic Surgery
PROC: 0RSKXZZ Reposition Left Shoulder Joint, External Approach (ICD-10-PCS; principal; 2019-04-12)
DX: T84.028A Dislocation of other internal joint prosthesis, initial encounter (principal); K21.9 Gastro-esophageal reflux disease without esophagitis; J43.9 Emphysema, unspecified; F41.8 Other specified anxiety disorders; I50.9 Heart failure, unspecified; F17.210 Nicotine dependence, cigarettes, uncomplicated; Y83.1 Surgical operation with implant of artificial internal device as the cause of abnormal reaction of the patient, or of later complication, without mention of misadventure at the time of the procedure; Z86.19 Personal history of other infectious and parasitic diseases; Z88.5 Allergy status to narcotic agent; Z88.8 Allergy status to other drugs, medicaments and biological substances; Z96.612 Presence of left artificial shoulder joint
CPT/HCPCS: 71045; 76000; 80053; 85025; 85610; 85730; 93005; 96372; 96374; G0378; J1885; J2001; J2704; J3010; J7620

== ENCOUNTER 2019-04-29 05:27 | Inpatient (IN) | payer MEDICARE, MEDICAID ==
[2019-04-29] MEDS ORDERED: Tranexamic Acid 1,000 MG/10 ML VIAL ONE (05:56)
[2019-04-29] MEDS ORDERED: Sodium Chloride 0.9% 100 ML ONE (05:56)
[2019-04-29 06:51] LABS: #Eosinphils 0.1 thou/uL (0.0-0.7); #Lymphocytes 2.1 thou/uL (1.20-3.40); #Monocytes 0.5 thou/uL (0.11-0.59); #Neutrophils 4.4 thou/uL (1.40-6.50); %Basophils 0.6 % (0.0-1.0); %Lymphocytes 28.7 % (21.0-51.0); %Monocytes 7.4 % (0.0-10.0); %Neutrophils 61.3 % (42.0-75.0); Hemoglobin 14.7 g/dL (14.0-18.0); Mean Corpuscular HGB CONC 32.6 g/dL (32.0-36.0); Mean Corpuscular Hemoglobin 30.8 pg (27.0-31.0); Mean Corpuscular Volume 94.5 fL (78.0-98.0); Platelet Count 223 thou/uL (130-400); RBC Distribution Width 12.6 % (11.5-14.5); Red Blood Cell (RBC) Count 4.79 mill/uL (4.70-6.10); White Blood Cell (WBC) Count 7.2 thou/uL (4.8-10.8)
[2019-04-29] MEDS ORDERED: Midazolam HCl 2 mg/2 ml Vial ONE (06:51)
[2019-04-29] MEDS ORDERED: Fentanyl 100 MCG/2 ML VIAL ONE ×4 (06:51→10:40)
[2019-04-29 06:57] LABS: Prothrombin Time 13.1 SEC (12.0-14.7)
[2019-04-29 06:59] LABS: Anion Gap 12 mmol/L (10-20); BUN (Urea Nitrogen) 24 mg/dL (8.4-25.7); Calc. Creatinine Clearance 103 mL/min (70-130); Calcium 8.8 mg/dL (7.8-10.44); Carbon Dioxide 29 mmol/L (22-29); Chloride 104 mmol/L (98-107); Estimated GFR-MDRD 53; Glucose 102 mg/dL (70-105); Potassium 4.7 mmol/L (3.5-5.1); Sodium 140 mmol/L (136-145)
[2019-04-29] MEDS ORDERED: Albuterol Sulfate 2.5 mg/3 ml Neb ONE (07:14)
[2019-04-29] MEDS ORDERED: Fentanyl 100 MCG/2 ML VIAL IV PRN (08:27)
[2019-04-29] MEDS ORDERED: traMADol HCl 50 MG TAB PO PRN ×2 (08:27)
[2019-04-29] MEDS ORDERED: Zolpidem Tartrate 5 MG TAB PO PRN (08:27)
[2019-04-29] MEDS ORDERED: Ondansetron PF 4 MG/2 ML Vial IVP PRN (08:27)
[2019-04-29] MEDS ORDERED: Ropivacaine 0.2% 550 ML 550 ML NERVE BLCK SCH (08:27)
[2019-04-29] MEDS ORDERED: Promethazine HCl 25 MG/ML VIAL IM PRN ×2 (08:27→09:11)
[2019-04-29] MEDS ORDERED: Acetaminophen 325 MG TAB PO PRN (08:29)
[2019-04-29] MEDS ORDERED: Promethazine HCl 25 MG/ML VIAL SLOW IVP PRN (09:11)
[2019-04-29] MEDS ORDERED: Ondansetron HCl/PF 4 MG/2 ML Vial IVP PRN (09:11)
[2019-04-29] MEDS ORDERED: Meperidine HCl/PF 25 MG/ML VIAL ONE (10:08)
[2019-04-29] MEDS: Sodium Chloride 0.9% 1,000 ML IV SCH (11:20)
[2019-04-29] MEDS ORDERED: Milk Of Magnesia 30 ML UDCUP PO PRN (11:20)
[2019-04-29] MEDS ORDERED: Bisacodyl 10 MG SUPP PR PRN (11:20)
[2019-04-29] MEDS ORDERED: diphenhydrAMINE 50 MG CAP PO PRN (11:20)
[2019-04-29] MEDS ORDERED: Methocarbamol 500 MG TAB PO PRN (11:20)
[2019-04-29] MEDS ORDERED: Methocarbamol 1 GM/10 ML VIAL SLOW IVP PRN (11:20)
[2019-04-29 11:54] VITALS: BMI 40.3
[2019-04-29] MEDS: HYDROcodone/Acetaminophen 10/325 mg Tablet PO PRN ×3 (12:09→21:37)
[2019-04-29] MEDS ORDERED: Calcium Carbonate 500 MG ChewTAB PO PRN (13:21)
[2019-04-29] MEDS: CEFAZOLIN 2 GM in Premix Bag 1 BAG IVPB SCH ×2 (13:47→21:37)
--- NOTE | 2019-04-29 14:11 | OP ---
DATE OF PROCEDURE: 04/29/2019 PREOPERATIVE DIAGNOSIS: Left dislocation of a reverse shoulder arthroplasty acute. PROCEDURE PERFORMED: Left revision reverse total shoulder arthroplasty. ARTIFICIAL BREEDING TECHNICIAN: Demario Engel PA-C ANESTHESIOLOGIST: Javon Killian. ANESTHESIA: The patient received general intubation and interscalene block. ESTIMATED BLOOD LOSS: 400 mL. TOURNIQUET TIME: None. IMPLANTS: A Tornier 25 x 42 mm standard glenosphere, a Flex 6-A stem, high offset tray, and a 42 x 6 mm deep-dish poly. ANTIBIOTICS: Ancef 2 g, vancomycin 2 g, and TXA 1 g. COMPLICATIONS: None. HISTORY OF PRESENT ILLNESS: Mr. Mosher is a 58-year-old male, who back in March 15 had a reverse shoulder arthroplasty. The patient came in from unknown reason dislocate his left shoulder. The patient has a history of multiple medical problems. He then was reduced the second time, came back to see me in the clinic for his followup and was dislocated again. Given the patient's medical problems , I felt that he needed be revised to a larger glenosphere as well as increase the size of the stem to help to keep him reduced. I discussed the patient the risks and benefits of surgery include pain; scar; bleeding; infection; damage to vital structures; decreased range of motion and strength; need for further surgeries; failure of procedure; damage to nerves, arteries, tendons, or stretch injuries; and loss of life or limb. The patient and family understood the risks and benefits of the procedure and elected to proceed. DESCRIPTION OF PROCEDURE: Time-out was performed designating the patient's left upper extremity as the operative site based on site, consents, markings. After time-out, the patient's left upper extremity was prepped and draped in sterile fashion. I made an incision through his previous scar, extending a centimeter proximally and distally, came down, and created the skin flaps. We started to move laterally. Vessels and cautery that were removed back to our previous scar plane, came down on top of conjoined, developed plane superiorly over the conjoined, come down on the shoulder. The remnant of the subscapularis had been torn off, removed the sutures. The biceps was anchored. In the scar tissue, the shoulder had been reduced before we started our procedure and I have moved to an arc of motion, it was able to externally rotated to 30, elevated about 110, and internally rotated. I could actually not dislocate it easily. I could not actually actively dislocated to find the potential position of dislocation. We upon opening of the joint creating the gutters, I saw that he did have shock of the soft tissue, partially potentially stretching from the acute dislocation. Shuck was approximately 8 mm , so we were able to dislocate and remove and knocked out the patient's stem, which seems slightly loose. We moved to the glenosphere, placed our Bankart's. Removed the glenosphere, cleaned up with a prefer reamer and placed a 42 mm x 25 mm glenosphere. We then came back to the stem. We broached from a 4, which was the original stem up to a 6 trial. It was too tight, we broached back down, put a [address] we were able to reduce. I liked the overall stability of the implant. We then dislocated the shoulder, placed our final size 6-A stem. I placed a deep-dish poly, reduced in place. I had no shuck, no room, full range of motion, and more stability with arc of motion because of the large glenosphere, we washed. We closed the deltopectoral interval with a 0 StrataFix and 2-0 Vicryl, closed subcu with 2-0. We closed the skin with 2-0 nylons. The patient will be admitted for 24 hours for antibiotics, be in the sling and remain in that for about 4 weeks. We work on elbow and wrist motion. No other increase in function. We will follow the patient inhouse. Job ID: [id number] [facility]
[2019-04-29] MEDS ORDERED: Lidocaine 1% (PF) 30 ML VIAL ONE (14:19)
[2019-04-29] MEDS ORDERED: Rocuronium Bromide 10 MG/ML (10ML VIAL) ONE (14:19)
[2019-04-29] MEDS ORDERED: Glycopyrrolate 0.2 MG/ML 5 ML SYRINGE ONE (14:19)
[2019-04-29] MEDS ORDERED: Ropivacaine 0.2% HCl/PF (40 MG/20 ML VIAL) ONE (14:19)
[2019-04-29] MEDS ORDERED: PROPOFOL 200 MG/20 ML VIAL ONE (14:19)
[2019-04-29] MEDS ORDERED: Esmolol 100 MG/10 ML VIAL ONE (14:19)
[2019-04-29] MEDS ORDERED: PHENYLEPHRINE-NS 100 MCG/ML 10 ML SYRINGE ONE (14:19)
[2019-04-29] MEDS ORDERED: Ropivacaine 0.5% HCl/PF (150 MG/30 ML VIAL) ONE (14:19)
--- NOTE | 2019-04-29 16:11 | PDOC.HOSPP ---
- Subjective Encounter Date: 04/29/19 Encounter Time: 14:30 Subjective: Patient seen and examined for med mngt. Pain controlled. No CP/SOB or fever. No new complaints. - Objective Vital Signs & Weight: Vital Signs (12 hours) Temp Pulse Resp BP Pulse Ox 04/29/19 11:20 94 L 04/29/19 11:08 97.5 F L 86 20 121/77 94 L Weight Weight 281 lb Result Diagrams: 04/29/19 06:15 04/29/19 06:15 EKG Reviewed by me: Yes (SR) Hospitalist ROS - Review of Systems Cardiovascular: denies: chest pain, palpitations, orthopnea, paroxysmal noc. dyspnea, edema, light headedness, other Gastrointestinal: denies: nausea, vomiting, abdominal pain, diarrhea, constipation, melena, hematochezia, other Genitourinary: denies: dysuria, frequency, incontinence, hematuria, retention, other - Medication Medications: Active Medications Generic Name Dose Route Start Last Admin Trade Name Freq PRN Reason Stop Dose Admin Hydrocodone Bitart/Acetaminophen 2 tab 04/29/19 08:27 04/29/19 12:09 Lyons 10/325 PO 2 tab Q4H PRN Administration PAIN (4-6) Fentanyl 50 mcg 04/29/19 08:27 04/29/19 15:57 Sublimaze IV 50 mcg Q1H PRN Administration Breakthrough Pain Cefazolin Sodium/Dextrose 2 gm 50 mls @ 100 mls/hr 04/29/19 14:00 04/29/19 13 :47 / Device IVPB 04/29/19 22:29 50 mls Q8HR DIPESH Administration Sodium Chloride 1,000 mls @ 65 mls/hr 04/29/19 11:20 04/29/19 11:20 Normal Saline 0.9% IV 1,000 mls .[id number] DIPESH Administration Tramadol HCl 100 mg 04/29/19 08:27 04/29/19 14:14 Ultram PO 100 mg Q6H PRN Administration Moderate Pain 4-6 - Exam General Appearance: NAD Neck: supple, no JVD Heart: RRR, no gallops Respiratory: no wheezes, no rales, no ronchi Gastrointestinal: soft, non-tender, normal bowel sounds Extremities: no cyanosis, no edema Hosp A/P - Plan DVT proph w/SCDs HTN Morbid Obesity BMI 40.3 COPD EFRAIN on CKD 2 CHONG - not on CPAP Depression DJD Former smoker PLAN: Restart Amlodipine/Seroquel Restart Geodon/Trazodone in 1-2 days Hold Lisinopril due to mild EFRAIN Cont pulse Ox Add Nebs Sleep study as outpt ASA/Plavix per Ortho
[2019-04-29] MEDS ORDERED: hydrALAZINE 20 MG/ML VIAL SLOW IVP PRN (16:15)
[2019-04-29] MEDS: Senokot S 8.6-50 MG TAB PO SCH (20:00)
[2019-04-29] MEDS ORDERED: Atorvastatin Calcium 40 MG TAB PO SCH (21:00)
[2019-04-29] MEDS ORDERED: Famotidine 20 MG TAB PO SCH (21:00)
[2019-04-30] MEDS: HYDROcodone/Acetaminophen 10/325 mg Tablet PO PRN ×3 (01:24→09:20)
[2019-04-30 07:12] LABS: Anion Gap 13 mmol/L (10-20); BUN (Urea Nitrogen) 14 mg/dL (8.4-25.7); Calc. Creatinine Clearance 152 mL/min (70-130); Calcium 8.3 mg/dL (7.8-10.44); Carbon Dioxide 24 mmol/L (22-29); Chloride 104 mmol/L (98-107); Estimated GFR-MDRD 83; Glucose 102 mg/dL (70-105); Potassium 4.8 mmol/L (3.5-5.1); Sodium 136 mmol/L (136-145)
[2019-04-30 07:39] VITALS: BP 148/94; TEMP 97.8
[2019-04-30 07:41] LABS: Hemoglobin 13.4 g/dL (14.0-18.0); Mean Corpuscular HGB CONC 33.9 g/dL (32.0-36.0); Mean Corpuscular Hemoglobin 32.5 pg (27.0-31.0); Mean Corpuscular Volume 95.8 fL (78.0-98.0); Platelet Count 219 thou/uL (130-400); RBC Distribution Width 12.5 % (11.5-14.5); Red Blood Cell (RBC) Count 4.13 mill/uL (4.70-6.10); White Blood Cell (WBC) Count 11.2 thou/uL (4.8-10.8)
[2019-04-30] MEDS: Senokot S 8.6-50 MG TAB PO SCH (08:25)
[2019-04-30] MEDS: Sodium Chloride 0.9% 1,000 ML IV SCH (08:44)
[2019-04-30] MEDS ORDERED: Amlodipine 5 MG TAB PO SCH ×2 (09:00)
[2019-04-30] MEDS ORDERED: Benztropine 1 MG TAB PO SCH (09:00)
== END 2019-04-30 09:49 | disposition home or self-care (01) | DRG 483 ==
LOC: SDC 05:27 → SURG A 11:19
PROVIDERS: ADMIT Orthopaedic Surgery; ATTEND Orthopaedic Surgery
PROC: 0RRK00Z Replacement of Left Shoulder Joint with Reverse Ball and Socket Synthetic Substitute, Open Approach (ICD-10-PCS; principal; 2019-04-29)
DX: S43.005A Unspecified dislocation of left shoulder joint, initial encounter (principal); I50.32 Chronic diastolic (congestive) heart failure; I13.0 Hypertensive heart and chronic kidney disease with heart failure and stage 1 through stage 4 chronic kidney disease, or unspecified chronic kidney disease; Z68.41 Body mass index [BMI] 40.0-44.9, adult; N17.9 Acute kidney failure, unspecified; Z96.612 Presence of left artificial shoulder joint; E78.5 Hyperlipidemia, unspecified; I25.10 Atherosclerotic heart disease of native coronary artery without angina pectoris; I73.9 Peripheral vascular disease, unspecified; J43.9 Emphysema, unspecified; G47.33 Obstructive sleep apnea (adult) (pediatric); N18.2 Chronic kidney disease, stage 2 (mild); B18.2 Chronic viral hepatitis C; M19.90 Unspecified osteoarthritis, unspecified site; F41.9 Anxiety disorder, unspecified; F32.9 Major depressive disorder, single episode, unspecified; K59.00 Constipation, unspecified; E66.01 Morbid (severe) obesity due to excess calories; I25.2 Old myocardial infarction; Z87.891 Personal history of nicotine dependence; Z79.899 Other long term (current) drug therapy; Z79.82 Long term (current) use of aspirin; X58.XXXA Exposure to other specified factors, initial encounter
CPT/HCPCS: 36415; 80048; 85025; 85027; 85610; 86850; 86900; 86901; 94640; A4306; J0690; J2001; J2175; J2250; J2704; J2795; J3010; J3370; J3490; J7050; J7611; J7620

== ENCOUNTER 2020-05-14 19:11 | Emergency (ER) | payer MEDICARE, MEDICAID ==
[2020-05-14] MEDS ORDERED: Fentanyl 100 MCG/2 ML VIAL ONE ×2 (19:22→20:35)
--- NOTE | 2020-05-14 20:17 | CT ---
CT BRAIN NONCONTRAST: DATE: 05-14-2020 TIME: 7:33 P.M. HISTORY: 59-year-old male on anticoagular therapy, status post acute head trauma from fall. FINDINGS: There is no midline shift or any other mass effect. There is no evidence of acute intracranial hemor rhage, large cortical infarct, obstructive hydrocephalus, or extraaxial fluid collection. The calvar ium is intact. IMPRESSION: No acute intracranial findings. ambreen POS: JIN
--- NOTE | 2020-05-14 20:49 | RAD ---
LEFT ANKLE THREE VIEWS: History: Fell, complaining of left ankle pain. FINDINGS: There is a small avulsion fracture at the tip of the medial malleolus. There is associated soft tissu e swelling. No fibular fracture is appreciated. Occasionally a more proximal fibular fracture could b e present. If indicated, a left tib/fib film may be helpful in assessment. IMPRESSION: Small avulsion fracture at the tip of the medial malleolus. POS: TIMMY
--- NOTE | 2020-05-14 20:52 | RAD ---
LEFT TIB/FIB THREE VIEWS: History: Tib/fib pain status post fall. FINDINGS: An obliquely oriented more spiral type fracture of the proximal fibular shaft is present. No associat ed tibial fracture is seen. The tiny avulsive injury of the tip of the medial malleolus is not apprec iated on these tib/fib films but seen on the ankle view. IMPRESSION: Proximal fibular fracture. POS: TIMMY
--- NOTE | 2020-05-14 20:55 | RAD ---
RADIOGRAPH LEFT KNEE TWO VIEWS: DATE: 05-14-2020 HISTORY: 59-year-old male with acute traumatic injury and pain to left knee after fall. FINDINGS: There is an acute spiral fracture from the proximal metaphysis of the fibula to the proximal diaphysi s, with mild, approximately 10-20% bone width lateral and anterior displacement of the distal fragmen t. No fracture of the proximal tibia or distal femur identified. No joint effusion. No high grade DJD. IMPRESSION: Acute, traumatic, mildly displaced spiral fracture of the proximal fibular metadiaphysis. POS: JIN
== END 2020-05-14 20:54 | disposition home or self-care (01) ==
LOC: ERS 19:11
DX: S82.832A Other fracture of upper and lower end of left fibula, initial encounter for closed fracture (principal); S82.52XA Displaced fracture of medial malleolus of left tibia, initial encounter for closed fracture; I50.9 Heart failure, unspecified; J43.9 Emphysema, unspecified; I71.9 Aortic aneurysm of unspecified site, without rupture; F17.210 Nicotine dependence, cigarettes, uncomplicated; Z79.899 Other long term (current) drug therapy; W00.0XXA Fall on same level due to ice and snow, initial encounter
CPT/HCPCS: 70450; 96372; J3010

== ENCOUNTER 2020-11-04 20:15 | Inpatient (IN) | payer MEDICARE, MEDICAID ==
[~2020-11-04 20:15] MED LIST changes: -Gadobenate Dimeglumine 529 MG/1 ML (20ML VIAL) ONE; +Iopamidol-370 76% 500 ML 1 ML ONE
[2020-11-04 21:12] LABS: #Lymphocytes 1.6 thou/uL (1.20-3.40); #Monocytes 1.1 thou/uL (0.11-0.59); #Neutrophils 11.2 thou/uL (1.40-6.50); %Basophils 0.3 % (0.0-1.0); %Eosinophils 0.1 % (0.0-10.0); %Lymphocytes 11.7 % (21.0-51.0); %Monocytes 7.9 % (0.0-10.0); Hemoglobin 14.8 g/dL (14.0-18.0); Mean Corpuscular HGB CONC 35.3 g/dL (32.0-36.0); Mean Corpuscular Hemoglobin 33.9 pg (27.0-31.0); Mean Corpuscular Volume 96.2 fL (78.0-98.0); Platelet Count 165 thou/uL (130-400); RBC Distribution Width 12.6 % (11.5-14.5); Red Blood Cell (RBC) Count 4.35 mill/uL (4.70-6.10)
[2020-11-04] MEDS ORDERED: Morphine 4 MG/ML VIAL ONE (21:39)
[2020-11-04] MEDS ORDERED: Ondansetron PF 4 MG/2 ML Vial ONE (21:39)
[2020-11-04] MEDS ORDERED: Vancomycin 1 GM/200 ML BAG ONE ×2 (22:05→23:41)
[2020-11-04] MEDS ORDERED: Cefepime 2 GM VIAL ONE (22:05)
[2020-11-04 22:16] LABS: SARS-CoV-2 NAA Rapid Test Not Detected (NotDetected)
[2020-11-04 22:28] LABS: ALT (SGPT) 15 U/L (8-55); AST (SGOT) 19 U/L (5-34); Albumin 3.7 g/dL (3.4-4.8); Alkaline Phosphatase 86 U/L (40-110); Anion Gap 16 mmol/L (10-20); BUN (Urea Nitrogen) 22 mg/dL (8.4-25.7); Bilirubin, Total 0.5 mg/dL (0.2-1.2); Calc. Creatinine Clearance 0 mL/min (70-130); Calcium 8.4 mg/dL (7.8-10.44); Carbon Dioxide 23 mmol/L (23-31); Chloride 100 mmol/L (98-107); Globulin 3.7 g/dL (2.4-3.5); Glucose 113 mg/dL (80-115); Potassium 5.2 mmol/L (3.5-5.1); Protein, Total 7.4 g/dL (5.8-8.1); Sodium 134 mmol/L (136-145)
[2020-11-04 23:22] LABS: Bacteria/HPF Rare-Few HPF (None Seen); Bilirubin Negative (Negative); Blood, Urine Negative (Negative); Clarity Clear (Clear); Glucose, Urine (Dipstick) Normal (Negative); Ketone, Urine Negative (Negative); Leukocyte 75 Leu/uL (Negative); Nitrite Negative (Negative); Protein, Urine (Dipstick) Negative (Neg-Trace); RBC/HPF 0-3 HPF (0-3); Specific Gravity, Urine 1.015 (1.002-1.036); Urobilinogen Normal mg/dL (Less than 2)
[2020-11-04 23:55] LABS: Actual Bicarbonate (HCO3a) 25.1 mEq/L (22-28); Analyzer IN Cardio ER; Base Excess (BEa) -0.1 mEq/L (-2.0 to +3.0); CO2 Tension 42.8 mmHg (35.0-45.0); Carboxyhemoglobin (COHb) 2.7 gm% (0.0-3.0); Hemoglobin (Hb) 14.5 g/dL (14.0-18.0); O2 Tension (PaO2), arterial 64.9 mmHg (> 80.0); Potassium - ABG Lab 4.39 mmol/L (3.70-5.30); pH, Arterial 7.39 (7.35-7.45)
[2020-11-04 23:59] LABS: Puncture Site RRA
[2020-11-05] MEDS ORDERED: Acetaminophen 325 MG TAB PO PRN (00:19)
[2020-11-05] MEDS ORDERED: hydrALAZINE 20 MG/ML VIAL SLOW IVP PRN (00:23)
[2020-11-05] MEDS ORDERED: GUAIFENESIN SF SOLN 200 MG/10 ML UDCUP PO PRN (00:23)
[2020-11-05] MEDS ORDERED: Furosemide 100 MG/10 ML VIAL SLOW IVP SCH (00:45)
[2020-11-05 01:13] VITALS: BMI 44.9
[2020-11-05] MEDS: HYDROcodone/Acetaminophen 7.5/325 mg Tablet PO PRN ×2 (01:38→08:24)
[2020-11-05 03:03] LABS: Creatinine, Urine 34.19 mg/dL (63-166)
[2020-11-05 03:49] LABS: Albumin 3.6 g/dL (3.4-4.8); Anion Gap 15 mmol/L (10-20); BUN/Creatinine Ratio 15.17; Calcium 8.6 mg/dL (7.8-10.44); Carbon Dioxide 20 mmol/L (23-31); Chloride 102 mmol/L (98-107); Glucose 113 mg/dL (80-115); Phosphorus 3.2 mg/dL (2.3-4.7); Potassium 4.4 mmol/L (3.5-5.1); Sodium 133 mmol/L (136-145)
[2020-11-05 03:57] LABS: Calc. Creatinine Clearance 107 mL/min (70-130)
[2020-11-05 03:58] LABS: BUN (Urea Nitrogen) 21 mg/dL (8.4-25.7); Band 9 % (5-11); Hemoglobin 14.8 g/dL (14.0-18.0); Lymphocytes 15 % (21-51); MDiff Complete? YES; Mean Corpuscular HGB CONC 34.2 g/dL (32.0-36.0); Mean Corpuscular Hemoglobin 32.8 pg (27.0-31.0); Mean Corpuscular Volume 96.1 fL (78.0-98.0); Mean Platelet Volume 6.9 fL (7.4-10.4); Monocytes 3 % (0-10); Neutrophil 73 % (42-75); Platelet Count 165 thou/uL (130-400); RBC Distribution Width 12.7 % (11.5-14.5); Red Blood Cell (RBC) Count 4.51 mill/uL (4.70-6.10); White Blood Cell (WBC) Count 12.8 thou/uL (4.8-10.8)
[2020-11-05] MEDS ORDERED: Furosemide 40 MG/4 ML VIAL SLOW IVP SCH (06:00)
[2020-11-05] MEDS ORDERED: Atorvastatin Calcium 40 MG TAB PO SCH (09:00)
[2020-11-05] MEDS ORDERED: Aspirin 81 mg Enteric Coated Tablet PO SCH (09:00)
[2020-11-05] MEDS ORDERED: Enoxaparin Sodium 40 MG/0.4 ML SYRINGE SC SCH (09:00)
[2020-11-05] MEDS ORDERED: Clopidogrel Bisulfate 75 MG TAB PO SCH (09:00)
[2020-11-05] MEDS ORDERED: Cefepime 1 GM in Sodium Chloride 0.9% 100 ML IVPB SCH (09:00)
[2020-11-05] MEDS ORDERED: Nicotine 21 MG PATCH TD SCH (09:00)
[2020-11-05] MEDS ORDERED: Zinc Sulfate 220 MG CAP PO SCH (09:00)
[2020-11-05] MEDS ORDERED: Lisinopril 20 MG TAB PO SCH (09:00)
[2020-11-05] MEDS ORDERED: guaiFENesin ER 600 MG TAB PO SCH (09:00)
[2020-11-05 11:43] VITALS: TEMP 97.8
== END 2020-11-05 12:23 | disposition home or self-care (01) | DRG 871 ==
LOC: ERS 20:15 → IMCU/EMU 23:58
PROVIDERS: ADMIT Internal Medicine; ATTEND Internal Medicine
PROC: 5A09357 Assistance with Respiratory Ventilation, Less than 24 Consecutive Hours, Continuous Positive Airway Pressure (ICD-10-PCS; principal; 2020-11-04)
DX: A41.9 Sepsis, unspecified organism (principal); J96.01 Acute respiratory failure with hypoxia; J84.9 Interstitial pulmonary disease, unspecified; I50.32 Chronic diastolic (congestive) heart failure; Z68.41 Body mass index [BMI] 40.0-44.9, adult; Z20.822 Contact with and (suspected) exposure to COVID-19; I25.10 Atherosclerotic heart disease of native coronary artery without angina pectoris; J43.9 Emphysema, unspecified; F17.210 Nicotine dependence, cigarettes, uncomplicated; Z96.612 Presence of left artificial shoulder joint; I11.0 Hypertensive heart disease with heart failure; E66.01 Morbid (severe) obesity due to excess calories; Z88.5 Allergy status to narcotic agent; Z88.8 Allergy status to other drugs, medicaments and biological substances; Z90.49 Acquired absence of other specified parts of digestive tract; Z95.5 Presence of coronary angioplasty implant and graft; Z86.19 Personal history of other infectious and parasitic diseases; Z79.899 Other long term (current) drug therapy; Z79.82 Long term (current) use of aspirin; Z79.02 Long term (current) use of antithrombotics/antiplatelets; Z82.49 Family history of ischemic heart disease and other diseases of the circulatory system
CPT/HCPCS: 36415; 36600; 71045; 71275; 74177; 80053; 80069; 81003; 81015; 82570; 82805; 83605; 83880; 84300; 84443; 84484; 85007; 85025; 85027; 85379; 86140; 87040; 87086; 93005; 94640; 94660; 96365; 96366; 96375; J0692; J1650; J1940; J2270; J2405; J3370; J3490; J7620; Q9967; U0002; U0005

== ENCOUNTER 2020-11-29 19:00 | Outpatient (CLI) | payer MEDICARE, MEDICAID | END 2020-11-29 19:01 | disposition home or self-care (01) | LOC: SLEEPLAB 19:00 | PROVIDERS: ATTEND Internal Medicine | DX: G47.33 Obstructive sleep apnea (adult) (pediatric) (principal); F51.9 Sleep disorder not due to a substance or known physiological condition, unspecified; R06.89 Other abnormalities of breathing; R53.83 Other fatigue; I11.0 Hypertensive heart disease with heart failure; I50.9 Heart failure, unspecified; J44.9 Chronic obstructive pulmonary disease, unspecified; I25.10 Atherosclerotic heart disease of native coronary artery without angina pectoris; G47.00 Insomnia, unspecified; G47.10 Hypersomnia, unspecified; E66.9 Obesity, unspecified; Z68.41 Body mass index [BMI] 40.0-44.9, adult | CPT/HCPCS: 95811 ==

== ENCOUNTER 2020-12-21 11:05 | Emergency (ER) | payer MEDICARE, MEDICAID ==
[2020-12-21] MEDS ORDERED: Ketorolac Tromethamine 30 MG/ML VIAL ONE (15:06)
[2020-12-21] MEDS ORDERED: HYDROcodone/Acetaminophen 10/325 mg Tablet ONE (15:06)
== END 2020-12-21 15:39 | disposition home or self-care (01) ==
LOC: ERS 11:05
DX: S90.31XA Contusion of right foot, initial encounter (principal); S50.01XA Contusion of right elbow, initial encounter; W01.0XXA Fall on same level from slipping, tripping and stumbling without subsequent striking against object, initial encounter
CPT/HCPCS: 96372; J1885

== ENCOUNTER 2021-10-23 00:27 | Emergency (ER) | payer MEDICARE, OTHER ==
[2021-10-23] MEDS ORDERED: Ketorolac Tromethamine 30 MG/ML VIAL ONE (02:05)
[2021-10-23] MEDS ORDERED: Dexamethasone 10 MG/ML VIAL ONE (02:05)
== END 2021-10-23 02:55 | disposition home or self-care (01) ==
LOC: ERS 00:27
DX: M54.41 Lumbago with sciatica, right side (principal); I50.9 Heart failure, unspecified; J43.9 Emphysema, unspecified; F17.210 Nicotine dependence, cigarettes, uncomplicated; I71.9 Aortic aneurysm of unspecified site, without rupture; Z87.19 Personal history of other diseases of the digestive system; Z79.899 Other long term (current) drug therapy
CPT/HCPCS: 96372; 99283; J1100; J1885

== ENCOUNTER 2021-10-28 08:39 | Emergency (ER) | payer MEDICARE, OTHER ==
[2021-10-28] MEDS ORDERED: Ketorolac Tromethamine 30 MG/ML VIAL ONE (10:02)
== END 2021-10-28 11:27 | disposition left against medical advice (07) ==
LOC: ERS 08:39
DX: M25.551 Pain in right hip (principal); M25.561 Pain in right knee; R60.0 Localized edema; I50.9 Heart failure, unspecified; J43.9 Emphysema, unspecified; F17.210 Nicotine dependence, cigarettes, uncomplicated; I71.9 Aortic aneurysm of unspecified site, without rupture; Z87.19 Personal history of other diseases of the digestive system; Z79.899 Other long term (current) drug therapy
CPT/HCPCS: 72170; 96372; J1885

== ENCOUNTER 2021-11-30 10:53 | Outpatient (CLI) | payer OTHER | END 2021-11-30 10:54 | disposition home or self-care (01) | LOC: BICRAD 10:53 | PROVIDERS: ATTEND Family Medicine | DX: M54.50 Low back pain, unspecified (principal); M54.6 Pain in thoracic spine; M47.816 Spondylosis without myelopathy or radiculopathy, lumbar region; M41.9 Scoliosis, unspecified; M47.814 Spondylosis without myelopathy or radiculopathy, thoracic region; Z98.890 Other specified postprocedural states | CPT/HCPCS: 72072; 72100 ==

== ENCOUNTER 2022-01-13 15:09 | Inpatient (IN) | payer OTHER, MEDICAID ==
[2022-01-13 15:57] LABS: #Basophils 0.1 thou/uL (0.0-0.2); #Eosinphils 0.2 thou/uL (0.0-0.7); #Lymphocytes 2.1 thou/uL (1.20-3.40); #Monocytes 0.7 thou/uL (0.11-0.59); #Neutrophils 6.4 thou/uL (1.40-6.50); %Eosinophils 2.4 % (0.0-10.0); %Lymphocytes 22.1 % (21.0-51.0); %Neutrophils 67.5 % (42.0-75.0); Hemoglobin 18.3 g/dL (14.0-18.0); Mean Corpuscular HGB CONC 35.1 g/dL (32.0-36.0); Mean Corpuscular Hemoglobin 33.2 pg (27.0-31.0); Mean Corpuscular Volume 94.8 fL (78.0-98.0); Mean Platelet Volume 7.3 fL (7.4-10.4); Platelet Count 199 thou/uL (130-400); RBC Distribution Width 12.8 % (11.5-14.5); Red Blood Cell (RBC) Count 5.52 mill/uL (4.70-6.10); White Blood Cell (WBC) Count 9.5 thou/uL (4.8-10.8)
[2022-01-13 16:09] LABS: INR-International Normal Ratio 1.1; PTT 31.2 sec (22.9-36.1); Prothrombin Time 13.8 sec (12.0-14.7)
[2022-01-13 16:19] LABS: Acetaminophen Less than 10.0 mcg/mL (10.0-30.0); Alcohol Less than 10 mg/dL (Less than 10); Magnesium 2.1 mg/dL (1.6-2.6); Salicylate Less than 8.0 mg/dL (15.0-30.0)
[2022-01-13 16:21] LABS: ALT (SGPT) 70 U/L (8-55); AST (SGOT) 138 U/L (5-34); Alkaline Phosphatase 106 U/L (40-110); Anion Gap 14 mmol/L (10-20); BUN (Urea Nitrogen) 22 mg/dL (8.4-25.7); Bilirubin, Total 1.1 mg/dL (0.2-1.2); Calc. Creatinine Clearance 0 mL/min (70-130); Calcium 9.4 mg/dL (7.8-10.44); Carbon Dioxide 21 mmol/L (23-31); Chloride 104 mmol/L (98-107); Estimated GFR 53; Globulin 4.2 g/dL (2.4-3.5); Glucose 112 mg/dL (80-115); Lipase 17 U/L (8-78); Potassium 3.7 mmol/L (3.5-5.1); Protein, Total 8.2 g/dL (5.8-8.1); Sodium 135 mmol/L (136-145)
[2022-01-13 16:45] LABS: Bacteria/HPF 4+ HPF (None Seen); Bilirubin Negative (Negative); Blood, Urine 2+ (Negative); Glucose, Urine (Dipstick) Normal (Negative); Ketone, Urine Negative (Negative); Leukocyte 500 Leu/uL (Negative); Nitrite 1+ (Negative); Protein, Urine (Dipstick) 70 mg/dL (Neg-Trace); RBC/HPF 0-3 HPF (0-3); Specific Gravity, Urine 1.027 (1.002-1.036); WBC/HPF Greater than 50 HPF (0-3)
[2022-01-13] MEDS ORDERED: Cefepime 2 GM VIAL ONE (16:45)
[2022-01-13 16:46] LABS: Clarity Turbid (Clear)
[2022-01-13] MEDS ORDERED: Vancomycin 1 GM/200 ML BAG ONE (16:46)
[2022-01-13 16:52] LABS: Amphetamine Detected (NotDetected); Barbiturates Screen Not Detected (NotDetected); Benzodiazepine Screen Not Detected (NotDetected); Cocaine Metabolite Screen Not Detected (NotDetected); Methadone Not Detected (NotDetected); Methamphetamine Detected (NotDetected); Opiate Screen Not Detected (NotDetected); Oxycodone Screen Not Detected (NotDetected); Phencyclidine (PCP) Not Detected (NotDetected); THC/Cannabinoid Screen Detected (NotDetected); Tricyclic Screen Not Detected (NotDetected)
[2022-01-13] MEDS ORDERED: Acetaminophen 325 MG TAB PO PRN ×2 (17:38→18:30)
[2022-01-13] MEDS ORDERED: Ondansetron PF 4 MG/2 ML Vial IVP PRN (17:38)
[2022-01-13] MEDS ORDERED: Ibuprofen 600 MG TAB PO PRN (18:31)
[2022-01-13 20:13] VITALS: BMI 40.8
[2022-01-13] MEDS: Isosorbide Mononitrate 20 MG TAB PO SCH (21:46)
[2022-01-13] MEDS: traZODone HCl 150 MG TAB PO SCH (21:46)
[2022-01-13] MEDS: Venlafaxine 75 MG TAB PO SCH (21:47)
[2022-01-13] MEDS: Ziprasidone 20 MG CAP PO SCH (21:47)
[2022-01-13] MEDS: Nicotine 21 MG PATCH TD SCH (22:29)
[2022-01-14] MEDS: cefTRIAXone\\ROCEPHIN 2 GM in Sodium Chloride 0.9% 100 ML IVPB SCH (03:53)
[2022-01-14] MEDS ORDERED: Cefepime 2 GM in Sodium Chloride 0.9% 100 ML IVPB SCH (04:30)
[2022-01-14 05:11] LABS: #Eosinphils 0.2 thou/uL (0.0-0.7); #Lymphocytes 2.1 thou/uL (1.20-3.40); #Monocytes 0.8 thou/uL (0.11-0.59); #Neutrophils 5.2 thou/uL (1.40-6.50); %Basophils 0.3 % (0.0-1.0); %Lymphocytes 25.5 % (21.0-51.0); %Monocytes 9.3 % (0.0-10.0); %Neutrophils 61.9 % (42.0-75.0); Hemoglobin 15.1 g/dL (14.0-18.0); Mean Corpuscular HGB CONC 33.4 g/dL (32.0-36.0); Mean Corpuscular Hemoglobin 32.1 pg (27.0-31.0); Mean Platelet Volume 7.6 fL (7.4-10.4); Platelet Count 196 thou/uL (130-400); RBC Distribution Width 12.7 % (11.5-14.5); Red Blood Cell (RBC) Count 4.72 mill/uL (4.70-6.10); White Blood Cell (WBC) Count 8.3 thou/uL (4.8-10.8)
[2022-01-14 05:12] LABS: ALT (SGPT) 51 U/L (8-55); AST (SGOT) 78 U/L (5-34); Albumin 3.2 g/dL (3.4-4.8); Alkaline Phosphatase 91 U/L (40-110); Anion Gap 14 mmol/L (10-20); BUN (Urea Nitrogen) 21 mg/dL (8.4-25.7); Bilirubin, Total 0.8 mg/dL (0.2-1.2); Calc. Creatinine Clearance 109 mL/min (70-130); Calcium 8.6 mg/dL (7.8-10.44); Carbon Dioxide 22 mmol/L (23-31); Chloride 108 mmol/L (98-107); Estimated GFR 63; Globulin 3.4 g/dL (2.4-3.5); Glucose 106 mg/dL (80-115); Potassium 3.5 mmol/L (3.5-5.1); Protein, Total 6.6 g/dL (5.8-8.1); Sodium 140 mmol/L (136-145)
[2022-01-14] MEDS: Lidocaine 5% Patch TD SCH (08:18)
[2022-01-14] MEDS: Venlafaxine 75 MG TAB PO SCH ×3 (08:19→20:43)
[2022-01-14] MEDS: Clopidogrel Bisulfate 75 MG TAB PO SCH (08:19)
[2022-01-14] MEDS: Docusate 100 MG CAP PO SCH ×2 (08:19→20:43)
[2022-01-14] MEDS: Tamsulosin HCl 0.4 MG CAP PO SCH (08:19)
[2022-01-14] MEDS: Ezetimibe 10 MG TAB PO SCH (08:19)
[2022-01-14] MEDS: Atorvastatin Calcium 40 MG TAB PO SCH (08:19)
[2022-01-14] MEDS: Atenolol 25 MG TAB PO SCH (08:46)
[2022-01-14] MEDS: Lisinopril 10 MG TAB PO SCH (08:49)
[2022-01-14] MEDS: Isosorbide Mononitrate 20 MG TAB PO SCH ×2 (08:49→20:43)
[2022-01-14] MEDS: Budesonide 0.5 MG/2 ML NEB NEB SCH (18:24)
[2022-01-14] MEDS: traZODone HCl 150 MG TAB PO SCH (20:43)
[2022-01-14] MEDS: Ziprasidone 20 MG CAP PO SCH (20:44)
[2022-01-14] MEDS ORDERED: Transdermal Patch Removal TOP SCH (21:00)
[2022-01-14] MEDS: Nicotine 21 MG PATCH TD SCH (23:22)
[2022-01-15] MEDS: cefTRIAXone\\ROCEPHIN 2 GM in Sodium Chloride 0.9% 100 ML IVPB SCH (03:29)
[2022-01-15 04:47] LABS: #Eosinphils 0.2 thou/uL (0.0-0.7); #Lymphocytes 2.1 thou/uL (1.20-3.40); #Monocytes 0.6 thou/uL (0.11-0.59); #Neutrophils 4.9 thou/uL (1.40-6.50); %Basophils 0.3 % (0.0-1.0); %Eosinophils 3.1 % (0.0-10.0); %Lymphocytes 26.3 % (21.0-51.0); %Monocytes 8.2 % (0.0-10.0); Hemoglobin 14.7 g/dL (14.0-18.0); Mean Corpuscular HGB CONC 32.8 g/dL (32.0-36.0); Mean Corpuscular Hemoglobin 31.5 pg (27.0-31.0); Mean Platelet Volume 7.5 fL (7.4-10.4); Platelet Count 194 thou/uL (130-400); RBC Distribution Width 12.7 % (11.5-14.5); Red Blood Cell (RBC) Count 4.66 mill/uL (4.70-6.10); White Blood Cell (WBC) Count 7.8 thou/uL (4.8-10.8)
[2022-01-15 05:13] LABS: ALT (SGPT) 44 U/L (8-55); AST (SGOT) 46 U/L (5-34); Albumin 3.2 g/dL (3.4-4.8); Alkaline Phosphatase 86 U/L (40-110); Anion Gap 12 mmol/L (10-20); BUN (Urea Nitrogen) 17 mg/dL (8.4-25.7); Bilirubin, Total 0.5 mg/dL (0.2-1.2); Calc. Creatinine Clearance 124 mL/min (70-130); Calcium 8.4 mg/dL (7.8-10.44); Carbon Dioxide 24 mmol/L (23-31); Chloride 109 mmol/L (98-107); Estimated GFR 75; Globulin 3.4 g/dL (2.4-3.5); Glucose 95 mg/dL (80-115); Potassium 3.8 mmol/L (3.5-5.1); Protein, Total 6.6 g/dL (5.8-8.1); Sodium 141 mmol/L (136-145)
[2022-01-15] MEDS: Budesonide 0.5 MG/2 ML NEB NEB SCH (07:44)
[2022-01-15] MEDS: Lisinopril 10 MG TAB PO SCH (08:51)
[2022-01-15] MEDS: Clopidogrel Bisulfate 75 MG TAB PO SCH (08:51)
[2022-01-15] MEDS: Tamsulosin HCl 0.4 MG CAP PO SCH (08:51)
[2022-01-15] MEDS: Atenolol 25 MG TAB PO SCH (08:51)
[2022-01-15] MEDS: Docusate 100 MG CAP PO SCH (08:51)
[2022-01-15] MEDS: Atorvastatin Calcium 40 MG TAB PO SCH (08:51)
[2022-01-15] MEDS: Lidocaine 5% Patch TD SCH (08:52)
[2022-01-15] MEDS: Ezetimibe 10 MG TAB PO SCH (08:52)
[2022-01-15] MEDS: Isosorbide Mononitrate 20 MG TAB PO SCH (08:52)
[2022-01-15] MEDS: Venlafaxine 75 MG TAB PO SCH ×2 (08:52→15:13)
[2022-01-15] MEDS ORDERED: Acetaminophen 325 MG TAB PO PRN (09:15)
[2022-01-15] MEDS ORDERED: HYDROcodone/Acetaminophen 5/325 mg Tablet PO PRN (09:15)
[2022-01-15] MEDS ORDERED: HYDROcodone/Acetaminophen 10/325 mg Tablet PO PRN (09:16)
[2022-01-15 15:54] VITALS: TEMP 97.9
[2022-01-15 16:03] VITALS: BP 129/78
== END 2022-01-15 16:27 | disposition home health service (06) | DRG 193 ==
LOC: ERS 15:09 → 2NO 17:41
PROVIDERS: ADMIT Internal Medicine; ATTEND Internal Medicine
DX: J18.9 Pneumonia, unspecified organism (principal); G93.41 Metabolic encephalopathy; J96.01 Acute respiratory failure with hypoxia; N10 Acute pyelonephritis; I13.0 Hypertensive heart and chronic kidney disease with heart failure and stage 1 through stage 4 chronic kidney disease, or unspecified chronic kidney disease; Z16.35 Resistance to multiple antimicrobial drugs; Z68.41 Body mass index [BMI] 40.0-44.9, adult; Z20.822 Contact with and (suspected) exposure to COVID-19; K74.60 Unspecified cirrhosis of liver; I50.9 Heart failure, unspecified; Z96.612 Presence of left artificial shoulder joint; F32.A Depression, unspecified; F17.210 Nicotine dependence, cigarettes, uncomplicated; K21.9 Gastro-esophageal reflux disease without esophagitis; F10.10 Alcohol abuse, uncomplicated; J43.9 Emphysema, unspecified; I25.10 Atherosclerotic heart disease of native coronary artery without angina pectoris; F41.9 Anxiety disorder, unspecified; E78.5 Hyperlipidemia, unspecified; G89.29 Other chronic pain; E66.01 Morbid (severe) obesity due to excess calories; G47.33 Obstructive sleep apnea (adult) (pediatric); N18.31 Chronic kidney disease, stage 3a; G47.00 Insomnia, unspecified; B96.20 Unspecified Escherichia coli [E. coli] as the cause of diseases classified elsewhere; E11.22 Type 2 diabetes mellitus with diabetic chronic kidney disease; M54.50 Low back pain, unspecified; Z88.2 Allergy status to sulfonamides; Z88.5 Allergy status to narcotic agent; Z90.49 Acquired absence of other specified parts of digestive tract; Z95.5 Presence of coronary angioplasty implant and graft; Z79.899 Other long term (current) drug therapy; Z79.51 Long term (current) use of inhaled steroids; Z91.19 Patient's noncompliance with other medical treatment and regimen; Z79.84 Long term (current) use of oral hypoglycemic drugs
CPT/HCPCS: 36415; 36416; 70450; 71045; 76770; 80053; 80306; 80307; 81003; 81015; 82140; 83605; 83690; 83735; 83880; 84484; 85025; 85610; 85730; 87040; 87077; 87086; 87186; 93005; 94640; J0692; J0696; J3370; J3490; J7620; J7626; U0003; U0005

== ENCOUNTER 2022-02-27 08:38 | Outpatient (CLI) | payer OTHER | END 2022-02-27 08:39 | disposition home or self-care (01) | LOC: MRI 08:38 | PROVIDERS: ATTEND Nurse Practitioner Family | DX: Z12.2 Encounter for screening for malignant neoplasm of respiratory organs (principal); F17.219 Nicotine dependence, cigarettes, with unspecified nicotine-induced disorders; M48.062 Spinal stenosis, lumbar region with neurogenic claudication; M51.36 Other intervertebral disc degeneration, lumbar region; M51.37 Other intervertebral disc degeneration, lumbosacral region | CPT/HCPCS: 71271; 72148 ==

== ENCOUNTER 2022-04-25 11:57 | Observation (INO) | payer OTHER ==
[2022-04-25 12:18] LABS: #Eosinphils 0.1 thou/uL (0.0-0.7); #Lymphocytes 1.9 thou/uL (1.20-3.40); #Monocytes 0.6 thou/uL (0.11-0.59); #Neutrophils 5.5 thou/uL (1.40-6.50); %Basophils 0.5 % (0.0-1.0); %Eosinophils 1.7 % (0.0-10.0); %Lymphocytes 23.6 % (21.0-51.0); %Monocytes 6.8 % (0.0-10.0); %Neutrophils 67.4 % (42.0-75.0); Hemoglobin 16.4 g/dL (14.0-18.0); Mean Corpuscular HGB CONC 33.4 g/dL (32.0-36.0); Mean Corpuscular Hemoglobin 31.8 pg (27.0-31.0); Mean Corpuscular Volume 94.9 fl (78.0-98.0); Mean Platelet Volume 7.1 fL (7.4-10.4); Platelet Count 193 10x3/uL (130-400); RBC Distribution Width 12.5 % (11.5-14.5); Red Blood Cell (RBC) Count 5.17 mill/uL (4.70-6.10); White Blood Cell (WBC) Count 8.1 10x3/uL (4.8-10.8)
[2022-04-25 12:38] LABS: ALT (SGPT) 28 U/L (8-55); AST (SGOT) 28 U/L (5-34); Albumin 3.8 g/dL (3.4-4.8); Alkaline Phosphatase 100 U/L (40-110); Anion Gap 11 mmol/L (10-20); BUN (Urea Nitrogen) 15 mg/dL (8.4-25.7); Bilirubin, Total 0.4 mg/dL (0.2-1.2); Calc. Creatinine Clearance 0 mL/min (70-130); Carbon Dioxide 28 mmol/L (23-31); Chloride 104 mmol/L (98-107); Estimated GFR 62; Globulin 3.9 g/dL (2.4-3.5); Glucose 102 mg/dL (80-115); Potassium 4.2 mmol/L (3.5-5.1); Protein, Total 7.7 g/dL (5.8-8.1); Sodium 139 mmol/L (136-145)
[2022-04-25] MEDS ORDERED: Acetaminophen 500 MG TAB ONE (12:51)
[2022-04-25] MEDS ORDERED: Glycopyrrolate 0.2 MG/ML 5 ML SYRINGE SLOW IVP SCH (13:15)
[2022-04-25] MEDS ORDERED: Morphine 4 MG/ML VIAL ONE (13:36)
[2022-04-25] MEDS ORDERED: Aspirin 325 MG TAB ONE (15:01)
[2022-04-25] MEDS ORDERED: Ondansetron ODT 4 MG TAB PO PRN (16:19)
[2022-04-25] MEDS ORDERED: Senokot S 8.6-50 MG TAB PO PRN (16:19)
[2022-04-25] MEDS ORDERED: Acetaminophen 325 MG TAB PO PRN (16:19)
[2022-04-25 16:43] LABS: Troponin I Less than 0.010 ng/mL (< 0.028)
[2022-04-25] MEDS: metFORMIN 500 MG TAB PO SCH (16:43)
[2022-04-25 19:14] VITALS: BMI 39.8
[2022-04-25] MEDS: Famotidine 20 MG TAB PO SCH (19:25)
[2022-04-25 19:44] LABS: Troponin I Less than 0.010 ng/mL (< 0.028)
[2022-04-25] MEDS ORDERED: Ketorolac Tromethamine 30 MG/ML VIAL IVP SCH (20:00)
[2022-04-25] MEDS ORDERED: Nicotine 14 MG PATCH TD SCH (21:00)
[2022-04-25] MEDS: HYDROcodone/Acetaminophen 5/325 mg Tablet PO PRN (22:08)
[2022-04-26] MEDS: HYDROcodone/Acetaminophen 5/325 mg Tablet PO PRN ×2 (02:54→13:09)
[2022-04-26 04:55] LABS: #Eosinphils 0.2 thou/uL (0.0-0.7); #Lymphocytes 2.3 thou/uL (1.20-3.40); #Monocytes 0.5 thou/uL (0.11-0.59); #Neutrophils 4.2 thou/uL (1.40-6.50); %Basophils 0.4 % (0.0-1.0); %Eosinophils 2.3 % (0.0-10.0); %Lymphocytes 32.1 % (21.0-51.0); %Monocytes 6.7 % (0.0-10.0); %Neutrophils 58.5 % (42.0-75.0); Hemoglobin 16.2 g/dL (14.0-18.0); Mean Corpuscular HGB CONC 32.8 g/dL (32.0-36.0); Mean Corpuscular Hemoglobin 31.7 pg (27.0-31.0); Mean Corpuscular Volume 96.7 fl (78.0-98.0); Mean Platelet Volume 7.4 fL (7.4-10.4); Platelet Count 174 10x3/uL (130-400); RBC Distribution Width 12.6 % (11.5-14.5); Red Blood Cell (RBC) Count 5.09 mill/uL (4.70-6.10); White Blood Cell (WBC) Count 7.2 10x3/uL (4.8-10.8)
[2022-04-26 05:15] LABS: Anion Gap 13 mmol/L (10-20); BUN (Urea Nitrogen) 19 mg/dL (8.4-25.7); Calc. Creatinine Clearance 103 mL/min (70-130); Calcium 8.7 mg/dL (7.8-10.44); Carbon Dioxide 21 mmol/L (23-31); Chloride 107 mmol/L (98-107); Cholesterol 116 mg/dl (< 200 Desired); Estimated GFR 60; Glucose 88 mg/dL (80-115); HDL Cholesterol 23 mg/dL (>60 Neg Risk); LDL Cholesterol, Calculated 71 mg/dL; Potassium 4.2 mmol/L (3.5-5.1); Sodium 137 mmol/L (136-145); Triglycerides 110 mg/dL (Less than 150)
[2022-04-26] MEDS: Famotidine 20 MG TAB PO SCH (08:04)
[2022-04-26] MEDS ORDERED: Aspirin Chewable 81 MG TAB PO SCH (09:00)
[2022-04-26] MEDS ORDERED: Lisinopril 10 MG TAB PO SCH (09:00)
[2022-04-26] MEDS ORDERED: Tamsulosin HCl 0.4 MG CAP PO SCH (09:00)
[2022-04-26] MEDS ORDERED: Atorvastatin Calcium 40 MG TAB PO SCH (09:00)
[2022-04-26] MEDS ORDERED: Dextrose 50% Abboject 50 ML SYRINGE SLOW IVP PRN (10:13)
[2022-04-26] MEDS ORDERED: Dextrose 5% in Water 1,000 ML IV PRN (10:13)
[2022-04-26] MEDS ORDERED: traMADol HCl 50 MG TAB PO PRN (10:14)
[2022-04-26] MEDS ORDERED: Regadenoson 0.4 MG/5 ML SYRINGE ONE (12:08)
[2022-04-26 12:50] VITALS: BP 150/90; TEMP 97.6
[2022-04-26] MEDS: metFORMIN 500 MG TAB PO SCH (13:06)
== END 2022-04-26 14:16 | disposition home or self-care (01) ==
LOC: ERS 11:57 → INTOOBSV 14:32 → ERHOLD 14:32 → 2SW 18:28
PROVIDERS: ADMIT Student in an Organized Health Care Education/Training Program; ATTEND Nurse Practitioner Acute Care
DX: R07.82 Intercostal pain (principal); E11.9 Type 2 diabetes mellitus without complications; I11.0 Hypertensive heart disease with heart failure; I50.9 Heart failure, unspecified; I25.10 Atherosclerotic heart disease of native coronary artery without angina pectoris; E78.5 Hyperlipidemia, unspecified; G89.29 Other chronic pain; M54.9 Dorsalgia, unspecified; K21.9 Gastro-esophageal reflux disease without esophagitis; I71.40 Abdominal aortic aneurysm, without rupture, unspecified; J43.9 Emphysema, unspecified; F17.210 Nicotine dependence, cigarettes, uncomplicated; Z79.02 Long term (current) use of antithrombotics/antiplatelets; Z79.84 Long term (current) use of oral hypoglycemic drugs; Z79.899 Other long term (current) drug therapy; Z88.5 Allergy status to narcotic agent; Z88.8 Allergy status to other drugs, medicaments and biological substances; Z20.822 Contact with and (suspected) exposure to COVID-19
CPT/HCPCS: 71045; 74177; 78452; 80048; 80053; 80061; 82962; 83690; 83880; 84484 ×2; 85025 ×2; 93005; 93017; 94760 ×3; 96374; 96375; 99285; A9500; U0003; U0005; 36415; 36416; G0378; J1885; J2270; J2785; Q9967

== ENCOUNTER 2022-06-03 10:44 | Outpatient (CLI) | payer OTHER, MEDICAID ==
[2022-06-03 13:06] LABS: Hemoglobin 15.5 g/dL (13.5-17.5); Mean Corpuscular HGB CONC 34.1 g/dL (32.0-36.0); Mean Corpuscular Hemoglobin 31.4 pg (27.0-33.0); Mean Corpuscular Volume 92.1 fl (81.2-95.1); Platelet Count 167 10x3/uL (150-450); RBC Distribution Width 12.9 % (11.5-14.5); Red Blood Cell (RBC) Count 4.94 10x6/uL (4.32-5.72); White Blood Cell (WBC) Count 6.6 10x3/uL (3.5-10.5)
[2022-06-03 13:30] LABS: Anion Gap 15 mmol/L (10-20); BUN (Urea Nitrogen) 18 mg/dL (8.4-25.7); Calc. Creatinine Clearance 0 mL/min (70-130); Calcium 8.6 mg/dL (7.8-10.44); Carbon Dioxide 22 mmol/L (23-31); Chloride 108 mmol/L (98-107); Estimated GFR 62; Glucose 95 mg/dL (80-115); Potassium 4.7 mmol/L (3.5-5.1); Sodium 140 mmol/L (136-145)
== END 2022-06-03 10:45 | disposition home or self-care (01) ==
LOC: LABBT 10:44
PROVIDERS: ATTEND Neurological Surgery
DX: Z01.818 Encounter for other preprocedural examination (principal); M48.062 Spinal stenosis, lumbar region with neurogenic claudication
CPT/HCPCS: 80048; 85027; 93005; 93010

== ENCOUNTER 2022-06-10 06:41 | Observation (INO) | payer OTHER, MEDICAID ==
[2022-06-10] MEDS ORDERED: Ondansetron PF 4 MG/2 ML Vial IVP PRN (07:20)
[2022-06-10] MEDS ORDERED: Morphine 2 MG/ML VIAL SLOW IVP PRN (07:20)
[2022-06-10] MEDS ORDERED: traMADol HCl 50 MG TAB PO PRN (07:20)
[2022-06-10] MEDS ORDERED: Mag-Al 1200 mg/1200 mg/30 ML UDCUP PO PRN (07:20)
[2022-06-10] MEDS ORDERED: HYDROcodone/Acetaminophen 7.5/325 mg Tablet PO PRN (07:20)
[2022-06-10] MEDS ORDERED: Milk Of Magnesia 30 ML UDCUP PO PRN (07:20)
[2022-06-10] MEDS ORDERED: Promethazine 25 MG TAB PO PRN (07:20)
[2022-06-10] MEDS ORDERED: diphenhydrAMINE 25 MG CAP PO PRN (07:20)
[2022-06-10] MEDS ORDERED: traZODone HCl 50 MG TAB PO PRN (07:24)
[2022-06-10] MEDS ORDERED: Tamsulosin HCl 0.4 MG CAP PO SCH (07:45)
[2022-06-10] MEDS ORDERED: Ipratropium/Albuterol 3 ML NEB ONE (08:34)
[2022-06-10 09:03] LABS: SARS-CoV-2 NAA Rapid Test Not Detected (NotDetected)
[2022-06-10] MEDS ORDERED: Vancomycin 1 GM VIAL ONE (09:08)
[2022-06-10] MEDS ORDERED: CEFAZOLIN 2 GM VIAL ONE (09:09)
[2022-06-10] MEDS ORDERED: Sodium Chloride 0.9% 100 ML ONE (09:17)
[2022-06-10] MEDS ORDERED: fentaNYL PF 100 MCG/2 ML SYRINGE ONE (09:22)
[2022-06-10] MEDS ORDERED: NEOSTIGMINE 3 MG/3 ML SYR 3 MG/3 ML SYRINGE ONE (09:24)
[2022-06-10] MEDS ORDERED: Lidocaine 1% PF 5 ML VIAL ONE (09:24)
[2022-06-10] MEDS ORDERED: ePHEDrine 50 MG/ML VIAL ONE (09:24)
[2022-06-10] MEDS ORDERED: Glycopyrrolate 0.2 MG/ML 5 ML SYRINGE ONE (09:24)
[2022-06-10] MEDS ORDERED: Rocuronium Bromide 10 MG/ML (10ML VIAL) ONE (09:24)
[2022-06-10] MEDS ORDERED: PROPOFOL 200 MG/20 ML VIAL ONE (09:24)
[2022-06-10] MEDS ORDERED: Ondansetron PF 4 MG/2 ML Vial ONE (09:24)
[2022-06-10] MEDS ORDERED: Mineral Oil Sterile 10 ML VIAL ONE (10:14)
[2022-06-10] MEDS ORDERED: Meperidine HCl/PF 25 MG/ML VIAL ONE (11:19)
[2022-06-10] MEDS ORDERED: Fentanyl 100 MCG/2 ML VIAL ONE ×5 (11:19→18:14)
[2022-06-10 20:59] VITALS: BMI 41.6
[2022-06-10] MEDS ORDERED: Ziprasidone 20 MG CAP PO SCH (21:00)
[2022-06-10] MEDS ORDERED: HumaLOG 300 UNITS/3 ML VIAL SC PRN ×2 (21:23)
[2022-06-10] MEDS ORDERED: Dextrose 50% Abboject 50 ML SYRINGE SLOW IVP PRN (21:23)
[2022-06-10] MEDS ORDERED: Dextrose 5% in Water 1,000 ML IV PRN (21:23)
[2022-06-10 22:04] LABS: #Eosinphils 0.1 thou/uL (0.0-0.7); #Lymphocytes 1.9 thou/uL (1.20-3.40); #Monocytes 0.8 thou/uL (0.11-0.59); %Basophils 0.3 % (0.0-1.0); %Eosinophils 1.5 % (0.0-10.0); %Lymphocytes 24.5 % (21.0-51.0); %Monocytes 10.2 % (0.0-10.0); %Neutrophils 63.5 % (42.0-75.0); Hemoglobin 13.2 g/dL (14.0-18.0); Mean Corpuscular HGB CONC 32.6 g/dL (32.0-36.0); Mean Corpuscular Hemoglobin 31.3 pg (27.0-31.0); Mean Corpuscular Volume 95.7 fl (78.0-98.0); Mean Platelet Volume 7.3 fL (7.4-10.4); Platelet Count 172 10x3/uL (130-400); RBC Distribution Width 12.9 % (11.5-14.5); Red Blood Cell (RBC) Count 4.22 mill/uL (4.70-6.10); White Blood Cell (WBC) Count 7.9 10x3/uL (4.8-10.8)
[2022-06-10] MEDS: HYDROcodone/Acetaminophen 7.5/325 mg Tablet PO PRN (22:17)
[2022-06-10] MEDS: Venlafaxine 75 MG TAB PO SCH ×3 (22:18→22:20)
[2022-06-10] MEDS: CEFAZOLIN 2 GM in Sodium Chloride 0.9% 100 ML IVPB SCH ×2 (22:18)
[2022-06-10 22:26] LABS: Anion Gap 10 mmol/L (10-20); BUN (Urea Nitrogen) 14 mg/dL (8.4-25.7); Calc. Creatinine Clearance 132 mL/min (70-130); Calcium 8.2 mg/dL (7.8-10.44); Carbon Dioxide 27 mmol/L (23-31); Chloride 106 mmol/L (98-107); Estimated GFR 78; Glucose 87 mg/dL (80-115); Sodium 139 mmol/L (136-145)
[2022-06-10] MEDS: Lisinopril 10 MG TAB PO SCH (22:33)
[2022-06-10] MEDS: Isosorbide Mononitrate 20 MG TAB PO SCH ×2 (22:33→23:56)
[2022-06-10] MEDS: Atenolol 25 MG TAB PO SCH (22:33)
[2022-06-10] MEDS: Sodium Chloride 0.9% 1,000 ML IV SCH ×2 (22:34→22:42)
[2022-06-10] MEDS: metFORMIN 500 MG TAB PO SCH (22:34)
[2022-06-11] MEDS: Cyclobenzaprine 10 MG TAB PO PRN ×2 (00:19→11:02)
[2022-06-11] MEDS: CEFAZOLIN 2 GM in Sodium Chloride 0.9% 100 ML IVPB SCH (05:25)
[2022-06-11] MEDS ORDERED: Tamsulosin HCl 0.4 MG CAP PO SCH (06:00)
[2022-06-11] MEDS: metFORMIN 500 MG TAB PO SCH (08:27)
[2022-06-11] MEDS: Lisinopril 10 MG TAB PO SCH (08:28)
[2022-06-11] MEDS: HYDROcodone/Acetaminophen 7.5/325 mg Tablet PO PRN (08:30)
[2022-06-11] MEDS: Venlafaxine 75 MG TAB PO SCH (08:31)
[2022-06-11] MEDS: Atenolol 25 MG TAB PO SCH (08:32)
[2022-06-11 09:37] VITALS: BP 114/72; TEMP 97.5
[2022-06-11] MEDS: Sodium Chloride 0.9% 1,000 ML IV SCH (10:56)
[2022-06-11] MEDS ORDERED: Nicotine 21 MG PATCH TOP SCH (11:00)
[2022-06-12] MEDS ORDERED: Atorvastatin Calcium 40 MG TAB PO SCH (09:00)
== END 2022-06-11 12:00 | disposition home or self-care (01) ==
LOC: SDC 06:41 → SJJU 07:20
PROVIDERS: ADMIT Neurological Surgery; ATTEND Neurological Surgery
PROC: 01NB0ZZ Release Lumbar Nerve, Open Approach (ICD-10-PCS; principal; 2022-06-10)
PROC: 0SG0071 Fusion of Lumbar Vertebral Joint with Autologous Tissue Substitute, Posterior Approach, Posterior Column, Open Approach (ICD-10-PCS; 2022-06-10)
PROC: 0SG3071 Fusion of Lumbosacral Joint with Autologous Tissue Substitute, Posterior Approach, Posterior Column, Open Approach (ICD-10-PCS; 2022-06-10)
DX: M48.062 Spinal stenosis, lumbar region with neurogenic claudication (principal); M48.07 Spinal stenosis, lumbosacral region; I10 Essential (primary) hypertension; E78.5 Hyperlipidemia, unspecified; E11.9 Type 2 diabetes mellitus without complications; G89.29 Other chronic pain; M54.9 Dorsalgia, unspecified; I25.10 Atherosclerotic heart disease of native coronary artery without angina pectoris; K21.9 Gastro-esophageal reflux disease without esophagitis; J44.9 Chronic obstructive pulmonary disease, unspecified; J45.20 Mild intermittent asthma, uncomplicated; Z87.891 Personal history of nicotine dependence; Z79.84 Long term (current) use of oral hypoglycemic drugs; Z79.899 Other long term (current) drug therapy; Z88.5 Allergy status to narcotic agent; Z88.8 Allergy status to other drugs, medicaments and biological substances; Z98.1 Arthrodesis status; Z20.822 Contact with and (suspected) exposure to COVID-19
CPT/HCPCS: 20930; 20936; 22612; 22614; 22842; 63047; 80048; 82962 ×2; 85025; 97110; 97116; 97535; C1713 ×3; C1768; C1776; U0002; 36415; 36416; J2175; J2405; J2704; J3010; J3370; J3490; J7050; J7620

== ENCOUNTER 2022-06-24 07:24 | Outpatient (CLI) | payer OTHER | END 2022-06-24 07:25 | disposition home or self-care (01) | LOC: ULT 07:24 | PROVIDERS: ATTEND Physician Assistant Medical | DX: B18.2 Chronic viral hepatitis C (principal); M48.061 Spinal stenosis, lumbar region without neurogenic claudication; K59.00 Constipation, unspecified; K76.89 Other specified diseases of liver; Z86.010 Personal history of colon polyps | CPT/HCPCS: 76705 ==

== ENCOUNTER 2022-06-27 09:10 | Outpatient (CLI) | payer OTHER, MEDICAID | END 2022-06-27 09:11 | disposition home or self-care (01) | LOC: TBSIIMAG 09:10 | PROVIDERS: ATTEND Neurological Surgery | DX: M48.062 Spinal stenosis, lumbar region with neurogenic claudication (principal); M25.78 Osteophyte, vertebrae; M47.816 Spondylosis without myelopathy or radiculopathy, lumbar region; Z98.890 Other specified postprocedural states | CPT/HCPCS: 72100 ==

== ENCOUNTER 2022-08-19 10:42 | Outpatient (CLI) | payer OTHER | END 2022-08-19 10:43 | disposition home or self-care (01) | LOC: TBSIIMAG 10:42 | PROVIDERS: ATTEND Neurological Surgery | DX: M48.062 Spinal stenosis, lumbar region with neurogenic claudication (principal); M47.816 Spondylosis without myelopathy or radiculopathy, lumbar region | CPT/HCPCS: 72100 ==

== ENCOUNTER 2022-08-30 08:57 | Emergency (ER) | payer OTHER, MEDICAID ==
[2022-08-30 10:26] LABS: #Eosinphils 0.2 thou/uL (0.0-0.7); #Lymphocytes 1.3 thou/uL (1.20-3.40); #Monocytes 0.5 thou/uL (0.11-0.59); #Neutrophils 5.4 thou/uL (1.40-6.50); %Basophils 0.2 % (0.0-1.0); %Eosinophils 2.5 % (0.0-10.0); %Monocytes 6.2 % (0.0-10.0); %Neutrophils 73.1 % (42.0-75.0); Hemoglobin 15.2 g/dL (14.0-18.0); Mean Corpuscular HGB CONC 33.4 g/dL (32.0-36.0); Mean Corpuscular Hemoglobin 31.2 pg (27.0-31.0); Mean Corpuscular Volume 93.4 fl (78.0-98.0); Mean Platelet Volume 7.5 fL (7.4-10.4); Platelet Count 183 10x3/uL (130-400); RBC Distribution Width 13.2 % (11.5-14.5); Red Blood Cell (RBC) Count 4.87 mill/uL (4.70-6.10); White Blood Cell (WBC) Count 7.4 10x3/uL (4.8-10.8)
[2022-08-30 10:48] LABS: ALT (SGPT) 16 U/L (8-55); AST (SGOT) 18 U/L (5-34); Albumin 3.9 g/dL (3.4-4.8); Alkaline Phosphatase 128 U/L (40-110); Anion Gap 14 mmol/L (10-20); BUN (Urea Nitrogen) 32 mg/dL (8.4-25.7); Bilirubin, Total 0.5 mg/dL (0.2-1.2); Calc. Creatinine Clearance 0 mL/min (70-130); Calcium 8.9 mg/dL (7.8-10.44); Carbon Dioxide 22 mmol/L (23-31); Chloride 105 mmol/L (98-107); Estimated GFR 37; Glucose 87 mg/dL (80-115); Potassium 5.4 mmol/L (3.5-5.1); Protein, Total 7.9 g/dL (5.8-8.1); Sodium 136 mmol/L (136-145)
[2022-08-30 12:34] LABS: Lipase 12 U/L (8-78); Magnesium 2.1 mg/dL (1.6-2.6)
[2022-08-30 12:50] LABS: SARS-CoV-2 NAA Rapid Test Not Detected (NotDetected)
[2022-08-30] MEDS ORDERED: Aspirin Chewable 81 MG TAB ONE (13:00)
[2022-08-30] MEDS ORDERED: methylPREDNISolone Sod Succ/PF 125 MG/2 ML VIAL ONE (13:00)
[2022-08-30] MEDS ORDERED: Ipratropium/Albuterol 3 ML NEB ONE (13:06)
[2022-08-30] MEDS ORDERED: Morphine 4 MG/ML VIAL ONE (13:08)
[2022-08-30] MEDS ORDERED: D5 1/2 NS w/20 mEq KCL 0 ML ONE (14:30)
[2022-08-30] MEDS ORDERED: Furosemide 40 MG/4 ML VIAL ONE (14:30)
[2022-08-30] MEDS ORDERED: Insulin Regular 300 UNITS/3 ML VIAL ONE (14:30)
[2022-08-30] MEDS ORDERED: Nitroglycerin 2% Ointment 1 INCH/1 GM Packet ONE (14:30)
[2022-08-30] MEDS ORDERED: Dextrose 50% Abboject 50 ML SYRINGE ONE (14:31)
[2022-08-30 15:02] LABS: Bilirubin Negative (Negative); Blood, Urine Negative (Negative); Clarity Clear (Clear); Glucose, Urine (Dipstick) Normal (Negative); Ketone, Urine Negative (Negative); Leukocyte Negative Leu/uL (Negative); Nitrite Negative (Negative); Protein, Urine (Dipstick) Negative (Neg-Trace); Specific Gravity, Urine 1.015 (1.002-1.036); Urobilinogen Normal mg/dL (Less than 2)
[2022-08-30 16:08] LABS: Troponin I Less than 0.010 ng/mL (< 0.028)
== END 2022-08-30 16:00 | disposition short-term general hospital (02) ==
LOC: ERS 08:57
DX: I50.9 Heart failure, unspecified (principal); J44.1 Chronic obstructive pulmonary disease with (acute) exacerbation; I71.40 Abdominal aortic aneurysm, without rupture, unspecified; F17.210 Nicotine dependence, cigarettes, uncomplicated; Z20.822 Contact with and (suspected) exposure to COVID-19
CPT/HCPCS: 0240U; 71046; 74176; 80053; 81003; 82962; 83605; 83690; 83735; 83880; 84484 ×2; 85025; 93005; 96374; 96375; 99285; 36415; 36416; 80048; 82140; 82274; 93306; 94760; G0378; J1815; J1940; J2270; J2930; J3480; J7620; J7999

== ENCOUNTER 2022-11-04 09:04 | Outpatient (CLI) | payer OTHER, MEDICAID | END 2022-11-04 09:05 | disposition home or self-care (01) | LOC: RAD 09:04 | PROVIDERS: ATTEND Neurological Surgery | DX: M47.26 Other spondylosis with radiculopathy, lumbar region (principal); Z98.890 Other specified postprocedural states | CPT/HCPCS: 72100 ==

== ENCOUNTER 2022-12-29 09:42 | Emergency (ER) | payer OTHER ==
[2022-12-29] MEDS ORDERED: Iopamidol-370 76% 500 ML MDV (1 ML CHARGE) ONE (10:10)
[2022-12-29 10:33] LABS: #Eosinphils 0.1 thou/uL (0.0-0.7); #Monocytes 0.4 thou/uL (0.11-0.59); #Neutrophils 6.2 thou/uL (1.40-6.50); %Basophils 0.4 % (0.0-1.0); %Eosinophils 0.7 % (0.0-10.0); %Lymphocytes 11.5 % (21.0-51.0); %Monocytes 5.8 % (0.0-10.0); %Neutrophils 81.3 % (42.0-75.0); Hematocrit 42.3 % (42.0-52.0); Hemoglobin 14.1 g/dL (14.0-18.0); Mean Corpuscular HGB CONC 33.3 g/dL (32.0-36.0); Mean Corpuscular Hemoglobin 30.1 pg (27.0-31.0); Mean Corpuscular Volume 90.4 fl (78.0-98.0); Mean Platelet Volume 9.2 fL (7.4-10.4); Platelet Count 175 10x3/uL (130-400); RBC Distribution Width 13.9 % (11.5-14.5); Red Blood Cell (RBC) Count 4.68 mill/uL (4.70-6.10); White Blood Cell (WBC) Count 7.6 10x3/uL (4.8-10.8)
[2022-12-29 10:57] LABS: ALT (SGPT) 10 U/L (8-55); AST (SGOT) 14 U/L (5-34); Albumin 3.9 g/dL (3.4-4.8); Alkaline Phosphatase 102 U/L (40-110); Anion Gap 12 mmol/L (10-20); BUN (Urea Nitrogen) 14 mg/dL (8.4-25.7); Bilirubin, Total 0.4 mg/dL (0.2-1.2); Calc. Creatinine Clearance 0 mL/min (70-130); Calcium 9.1 mg/dL (7.8-10.44); Carbon Dioxide 26 mmol/L (23-31); Chloride 101 mmol/L (98-107); Estimated GFR 67; Globulin 3.7 g/dL (2.4-3.5); Glucose 108 mg/dL (80-115); Lipase 15 U/L (8-78); Potassium 4.4 mmol/L (3.5-5.1); Protein, Total 7.6 g/dL (5.8-8.1); Sodium 135 mmol/L (136-145)
[2022-12-29 11:01] LABS: Troponin I Less than 0.010 ng/mL (< 0.028)
[2022-12-29 11:06] LABS: PTT 34.4 sec (22.9-36.1); Prothrombin Time 13.8 sec (12.0-14.7)
[2022-12-29 11:30] LABS: Acetaminophen Less than 10 mcg/mL (10.0-30.0); Alcohol Less than 10.0 mg/dL (Less than 10); Salicylate Less than 8.0 mg/dL (15.0-30.0)
[2022-12-29] MEDS ORDERED: Ondansetron PF 4 MG/2 ML Vial ONE (11:57)
[2022-12-29] MEDS ORDERED: Morphine 4 MG/ML VIAL ONE (11:57)
[2022-12-29 12:07] LABS: Bilirubin Negative (Negative); Blood, Urine Negative (Negative); CAUTI Indications for Culture Dysuria,urgency,freq; Clarity Clear (Clear); Glucose, Urine (Dipstick) Normal (Negative); Ketone, Urine Negative (Negative); Leukocyte Negative Leu/uL (Negative); Nitrite Negative (Negative); Protein, Urine (Dipstick) Negative (Neg-Trace); RBC/HPF 0-3 HPF (0-3); Specific Gravity, Urine 1.008 (1.002-1.036); Squamous Epithelial 0-3 HPF (0-3); Urobilinogen Normal mg/dL (Less than 2); WBC/HPF 0-3 HPF (0-3); pH, Urine 6.5 (5.0-9.0)
[2022-12-29 12:09] LABS: Bacteria/HPF 1+ HPF (None Seen)
[2022-12-29 12:10] LABS: Urine Culture Reflex No No
[2022-12-29 12:14] LABS: Amphetamine Not Detected (NotDetected); Barbiturates Screen Not Detected (NotDetected); Benzodiazepine Screen Not Detected (NotDetected); Cocaine Metabolite Screen Not Detected (NotDetected); Methadone Not Detected (NotDetected); Methamphetamine Not Detected (NotDetected); Opiate Screen Not Detected (NotDetected); Oxycodone Screen Detected (NotDetected); Phencyclidine (PCP) Not Detected (NotDetected); THC/Cannabinoid Screen Not Detected (NotDetected); Tricyclic Screen Not Detected (NotDetected)
[2022-12-29 14:24] LABS: Troponin I 0.011 ng/mL (< 0.028)
== END 2022-12-29 15:12 | disposition home or self-care (01) ==
LOC: ERS 09:42
DX: R07.9 Chest pain, unspecified (principal); I50.9 Heart failure, unspecified; F17.210 Nicotine dependence, cigarettes, uncomplicated
CPT/HCPCS: 36415; 71045; 74177; 80053; 80306; 80307; 81001; 82140; 83690; 83880; 84484; 85025; 85610; 85730; 93005; 96374; 96375; J2270; J2405; Q9967

== ENCOUNTER 2022-12-30 09:55 | Emergency (ER) | payer OTHER | END 2022-12-30 12:12 | disposition home or self-care (01) | LOC: ERS 09:55 | DX: R25.1 Tremor, unspecified (principal); F11.20 Opioid dependence, uncomplicated; I11.0 Hypertensive heart disease with heart failure; I50.9 Heart failure, unspecified; E11.9 Type 2 diabetes mellitus without complications; F17.210 Nicotine dependence, cigarettes, uncomplicated | CPT/HCPCS: 70450 ==

== ENCOUNTER 2023-02-23 19:16 | Emergency (ER) | payer MEDICARE, MEDICAID | END 2023-02-23 22:20 | disposition left against medical advice (07) | LOC: ERS 19:16 | DX: Z53.21 Procedure and treatment not carried out due to patient leaving prior to being seen by health care provider (principal) ==

== ENCOUNTER 2023-04-14 05:32 | Day surgery (SDC) | payer MEDICARE, MEDICAID ==
[2023-04-11 11:20] VITALS: BMI 40.1
[2023-04-14] MEDS ORDERED: Ipratropium/Albuterol 3 ML NEB ONE (07:24)
[2023-04-14] MEDS ORDERED: Lidocaine 2% PF 5 ML VIAL ONE (07:32)
[2023-04-14] MEDS ORDERED: PROPOFOL 20 ML ONE ×3 (07:32→08:30)
[2023-04-14] MEDS ORDERED: Lidocaine 1% PF 5 ML VIAL ONE (07:44)
[2023-04-14] MEDS ORDERED: PROPOFOL 40 ML ONE (07:58)
== END 2023-04-14 09:45 | disposition home or self-care (01) ==
LOC: SDC 05:32
PROVIDERS: ATTEND Internal Medicine
PROC: 0DBK8ZZ Excision of Ascending Colon, Via Natural or Artificial Opening Endoscopic (ICD-10-PCS; principal; 2023-04-14)
PROC: [UNRECOGNIZED PROCEDURE] (2023-04-14)
PROC: 0DBL8ZZ Excision of Transverse Colon, Via Natural or Artificial Opening Endoscopic (ICD-10-PCS; 2023-04-14)
PROC: 0DBN8ZZ Excision of Sigmoid Colon, Via Natural or Artificial Opening Endoscopic (ICD-10-PCS; 2023-04-14)
PROC: 0DBM8ZZ Excision of Descending Colon, Via Natural or Artificial Opening Endoscopic (ICD-10-PCS; 2023-04-14)
PROC: 0D5L8ZZ Destruction of Transverse Colon, Via Natural or Artificial Opening Endoscopic (ICD-10-PCS; 2023-04-14)
DX: Z12.11 Encounter for screening for malignant neoplasm of colon (principal); D12.0 Benign neoplasm of cecum; D12.3 Benign neoplasm of transverse colon; D12.4 Benign neoplasm of descending colon; D12.5 Benign neoplasm of sigmoid colon; K64.8 Other hemorrhoids; Z80.0 Family history of malignant neoplasm of digestive organs
CPT/HCPCS: 88305; J2001; J2704; J7620

== ENCOUNTER 2023-06-29 19:00 | Emergency (ER) | payer OTHER, MEDICAID, MEDICARE ==
[2023-06-29 19:26] LABS: #Eosinphils 0.2 thou/uL (0.0-0.7); #Monocytes 0.5 thou/uL (0.11-0.59); #Neutrophils 4.8 thou/uL (1.40-6.50); %Basophils 0.3 % (0.0-1.0); %Eosinophils 2.3 % (0.0-10.0); %Lymphocytes 22.7 % (21.0-51.0); %Monocytes 6.5 % (0.0-10.0); %Neutrophils 67.9 % (42.0-75.0); Hematocrit 44.1 % (42.0-52.0); Hemoglobin 14.3 g/dL (14.0-18.0); Mean Corpuscular HGB CONC 32.4 g/dL (32.0-36.0); Mean Corpuscular Hemoglobin 29.8 pg (27.0-31.0); Mean Corpuscular Volume 91.9 fl (78.0-98.0); Mean Platelet Volume 9.3 fL (7.4-10.4); Platelet Count 164 10x3/uL (130-400); RBC Distribution Width 14.1 % (11.5-14.5); White Blood Cell (WBC) Count 7.1 10x3/uL (4.8-10.8)
[2023-06-29 19:42] LABS: ALT (SGPT) 13 U/L (8-55); AST (SGOT) 16 U/L (5-34); Alkaline Phosphatase 125 U/L (40-110); Anion Gap 13 mmol/L (10-20); BUN (Urea Nitrogen) 19 mg/dL (8.4-25.7); Bilirubin, Total 0.3 mg/dL (0.2-1.2); Calc. Creatinine Clearance 0 mL/min (70-130); Calcium 9.1 mg/dL (7.8-10.44); Carbon Dioxide 28 mmol/L (23-31); Chloride 105 mmol/L (98-107); Estimated GFR 45; Globulin 4.1 g/dL (2.4-3.5); Glucose 91 mg/dL (80-115); Lipase 20 U/L (8-78); Potassium 4.6 mmol/L (3.5-5.1); Protein, Total 8.1 g/dL (5.8-8.1); Sodium 141 mmol/L (136-145)
[2023-06-29 19:46] LABS: Troponin I Less than 0.010 ng/mL (< 0.028)
[2023-06-29] MEDS ORDERED: Aspirin Chewable 81 MG TAB ONE (20:03)
[2023-06-29] MEDS ORDERED: methylPREDNISolone Sod Succ/PF 125 MG/2 ML VIAL ONE (20:03)
[2023-06-29] MEDS ORDERED: Ipratropium/Albuterol 3 ML NEB ONE (20:17)
== END 2023-06-29 22:02 | disposition left against medical advice (07) ==
LOC: ERS 19:00
DX: R07.9 Chest pain, unspecified (principal); R06.02 Shortness of breath; R05.9 Cough, unspecified; I13.0 Hypertensive heart and chronic kidney disease with heart failure and stage 1 through stage 4 chronic kidney disease, or unspecified chronic kidney disease; I50.9 Heart failure, unspecified; N18.30 Chronic kidney disease, stage 3 unspecified; E11.22 Type 2 diabetes mellitus with diabetic chronic kidney disease; J44.9 Chronic obstructive pulmonary disease, unspecified; F17.210 Nicotine dependence, cigarettes, uncomplicated
CPT/HCPCS: 36415; 71045; 80053; 83690; 83880; 84484; 85025; 93005; 96374; J2930; J7620

== ENCOUNTER 2023-10-20 09:59 | Outpatient (CLI) | payer MEDICARE, MEDICAID | END 2023-10-20 10:00 | disposition home or self-care (01) | LOC: MRI 09:59 | PROVIDERS: ATTEND Physical Medicine & Rehabilitation | DX: M47.26 Other spondylosis with radiculopathy, lumbar region (principal); M47.817 Spondylosis without myelopathy or radiculopathy, lumbosacral region; Z98.1 Arthrodesis status | CPT/HCPCS: 72148 ==

== ENCOUNTER 2024-04-28 14:51 | Emergency (ER) | payer MEDICARE, MEDICAID ==
[2024-04-28 15:37] LABS: #Basophils 0.03 10x3/uL (0.0-0.2); %Basophils 0.4 % (0.0-1.0); %Eosinophils 1.5 % (0.0-10.0); %Monocytes 7.3 % (0.0-10.0); %Neutrophils 78.5 % (42.0-75.0); Hematocrit 48.7 % (42.0-52.0); Hemoglobin 16.7 g/dL (14.0-18.0); Mean Corpuscular HGB CONC 34.3 g/dL (32.0-36.0); Mean Corpuscular Hemoglobin 30.6 pg (27.0-31.0); Mean Corpuscular Volume 89.2 fL (78.0-98.0); Mean Platelet Volume 8.9 fL (7.4-10.4); Platelet Count 164 10x3/uL (130-400); RBC Distribution Width 13.2 % (11.5-14.5); Red Blood Cell (RBC) Count 5.46 mill/uL (4.70-6.10)
[2024-04-28 15:58] LABS: ALT (SGPT) 11 U/L (8-55); AST (SGOT) 14 U/L (5-34); Albumin 3.4 g/dL (3.4-4.8); Alkaline Phosphatase 123 U/L (40-110); Anion Gap 14 mmol/L (10-20); BUN (Urea Nitrogen) 16 mg/dL (8.4-25.7); Bilirubin, Total 0.3 mg/dL (0.2-1.2); Calc. Creatinine Clearance 0 mL/min (70-130); Calcium 8.9 mg/dL (7.8-10.44); Carbon Dioxide 20 mmol/L (23-31); Chloride 107 mmol/L (98-107); Estimated GFR 53; Globulin 4.3 g/dL (2.4-3.5); Glucose 113 mg/dL (80-115); Potassium 4.4 mmol/L (3.5-5.1); Protein, Total 7.7 g/dL (5.8-8.1); Sodium 137 mmol/L (136-145)
[2024-04-28 16:00] LABS: Troponin I 0.011 ng/mL (< 0.028)
[2024-04-28] MEDS ORDERED: Ipratropium/Albuterol 3 ML NEB ONE (16:42)
[2024-04-28] MEDS ORDERED: methylPREDNISolone Sod Succ/PF 125 MG/2 ML VIAL ONE (16:47)
== END 2024-04-28 17:22 | disposition home or self-care (01) ==
LOC: ERS 14:51
DX: J44.9 Chronic obstructive pulmonary disease, unspecified (principal); I13.0 Hypertensive heart and chronic kidney disease with heart failure and stage 1 through stage 4 chronic kidney disease, or unspecified chronic kidney disease; N18.30 Chronic kidney disease, stage 3 unspecified; I50.9 Heart failure, unspecified; F17.290 Nicotine dependence, other tobacco product, uncomplicated
CPT/HCPCS: 71045; 80053; 83735; 83880; 84484; 85025; 93005; 94640; 94760; J2919; 36415; 96374; J7620

== ENCOUNTER 2024-07-01 06:01 | Day surgery (SDC) | payer OTHER, MEDICAID ==
[2024-06-29 14:55] VITALS: BMI 38.7
[2024-07-01] MEDS ORDERED: PROPOFOL 40 ML ONE (07:24)
[2024-07-01] MEDS ORDERED: Lidocaine 1% PF 5 ML VIAL ONE (07:25)
[2024-07-01] MEDS ORDERED: GLYCOPYRROLATE/PF 0.2 MG/ML VIAL ONE (07:26)
[2024-07-01] MEDS ORDERED: PHENYLEPHRINE-NS 100 MCG/ML 10 ML SYRINGE ONE (07:59)
== END 2024-07-01 09:15 | disposition home or self-care (01) ==
LOC: SDC 06:01
PROVIDERS: ATTEND Internal Medicine
PROC: 0DBK8ZZ Excision of Ascending Colon, Via Natural or Artificial Opening Endoscopic (ICD-10-PCS; principal; 2024-07-01)
PROC: 0DBN8ZZ Excision of Sigmoid Colon, Via Natural or Artificial Opening Endoscopic (ICD-10-PCS; 2024-07-01)
PROC: 0DBM8ZZ Excision of Descending Colon, Via Natural or Artificial Opening Endoscopic (ICD-10-PCS; 2024-07-01)
DX: Z12.11 Encounter for screening for malignant neoplasm of colon (principal); D12.2 Benign neoplasm of ascending colon; D12.4 Benign neoplasm of descending colon; D12.3 Benign neoplasm of transverse colon; K57.30 Diverticulosis of large intestine without perforation or abscess without bleeding; K64.4 Residual hemorrhoidal skin tags; K64.8 Other hemorrhoids; I13.0 Hypertensive heart and chronic kidney disease with heart failure and stage 1 through stage 4 chronic kidney disease, or unspecified chronic kidney disease; I50.9 Heart failure, unspecified; N18.9 Chronic kidney disease, unspecified; I25.10 Atherosclerotic heart disease of native coronary artery without angina pectoris; B19.20 Unspecified viral hepatitis C without hepatic coma; F41.9 Anxiety disorder, unspecified; F32.A Depression, unspecified; F17.200 Nicotine dependence, unspecified, uncomplicated; Z86.0101 Personal history of adenomatous and serrated colon polyps; Z90.49 Acquired absence of other specified parts of digestive tract; Z88.5 Allergy status to narcotic agent; Z88.8 Allergy status to other drugs, medicaments and biological substances; Z79.51 Long term (current) use of inhaled steroids; Z79.82 Long term (current) use of aspirin; Z79.02 Long term (current) use of antithrombotics/antiplatelets; Z79.85 Long-term (current) use of injectable non-insulin antidiabetic drugs; Z79.899 Other long term (current) drug therapy
CPT/HCPCS: 45385; J2704; J3490; 88305